=== PATIENT | female | born 1950 | race American Indian/Alaskan Native ===

== ENCOUNTER 2019-12-28 09:23 | Outpatient (CLI) | payer MEDICARE, SELFPAY ==
--- NOTE | ~2019-12-28 | XR_ITS ---
XR hip LT min 3V w AP pelvis DATE: 12/28/2019 10:54 INDICATION: Left hip pain TECHNIQUE: AP pelvis. AP, lateral, crosstable lateral views of left hip COMPARISON: 11/08/2017 bilateral hip FINDINGS: No pelvic fracture or bone destruction. The pubic symphysis and sacral iliac joints are int act. Hip joint spaces are symmetric and relatively well preserved. No fracture or dislocation, avascu lar necrosis or bone destruction of the left hip. IMPRESSION: No significant abnormality of the pelvis or left hip Reviewed, dictated and finalized at location A.
--- NOTE | ~2019-12-28 | MM_ITS ---
EXAMINATION: MM screening chelo BI w alanis HISTORY: Screening TECHNIQUE: Craniocaudal and mediolateral oblique 3-D tomosynthesis images were obtained and synthetic 2-D images were generated. CAD analysis was submitted and interpreted. COMPARISON: No prior mammogram is available for comparison at this institution. BREAST PARENCHYMAL COMPOSITION: There are scattered areas of fibroglandular density. FINDINGS: There is no evidence of suspicious mass, calcification, or architectural distortion to sugg est malignancy in either breast. There has been no suspicious interval change. IMPRESSION: 1. No mammographic evidence of malignancy. 2. Recommend routine screening mammography in one year. BI-RADS Category 1: Negative Reviewed, dictated and finalized at location A.
[2019-12-28 11:01] LABS: Alanine Aminotransferase 29 U/L (4-35); Albumin Level 3.9 g/dL (3.5-5.1); Alkaline Phosphatase 73 U/L (38-126); Anion Gap 7 mmol/L (8-16); Aspartate Amino Transferase 25 U/L (14-36); Bilirubin,Total 0.4 mg/dL (0.2-1.3); Blood Urea Nitrogen 17 mg/dL (7-17); Calcium 9.4 mg/dL (8.4-10.2); Carbon Dioxide 30 mmol/L (22-30); Chloride 101 mmol/L (98-107); Cholesterol 196 mg/dL (0-200); Estimated Glomerular Filt Rate > 60; Glucose 188 mg/dL (65-105); HDL Direct 42 mg/dL; Potassium 4.1 mmol/L (3.4-5.0); Sodium 138 mmol/L (137-145); Triglycerides 363 mg/dL (<150)
[2019-12-28 11:11] LABS: LDL Cholesterol Direct 81 mg/dL
[2019-12-28 11:22] LABS: Hemoglobin A1C 8.3 % (<5.7)
== END 2019-12-28 09:24 | disposition home or self-care (01) ==
PROVIDERS: PCP Emergency Medicine; Visit Provider Emergency Medicine
DX: Z12.31 Encounter for screening mammogram for malignant neoplasm of breast (principal); M25.552 Pain in left hip; E78.5 Hyperlipidemia, unspecified; E11.9 Type 2 diabetes mellitus without complications
CPT/HCPCS: 36415; 73502; 77063; 77067; 80053; 80061; 83036

== ENCOUNTER 2020-02-18 13:02 | Outpatient (NON) | payer MEDICARE, SELFPAY ==
[2020-02-20 13:30] LABS: SARS-CoV-2 RNA PCR Negative
== END 2020-02-18 13:03 ==
PROVIDERS: PCP Emergency Medicine; Visit Provider Emergency Medicine
DX: R68.89 Other general symptoms and signs (principal); Z20.828 Contact with and (suspected) exposure to other viral communicable diseases
CPT/HCPCS: 87635; C9803; U0003

== ENCOUNTER 2020-02-20 20:42 | Emergency (ER) | payer MEDICARE, SELFPAY ==
[2020-02-20] VITALS (28 sets, daily range): BP systolic 131–169; BP diastolic 53–90; PULSE 94–101; RESP 15–28; TEMP 37.1; O2SAT 90–95
--- NOTE | ~2020-02-20 | CT_ITS ---
EXAMINATION: CT lumbar spine w con DATE: 02/20/2020 23:40 INDICATION: Bilateral lower extremity numbness TECHNIQUE: Computed tomography (CT) of the lumbar spine was performed with 100 mL Omnipaque-350 intra venous contrast. Automated exposure control and iterative reconstruction technique were employed. The dose-length product was 1228.37 mGy-cm. COMPARISON: Lumbar spine MR dated 11/29/17 FINDINGS: Mild lumbar levocurvature. Sagittal alignment is normal. Vertebral body heights are normal. Mild loss of disc height at L3-L4. Cholecystectomy clips at the gallbladder fossa. There is calcified atherosc lerosis of the aorta and many of the other arteries. 40% stenosis at the proximal superior mesenteric artery. Moderate sigmoid diverticulosis without adjacent inflammatory change to suggest diverticulit is. The following disc levels are specifically discussed: T11-T12: Disc is mildly bulging. There is moderate bilateral facet joint osteoarthritis. There is no neural foraminal stenosis. There is minimal central canal stenosis. T12-L1: Disc is mildly bulging. There is mild bilateral facet joint osteoarthritis. There is no neura l foraminal stenosis. There is no central canal stenosis. L1-L2: The disc does not extend beyond the endplate margin. There is minimal bilateral facet joint os teoarthritis. There is no neural foraminal stenosis. There is no central canal stenosis. L2-L3: The disc does not extend beyond the endplate margin. There is mild right and minimal left face t joint osteoarthritis. There is no neural foraminal stenosis. There is no central canal stenosis. L3-L4: Disc is mildly bulging. There is mild bilateral facet joint osteoarthritis. There is mild left neural foraminal stenosis. There is minimal central canal stenosis. L4-L5: The disc does not extend beyond the endplate margin. There is hypertrophy of the ligamentum fl avum. There is moderate right and severe left facet joint osteoarthritis. There is some vacuum phenom tiki within a 6 x 4 x 7 mm synovial cyst extending medially from the left facet joint which narrows th e left lateral recess. There is mild right and mild to moderate left neural foraminal stenosis. There is mild central canal stenosis. L5-S1: Disc is mildly bulging. There is moderate left and severe right facet joint osteoarthritis. Th ere is mild left neural foraminal stenosis. There is no central canal stenosis. IMPRESSION: 1. Minimal interval progression of mild to moderate lumbar spondylosis most notable for a synovial cy st arising from the left L4-L5 facet joint which narrows the left lateral recess along the course of the traversing left L5 nerve root. Correlate clinically for muscle weakness of great toe extension an d sensory change of the medial foot and great toe. Reviewed, dictated and finalized at location A. INE STEWARDESS IMPRESSION: 1. Minimal interval progression of mild to moderate lumbar spondylosis most not able for a synovial cyst arising from the left L4-L5 facet joint which narrows the left lateral recess along the course of the traversing left L5 nerve root. Correlate clinically for muscle weakness of great toe extension and sensory nicole nge of the medial foot and great toe.
--- NOTE | ~2020-02-20 | XR_ITS ---
EXAMINATION: XR chest 1V portable EXAM DATE: 02/21/2020 01:00 INDICATION: Chest pain. TECHNIQUE: Portable AP frontal chest x-ray was obtained. Comparison is made to prior examination from 03/11/2017. FINDINGS: Interval development of approximately 3 x 4 cm right perihilar indeterminate opacity and le ft basilar linear atelectasis. There is no pneumothorax suspected. There are no pleural effusions. Ca rdiomediastinal silhouette is normal. There are no osseous abnormalities identified. IMPRESSION: Right perihilar mass or pneumonia. Followup chest x-ray in 3-4 weeks, and to resolution, should be obtained if patient has pneumonia clinically. If the patient does not have pneumonia clini lorna, then a chest CT should be considered for better characterization of possible chronic process. I discussed this case with Dr. Juárez at 02/21/2020 07:57 JEWEL CORNER BRUSHING MACHINE OPERATOR. Reviewed, dictated and finalized at location A. L CORNER BRUSHING MACHINE OPERATOR IMPRESSION: Right perihilar mass or pneumonia. Followup chest x-ray in 3-4 wee ks, and to resolution, should be obtained if patient has pneumonia clinically. If the patient does not have pneumonia clinically, then a chest CT should be co nsidered for better characterization of possible chronic process. I discussed this case with Dr. Juárez at 02/21/2020 07:57 JEWEL CORNER BRUSHING MACHINE OPERATOR.
--- NOTE | ~2020-02-20 | CT_ITS ---
EXAMINATION: CT brain wo con DATE: 02/20/2020 23:37 INDICATION: Bilateral lower extremity numbness TECHNIQUE: Computed tomography (CT) of the head was performed without intravenous contrast. Sagittal and coronal reconstructions were performed. The mA was adjusted according to patient size. Iterative reconstruction technique was employed. The dose-length product was 605.33 mGy-cm. COMPARISON: head CT dated 04/09/2018 FINDINGS: No acute intracranial hemorrhage, acute infarction or abnormal extra axial fluid collection. There is mild scattered white matter hypoattenuation consistent with chronic small vessel ischemic disease. V entricles are normal and symmetric. No mass/mass effect. Changes of bilateral intraocular lens replac ement. The orbits and mastoid air cells are normal. Mild mucosal thickening in the posterior left eth moid sinus. Intracranial calcified cerebral atherosclerosis is noted. IMPRESSION: 1. No acute intracranial process. 2. Mild scattered white matter hypoattenuation consistent with chronic small vessel ischemic disease. Reviewed, dictated and finalized at location A. TION DEVELOPER IMPRESSION: 1. No acute intracranial process. 2. Mild scattered white matter hypoattenuation consistent with chronic small ve ssel ischemic disease.
--- NOTE | 2020-02-20 21:40 | ED.NEUROSD ---
HPI - Neuro Symptoms/Deficit General Chief Complaint: Back Pain/Injury Stated Complaint: back pain Time Seen by Provider: 02/20/20 21:05 Source: patient Mode of arrival: ambulatory Limitations: no limitations History of Present Illness HPI Narrative: Patient 69-year-old female complaining of bilateral lower extremity weakness, I cannot use them , started today. Patient states she had does have a history of low back pain but currently not having any after taking her pain pill prior to arrival. Patient denies any abdominal pain, fever, urinary or bowel incontinence, or urinary symptoms. Related Data Home Medications Medication Instructions Recorded Confirmed blood sugar diagnostic #10 each 03/20/19 ibuprofen 200 mg tablet 200 mg PO Q6H PRN 03/20/19 Allergies Allergy/AdvReac Type Severity Reaction Status Date / Time codeine Allergy Unknown Rash Verified 02/20/20 20:54 morphine Allergy Unknown Rash Verified 02/20/20 20:54 No Known Allergies Allergy Unverified 10/30/17 10:38 Review of Systems Review of Systems: All systems reviewed & are unremarkable except as noted in HPI and below Constitutional: Constitutional: Denies body ache(s), Denies chills, Denies excessive sweating, Denies fatigue, Denies fever(s), Denies headache(s), Denies lethargy, Denies malaise, Denies weakness and Denies weight loss Eyes: Eyes: Denies blurry vision, Denies change in vision and Denies loss of vision ENT: Denies dizziness, Denies ear discharge, Denies headache(s), Denies lip swelling, Denies epistaxis, Denies nasal congestion, Denies neck pain, Denies throat swelling and Denies tongue swelling Cardiovascular: Cardiovascular: Denies chest pain, Denies chest pain at rest, Denies chest pain with activity, Denies diaphoresis, Denies rapid heart rate, Denies edema, Denies irregular heart rhythm, Denies lightheadedness, Denies palpitations, Denies dyspnea and Denies dyspnea on exertion Respiratory: Respiratory: Denies chest congestion, Denies cough, Denies hemoptysis, Denies dyspnea and Denies dyspnea on exertion Gastrointestinal: Gastrointestinal: Denies abdominal pain, Denies melena, Denies hematochezia, Denies diarrhea, Denies nausea, Denies vomiting and Denies hematemesis Musculoskeletal: Musculoskeletal: Denies abnormal gait, Denies deformity, Denies joint swelling, Denies limited range of motion, Denies neck pain and Denies numbness Neurologic: Denies Abnormal speech present, Denies confusion, Denies dizziness, Denies headache(s), Denies focal weakness, Denies loss of vision, Denies Other visual disturbances and Denies Sensory deficit (Neuro) Psychiatric: Psychiatric: Denies confusion, Denies depression, Denies auditory hallucinations, Denies homicidal ideation and Denies suicidal ideation Endocrine: Endocrine: Denies cold intolerance, Denies excessive sweating, Denies fatigue, Denies heat intolerance and Denies palpitations Hematologic/Lymphatic: Hematologic/Lymphatic: Denies easy bleeding and Denies easy bruising Allergic/Immunologic: Allergic/Immunologic: Denies lip swelling, Denies throat swelling and Denies tongue swelling PMFSH Past Medical History Medical History (Updated 02/21/20 @ 00:22 by Gian Erazo MD) COPD (chronic obstructive pulmonary disease) Diabetes mellitus Other screening mammogram Family History Family History Father Family history of Alzheimer's disease Malignant neoplasm of prostate, Onset Age: 74 Patient's father is Mother Family history of malignant neoplasm of cervix Family history of malignant neoplasm of ovary Sibling Family history of malignant neoplasm of ovary Social History Social History Smoking status: Current every day smoker Second hand tobacco smoke exposure: Yes Smoking end date: 03/21/11 Alcohol intake: never Gender identity (if verbalized by the patient):
[2020-02-20 22:21] LABS: Basophils Absolute Auto 0.1 K/mm3 (0.0-0.1); Basophils Percent Auto 0.3 % (0.2-1.2); Hematocrit 44.2 % (37.0-47.0); Hemoglobin 14.7 g/dL (12.0-15.0); Immature Granulocyte Absolute 0.14 K/mm3 (0.00-0.031); Immature Granulocyte Percent A 0.6 % (0-0.5); Lymphocytes Percent Auto 9.4 % (18.3-44.2); Mean Corpuscular HGB Conc 33.3 g/dl (32-36); Mean Corpuscular Hemoglobin 30.5 pg (26-34); Mean Corpuscular Volume 91.7 fl (80-100); Mean Platelet Volume 11.4 fl (7.4-10.4); Monocytes Absolute Auto 1.7 K/mm3 (0.1-0.6); Neutrophils Absolute Auto 20.3 K/mm3 (1.3-6.7); Neutrophils Percent Auto 82.7 % (45.5-73.1); Platelet Count Result 233 k/mm3 (150-375); Red Blood Count 4.82 M/mm3 (4.2-5.4); Red Cell Distribution Width 13.9 % (11.5-14.5); White Blood Count 24.5 K/mm3 (4.5-10.0)
[2020-02-20 22:36] LABS: Alanine Aminotransferase 33 U/L (4-35); Albumin Level 4.1 g/dL (3.5-5.1); Alkaline Phosphatase 97 U/L (38-126); Anion Gap 9 mmol/L (8-16); Aspartate Amino Transferase 26 U/L (14-36); Bilirubin,Total 0.8 mg/dL (0.2-1.3); Blood Urea Nitrogen 15 mg/dL (7-17); CRP 8.2 mg/dL (<1.0); Calcium 9.6 mg/dL (8.4-10.2); Carbon Dioxide 28 mmol/L (22-30); Chloride 97 mmol/L (98-107); Estimated CRCL calculation 67 ml/min; Estimated Glomerular Filt Rate > 60; Glucose 325 mg/dL (65-105); Sodium 134 mmol/L (137-145)
[2020-02-20 22:59] LABS: Erythrocyte Sedimentation Rate 22 mm/hr (0-20)
[2020-02-21] VITALS (20 sets, daily range): BP systolic 151–171; BP diastolic 58–81; PULSE 97–107; RESP 20–32; O2SAT 90–94
[2020-02-21 00:56] LABS: Add Urine Microscopic? YES; Appearance Urine Clear (Clear); Bilirubin Urine Negative (Negative); Blood Urine Negative (Negative); Color Urine Yellow (Yellow); Glucose Urine UA 3+ mg/dL (Negative); Ketones Urine Trace mg/dL (Negative); Leukocyte Esterase Ur Negative LEU/UL (Negative); Mucus Urine Rare /lpf; Nitrate Urine Negative (Negative); Protein Urine 3+ mg/dL (Negative); Specific Grav Ur 1.032 (1.001-1.035); Squamous Epithelial Cell Urine Rare /hpf (Few); Urobilinogen Urine Negative mg/dL (<2.0); WBC Urine 0-3 /hpf
[2020-02-21] MEDS: LACTATED RINGERS 1,000 ML 999 ML IV CONT (01:05)
== END 2020-02-21 03:21 | disposition short-term general hospital (02) ==
PROVIDERS: Emergency Provider Emergency Medicine; PCP Emergency Medicine
DX: R53.1 Weakness (principal); F17.210 Nicotine dependence, cigarettes, uncomplicated; J44.9 Chronic obstructive pulmonary disease, unspecified; E11.9 Type 2 diabetes mellitus without complications; R91.8 Other nonspecific abnormal finding of lung field
CPT/HCPCS: 36415; 70450; 71045; 72132; 80053; 81001; 85025; 85652; 86140; 96361; 96374; 99285; J2543; J7120; Q9967

== ENCOUNTER 2020-07-14 12:08 | Outpatient (CLI) | payer MEDICARE, SELFPAY ==
--- NOTE | ~2020-07-14 | XR_ITS ---
XR hip LT 2V w AP pelvis 07/14/2020 12:36 Indication: Low back pain and left hip pain Procedure: AP pelvis and 2 views left hip Comparison: 12/28/2019 Findings: Pelvic rings are intact. Sacral foramen are symmetric. No fracture or traumatic malalignmen t. Sacral foramen are symmetric. No significant soft tissue abnormality. No foreign bodies. There is lower lumbar spondylosis. Impression: 1: No acute fracture. Reviewed, dictated and finalized at location B. Impression: 1: No acute fracture.
--- NOTE | ~2020-07-14 | XR_ITS ---
EXAMINATION: XR lumbar spine 2-3V DATE: 07/14/2020 12:36 INDICATION: Low back pain TECHNIQUE: Anteroposterior and lateral views of the lumbar spine, and cone-down lateral view of the l umbosacral junction were obtained. COMPARISON: Lumbar spine CT dated 02/20/2020 FINDINGS: Mild lumbar levorotocurvature. Sagittal alignment is normal. Vertebral body heights are normal. Mild right-sided disc height loss at L3-L4 and L4-L5. Moderate to severe lower lumbar facet osteoarthritis . Mild bilateral sacroiliac osteoarthritis. Cholecystectomy clips in right upper quadrant. Atheroscle rotic aorta and common iliac arteries. IMPRESSION: 1. Mild lumbar levorotocurvature with mild lower lumbar spondylosis. Reviewed, dictated and finalized at location A.
== END 2020-07-14 12:09 | disposition home or self-care (01) ==
LOC: ANHIMG 12:15
PROVIDERS: PCP Emergency Medicine; Visit Provider Emergency Medicine
DX: M47.896 Other spondylosis, lumbar region (principal)
CPT/HCPCS: 72100; 73502

== ENCOUNTER 2020-07-22 13:35 | Outpatient (CLI) | payer MEDICARE, SELFPAY ==
--- NOTE | ~2020-07-22 | CT_ITS ---
EXAMINATION:CT diagnostic chest wo con DATE: 07/22/2020 13:57 INDICATION: Solitary pulmonary nodule. TECHNIQUE: Computed tomography (CT) of the chest was performed without intravenous contrast. Automate d exposure control and iterative reconstruction technique were employed. The dose-length product (DLP ) was 182.09 mGy-cm. COMPARISON: Chest CT 03/11/2017, chest single view 02/21/2020 FINDINGS: There is mild atelectasis bilaterally. Calcified pulmonary nodules and calcified hilar and mediastinal lymph nodes are consistent with old granulomatous disease. Again seen is mucous plugging in anteromedial basal segment left lower lobe. No pleural effusion. The heart size is normal. There a re coronary artery calcifications. No pericardial effusion. There is diffuse hepatic steatosis. There is mild thoracic spondylosis. IMPRESSION: 1. No evidence of malignancy. Reviewed, dictated and finalized at location A.
== END 2020-07-22 13:36 | disposition home or self-care (01) ==
PROVIDERS: PCP Emergency Medicine; Visit Provider Emergency Medicine
DX: R91.1 Solitary pulmonary nodule (principal)
CPT/HCPCS: 71250

== ENCOUNTER 2021-07-27 12:18 | Emergency (ER) | payer MEDICARE, SELFPAY ==
--- NOTE | ~2021-07-27 | XR_ITS ---
XR foot LT min 3V DATE: 07/27/2021 14:39 INDICATION: Great toe infection, blackening of the skin TECHNIQUE: 4 views COMPARISON: None FINDINGS: There is prominent forefoot soft tissue swelling. Plantar calcaneal and minimal posterior calcaneal enthesopathy. No fracture or dislocation, periosteal reaction or bone destruction is detected. No erosive change. IMPRESSION: Prominent forefoot soft tissue swelling Calcaneal enthesopathy Reviewed, dictated and finalized at location B.
--- NOTE | ~2021-07-27 | XR_ITS ---
EXAMINATION: XR chest 2V DATE: 07/27/2021 13:18 INDICATION: Weakness TECHNIQUE: AP and lateral views of the chest are obtained. COMPARISON: 02/21/2020 FINDINGS: There are minimal airspace opacities of the lung bases. Small pleural effusions are present . There is no pneumothorax. The cardiomediastinal silhouette is normal. There is moderate thoracic sp ondylosis. IMPRESSION: 1. Small pleural effusions. 2. Minimal bibasilar airspace opacities, likely atelectasis. Reviewed, dictated and finalized at location A.
[2021-07-27 12:49] VITALS: BP 164/98; PULSE 102; RESP 18; TEMP 36.7; O2SAT 97
--- NOTE | 2021-07-27 12:52 | ECG_ITS ---
Measurements Intervals [place] Rate: 102 P: 73 MA: 142 QRS: -30 QRSD: 90 T: 60 QT: 356 QTc: 466 Interpretive Statements SINUS TACHYCARDIA INCOMPLETE RIGHT BUNDLE BRANCH BLOCK POOR R WAVE PROGRESSION, ANTERIOR LEADS CONSIDER INFERIOR INFARCT, AGE INDETERMINATE BASELINE ARTIFACT- I, AVR, AVL, AVF, V2 ABNORMAL ECG Electronically Signed On 07-27-2021 13:27:52 CDT by Artur Devries D.O.
[2021-07-27 13:17] LABS: Basophils Absolute Auto 0.1 K/mm3 (0.0-0.1); Basophils Percent Auto 0.7 % (0.2-1.2); Eosinophils Absolute Auto 0.2 K/mm3 (0-0.3); Eosinophils Percent Auto 1.8 % (0-4.4); Hematocrit 41.6 % (37.0-47.0); Hemoglobin 13.8 g/dL (12.0-15.0); Immature Granulocyte Absolute 0.05 K/mm3 (0.00-0.031); Immature Granulocyte Percent A 0.5 % (0-0.5); Lymphocytes Absolute Auto 2.06 K/mm3 (0.9-3.2); Lymphocytes Percent Auto 20.5 % (18.3-44.2); Mean Corpuscular HGB Conc 33.2 g/dl (32-36); Mean Corpuscular Hemoglobin 30.5 pg (26-34); Mean Platelet Volume 10.9 fl (7.4-10.4); Monocytes Absolute Auto 0.5 K/mm3 (0.1-0.6); Monocytes Percent Auto 5.1 % (2.6-8.5); Neutrophils Absolute Auto 7.2 K/mm3 (1.3-6.7); Neutrophils Percent Auto 71.4 % (45.5-73.1); Platelet Count Result 284 k/mm3 (150-375); Red Blood Count 4.52 M/mm3 (4.2-5.4); Red Cell Distribution Width 14.7 % (11.5-14.5); White Blood Count 10.1 K/mm3 (4.5-10.0)
[2021-07-27 13:26] LABS: Alanine Aminotransferase 18 U/L (6-35); Albumin Level 3.4 g/dL (3.5-5.1); Alkaline Phosphatase 88 U/L (38-126); Anion Gap 5 mmol/L (8-16); Aspartate Amino Transferase 20 U/L (14-36); Bilirubin,Total 0.2 mg/dL (0.2-1.3); Blood Urea Nitrogen 10 mg/dL (7-17); Calcium 8.9 mg/dL (8.4-10.2); Carbon Dioxide 29 mmol/L (22-30); Chloride 99 mmol/L (98-107); Estimated CRCL calculation 78 ml/min; Estimated Glomerular Filt Rate > 60; Glucose 229 mg/dL (65-110); Potassium 3.5 mmol/L (3.4-5.0); Sodium 133 mmol/L (137-145)
[2021-07-27 13:34] LABS: NT Pro B Type Natriuretic Pept 220 pg/mL (5-100)
--- NOTE | 2021-07-27 15:15 | ED.GENADULT ---
HPI - General Adult General Chief complaint: Extremity Injury, Lower Stated complaint: swelling BLE/weakness Time Seen by Provider: 07/27/21 13:57 History of Present Illness HPI narrative: Patient has had infections in her toes for the last month, she saw her official court interpreter about a month ago, he gave her some medications and antibiotics and ointments that cleared up the infection, right now her left great toe was only 1 that still is painful for her, but overall she states that everything has been looking much better. Denies any systemic symptoms.. Also endorses some bilateral lower extremity edema. Related Data Allergies Allergy/AdvReac Type Severity Reaction Status Date / Time No Known Allergies Allergy Unverified 07/27/21 14:03 Review of Systems Review of Systems: All systems reviewed & are unremarkable except as noted in HPI and below PMFSH Past Medical History Medical History COPD (chronic obstructive pulmonary disease) Diabetes mellitus Other screening mammogram Family History Family History Father Family history of Alzheimer's disease Malignant neoplasm of prostate, Onset Age: 76 Patient's father is Mother Family history of malignant neoplasm of cervix Family history of malignant neoplasm of ovary Sibling Family history of malignant neoplasm of ovary Social History Social History Smoking status: Current every day smoker Second hand tobacco smoke exposure: Yes Smoking end date: 03/21/11 Alcohol intake: never Gender identity (if verbalized by the patient): Female Sexual Orientation (if Verbalized by the Patient): Straight or Heterosexual Exam Const: General: no acute distress Orientation/consciousness: patient oriented x3 HENMT: Head: normal to inspection Eyes: Conjunctivae: conjunctivae normal Neck: Neck: normal visual inspection Chest: Chest palpation & inspection: normal inspection of the chest Resp: Effort & Inspection: normal respiratory effort Cardio: Rate: regular rate Rhythm: regular rhythm GI: Inspection: non-distended Skin: Other: Dark skin to distal left great toe, sensation intact, slightly tender to palpation Neuro: General: moves all extremities Extrem: Other: described above Psych: Mental Status: mental status grossly normal Course Course Emergency Course: 70-year-old female presents with pain to her left great toe, she has had infections in her toes for the last month that has improved with treatment, vital signs stable, exam shows patient back and skin distal left great toe, otherwise neurovascularly intact, per patient it is looking much better than it used to, and she has no systemic symptoms. I will obtain labs and x-ray here, there is no finding of crepitus, exquisite tenderness to suggest surgical emergency, she has good sensation, and overall states that the appearance has been improved. X-ray does not show osteomyelitis. We will obtain blood cultures to follow and start her on antibiotics here and have her follow-up with her official court interpreter as she would like to go home at this time, she is counseled to return if she has any systemic symptoms or if the infections are spreading, stable for discharge home. Vital Signs Vital signs: Vital Signs Temperature 98.0 F 07/27/21 12:49 Pulse Rate 102 H 07/27/21 12:49 Respiratory Rate 18 07/27/21 12:49 Blood Pressure 164/98 H 07/27/21 12:49 Pulse Oximetry 97 07/27/21 12:49 Temperature 98.0 F 07/27/21 12:49 Pulse Rate 102 H 07/27/21 12:49 Respiratory Rate 18 07/27/21 12:49 Blood Pressure 164/98 H 07/27/21 12:49 Pulse Oximetry 97 07/27/21 12:49 Medical Decision Making Differential Diagnosis Differential Diagnosis: Osteomyelitis, necrotizing fasciitis, ischemic foot Vital Signs Vital Signs: Vital Signs Temperature 98.0 F
[2021-07-27] MEDS: FUROSEMIDE INJ 40 MG/4 ML VIAL IV PUSH (15:27)
[2021-07-27] MEDS: cefTRIAXone 2 GM in SODIUM CHLORIDE 0.9% IV 100 ML 200 ML IVPB (16:42)
[2021-07-27 16:43] VITALS: BP 161/71; PULSE 88; RESP 18; O2SAT 100
--- NOTE | 2021-08-13 11:01 | PC.NURSE ---
LATE ENTRY This note is being entered to document information to the patient's record. The following information was omitted on [07/27/21], by [Anahi Warren RN]. Stop time for Ceftriaxone was 1710pm
--- NOTE | 2021-08-13 12:17 | PC.NURSE ---
LATE ENTRY This note is being entered to document information to the patient's record. The following information was omitted on [07/27/2021], by [Anahi Warren RN]. Ceftriaxone stop time is 1710
== END 2021-07-27 17:14 | disposition home or self-care (01) ==
PROVIDERS: Emergency Medicine; Emergency Provider Emergency Medicine; PCP Emergency Medicine
DX: L03.032 Cellulitis of left toe (principal); J44.9 Chronic obstructive pulmonary disease, unspecified; E11.9 Type 2 diabetes mellitus without complications; Z87.891 Personal history of nicotine dependence; Z79.84 Long term (current) use of oral hypoglycemic drugs
CPT/HCPCS: 36415; 71046; 73630; 80053; 83880; 85025; 87040; 87077; 87186; 93005; 96365; 96375; 99284; J0696; J1940

== ENCOUNTER 2022-01-05 15:18 | Inpatient (IN) | payer MEDICARE, SELFPAY ==
[2022-01-05] VITALS (20 sets, daily range): BP systolic 117–200; BP diastolic 61–100; PULSE 95–160; RESP 16–29; TEMP 36.1–36.7; O2SAT 85–99; BMI 23.9
--- NOTE | ~2022-01-05 | CT_ITS ---
EXAMINATION: CT brain wo con INDICATION: Altered mental status COMPARISON: 02/20/2020 TECHNIQUE: Standard unenhanced head CT. The dose-length product (DLP) was 605.33 mGy-cm. The mA was a djusted according to patient size. Iterative reconstruction technique was employed. FINDINGS: There is no acute intraparenchymal hemorrhage. No evidence of mass lesion. No evidence of a cute infarction. There is mild periventricular and subcortical hypodensity probably related to small vessel ischemic disease. There is mild prominence of the sulci and ventricles related to cerebral atr ophy. Intracranial calcified cerebral atherosclerosis is noted. There are no extra-axial collections. There is no mass effect or midline shift. Changes in the globes are likely from ocular lens surgery. There is moderate mucosal thickening of the paranasal sinuses. Fluid levels are noted in the right m axillary and sphenoid sinuses. IMPRESSION: 1. No acute intracranial abnormality. 2. Age related findings. 2. Sinus disease. Reviewed, dictated and finalized at location A.
--- NOTE | ~2022-01-05 | US_ITS ---
EXAMINATION: US art doppler w press LE BI DATE: 01/07/2022 12:53 INDICATION: Peripheral vascular disease. Claudication. TECHNIQUE: Segmental pressures and plethysmographic and Doppler waveforms of the brachial and lower e xtremity arteries were obtained. COMPARISON: None. FINDINGS: Right and left brachial artery pressures of 171 mm Hg and 178 mm Hg, respectively, are concordant (no rmal difference <= 30 mmHg). The right high-thigh pressure index is 1.02 (normal > 1.2). The right ankle-brachial index (COLBY) is 0 .95 (normal >= 0.9-1.0). The right great toe-brachial index (TBI) is 0.46 (normal >= 0.65). Arterial Doppler waveforms are biphasic from common femoral artery to the ankle. The left thigh and lower leg pressures could not be measured due to inability to cuff occlude the art eries. The left COLBY could not be measured. The left TBI was not measured. Arterial Doppler waveforms are biphasic from common femoral artery to the ankle. IMPRESSION: 1. Mildly decreased right COLBY and decreased right TBI, consistent with right-sided arterial occlusive disease. 2. Nondiagnostic left COLBY. Reviewed, dictated and finalized at location A. IMPRESSION: 1. Mildly decreased right COLBY and decreased right TBI, consistent with right-si ded arterial occlusive disease. 2. Nondiagnostic left COLBY.
--- NOTE | ~2022-01-05 | XR_ITS ---
EXAMINATION: XR foot LT 2V DATE: 01/06/2022 05:11 INDICATION: Diabetic foot ulcer TECHNIQUE: Dorsoplantar and lateral views of the left foot were obtained. COMPARISON: None. FINDINGS: Deep ulceration at the distal aspect of the great toe which appears to expose the surface of the tuft of the first distal phalanx. There is osteolysis with cortical erosion and irregular bone margin to the medial side of the tuft of the first distal phalanx consistent with osteomyelitis. Bone alignment is normal. Diffuse osteopenia. No fracture. Mild polyarticular osteoarthritis at multiple joints thr oughout the left foot and ankle. Small Achilles and plantar calcaneal spurs. Soft tissue swelling ove r the dorsum of the forefoot. IMPRESSION: 1. Osteomyelitis at the tuft of the left first distal phalanx. Reviewed, dictated and finalized at location A.
--- NOTE | ~2022-01-05 | XR_ITS ---
EXAMINATION: XR chest 1V portable Exam Date/Time: 01/05/2022 16:25 CDT HISTORY: AMS, FOUND COVERED IN URINE/FECES HX COPD,DIABETIC Comparison: 07/27/2021. RESULT: Lines, tubes, and devices: None. Lungs and pleura: Leftward rotation. Senescent change. Apparent increased left angle blunting likely due to rotation. Cardiomediastinal silhouette: Stable. Other: No acute osseous or upper abdominal finding. IMPRESSION: No acute cardiopulmonary process. Reviewed, dictated and finalized at location K.
--- NOTE | 2022-01-05 16:00 | PC.NURSE ---
pt had pulse ox in her mouth. when pt questioned what she was doing pt stated she was drinking her water. pt remains confused to time and place.
--- NOTE | 2022-01-05 16:15 | PC.NURSE ---
pts daughter at bedside. daughter states she was aware in may that pt was unable to care for herself. states lives with her who is unable to lift her. states pt in noncompliant with meds and refuses to let family help. states pt has spent much of her time on the couch in the living room. per ems couch is saturated in urine. daughter states pt normally is able to change her own depends. pt did not present in any today. daughter does state she had a fight with pt and spouse yesterday regarding need for nh or rehab placement.
--- NOTE | 2022-01-05 16:23 | ECG_ITS ---
Measurements Intervals [place] Rate: 123 P: 75 HI: 160 QRS: 15 QRSD: 84 T: 66 QT: 396 QTc: 568 Interpretive Statements SINUS TACHYCARDIA WITH FREQUENT SUPRAVENTRICULAR PREMATURE COMPLEXES LOW QRS VOLTAGE IN EXTREMITY LEADS [QRS DEFLECTION < 0.5 mV IN LIMB LEADS] NONSPECIFIC ST & T-WAVE ABNORMALITY ABNORMAL ECG COMPARED TO ECG 07/27/2021 13:00:56 T-WAVE ABNORMALITY NOW PRESENT Electronically Signed On 01-06-2022 10:17:38 CDT by Marcos Gonzalez M.D.
--- NOTE | 2022-01-05 16:24 | ED.AMS ---
HPI - Altered Mental Status General Chief Complaint: Altered Mental Status Stated Complaint: not feeling good Time Seen by Provider: 01/05/22 16:03 History of Present Illness HPI narrative: This is a 71-year-old female with past medical history of COPD, diabetes, hypertension, brought in by EMS for altered mental status and inability to care for self. Per the patient's daughter, in the room, she states patient appears more confused than her usual. She states yesterday her mother sounded like her usual self. She is known to have poor living conditions, essentially not leaving the couch. EMS reports patient was found in poor condition, covered in feces and urine. Related Data Home Medications Medication Instructions Recorded Confirmed albuterol sulfate 90 mcg/actuation 2 puff inhalation Q4H PRN 01/05/22 01/05/22 aerosol inhaler Shortness Of Breath diclofenac sodium 50 mg 50 mg PO BID 01/05/22 01/05/22 tablet,delayed release lisinopril 10 mg tablet 10 mg PO DAILY 01/05/22 01/05/22 metformin 1,000 mg tablet 1,000 mg PO BID 01/05/22 01/05/22 simvastatin 10 mg tablet 10 mg PO DAILY 01/05/22 01/05/22 Allergies Allergy/AdvReac Type Severity Reaction Status Date / Time No Known Allergies Allergy Verified 01/05/22 19:30 Review of Systems Review of Systems: Review of systems limited due to patient's altered mental status CONSTITUTIONAL: Chills, Denies fever, or sweats. CARDIOVASCULAR: Denies chest pain, palpitations, or edema. GENITOURINARY: Increased urinary frequency denies dysuria or hematuria. SKIN: Lesions on the buttock and back consistent with pressure ulcers, rash or itching. MUSCULOSKELETAL: Denies back pain, joint pain, or myalgia. NEUROLOGIC: Headache denies numbness, dizziness, or weakness. [facility] Past Medical History Medical History (Updated 01/05/22 @ 22:50 by Rip Manzo MD) CHF (congestive heart failure) COPD mixed type Cortical age-related cataract of both eyes Diabetes mellitus Essential hypertension Mixed hyperlipidemia Other screening mammogram Right-sided Cool's palsy Spinal stenosis of lumbosacral region Tobacco abuse Vitamin D deficiency Surgical History Surgical History (Updated 01/05/22 @ 22:48 by Christine Jin DO) History of appendectomy History of Hx of cholecystectomy Family History Family History (Updated 01/05/22 @ 19:44 by Jesica Alvares RN) Father Malignant neoplasm of prostate, Onset Age: 76 Patient's father is Family history of Alzheimer's disease Mother Family history of malignant neoplasm of ovary Family history of malignant neoplasm of cervix Sibling Family history of malignant neoplasm of ovary Other Unknown family medical history Social History Social History Smoking packs per day: 2 Smoking cigarettes per day: 40.0 Years smoked: 50 Smoking pack-years: 100.00 Smoking status: Current every day smoker Tobacco type: cigarettes Second hand tobacco smoke exposure: Yes Smoking end date: 03/21/11 Alcohol intake: never Substance use: never Substance use type: does not use Gender identity (if verbalized by the patient): Female Sexual Orientation (if Verbalized by the Patient): Straight or Heterosexual Spiritual care concerns: No Agree to blood products: Yes Exam Narrative: GENERAL: Well-developed, well-nourished, slow to respond HEAD: Normocephalic, atraumatic. EYES: PERRLA and EOMI. ENT: Nares clear, no rhinorrhea or epistaxis. Mucous membranes dry. Oropharynx without tonsillar hypertrophy exudate or other lesions. NECK: Supple. No adenopathy or masses. No carotid bruits or JVD CHEST: Clear to auscultation. No respiratory distress. No wheezes rales or rhonchi HEART: Tachycardic with regular rhythm. No murmur heard. Normal peripheral pulses. ABDOMEN: Soft, nontender, nondistended, normal active bowel sounds. EXTREMITIES: No
[2022-01-05] MEDS: SODIUM CHLORIDE 0.9% IV 1,000 ML 999 ML IV CONT ×3 (16:39→20:47)
[2022-01-05 16:41] LABS: Basophils Absolute Auto 0.1 K/mm3 (0.0-0.1); Basophils Percent Auto 0.4 % (0.2-1.2); Eosinophils Absolute Auto 0.1 K/mm3 (0-0.3); Eosinophils Percent Auto 0.3 % (0-4.4); Hematocrit 42.8 % (37.0-47.0); Hemoglobin 14.1 g/dL (12.0-15.0); Immature Granulocyte Percent A 0.6 % (0-0.5); Lymphocytes Absolute Auto 0.91 K/mm3 (0.9-3.2); Lymphocytes Percent Auto 5.6 % (18.3-44.2); Mean Corpuscular HGB Conc 32.9 g/dl (32-36); Mean Corpuscular Hemoglobin 30.5 pg (26-34); Mean Corpuscular Volume 92.4 fl (80-100); Mean Platelet Volume 11.8 fl (7.4-10.4); Monocytes Absolute Auto 0.5 K/mm3 (0.1-0.6); Monocytes Percent Auto 3.3 % (2.6-8.5); Neutrophils Absolute Auto 14.5 K/mm3 (1.3-6.7); Neutrophils Percent Auto 89.8 % (45.5-73.1); Platelet Count Result 280 k/mm3 (150-375); Red Blood Count 4.63 M/mm3 (4.2-5.4); Red Cell Distribution Width 13.7 % (11.5-14.5); White Blood Count 16.1 K/mm3 (4.5-10.0)
[2022-01-05 16:46] LABS: Add Urine Microscopic? YES; Appearance Urine Clear (Clear); Bacteria Urine Trace /hpf; Bilirubin Urine Negative (Negative); Blood Urine 1+ (Negative); Color Urine Straw (Yellow); Glucose Urine UA 3+ mg/dL (Negative); Ketones Urine Negative (Negative); Leukocyte Esterase Ur Negative LEU/UL (Negative); Mucus Urine Rare /lpf; Nitrate Urine Negative (Negative); Protein Urine 2+ mg/dL (Negative); Specific Grav Ur 1.008 (1.001-1.035); Urobilinogen Urine Negative mg/dL (<2.0); WBC Urine 0-3 /hpf
[2022-01-05 16:48] LABS: Lactic Acid Reflex 3.3 mmol/L (0.7-2.0)
[2022-01-05 17:01] LABS: Alanine Aminotransferase 20 U/L (6-35); Albumin Level 4.2 g/dL (3.5-5.1); Alkaline Phosphatase 127 U/L (38-126); Anion Gap 14 mmol/L (8-16); Aspartate Amino Transferase 29 U/L (14-36); Bilirubin,Total 0.7 mg/dL (0.2-1.3); Blood Urea Nitrogen 13 mg/dL (7-17); Calcium 10.7 mg/dL (8.4-10.2); Carbon Dioxide 28 mmol/L (22-30); Chloride 96 mmol/L (98-107); Estimated CRCL calculation 72 ml/min; Estimated Glomerular Filt Rate > 60; Glucose 342 mg/dL (65-110); Potassium 4.4 mmol/L (3.4-5.0); Sodium 138 mmol/L (137-145)
[2022-01-05 17:05] LABS: Troponin I < 0.012 ng/mL (0.000-0.034)
[2022-01-05] MEDS: ALBUTEROL SULFATE NEB 2.5 MG/3 ML INH 5 MG INHALATION (17:11)
[2022-01-05 17:55] LABS: Influenza A QL RT-PCR Negative (Negative); Influenza B QL RT-PCR Negative (Negative); SARS-CoV-2 RNA PCR Negative
[2022-01-05] MEDS: cefTRIAXone 2 GM in SODIUM CHLORIDE 0.9% IV 100 ML 200 ML IVPB (18:01)
--- NOTE | 2022-01-05 19:01 | ADMGEN ---
This patient, Majo Abbott, was admitted to Medical Room 245-. Patient/family oriented to hospital policies and general routines including ID bracelet, bed and alarms, visiting hours, pain management, procedures, bathroom and other care routines, personal items, smoking policy, room service/diet, and visiting hours. Information on how to activate the Rapid Response Team has been discussed. Patient/Family are encouraged to report perceived risks to care and to ask questions if they do not understand what they are told or what they should do.
[2022-01-05 19:35] LABS: Reflex Lactic Acid Yes or No Add Lactic
--- NOTE | 2022-01-05 19:40 | PC.NURSE ---
Dr Jin notified of pt on tele heart rate 140'2s- 150's, looks like afib.
[2022-01-05 19:50] LABS: Creatine Kinase 43 U/L (30-135)
--- NOTE | 2022-01-05 20:00 | ECG_ITS ---
Measurements Intervals [place] Rate: 148 P: VA: 0 QRS: 5 QRSD: 85 T: 0 QT: 215 QTc: 338 Interpretive Statements ATRIAL FIBRILLATION WITH RAPID VENTRICULAR RESPONSE LOW QRS VOLTAGE IN EXTREMITY LEADS [QRS DEFLECTION < 0.5 mV IN LIMB LEADS] MARKED ST DEPRESSION, CONSIDER SUBENDOCARDIAL INJURY [0.2+ mV ST DEPRESSION] ABNORMAL ECG COMPARED TO ECG 01/05/2022 18:05:51 ATRIAL FIBRILLATION NOW PRESENT Electronically Signed On 01-06-2022 10:19:31 CDT by Marcos Gonzalez M.D.
--- NOTE | 2022-01-05 20:01 | PM.IMHP ---
H&P: HPI History of Present Illness Date/Time: 01/05/22 20:01 Chief Complaint: Altered mental status, covered in urine Narrative: 71-year-old female with a past medical history of coronary artery disease, paroxysmal atrial fibrillation, type 2 diabetes mellitus, and hyperlipidemia who presented to the ER via EMS due to complaints of sore throat and neck pain. When patient arrived to the ER she was covered in urine and feces at had saturated through her clothes. The patient was oriented only to person. Patient evidently has been immobile at home and mostly sits on the couch but will transfer to a bedside commode. However today she has been too weak to transfer to the bedside commode. Has been immobile like this for at least a year. She complains of throat pain whenever her neck is palpated. She reports pain with swallowing. However he also grab some back of her neck and states that her neck hurts. She also grab the back of her neck and states that her neck hurts. She is confused and only oriented to person and place at the time my evaluation. She denies any chest pain or palpitations. she has been incontinent of urine and stool. She denies any abdominal pain. She has a wound to her left great toe. Her states that she went to a vacuum cleaner mechanic who told them that they needed to see another specialist or the patient would end of losing her toe. They never followed up with that specialist that I suspect was a vascular surgeon. On exam the patient has absent pedal and posterior tibial pulses on that foot but she denies any foot pain. She has not been having any nausea or vomiting. He denies any headache. She is noted to have an intermittent cough. She has coarse breath sounds on the right. Her COVID and influenza swabs were negative. The daughter thinks the patient may have a history of CHF. At the time of my evaluation the patient was in AFib RVR with rate as high as 160 on the monitor. EKG also demonstrated marked ST depression. Initial EKG in the ER was sinus tachycardia. She has dried flaking skin to bilateral lower extremities. Family states that this is unchanged from baseline. The patient's daughter reports that patient's buttocks are macerated. Review of Systems Review of Systems: Unattainable due to the patient's mental status. [facility] Past Medical History Medical History (Updated 01/05/22 @ 23:15 by Christine Jin DO) CHF (congestive heart failure) COPD mixed type Cortical age-related cataract of both eyes Diabetes mellitus Essential hypertension Mixed hyperlipidemia Other screening mammogram Peripheral artery disease Right-sided Cool's palsy Spinal stenosis of lumbosacral region Tobacco abuse Vitamin D deficiency Surgical History Surgical History (Updated 01/05/22 @ 22:48 by Christine Jin DO) History of appendectomy History of Hx of cholecystectomy Family History Family History Father Malignant neoplasm of prostate, Onset Age: 76 Patient's father is Family history of Alzheimer's disease Mother Family history of malignant neoplasm of ovary Family history of malignant neoplasm of cervix Sibling Family history of malignant neoplasm of ovary Other Unknown family medical history Social History Social History (Updated 01/05/22 @ 22:50 by Christine Jin DO) Social History: She lives at home with her . She sleeps on the couch. She uses a bedside commode. She has smoked up to 2 pack per day since she was a teenager. She denies any history of heavy alcohol use. She denies illicit substance use. Code status: Full code Surrogate decision maker: Primary care physician: Dr. aJmes Medina Smoking packs per day: 2 Smoking cigarettes per day: 40.0 Years smoked: 50 Smoking pack-years: 100.00 Smoking status: Current every day smoker Tobacco type: cigarettes Second hand tobacco
[2022-01-05 20:27] LABS: Troponin I < 0.012 ng/mL (0.000-0.034)
[2022-01-05 20:40] LABS: Lactic Acid 2.1 mmol/L (0.7-2.0)
[2022-01-05 20:45] LABS: Alveolar/Arterial O2 Gradient 603.2 mmHg; Base Excess ABG 1.6 mEq/l (+/-2.0); Carboxyhemoglobin 0.4 % THb (0-2.0); Device NON-REBREATHER MASK; Fractional Inspired Oxygen 100 %; HCO3 ABG 25.3 mEq/l (22.0-26.0); Methemoglobin ABG 0.2 %THb (0-1.5); Modified Allen's Test Unable to perform; Oxygen Content ABG 16.4 %vol (16.0-22.0); Oxygen Saturation ABG 95.5 % (95.0-100.0); Oxyhemoglobin 93.6 % THb (90.0-100.0); PCO2 ABG 36.7 mmHg (35.0-45.0); PO2 ABG 73.1 mmHg (80.0-100.0); PO2 FiO2 Ratio Arterial Blood 0.73 %; Reduced Hemoglobin 5.8 %THb (0-5.0); Site Drawn RIGHT RADIAL; Total Hemoglobin 12.4 g/dL (12.0-18.0); pH ABG 7.456 (7.350-7.450)
[2022-01-05] MEDS: METOPROLOL TARTRATE INJ 5 MG/5 ML VIAL IV PUSH (20:49)
[2022-01-05 21:14] LABS: Ammonia < 9 umol/L (9-30)
[2022-01-05 21:18] LABS: CRP 5.9 mg/dL (<1.0)
--- NOTE | 2022-01-05 21:25 | PC.NURSE ---
This patient, Majo Abbott, was transferred to ICU on 01/05/22 at 2125. Personal belongings sent with patient. Report given to Sesar WILD. Appropriate documentation sent with patient.
[2022-01-05 21:27] LABS: Erythrocyte Sedimentation Rate 48 mm/hr (0-20); Troponin I 0.032 ng/mL (0.000-0.034)
[2022-01-05 21:50] LABS: Monoscreen Negative (Negative); Negative Monotest Control Negative (Negative); Positive Monotest Control Positive (Positive)
[2022-01-05] MEDS: SODIUM CHLORIDE 0.9% IV 1,000 ML 100 ML IV CONT (23:27)
[2022-01-05] MEDS: ENOXAPARIN 80 MG/0.8 ML SYRINGE 70 MG SUB-Q (23:27)
[2022-01-05 23:37] LABS: Glucose Point of Care 326 mg/dl (65-105)
[2022-01-06] VITALS (20 sets, daily range): BP systolic 111–153; BP diastolic 54–97; PULSE 83–101; RESP 15–23; TEMP 36.4–37.7; O2SAT 88–100; BMI 23.9
--- NOTE | 2022-01-06 | ECHO_ITS ---
Patient Info Name: Majo Abbott Age: 71 years : 1950 Gender: Female Ht: 68 in Wt: 152 lbs BSA: 1.82 m2 HR: 95 bpm BP: 146 / 60 mmHg Heart Rhythm: Sinus Rhythm Technical Quality: Fair Exam Date: 01/06/2022 1:34 PM Exam Location: [facility] Pulmonary Patient Status: Inpatient Admit Date: 01/06/2022 Staff Ordering Physician: Christine Jin DO Ware Carrier: Yoselin Reyes RDCS Attending Provider: Ju Alvarez DO Referring Physician: Annabel LEÓN; Exam Type: CA echo dop color flow w con Study Info Indications - afib, rvr, chf Complete two-dimensional, color flow and Doppler transthoracic echocardiogram is performed with contrast to opacify the left ventricle and to improve the deliniation of the left ventricle endocardial borders. Contrast/Agitated Saline Contrast/Ag. Saline: Definity Amount: 3.00 ml Administered By: Yoselin Reyes RDCS Existing IV Access: Yes IV Access Condition: patent with no signs of infiltration Summary 1. Left ventricular chamber dimension is normal. 2. Definity contrast administered improved wall motion interpretation. 3. Left ventricular systolic function is hyperdynamic, estimated at >70%. 4. The left ventricular diastolic function is grade I diastolic dysfunction. 5. E/e' 18 is elevated. 6. Left atrial chamber dimension is mildly enlarged. 7. There is moderate aortic valve sclerosis. 8. There is mild to moderate aortic valve stenosis with a peak velocity of 254.93 cm/s, mean gradient of 15 mmHg, and aortic valve area of 1.34 cm2. 9. Mild calcification of chordae tendinae attached to anterior mitral valve leaflet. 10. No pulmonary hypertension, estimated pulmonary arterial systolic pressure is 28 mmHg. 11. Dilated inferior vena cava with >50% collapse upon inspiration consistent with elevated right atrial pressure, 10 mmHg. Left Ventricle E/e' 18 is elevated. Definity contrast administered improved wall motion interpretation. Left ventricular chamber dimension is normal. Left ventricular systolic function is hyperdynamic, estimated at >70%. The left ventricular diastolic function is grade I diastolic dysfunction. Right Ventricle Right ventricular systolic function is normal and with normal TAPSE 2.4 cm. Right ventricular chamber dimension is normal. Left Atria Left atrial chamber dimension is mildly enlarged. Right Atria Right atrial chamber dimension is normal. Aortic Valve The aortic valve is probable trileaflet. There is moderate aortic valve sclerosis. There is mild to moderate aortic valve stenosis with a peak velocity of 254.93 cm/s, mean gradient of 15 mmHg, and aortic valve area of 1.34 cm2. There is no aortic valve regurgitation. Pulmonic Valve There is no pulmonic regurgitation. Mitral Valve Mild calcification of chordae tendinae attached to anterior mitral valve leaflet. There is no mitral valve stenosis. There is no mitral valve regurgitation. Tricuspid Valve There is no tricuspid valve regurgitation. No pulmonary hypertension, estimated pulmonary arterial systolic pressure is 28 mmHg. Pericardium/Pleural There is no pericardial effusion. Inferior Vena Cava Dilated inferior vena cava with >50% collapse upon inspiration consistent with elevated right atrial pressure, 10 mmHg. Aorta The aortic root size at the sinus of Valsalva is normal. Left Ventricular Outflow Tract
[2022-01-06] MEDS: INSULIN ASPART (*BKC) 100 UNITS/ML 6 UNITS SUB-Q (00:03)
[2022-01-06] MEDS: INSULIN GLARGINE (*BKC) 100 UNITS/ML 10 UNITS SUB-Q ×2 (00:03→21:22)
[2022-01-06] MEDS: FLUCONAZOLE 100 MG/NACL 50 ML 100 MG/50 ML BTL 50 MG IVPB ×2 (00:47→21:05)
[2022-01-06] MEDS: IPRATROPIUM BR 0.02% INH SOLN 0.5 MG/2.5 ML VIAL INHALATION ×4 (02:17→20:42)
[2022-01-06 04:44] LABS: Hematocrit 36.5 % (37.0-47.0); Mean Corpuscular HGB Conc 32.9 g/dl (32-36); Mean Corpuscular Hemoglobin 30.5 pg (26-34); Mean Corpuscular Volume 92.6 fl (80-100); Platelet Count Result 249 k/mm3 (150-375); Red Blood Count 3.94 M/mm3 (4.2-5.4); Red Cell Distribution Width 13.6 % (11.5-14.5); White Blood Count 27.1 K/mm3 (4.5-10.0)
[2022-01-06 04:56] LABS: Alanine Aminotransferase 19 U/L (6-35); Albumin Level 3.4 g/dL (3.5-5.1); Alkaline Phosphatase 106 U/L (38-126); Anion Gap 10 mmol/L (8-16); Aspartate Amino Transferase 24 U/L (14-36); Bilirubin,Total 0.5 mg/dL (0.2-1.3); Blood Urea Nitrogen 10 mg/dL (7-17); Calcium 9.3 mg/dL (8.4-10.2); Carbon Dioxide 30 mmol/L (22-30); Chloride 101 mmol/L (98-107); Estimated CRCL calculation 62 ml/min; Estimated Glomerular Filt Rate > 60; Glucose 209 mg/dL (65-110); Magnesium 1.2 mg/dL (1.6-2.3); Potassium 3.2 mmol/L (3.4-5.0); Sodium 141 mmol/L (137-145)
[2022-01-06 05:16] LABS: Band Neutrophils Percent 9 % (0-6); Lymphocytes Absolute Manual 3.79 K/mm3 (1.1-4.5); Monocytes Absolute Manual 1.35 K/mm3 (0.1-0.90); Monocytes Percent Manual 5 % (3-9); Neutrophils Absolute Manual 21.95 K/mm3 (1.7-7.2); Neutrophils Percent Manual 72 % (46-73); Total Cells Counted 100
[2022-01-06 05:17] LABS: Platelet Estimate Adequate (Adequate); Schistocytes None Seen (NORMAL)
[2022-01-06 05:25] LABS: Hemoglobin A1C 9.7 % (<5.7)
[2022-01-06] MEDS: POTASSIUM CHLORIDE 20 MEQ TABLET 40 MEQ PO (06:22)
[2022-01-06] MEDS: MAGNESIUM SULF 4 GM/WATER100ML 4 GM/100 ML BAG IVPB (06:23)
[2022-01-06 07:46] LABS: Glucose Point of Care 229 mg/dl (65-105)
[2022-01-06] MEDS: INSULIN ASPART (*BKC) 100 UNITS/ML SUB-Q (09:09)
[2022-01-06] MEDS: ENOXAPARIN 80 MG/0.8 ML SYRINGE 70 MG SUB-Q ×2 (09:09→21:05)
[2022-01-06] MEDS: lisinopriL 10 MG TABLET PO (09:10)
[2022-01-06] MEDS: SIMVASTATIN 10 MG TABLET PO (09:10)
--- NOTE | 2022-01-06 11:05 | PCSTNOTE ---
Please refer to the Bedside Swallow Evaluation in the EMR. Please note, silent aspiration cannot be ruled out at bedside. Recommend Modified Barium Swallow study.
--- NOTE | 2022-01-06 11:22 | PC.NURSE ---
This patient, Majo Abbott, was transferred to [ 205-2] on 01/06/22 at 1118. Personal belongings sent with patient. Report given to [ TORRI Portillo @ ]. Appropriate documentation sent with patient.
[2022-01-06 12:06] LABS: Glucose Point of Care 138 mg/dl (65-105)
[2022-01-06] MEDS: POTASSIUM CHLORIDE INJ 40 MEQ in SODIUM CHLORIDE 0.9% IV 500 ML 130 MEQ IVPB (12:21)
--- NOTE | 2022-01-06 13:28 | PM.IMPN ---
Progress Note: A&P Assessment and Plan (1) Sepsis: Qualifiers: Sepsis type: sepsis due to unspecified organism Sepsis acute organ dysfunction status: with acute organ dysfunction Severe sepsis acute organ dysfunction type: encephalopathy Code(s): A41.9 - Sepsis, unspecified organism Status: Acute Assessment and Plan: present on admission. Improved (2) Paroxysmal atrial fibrillation with RVR: Code(s): I48.0 - Paroxysmal atrial fibrillation Status: Acute Assessment and Plan: Heart rate improved significantly with adequate fluid resuscitation and 1 dose of IV Lopressor. Will place patient on low therapeutic Lovenox. Will consider addition of p.o. metoprolol depending on course of patient's blood pressures and response to treatment for sepsis. Echocardiogram ordered to further evaluate cardiac structure and function. (3) Acute metabolic encephalopathy: Code(s): G93.41 - Metabolic encephalopathy Status: Acute Assessment and Plan: Due to underlying condition. Treat sepsis, AFib and respiratory failure. (4) Ischemia of left lower extremity: Code(s): I99.8 - Other disorder of circulatory system Status: Acute Assessment and Plan: Dry gangrene of the left toe. Cultures pending. continue IV antibiotics ortho consult (5) COPD exacerbation: Code(s): J44.1 - Chronic obstructive pulmonary disease with (acute) exacerbation Status: Acute Assessment and Plan: Patient has active wheezing on exam. Will place patient on scheduled nebulizers. The patient would benefit from long-acting beta agonist and inhaled corticosteroid on discharge. (6) Uncontrolled hypertension: Code(s): I10 - Essential (primary) hypertension Status: Acute Assessment and Plan: monitor (7) Acute respiratory failure with hypoxia: Code(s): J96.01 - Acute respiratory failure with hypoxia Status: Acute Assessment and Plan: Will place patient on scheduled nebulizers. The patient did require rapidly increasing oxygen requirements and was placed on Airvo but was able to be weaned down to 2 L nasal cannula. The patient is in the ICU as an IMU overflow. (8) Diabetes mellitus with hyperglycemia, without long-term current use of insulin: Code(s): E11.65 - Type 2 diabetes mellitus with hyperglycemia Status: Acute Assessment and Plan: Patient will be started on high-dose sliding scale insulin and Lantus. Accu-Cheks a.c. HS. Consistent carbohydrate diet. (9) Sore throat: Code(s): J02.9 - Acute pharyngitis, unspecified Status: Acute Assessment and Plan: patient is currently on antibiotics (10) Peripheral artery disease: Code(s): I73.9 - Peripheral vascular disease, unspecified Status: Acute Plan 2 hours spent critical care activities Due to a high probability of clinically significant, life threatening deterioration, the patient required my highest level of preparedness to intervene emergently and I personally spent this critical care time directly and personally managing the patient. This critical care time included obtaining a history; examining the patient; pulse oximetry; ordering and review of studies; arranging urgent treatment with development of a management plan; evaluation of patient's response to treatment; frequent reassessment; and discussions with other providers. It was exclusive of separately billable procedures and treating other patients and teaching time. Please see Assessment and Plan section and the rest of the note for further information on patient assessment and treatment. Subjective Date/time seen: 01/06/22 13:28 patient denies any pain Exam Narrative: Weight 71.4 kg BMI 23.9 Const: Other: Disheveled, poor hygiene, appears older than stated age HENMT: Other: Head is normocephalic atraumatic, air is 30 increas
[2022-01-06] MEDS: PERFLUTREN LIPID MICROSPHERES 1.5 ML VIAL DILUTED TO 10 ML TOTAL VOLUME IV PUSH (13:55)
--- NOTE | 2022-01-06 15:51 | IVDEFINITY ---
Prior to administration of IV Definity the patient was educated on the risks and benefits of the imaging enhancing agent including potential adverse side effects. The patient verbalized understanding. Allergies were verified. No exclusion criteria were identified and at least one of the following inclusion criteria were met: 1) physician request, 2) patient technically difficult to image (per the [place] [employer] guidelines of two or more segments not discernable within the apical view), or 3) questionable left ventricular function. ?
--- NOTE | 2022-01-06 16:02 | PCPTNOTE ---
Per RN, pt needs Surgery consult and a weight bearing status prior to initiation of therapy. Will Follow.
[2022-01-06 16:53] LABS: Glucose Point of Care 160 mg/dl (65-105)
[2022-01-06] MEDS: SODIUM CHLORIDE 0.9% IV 1,000 ML 100 ML IV CONT (18:06)
[2022-01-06 20:19] LABS: Glucose Point of Care 164 mg/dl (65-105)
[2022-01-06] MEDS: LORazepam INJ (*CRX) 2 MG/ML VIAL 1 MG IM (22:40)
--- NOTE | 2022-01-06 22:56 | PC.NURSE ---
PATIENT IS EXTREMELY CONFUSED AT THIS TIME. UNCOOPERATIVE. SHE HAS PULLED OUT 2 IV'S IN LESS THAN 2 HOURS. PATIENT RIPPED OF ARMBAND AND TELE SEVERAL TIMES. WHEN ASKING THE PATIENT ANY QUESTION. THE PATIENT TELLS ME TO MIND MY OWN BUSINESS, AND THAT I DON'T NEED TO KNOW ANYTHING ABOUT HER. PATIENT KEEPS TRYING TO GET OUT OF BED. TELLS US TO LEAVE HER ALONE AND NOT TO TOUCH HER. DR REYES AND CHARGE NURSE TOAN IS AWARE OF PATIENT CURRENT NEURO STATUS. WILL CONTINUE TO MONITOR.
[2022-01-07] VITALS (23 sets, daily range): BP systolic 156–187; BP diastolic 74–85; PULSE 71–106; RESP 16–24; TEMP 35.9–37.3; O2SAT 90–97
[2022-01-07] MEDS: IPRATROPIUM BR 0.02% INH SOLN 0.5 MG/2.5 ML VIAL INHALATION ×3 (02:30→15:10)
--- NOTE | 2022-01-07 02:43 | PC.NURSE ---
UNABLE TO GET IV IN PATIENT. PATIENT PULLED OUT 2 IV'S. REDD BRADY NP AND DR AMY BUENROSTRO.
[2022-01-07 05:13] LABS: Basophils Percent Auto 0.3 % (0.2-1.2); Eosinophils Percent Auto 0.2 % (0-4.4); Hematocrit 34.1 % (37.0-47.0); Hemoglobin 11.1 g/dL (12.0-15.0); Immature Granulocyte Absolute 0.08 K/mm3 (0.00-0.031); Immature Granulocyte Percent A 0.6 % (0-0.5); Lymphocytes Absolute Auto 1.98 K/mm3 (0.9-3.2); Mean Corpuscular HGB Conc 32.6 g/dl (32-36); Mean Corpuscular Hemoglobin 30.2 pg (26-34); Mean Corpuscular Volume 92.9 fl (80-100); Monocytes Absolute Auto 0.8 K/mm3 (0.1-0.6); Monocytes Percent Auto 6.4 % (2.6-8.5); Neutrophils Absolute Auto 9.5 K/mm3 (1.3-6.7); Neutrophils Percent Auto 76.5 % (45.5-73.1); Platelet Count Result 229 k/mm3 (150-375); Red Blood Count 3.67 M/mm3 (4.2-5.4); Red Cell Distribution Width 13.7 % (11.5-14.5); White Blood Count 12.4 K/mm3 (4.5-10.0)
[2022-01-07 05:29] LABS: Alanine Aminotransferase 19 U/L (6-35); Albumin Level 2.9 g/dL (3.5-5.1); Alkaline Phosphatase 101 U/L (38-126); Anion Gap 4 mmol/L (8-16); Aspartate Amino Transferase 29 U/L (14-36); Bilirubin,Total 0.3 mg/dL (0.2-1.3); Blood Urea Nitrogen 8 mg/dL (7-17); Calcium 8.9 mg/dL (8.4-10.2); Carbon Dioxide 28 mmol/L (22-30); Chloride 106 mmol/L (98-107); Estimated CRCL calculation 62 ml/min; Estimated Glomerular Filt Rate > 60; Glucose 101 mg/dL (65-110); Potassium 2.7 mmol/L (3.4-5.0); Sodium 138 mmol/L (137-145)
[2022-01-07 07:35] LABS: Glucose Point of Care 118 mg/dl (65-105)
--- NOTE | 2022-01-07 08:58 | PC.NURSE ---
This patient, Majo Abbott, was transferred to [facility] on 01/07/22 at 0857. Personal belongings sent with patient. Report given to Adelina WILD. Appropriate documentation sent with patient.
[2022-01-07] MEDS: POTASSIUM CHLORIDE 20 MEQ PACKET (FOR LIQUID) 40 MEQ PO (09:22)
[2022-01-07] MEDS: ENOXAPARIN 80 MG/0.8 ML SYRINGE 70 MG SUB-Q ×2 (09:22→20:16)
[2022-01-07] MEDS: lisinopriL 10 MG TABLET PO (09:23)
[2022-01-07] MEDS: SIMVASTATIN 10 MG TABLET PO (09:23)
[2022-01-07] MEDS: POTASSIUM CHLORIDE INJ 40 MEQ in SODIUM CHLORIDE 0.9% IV 500 ML 130 MEQ IVPB (09:33)
--- NOTE | 2022-01-07 09:38 | PC.NURSE ---
This patient, Majo Abbott, was received from [IMU ] on 01/07/22 at 0938. Patient oriented to unit policies and routines. Patient in bed resting with no complaints. Patient alert to self only, telemetry box on patient.
[2022-01-07] MEDS: hydrALAZINE HCL 20 MG/ML VIAL 10 MG IV PUSH (10:35)
--- NOTE | 2022-01-07 10:45 | PCOTNOTE ---
RN reported still awaiting surgery consult and will be going for more tests today. Hold until testing and consult completed.
--- NOTE | 2022-01-07 11:23 | PM.IMPN ---
Progress Note: A&P Assessment and Plan (1) Sepsis: Qualifiers: Sepsis type: sepsis due to unspecified organism Sepsis acute organ dysfunction status: with acute organ dysfunction Severe sepsis acute organ dysfunction type: encephalopathy Code(s): A41.9 - Sepsis, unspecified organism Status: Acute Assessment and Plan: present on admission. Improved (2) Paroxysmal atrial fibrillation with RVR: Code(s): I48.0 - Paroxysmal atrial fibrillation Status: Acute Assessment and Plan: p.o. metoprolol therapeutic Lovenox (3) Acute metabolic encephalopathy: Code(s): G93.41 - Metabolic encephalopathy Status: Acute Assessment and Plan: Due to underlying condition. improved (4) Ischemia of left lower extremity: Code(s): I99.8 - Other disorder of circulatory system Status: Acute Assessment and Plan: Dry gangrene of the left toe. Cultures pending. continue IV antibiotics surgery has seen the patient and has ordered arterial Dopplers and wound care. Await further plan (5) COPD exacerbation: Code(s): J44.1 - Chronic obstructive pulmonary disease with (acute) exacerbation Status: Acute Assessment and Plan: appears to be at baseline. (6) Uncontrolled hypertension: Code(s): I10 - Essential (primary) hypertension Status: Acute Assessment and Plan: monitor (7) Acute respiratory failure with hypoxia: Code(s): J96.01 - Acute respiratory failure with hypoxia Status: Acute Assessment and Plan: Will place patient on scheduled nebulizers. This is likely chronic. Oxygen as needed (8) Diabetes mellitus with hyperglycemia, without long-term current use of insulin: Code(s): E11.65 - Type 2 diabetes mellitus with hyperglycemia Status: Acute Assessment and Plan: Patient will be started on high-dose sliding scale insulin and Lantus. Accu-Cheks a.c. HS. Consistent carbohydrate diet. (9) Sore throat: Code(s): J02.9 - Acute pharyngitis, unspecified Status: Acute Assessment and Plan: no complaints today. (10) Peripheral artery disease: Code(s): I73.9 - Peripheral vascular disease, unspecified Status: Acute Assessment and Plan: Dopplers ordered Subjective Date/time seen: 01/07/22 11:23 No new complaints Exam Narrative: Weight 71.4 kg BMI 23.9 Const: Other: Disheveled, poor hygiene, appears older than stated age HENMT: Other: Head is normocephalic atraumatic, air is 30 increasing and adhered to the head, nasal cannula in place, mucous membranes are dry, white patches the posterior the throat Eyes: Other: No conjunctival pallor, no scleral icterus Neck: Other: Tender palpation, bilateral anterior cervical lymphadenopathy Resp: Other: Rhonchi in the right lung greater than left, end-expiratory wheezing noted, tachypnea Cardio: Other: Irregularly irregular, tachycardic, 2+ bilateral radial pulses, unable to palpate pedal pulses, unable to Doppler left pedal pulse, week left posterior tibial pulses with Doppler, Doppler right posterior tibial pulse week but stronger than the opposite side GI: Other: Distended, soft, nontender, positive bowel sounds : Other: Incontinent of urine and stool, macerated buttocks Skin: Other: Macerated rash to buttocks, dried flaking skin circumferential bilateral lower extremities, red discoloration of his toes with absent cap refill on the left foot, large ulcer to the base of the left great toe Neuro: Other: Alert oriented to person and the fact that she is in the hospital, she cannot name the hospital, responses are slowed, she thinks that the month is November and when I ask her what the current month and year is she repetitively gives me her date, she does follow simple commands Extrem: Other: 2+ pitting edema right lower extremity 1+ pit
[2022-01-07 11:40] LABS: Glucose Point of Care 132 mg/dl (65-105)
[2022-01-07 16:36] LABS: Glucose Point of Care 131 mg/dl (65-105)
[2022-01-07 18:36] LABS: Potassium 3.6 mmol/L (3.4-5.0)
[2022-01-07] MEDS: SODIUM CHLORIDE 0.9% IV 1,000 ML 100 ML IV CONT (20:15)
[2022-01-07] MEDS: METOPROLOL TARTRATE 12.5 MG TABLET PO (20:17)
[2022-01-07] MEDS: INSULIN GLARGINE (*BKC) 100 UNITS/ML 10 UNITS SUB-Q (20:18)
[2022-01-07 21:07] LABS: Glucose Point of Care 192 mg/dl (65-105)
[2022-01-08] VITALS (15 sets, daily range): BP systolic 132–169; BP diastolic 60–85; PULSE 8–110; RESP 18–20; TEMP 36.3–37.7; O2SAT 91–99
[2022-01-08] MEDS: IPRATROPIUM BR 0.02% INH SOLN 0.5 MG/2.5 ML VIAL INHALATION ×3 (02:55→22:09)
[2022-01-08] MEDS: SODIUM CHLORIDE 0.9% IV 1,000 ML 100 ML IV CONT (06:21)
[2022-01-08 06:34] LABS: Anion Gap 8 mmol/L (8-16); Blood Urea Nitrogen 6 mg/dL (7-17); Calcium 8.2 mg/dL (8.4-10.2); Carbon Dioxide 22 mmol/L (22-30); Chloride 105 mmol/L (98-107); Estimated CRCL calculation 84 ml/min; Estimated Glomerular Filt Rate > 60; Glucose 149 mg/dL (65-110); Sodium 135 mmol/L (137-145)
[2022-01-08] MEDS: SIMVASTATIN 10 MG TABLET PO (08:24)
[2022-01-08] MEDS: FLUCONAZOLE 100 MG TABLET PO (08:24)
[2022-01-08] MEDS: METOPROLOL TARTRATE 12.5 MG TABLET PO ×2 (08:24→22:47)
[2022-01-08] MEDS: lisinopriL 10 MG TABLET PO (08:24)
[2022-01-08] MEDS: ENOXAPARIN 80 MG/0.8 ML SYRINGE 70 MG SUB-Q ×2 (08:24→22:51)
[2022-01-08] MEDS: POTASSIUM CHLORIDE 20 MEQ PACKET (FOR LIQUID) 40 MEQ PO ×2 (08:34→10:01)
[2022-01-08 08:37] LABS: Glucose Point of Care 141 mg/dl (65-105)
--- NOTE | 2022-01-08 10:00 | PCPTNOTE ---
Checked with nursing for weightbearing status. Nursing reports she will contact physical therapy when they have a weightbearing status on the patient.
--- NOTE | 2022-01-08 10:52 | PCOTNOTE ---
Awaiting weight bearing status for pt. to be able to participate in evaluation.
[2022-01-08 11:45] LABS: Vancomycin Trough 6.2 ug/mL (10.0-20.0)
[2022-01-08 12:05] LABS: Glucose Point of Care 268 mg/dl (65-105)
--- NOTE | 2022-01-08 12:13 | PM.IMPN ---
Progress Note: A&P Assessment and Plan (1) Sepsis: Qualifiers: Sepsis type: sepsis due to unspecified organism Sepsis acute organ dysfunction status: with acute organ dysfunction Severe sepsis acute organ dysfunction type: encephalopathy Code(s): A41.9 - Sepsis, unspecified organism Status: Acute Assessment and Plan: present on admission. Improved (2) Paroxysmal atrial fibrillation with RVR: Code(s): I48.0 - Paroxysmal atrial fibrillation Status: Acute Assessment and Plan: p.o. metoprolol therapeutic Lovenox (3) Acute metabolic encephalopathy: Code(s): G93.41 - Metabolic encephalopathy Status: Acute Assessment and Plan: Due to underlying condition. improved (4) Ischemia of left lower extremity: Code(s): I99.8 - Other disorder of circulatory system Status: Acute Assessment and Plan: Dry gangrene of the left toe. Cultures pending. continue IV antibiotics Await further plan surgery. Vascular studies noted (5) COPD exacerbation: Code(s): J44.1 - Chronic obstructive pulmonary disease with (acute) exacerbation Status: Acute Assessment and Plan: appears to be at baseline. (6) Uncontrolled hypertension: Code(s): I10 - Essential (primary) hypertension Status: Acute Assessment and Plan: monitor (7) Acute respiratory failure with hypoxia: Code(s): J96.01 - Acute respiratory failure with hypoxia Status: Acute Assessment and Plan: Will place patient on scheduled nebulizers. This is likely chronic. Oxygen as needed (8) Diabetes mellitus with hyperglycemia, without long-term current use of insulin: Code(s): E11.65 - Type 2 diabetes mellitus with hyperglycemia Status: Acute Assessment and Plan: Patient will be started on high-dose sliding scale insulin and Lantus. Accu-Cheks a.c. HS. Consistent carbohydrate diet. (9) Sore throat: Code(s): J02.9 - Acute pharyngitis, unspecified Status: Acute Assessment and Plan: no complaints today. (10) Peripheral artery disease: Code(s): I73.9 - Peripheral vascular disease, unspecified Status: Acute Assessment and Plan: Dopplers ordered Subjective Date/time seen: 01/08/22 12:13 no new complaints Exam Narrative: Weight 71.4 kg BMI 23.9 Const: Other: Disheveled, poor hygiene, appears older than stated age HENMT: Other: Head is normocephalic atraumatic, air is 30 increasing and adhered to the head, nasal cannula in place, mucous membranes are dry, white patches the posterior the throat Eyes: Other: No conjunctival pallor, no scleral icterus Neck: Other: Tender palpation, bilateral anterior cervical lymphadenopathy Resp: Other: Rhonchi in the right lung greater than left, end-expiratory wheezing noted, tachypnea Cardio: Other: Irregularly irregular, tachycardic, 2+ bilateral radial pulses, unable to palpate pedal pulses, unable to Doppler left pedal pulse, week left posterior tibial pulses with Doppler, Doppler right posterior tibial pulse week but stronger than the opposite side GI: Other: Distended, soft, nontender, positive bowel sounds : Other: Incontinent of urine and stool, macerated buttocks Skin: Other: Macerated rash to buttocks, dried flaking skin circumferential bilateral lower extremities, red discoloration of his toes with absent cap refill on the left foot, large ulcer to the base of the left great toe Neuro: Other: Alert oriented to person and the fact that she is in the hospital, she cannot name the hospital, responses are slowed, she thinks that the month is November and when I ask her what the current month and year is she repetitively gives me her date, she does follow simple commands Extrem: Other: 2+ pitting edema right lower extremity 1+ pitting edema left lower extremity, chronic skin c
[2022-01-08] MEDS: INSULIN ASPART (*BKC) 100 UNITS/ML SUB-Q (12:35)
--- NOTE | 2022-01-08 15:26 | PM.CNGS ---
Assessment and Plan Assessment and plan (1) Diabetes mellitus with diabetic peripheral angiopathy without gangrene, without long-term current use of insulin: Code(s): E11.51 - Type 2 diabetes mellitus with diabetic peripheral angiopathy without gangrene Status: Acute Assessment and Plan: Clearly has peripheral vascular disease in both lower extremities, left is worse than right. Do not feel any amputation below the knee would be likely to heal. Recommend outpatient follow-up with vascular surgeon for evaluation and possible treatment. This does not have to be done with a transfer or on an inpatient basis. (2) Cellulitis of left leg: Code(s): L03.116 - Cellulitis of left lower limb Status: Acute Assessment and Plan: Hard to say if this is from diabetic foot infection associated with her toe or from 1 of her other open wounds. Clearly responding to antibiotics as patient is improving. Recommend local wound care as noted by the wound nurses. Continue Triple antifungal cream to buttocks maceration. Avoid very poor living condition that patient was found in prior to admission. Agree with halfway facility after discharge. (3) Osteomyelitis of great toe of left foot: Code(s): M86.9 - Osteomyelitis, unspecified Status: Acute Assessment and Plan: Seen on x-ray but toe is not tender, dry eschar or scab over the distal phalanx. Family reports this great toe eschar on the left has been present and in this condition for quite some time. Do not feel this is acute osteomyelitis for this reason but more of a chronic condition. It does not need prolonged IV antibiotics. Once the cellulitis has resolved with reasonable treatment, no further antibiotic should be needed. Amputation which is commonly done in the case of a diabetic with osteomyelitis, would not be indicated in this situation. Suspect if patient had amputation of the affected bone, wound would not heal and further amputation would be required. Since it is not symptomatic, patient has responded to antibiotics for cellulitis, would not recommend treatment or transfer at this time. Would recommend vascular surgical consultation which could be done as an outpatient. It is possible her leg may be preserved should amputation be required in the future. (4) Acute metabolic encephalopathy: Code(s): G93.41 - Metabolic encephalopathy Status: Acute Assessment and Plan: improved but agree patient will be best going to halfway facility post discharge. History of Present Illness Consult details Consult date: 10/19/22 (Patient is seen in the evening 01/06/2022. Dictation is 01/08/2022.) Reason for consult: other ( Left foot ulcer, Osteo) Requesting physician: James Kaba MD Narrative: patient is a 71-year-old woman who was admitted after coming to the emergency room on 01/05/2022, the day before my evaluation. She had been brought to the hospital by EMS due to altered mental status and inability to care for herself. She was found by EMS to be covered with feces and urine which had saturated through her clothes. She was noted in the emergency room to have a lactate of 3[place]3 [place] [address]. She had some hypoxia with sats of 94% on FiO2 of 50%. Her blood sugar was uncontrolled as well with glucose of 342 and later hemoglobin A1c of 9.7. She carries a chronic diagnosis of coronary disease paroxysmal atrial fib, COPD, 2 pack-a-day smoker for 50 years, diabetes, hypertension and spinal stenosis. Reviewing the ER report as well as the history and physical and with talking to the patient her daughter and her , she came in mostly complaining of a sore throat and a sore neck. She was also 2 week did transfer. She has had prolonged problems with lymphedema of both lower extremities. She saw Dr. Flynn for this in his office in October. Last June she was in the emergency room at [facility] regarding lymphed
[2022-01-08] MEDS: SILVERGEL (ELTA) 45 ML 1 APPLIC TOPICAL (16:19)
[2022-01-08 16:52] LABS: Glucose Point of Care 132 mg/dl (65-105)
[2022-01-08 22:46] LABS: Glucose Point of Care 204 mg/dl (65-105)
[2022-01-08] MEDS: INSULIN GLARGINE (*BKC) 100 UNITS/ML 10 UNITS SUB-Q (22:53)
--- NOTE | 2022-01-08 23:28 | PC.NURSE ---
Patient IV infiltrated; multiple attempts made to initiate access unsuccessful. Patient refusing to allow staff to continue efforts to initiate access. Patient also insists to have her cruz catheter removed; both discussed with Meron Heller. Patient is A&O x3 and uses a commode at home. Per katiana Chance to remove catheter. With patient refusing to allow further attempts of IV initiation, non-administer antibiotics r/t no IV access/patient refused .
[2022-01-09] VITALS (17 sets, daily range): BP systolic 160–181; BP diastolic 70–90; PULSE 70–142; RESP 16–20; TEMP 36.1–37.2; O2SAT 93–98
[2022-01-09 08:16] LABS: Glucose Point of Care 165 mg/dl (65-105)
[2022-01-09] MEDS: IPRATROPIUM BR 0.02% INH SOLN 0.5 MG/2.5 ML VIAL INHALATION ×3 (08:33→21:32)
[2022-01-09] MEDS: FLUCONAZOLE 100 MG TABLET PO (09:58)
[2022-01-09] MEDS: ENOXAPARIN 80 MG/0.8 ML SYRINGE 70 MG SUB-Q ×2 (09:58→22:08)
[2022-01-09] MEDS: SIMVASTATIN 10 MG TABLET PO (09:58)
[2022-01-09] MEDS: lisinopriL 10 MG TABLET PO (09:58)
[2022-01-09] MEDS: SILVERGEL (ELTA) 45 ML 1 APPLIC TOPICAL (09:59)
--- NOTE | 2022-01-09 10:29 | PM.DS ---
DS: Admitting Diagnosis Discharge Date January 09, 2022 Admitting Diagnosis left great toe dry gangrene DS: Discharge Diagnosis Discharge Diagnosis (1) Sepsis: Qualifiers: Sepsis type: sepsis due to unspecified organism Sepsis acute organ dysfunction status: with acute organ dysfunction Severe sepsis acute organ dysfunction type: encephalopathy Code(s): A41.9 - Sepsis, unspecified organism Status: Acute (2) Paroxysmal atrial fibrillation with RVR: Code(s): I48.0 - Paroxysmal atrial fibrillation Status: Acute (3) Acute metabolic encephalopathy: Code(s): G93.41 - Metabolic encephalopathy Status: Acute (4) Ischemia of left lower extremity: Code(s): I99.8 - Other disorder of circulatory system Status: Acute (5) COPD exacerbation: Code(s): J44.1 - Chronic obstructive pulmonary disease with (acute) exacerbation Status: Acute (6) Uncontrolled hypertension: Code(s): I10 - Essential (primary) hypertension Status: Acute (7) Acute respiratory failure with hypoxia: Code(s): J96.01 - Acute respiratory failure with hypoxia Status: Acute (8) Diabetes mellitus with hyperglycemia, without long-term current use of insulin: Code(s): E11.65 - Type 2 diabetes mellitus with hyperglycemia Status: Acute (9) Sore throat: Code(s): J02.9 - Acute pharyngitis, unspecified Status: Acute (10) Peripheral artery disease: Code(s): I73.9 - Peripheral vascular disease, unspecified Status: Acute DS: Summary Hospital Course Hospital Course: patient 71-year-old female came in with left lower extremity ulcer and was found have dry gangrene. Surgery was consulted vascular studies were ordered and reviewed. Patient does have significant vascular disease. Patient be discharged on antibiotics and needs to follow up with vascular surgeon. This is not a Emergent per the surgery service here. names and numbers of vascular surgeons were given to the patient and she wants to schedule her phone appointment. Patient refused placement in skilled facility. She fully understands risks of going without any sort of help. Patient does have a history of medical noncompliance Time Spent with Patient Time attestation: Total time spent providing and/or coordinating discharge services: Exam Narrative: General: alert and oriented Psych: appropriate mood nad affect Eyes: PERRLA Neck: Trachea midline, no new lesions Skin: no changes Lungs: CTA Cardiac: Normal S1,S2, no MGR ABD: soft, nd, nt, nbs Ext: ally dry gangrene noted of left great toe Vasc: decreased pulses bilate DS: Data Data Completed and Pending Labs on day of discharge: Labs from last 24 hours 01/09/22 01/08/22 01/08/22 08:13 22:43 16:34 POC Capillary Glucose 165 H 204 H 132 H Vancomycin Trough 01/08/22 01/08/22 11:42 10:48 POC Capillary Glucose 268 H Vancomycin Trough 6.2 L Preliminary micro results at discharge 01/06/22 04:38 Blood Culture - Preliminary Blood 01/06/22 04:38 Blood Culture - Preliminary Blood Discharge Plan Discharge Attending physician on discharge: James Kaba Discharging Clinician: James Kaba Patient Disposition: Home, Self-Care Activity: no preference Diet: as tolerated Stand Alone Forms: General Discharge Information Follow-up/Referrals: James Medina MD [Primary Care Provider] - Discharge Medications: New amoxicillin-pot clavulanate 875-125 mg tablet 1 tablet PO Q12H Qty: 14 0RF Continued lisinopril 10 mg tablet 10 mg PO DAILY simvastatin 10 mg tablet 10 mg PO DAILY metformin 1,000 mg tablet 1,000 mg PO BID diclofenac sodium 50 mg tablet,delayed release (DR/EC) 50 mg PO BID albuterol sulfate 90 mcg/actuation HFA aerosol inhaler 2 puff inhalation Q4H PRN (Reason: Shortness Of Breath) Rx Instruc
--- NOTE | 2022-01-09 10:56 | ECG_ITS ---
Measurements Intervals [place] Rate: 108 P: 70 CO: 146 QRS: 10 QRSD: 98 T: 57 QT: 387 QTc: 519 Interpretive Statements SINUS TACHYCARDIA WITH FREQUENT SUPRAVENTRICULAR PREMATURE COMPLEXES LOW QRS VOLTAGE IN EXTREMITY LEADS [QRS DEFLECTION < 0.5 mV IN LIMB LEADS] SLIGHT LATERAL ST DEPRESSION, CONSIDER ISCHEMIA COMPARED TO ECG 01/05/2022 20:11:07 ATRIAL FIBRILLATION HAS RESOLVED AND THE MARKED ST DEPRESSION HAS IMPROVED. Electronically Signed On 01-09-2022 18:49:13 CDT by Veronica Jon M.D.
[2022-01-09] MEDS: METOPROLOL TARTRATE 12.5 MG TABLET PO ×2 (10:57→22:09)
--- NOTE | 2022-01-09 10:59 | PM.IMPN ---
Progress Note: A&P Assessment and Plan (1) Sepsis: Qualifiers: Sepsis type: sepsis due to unspecified organism Sepsis acute organ dysfunction status: with acute organ dysfunction Severe sepsis acute organ dysfunction type: encephalopathy Code(s): A41.9 - Sepsis, unspecified organism Status: Acute Assessment and Plan: continue IV antibiotics while in the hospital. Sepsis resolved this was present on admission. (2) Paroxysmal atrial fibrillation with RVR: Code(s): I48.0 - Paroxysmal atrial fibrillation Status: Acute Assessment and Plan: Will check an EKG as patient does have elevated heart rate today. This is not new. (3) Acute metabolic encephalopathy: Code(s): G93.41 - Metabolic encephalopathy Status: Acute Assessment and Plan: Resolved (4) Ischemia of left lower extremity: Code(s): I99.8 - Other disorder of circulatory system Status: Acute Assessment and Plan: chronic will need to see vascular surgery upon discharge (5) COPD exacerbation: Code(s): J44.1 - Chronic obstructive pulmonary disease with (acute) exacerbation Status: Acute Assessment and Plan: chronic, no exacerbation (6) Uncontrolled hypertension: Code(s): I10 - Essential (primary) hypertension Status: Acute Assessment and Plan: monitor (7) Acute respiratory failure with hypoxia: Code(s): J96.01 - Acute respiratory failure with hypoxia Status: Acute Assessment and Plan: no issues today with respiratory status (8) Diabetes mellitus with hyperglycemia, without long-term current use of insulin: Code(s): E11.65 - Type 2 diabetes mellitus with hyperglycemia Status: Acute (9) Peripheral artery disease: Code(s): I73.9 - Peripheral vascular disease, unspecified Status: Acute Assessment and Plan: chronic, will need to follow up with vascular surgery Subjective Date/time seen: 01/09/22 10:59 Patient denies complaints Exam Narrative: General: alert and oriented Psych: appropriate mood nad affect Eyes: PERRLA Neck: Trachea midline, no new lesions Skin: no changes Lungs: CTA Cardiac: Normal S1,S2, no MGR ABD: soft, nd, nt, nbs Ext: ally dry gangrene noted of left great toe Vasc: decreased pulses bilate Objective Data Vital Signs Vital Signs: Vital Signs - 24 hr 01/08/22 12:00 01/08/22 12:50 01/08/22 16:00 Temperature 99.8 F H 98.0 F Pulse Rate 88 85 Respiratory Rate 18 18 Blood Pressure 147/76 H 132/85 Pulse Oximetry 92 97 Oxygen Delivery Nasal Cannula Oxygen Flow Rate 2 Fraction of Inspired Oxygen 01/08/22 12:00 01/08/22 16:00 01/08/22 20:00 Temperature 98.7 F Pulse Rate 90 90 65 Respiratory Rate 18 Blood Pressure 140/60 Pulse Oximetry 94 Oxygen Delivery Oxygen Flow Rate Fraction of Inspired Oxygen 01/08/22 22:12 01/08/22 22:13 01/08/22 22:47 Temperature Pulse Rate 84 110 H Respiratory Rate 18 Blood Pressure Pulse Oximetry 95 Oxygen Delivery Room Air Oxygen Flow Rate Fraction of Inspired Oxygen 01/08/22 20:00 01/08/22 20:00 01/09/22 00:00 Temperature 99 F Pulse Rate 89 110 H 93 Respiratory Rate 18 18 Blood Pressure 161/77 H Pulse Oximetry 95 94 Oxygen Delivery Room Air Oxygen Flow Rate Fraction of Inspired Oxygen 50 01/09/22 00:00 01/09/22 05:15 01/09/22 04:00 Temperature Pulse Rate 88 70 82 Respiratory Rate 16 Blood Pressure Pulse Oximetry Oxygen Delivery Oxygen Flow Rate Fraction of Inspired Oxygen 01/09/22 06:52 01/09/22 08:33 01/09/22 10:57 Temperature 97 F L Pulse Rate 86 74 100 Respiratory Rate 20 16 Blood Pressure 181/90 H Pulse Oximetry 94 Oxygen Delivery Oxygen Flow Rate Fraction of Inspired Oxygen Intake/Output Intake/Output: Intake & Output 01/06/22 01/07/22 01/08/22 01/09/22 2
[2022-01-09 11:50] LABS: Potassium 3.4 mmol/L (3.4-5.0)
[2022-01-09 12:23] LABS: Glucose Point of Care 222 mg/dl (65-105)
[2022-01-09] MEDS: INSULIN ASPART (*BKC) 100 UNITS/ML SUB-Q (12:26)
[2022-01-09 12:54] LABS: Hematocrit 34.9 % (37.0-47.0); Hemoglobin 11.4 g/dL (12.0-15.0); Mean Corpuscular HGB Conc 32.7 g/dl (32-36); Mean Corpuscular Hemoglobin 29.4 pg (26-34); Mean Corpuscular Volume 89.9 fl (80-100); Mean Platelet Volume 11.3 fl (7.4-10.4); Platelet Count Result 260 k/mm3 (150-375); Red Blood Count 3.88 M/mm3 (4.2-5.4); Red Cell Distribution Width 13.6 % (11.5-14.5); White Blood Count 7.3 K/mm3 (4.5-10.0)
[2022-01-09] MEDS: POTASSIUM CHLORIDE 20 MEQ PACKET (FOR LIQUID) 40 MEQ PO (14:24)
[2022-01-09] MEDS: AMOXICILLIN/CLAVULANATE K 875-125 MG TAB 1 TABLET PO ×2 (16:01→22:07)
[2022-01-09 17:03] LABS: Glucose Point of Care 179 mg/dl (65-105)
[2022-01-09] MEDS: INSULIN GLARGINE (*BKC) 100 UNITS/ML 10 UNITS SUB-Q (22:11)
[2022-01-09 23:10] LABS: Glucose Point of Care 228 mg/dl (65-105)
[2022-01-10] VITALS (11 sets, daily range): BP systolic 156–162; BP diastolic 72–74; PULSE 82–100; RESP 16–18; TEMP 36.6; O2SAT 92–99
[2022-01-10] MEDS: IPRATROPIUM BR 0.02% INH SOLN 0.5 MG/2.5 ML VIAL INHALATION ×3 (02:26→12:40)
[2022-01-10 07:54] LABS: Glucose Point of Care 193 mg/dl (65-105)
[2022-01-10] MEDS: ENOXAPARIN 80 MG/0.8 ML SYRINGE 70 MG SUB-Q (09:03)
[2022-01-10] MEDS: SIMVASTATIN 10 MG TABLET PO (09:04)
[2022-01-10] MEDS: METOPROLOL TARTRATE 12.5 MG TABLET PO (09:04)
[2022-01-10] MEDS: FLUCONAZOLE 100 MG TABLET PO (09:04)
[2022-01-10] MEDS: lisinopriL 10 MG TABLET PO (09:04)
[2022-01-10] MEDS: AMOXICILLIN/CLAVULANATE K 875-125 MG TAB 1 TABLET PO (09:04)
[2022-01-10] MEDS: SILVERGEL (ELTA) 45 ML 1 APPLIC TOPICAL (09:05)
[2022-01-10 09:46] LABS: Anion Gap 12 mmol/L (8-16); Blood Urea Nitrogen 7 mg/dL (7-17); Calcium 8.5 mg/dL (8.4-10.2); Carbon Dioxide 26 mmol/L (22-30); Chloride 101 mmol/L (98-107); Estimated CRCL calculation 72 ml/min; Estimated Glomerular Filt Rate > 60; Glucose 347 mg/dL (65-110); Potassium 3.3 mmol/L (3.4-5.0); Sodium 139 mmol/L (137-145)
[2022-01-10 11:10] LABS: Glucose Point of Care 292 mg/dl (65-105)
--- NOTE | 2022-01-10 11:24 | PM.IMPN ---
Progress Note: A&P Assessment and Plan (1) Sepsis: Qualifiers: Sepsis type: sepsis due to unspecified organism Sepsis acute organ dysfunction status: with acute organ dysfunction Severe sepsis acute organ dysfunction type: encephalopathy Code(s): A41.9 - Sepsis, unspecified organism Status: Acute Assessment and Plan: transition to oral antibiotics Sepsis resolved this was present on admission. (2) Paroxysmal atrial fibrillation with RVR: Code(s): I48.0 - Paroxysmal atrial fibrillation Status: Acute Assessment and Plan: Will check an EKG as patient does have elevated heart rate today. This is not new. (3) Acute metabolic encephalopathy: Code(s): G93.41 - Metabolic encephalopathy Status: Acute Assessment and Plan: Resolved (4) Ischemia of left lower extremity: Code(s): I99.8 - Other disorder of circulatory system Status: Acute Assessment and Plan: chronic will need to see vascular surgery upon discharge (5) COPD exacerbation: Code(s): J44.1 - Chronic obstructive pulmonary disease with (acute) exacerbation Status: Acute Assessment and Plan: chronic, no exacerbation (6) Uncontrolled hypertension: Code(s): I10 - Essential (primary) hypertension Status: Acute Assessment and Plan: monitor (7) Acute respiratory failure with hypoxia: Code(s): J96.01 - Acute respiratory failure with hypoxia Status: Acute Assessment and Plan: no issues today with respiratory status (8) Diabetes mellitus with hyperglycemia, without long-term current use of insulin: Code(s): E11.65 - Type 2 diabetes mellitus with hyperglycemia Status: Acute (9) Peripheral artery disease: Code(s): I73.9 - Peripheral vascular disease, unspecified Status: Acute Assessment and Plan: chronic, will need to follow up with vascular surgery Plan now agreeable to be placed in skilled facility. Awaiting placement Subjective Date/time seen: 01/10/22 11:24 No new complaints Exam Narrative: General: alert and oriented Psych: appropriate mood nad affect Eyes: PERRLA Neck: Trachea midline, no new lesions Skin: no changes Lungs: CTA Cardiac: Normal S1,S2, no MGR ABD: soft, nd, nt, nbs Ext: ally dry gangrene noted of left great toe Vasc: decreased pulses bilate Objective Data Vital Signs Vital Signs: Vital Signs - 24 hr 01/09/22 14:20 01/09/22 14:34 01/09/22 12:00 Temperature Pulse Rate 88 76 101 H Respiratory Rate 16 16 Blood Pressure Pulse Oximetry Oxygen Delivery Oxygen Flow Rate Fraction of Inspired Oxygen 01/09/22 16:00 01/09/22 21:32 01/09/22 21:32 Temperature Pulse Rate 88 98 98 Respiratory Rate 16 16 Blood Pressure Pulse Oximetry 98 Oxygen Delivery Nasal Cannula Oxygen Flow Rate 2 Fraction of Inspired Oxygen 01/09/22 22:09 01/09/22 22:00 01/09/22 20:00 Temperature 97.5 F L Pulse Rate 97 94 Respiratory Rate 18 Blood Pressure 160/70 H Pulse Oximetry 96 93 Oxygen Delivery Nasal Cannula Oxygen Flow Rate 2 Fraction of Inspired Oxygen 50 01/10/22 02:26 01/10/22 00:00 01/10/22 04:00 Temperature Pulse Rate 96 91 93 Respiratory Rate 18 Blood Pressure Pulse Oximetry Oxygen Delivery Oxygen Flow Rate Fraction of Inspired Oxygen 01/10/22 06:00 01/10/22 07:27 01/10/22 07:28 Temperature 97.9 F Pulse Rate 87 88 88 Respiratory Rate 18 16 16 Blood Pressure 162/72 H Pulse Oximetry 99 92 Oxygen Delivery Room Air Oxygen Flow Rate Fraction of Inspired Oxygen 01/10/22 09:04 01/10/22 09:05 Temperature Pulse Rate 99 Respiratory Rate Blood Pressure Pulse Oximetry Oxygen Delivery Room Air Oxygen Flow Rate Fraction of Inspired Oxygen Intake/Output Intake/Output: Intake & Output 01/07/22 01/08/22 01/09/22 01/10/22 23:
[2022-01-10] MEDS: INSULIN ASPART (*BKC) 100 UNITS/ML SUB-Q ×2 (11:44→16:42)
--- NOTE | 2022-01-10 12:46 | PM.DS ---
DS: Admitting Diagnosis Discharge Date 01/10/22 Admitting Diagnosis dry gangrene left toe DS: Discharge Diagnosis Discharge Diagnosis (1) Sepsis: Qualifiers: Sepsis type: sepsis due to unspecified organism Sepsis acute organ dysfunction status: with acute organ dysfunction Severe sepsis acute organ dysfunction type: encephalopathy Code(s): A41.9 - Sepsis, unspecified organism Status: Acute Assessment and Plan: transition to oral antibiotics Sepsis resolved this was present on admission. (2) Paroxysmal atrial fibrillation with RVR: Code(s): I48.0 - Paroxysmal atrial fibrillation Status: Acute Assessment and Plan: Will check an EKG as patient does have elevated heart rate today. This is not new. (3) Acute metabolic encephalopathy: Code(s): G93.41 - Metabolic encephalopathy Status: Acute Assessment and Plan: Resolved (4) Ischemia of left lower extremity: Code(s): I99.8 - Other disorder of circulatory system Status: Acute Assessment and Plan: chronic will need to see vascular surgery upon discharge (5) COPD exacerbation: Code(s): J44.1 - Chronic obstructive pulmonary disease with (acute) exacerbation Status: Acute Assessment and Plan: chronic, no exacerbation (6) Uncontrolled hypertension: Code(s): I10 - Essential (primary) hypertension Status: Acute Assessment and Plan: monitor (7) Acute respiratory failure with hypoxia: Code(s): J96.01 - Acute respiratory failure with hypoxia Status: Acute Assessment and Plan: no issues today with respiratory status (8) Diabetes mellitus with hyperglycemia, without long-term current use of insulin: Code(s): E11.65 - Type 2 diabetes mellitus with hyperglycemia Status: Acute (9) Peripheral artery disease: Code(s): I73.9 - Peripheral vascular disease, unspecified Status: Acute Assessment and Plan: chronic, will need to follow up with vascular surgery Plan now agreeable to be placed in skilled facility. Awaiting placement DS: Summary Hospital Course Hospital Course: patient 71-year-old female came in with left lower extremity ulcer and was found have dry gangrene.? Surgery was consulted vascular studies were ordered and reviewed.? Patient does have significant vascular disease.? Patient be discharged on antibiotics and needs to follow up with vascular surgeon.? This is not a ? Emergent per the surgery service here. names and numbers of vascular surgeons were given to the patient and she wants to schedule her? phone appointment.? Patient refused placement in skilled facility.? She fully understands risks of going without any sort of help.? Patient does have a history of medical noncompliance Time Spent with Patient Time attestation: Total time spent providing and/or coordinating discharge services: Exam Narrative: General: alert and oriented Psych: appropriate mood nad affect Eyes: PERRLA Neck: Trachea midline, no new lesions Skin: no changes Lungs: CTA Cardiac: Normal S1,S2, no MGR ABD: soft, nd, nt, nbs Ext: ally dry gangrene noted of left great toe Vasc: decreased pulses bilate DS: Data Data Completed and Pending Labs on day of discharge: Labs from last 24 hours 01/10/22 01/10/22 01/10/22 12:30 11:07 09:27 WBC RBC Hgb Hct MCV MCH MCHC RDW Plt Count MPV Sodium 139 Potassium 3.3 L Chloride 101 Carbon Dioxide 26 Anion Gap 12 BUN 7 Creatinine 0.60 L Estim Creat Clear Calc 72 Estimated GFR > 60 Glucose 347 H POC Capillary Glucose 292 H Calcium 8.5 SARS-CoV-2 IgG/IgM Ag?Rapid Pending 01/10/22 01/09/22 01/09/22 07:47 22:05 16:53 WBC RBC Hgb Hct MCV MCH MCHC RDW Plt Count MPV Sodium Potassium Chloride Carbon Dioxide Anion Gap
[2022-01-10 12:53] LABS: EDCOVIDSCREEN Negative (Negative)
[2022-01-10 16:29] LABS: Glucose Point of Care 256 mg/dl (65-105)
== END 2022-01-10 17:40 | DRG 871 ==
LOC: ANHED 16:43 → ANH2MED 17:54 → ANHICU 21:36 → ANHIMU 01-06 11:19 → ANH3MEDSUR 01-09 10:29 → ANHIMU 01-12 13:39
PROVIDERS: Emergency Medicine; Internal Medicine; Admitting Provider Student in an Organized Health Care Education/Training Program; Emergency Provider Preventive Medicine Aerospace Medicine; PCP Emergency Medicine; Visit Provider Chiropractor
DX: A41.9 Sepsis, unspecified organism (principal); G93.41 Metabolic encephalopathy; J96.01 Acute respiratory failure with hypoxia; L03.116 Cellulitis of left lower limb; E87.20 Acidosis, unspecified; J44.1 Chronic obstructive pulmonary disease with (acute) exacerbation; M86.672 Other chronic osteomyelitis, left ankle and foot; E11.52 Type 2 diabetes mellitus with diabetic peripheral angiopathy with gangrene; I70.262 Atherosclerosis of native arteries of extremities with gangrene, left leg; L97.528 Non-pressure chronic ulcer of other part of left foot with other specified severity; E11.621 Type 2 diabetes mellitus with foot ulcer; E11.65 Type 2 diabetes mellitus with hyperglycemia; E11.628 Type 2 diabetes mellitus with other skin complications; E11.69 Type 2 diabetes mellitus with other specified complication; R65.20 Severe sepsis without septic shock; I11.0 Hypertensive heart disease with heart failure; I50.9 Heart failure, unspecified; I48.0 Paroxysmal atrial fibrillation; E55.9 Vitamin D deficiency, unspecified; L98.8 Other specified disorders of the skin and subcutaneous tissue; I70.292 Other atherosclerosis of native arteries of extremities, left leg; I25.10 Atherosclerotic heart disease of native coronary artery without angina pectoris; J02.9 Acute pharyngitis, unspecified; Z20.822 Contact with and (suspected) exposure to COVID-19; E78.2 Mixed hyperlipidemia; F17.210 Nicotine dependence, cigarettes, uncomplicated; M48.07 Spinal stenosis, lumbosacral region; Z79.84 Long term (current) use of oral hypoglycemic drugs; Z91.199 Patient's noncompliance with other medical treatment and regimen due to unspecified reason
CPT/HCPCS: 36415; 36600; 70450; 71045; 73620; 80048; 80053; 80202; 81001; 82140; 82375; 82550; 82805; 82948; 83036; 83050; 83605; 83735; 84132; 84443; 84484; 85025; 85027; 85652; 86140; 86308; 87040; 87081; 87086; 87426; 87502; 87880; 92610; 93005; 93923; 94640; 96361; 96365; 96367; 96372; 96375; 97110; 97161; 97166; 97530; 99285; A9270; C8929; C9803; G0378; J0360; J0456; J0696; J1450; J1650; J1815; J2060; J2543; J3370; J3475; J3480; J7030; J7040; Q9957; U0003; U0005

== ENCOUNTER 2022-01-25 06:21 | Emergency (ER) | payer MEDICARE, SELFPAY ==
--- NOTE | ~2022-01-25 | CT_ITS ---
EXAMINATION: CT cervical spine wo con DATE: 01/25/2022 07:52 INDICATION: Fall with head injury TECHNIQUE: Computed tomography (CT) of the cervical spine was performed without intravenous contrast. Automated exposure control and iterative reconstruction technique were employed. The dose-length pro duct was 301.31 mGy-cm. COMPARISON: Cervical spine radiographs dated 06/02/2014 FINDINGS: Alignment is normal. Vertebral body heights are normal. No fracture. Mild osteoarthritis at the atlan toaxial articulation. Mild disc height loss at C6-C7 with moderate right-sided and mild left-sided un covertebral osteoarthritis. Mild uncovertebral osteoarthritis at a few additional levels in the cervi rosaura spine. There is also mild to moderate multilevel bilateral cervical facet osteoarthritis. No sign ificant central canal or neural foraminal stenosis. Atherosclerotic calcific lesions at the bilateral carotid bulbs. Cervical soft tissues are unremarkable. Visualized apices of lungs are clear. IMPRESSION: 1. Mild cervical spondylosis. No acute osseous abnormality. Reviewed, dictated and finalized at location A. [employer]
--- NOTE | ~2022-01-25 | CT_ITS ---
EXAMINATION: CT lumbar spine wo con DATE: 01/25/2022 07:52 INDICATION: Midline lumbar tenderness post fall TECHNIQUE: Computed tomography (CT) of the lumbar spine was performed without intravenous contrast. A utomated exposure control and iterative reconstruction technique were employed. The dose-length produ ct was 780.93 mGy-cm. COMPARISON: 02/20/2020 FINDINGS: Alignment is normal. Acute appearing L1 compression fracture with approximate 20% left-side d vertebral body height loss and linear fracture line underlying the superior endplate. Remaining chantel tebral body heights are normal. No other fractures identified. Moderate disc height loss at T11-T12 a nd mild disc height loss at T12-L1. Cholecystectomy clips the gallbladder fossa. There is calcified a therosclerosis of the aorta and many of the other arteries including arteries at the bilateral renal nestor. Paravertebral soft tissues are otherwise unremarkable. The following disc levels are specifical ly discussed: T11-T12: Disc does not extend beyond the endplate margin. There is mild bilateral facet joint osteoar thritis. There is no neural foraminal stenosis. There is no central canal stenosis. T12-L1: The disc does not extend beyond the endplate margin. There is mild bilateral facet joint oste oarthritis. There is no neural foraminal stenosis. There is no central canal stenosis. L1-L2: The disc does not extend beyond the endplate margin. There is mild bilateral facet joint osteo arthritis. There is no neural foraminal stenosis. There is no central canal stenosis. L2-L3: Disc is mildly bulging. There is mild bilateral facet joint osteoarthritis. There is mild left neural foraminal stenosis. There is no central canal stenosis. L3-L4: Disc is mildly bulging. There is mild right and moderate left facet joint osteoarthritis. Ther e is mild left neural foraminal stenosis. There is mild central canal stenosis. L4-L5: Disc is bulging. There is severe bilateral facet joint osteoarthritis with small amount of vac uum phenomena within a likely synovial cyst extending into the left neural foramen. There is mild rig ht and moderate left neural foraminal stenosis. There is mild central canal stenosis. L5-S1: Disc is mildly bulging. There is moderate left severe right facet joint osteoarthritis. There is mild left neural foraminal stenosis. There is no central canal stenosis. IMPRESSION: 1. Acute mild L1 compression fracture with 20% left-sided vertebral body height loss. 2. Mild lumbar spondylosis. Reviewed, dictated and finalized at location A. 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
--- NOTE | ~2022-01-25 | XR_ITS ---
EXAMINATION: XR hip RT 2V w AP pelvis DATE: 01/25/2022 08:01 INDICATION: Right hip pain. Fall. TECHNIQUE: An anteroposterior view of the pelvis and 2 views right hip were obtained. COMPARISON: Pelvis and left hip radiograph 07/14/20 FINDINGS: There is lumbar levocurvature and mild spondylosis. No fracture. There is mild osteoarthrit is of the hips. IMPRESSION: 1. Mild osteoarthritis of the hips. Reviewed, dictated and finalized at location A. DATA SOFTWARE ENGINEER
--- NOTE | ~2022-01-25 | CT_ITS ---
EXAMINATION: CT brain wo con DATE: 01/25/2022 07:52 INDICATION: Fall with head injury TECHNIQUE: Computed tomography (CT) of the head was performed without intravenous contrast. Sagittal and coronal reconstructions were performed. The mA was adjusted according to patient size. Iterative reconstruction technique was employed. The dose-length product was 605.33 mGy-cm. COMPARISON: head CT dated 01/05/2022 FINDINGS: No fracture. No acute intracranial hemorrhage, acute infarction or abnormal extra axial fluid collect ion. There is mild scattered white matter hypoattenuation consistent with chronic small vessel ischem ic disease. Symmetric prominence of the sulci consistent with mild age-appropriate diffuse cerebral v olume loss. Ventricles are normal and symmetric. No mass/mass effect. Changes of bilateral intraocula r lens replacement. The orbits, paranasal sinuses and mastoid air cells are normal. Intracranial calc ified cerebral atherosclerosis is noted. IMPRESSION: 1. No fracture or acute intracranial process. 2. Age-related changes including mild diffuse volume loss and mild scattered white matter hypoattenua tion consistent with chronic small vessel ischemic disease. Reviewed, dictated and finalized at location A. HOLOGIST SOCIAL IMPRESSION: 1. No fracture or acute intracranial process. 2. Age-related changes including mild diffuse volume loss and mild scattered wh ite matter hypoattenuation consistent with chronic small vessel ischemic diseas e.
--- NOTE | ~2022-01-25 | XR_ITS ---
EXAMINATION: XR chest 1V DATE: 01/25/2022 08:02 INDICATION: Fall. TECHNIQUE: A single frontal view of the chest was obtained. COMPARISON: Chest single view 01/05/2022, chest CT 07/22/20 FINDINGS: There is mild atelectasis at left lung base. Calcified pulmonary nodules and calcified nestor r and mediastinal lymph nodes are consistent with old granulomatous disease. No pleural effusion or p neumothorax. The heart size is normal. There is a prominent left paracardial fat pad. IMPRESSION: 1. Mild atelectasis at left lung base. Reviewed, dictated and finalized at location A. CRIPTIONIST
[2022-01-25 06:27] VITALS: BP 182/96; PULSE 94; RESP 14; TEMP 36.7; O2SAT 95
[2022-01-25 06:29] VITALS: PULSE 94; RESP 18
[2022-01-25 06:30] VITALS: PULSE 94; RESP 19
--- NOTE | 2022-01-25 06:33 | PC.NURSE ---
Reports was getting up to go to bathroom when fell. Right hip hurts but pt able to lift hips off of bed. Also c/o pain to back side of head. Denies LOC. Contusion noted but no laceration noted to site
[2022-01-25 06:45] VITALS: PULSE 94; RESP 25; O2SAT 94
--- NOTE | 2022-01-25 07:14 | ED.FALL ---
HPI - Fall General Chief Complaint: Fall Stated Complaint: fall Time Seen by Provider: 01/25/22 07:01 Source: RN notes reviewed History of Present Illness HPI Narrative: Patient presents to the emergency department from [facility] via EMS for a fall. Patient currently resides in a fci states she had been going down to breakfast in her wheelchair when she fell out of her wheelchair states that she landed on the right side and has pain in her right hip and lower back states she did strike her head but did not have any loss of consciousness she states that she does not normally walk. she denies any chest pain shortness of breath or abdominal pain she denies any numbness or tingling of the extremities Related Data Home Medications Medication Instructions Recorded Confirmed albuterol sulfate 90 mcg/actuation 2 puff inhalation Q4H PRN 01/05/22 01/05/22 aerosol inhaler Shortness Of Breath simvastatin 10 mg tablet 10 mg PO DAILY 01/05/22 01/05/22 Allergies Allergy/AdvReac Type Severity Reaction Status Date / Time No Known Allergies Allergy Verified 01/25/22 06:25 Review of Systems Review of Systems: Gen.: Denies fevers or chills ENT: Denies congestion Respiratory: Denies shortness of breath or cough CV: Denies chest pain or palpitations GI: Denies abdominal pain nausea, emesis or diarrhea Musculoskeletal: See HPI Neuro: Denies numbness, tingling, weakness or focal weakness Skin: Denies rash Except as documented, all other systems reviewed and negative PMFSH Past Medical History Medical History CHF (congestive heart failure) COPD mixed type Cortical age-related cataract of both eyes Diabetes mellitus Essential hypertension Mixed hyperlipidemia Other screening mammogram Peripheral artery disease Right-sided Cool's palsy Spinal stenosis of lumbosacral region Tobacco abuse Vitamin D deficiency Surgical History Surgical History History of appendectomy History of Hx of cholecystectomy Family History Family History Father Malignant neoplasm of prostate, Onset Age: 76 Patient's father is Family history of Alzheimer's disease Mother Family history of malignant neoplasm of ovary Family history of malignant neoplasm of cervix Sibling Family history of malignant neoplasm of ovary Other Unknown family medical history Social History Social History Social History: She lives at home with her . She sleeps on the couch. She uses a bedside commode. She has smoked up to 2 pack per day since she was a teenager. She denies any history of heavy alcohol use. She denies illicit substance use. Code status: Full code Surrogate decision maker: Primary care physician: Dr. James Medina Smoking packs per day: 2 Smoking cigarettes per day: 40.0 Years smoked: 50 Smoking pack-years: 100.00 Smoking status: Current every day smoker Tobacco type: cigarettes Second hand tobacco smoke exposure: Yes Smoking end date: 03/21/11 Alcohol intake: never Substance use: never Substance use type: does not use Gender identity (if verbalized by the patient): Female Sexual Orientation (if Verbalized by the Patient): Straight or Heterosexual Spiritual care concerns: No Agree to blood products: Yes Exam Narrative: APPEARANCE: Well appearing, no apparent distress, well-nourished. HEENT: normocephalic atraumtaic. No facial tenderness EYES: PERRL NECK: Supple. No midline tenderness to palpation. Tenderness to palpation bilateral paravertebral muscles C5-7 RESPIRATORY: No respiratory distress. Clear to auscultation bilaterally CARDIOVASCULAR: Regular rate and rhythm without murmurs rubs or gallops. ABDOMINAL: Soft, nontender, nondistended, no r
[2022-01-25 07:26] VITALS: BP 158/94; PULSE 79; RESP 20; O2SAT 99
--- NOTE | 2022-01-25 09:11 | PC.NURSE ---
BLS return to [facility] not available 0[facility] ETA [phone] Trip #[id number]
[2022-01-25 09:16] VITALS: BP 144/86; PULSE 88; RESP 15; O2SAT 99
--- NOTE | 2022-01-25 10:04 | PC.NURSE ---
Updated ETA for [facility] 10:45
== END 2022-01-25 10:46 ==
PROVIDERS: Emergency Provider Emergency Medicine; PCP Emergency Medicine
DX: S32.010A Wedge compression fracture of first lumbar vertebra, initial encounter for closed fracture (principal); S00.93XA Contusion of unspecified part of head, initial encounter; I50.9 Heart failure, unspecified; I11.0 Hypertensive heart disease with heart failure; J44.9 Chronic obstructive pulmonary disease, unspecified; E78.2 Mixed hyperlipidemia; E11.51 Type 2 diabetes mellitus with diabetic peripheral angiopathy without gangrene; I73.9 Peripheral vascular disease, unspecified; E11.36 Type 2 diabetes mellitus with diabetic cataract; H26.9 Unspecified cataract; E55.9 Vitamin D deficiency, unspecified; Z87.891 Personal history of nicotine dependence; Z79.84 Long term (current) use of oral hypoglycemic drugs; M47.812 Spondylosis without myelopathy or radiculopathy, cervical region; M47.816 Spondylosis without myelopathy or radiculopathy, lumbar region; M16.0 Bilateral primary osteoarthritis of hip; V00.811A Fall from moving wheelchair (powered), initial encounter
CPT/HCPCS: 70450; 71045; 72125; 72131; 73502; 99284

== ENCOUNTER 2022-02-12 18:36 | Inpatient (IN) | payer MEDICARE, SELFPAY ==
[2022-02-12] VITALS (15 sets, daily range): BP systolic 127–170; BP diastolic 62–79; PULSE 75–83; RESP 13–23; TEMP 37.3; O2SAT 89–99
--- NOTE | ~2022-02-12 | US_ITS ---
EXAMINATION: US pelvic complete DATE: 02/17/2022 14:56 INDICATION: Enlarged uterus. TECHNIQUE: Multiple transabdominal sonographic images of the pelvis were obtained. COMPARISON: CT abdomen and pelvis 02/12/2022 FINDINGS: The uterus measures 12.8 x 7.0 x 11.2 cm. There is no free fluid in the pelvis. The endometrium is no rmal in thickness. The intrauterine cavity is markedly distended to 10.0 x 6.5 x 10.0 cm and contains fluid with low level echoes. The ovaries are not visualized. IMPRESSION: 1. Hematometra, likely secondary to cervical stenosis, which may be seen with senile atrophy or neopl asm or radiation (if the patient has such a history). Reviewed, dictated and finalized at location A. 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 Hematometra, likely secondary to cervical stenosis, which may be seen with s enile atrophy or neoplasm or radiation (if the patient has such a history).
--- NOTE | ~2022-02-12 | CT_ITS ---
EXAMINATION: CT abdomen pelvis w con DATE: 02/12/2022 23:27 INDICATION: Abdominal pain, diarrhea for 2 days TECHNIQUE: Computed tomography (CT) of the abdomen and pelvis was performed with 100 CC Omnipaque 350 intravenous contrast. Automated exposure control and iterative reconstruction technique were employe d. Exam dose: 422.45 mGy-cm total exam DLP. COMPARISON: None. FINDINGS: There is discoid atelectasis and/or scarring base of the left lower lobe. Minimal atelectas is at the base of the lingula. Cardiomegaly. No pericardial or pleural effusion. Status post cholecystectomy. No bile duct or pancreatic duct dilatation. No hepatic, pancreatic, splenic space-occupying mass lesion. The adrenal glands are unremarkable. Approximately 2 mm nonobstructing right renal calculus. No ureteral calculus or hydroureteronephrosis of either kidney. Prominent abdominal aortic and bilateral iliac arterial calcification in addition to prominent calcif ication of the celiac, particularly the superior mesenteric arteries in addition to renal artery calc ifications. Prominent calcification of inferior mesenteric artery. No abdominal aortic aneurysm. No intraperitoneal or retroperitoneal or pelvic mass lesion or adenopathy or ascites is noted. The ur inary bladder is unremarkable. There is severe fluid distention of the endometrial canal with thinning of the surrounding uterine my ometrium. Gynecologic consult is recommended. No adnexal mass lesions are noted. Diverticulosis of the left colon; no CT evidence of diverticulitis. No bowel obstruction, bowel wall thickening, pneumatosis or intraperitoneal free air. Prominent burst fracture deformity of L1. Osteopenia. IMPRESSION: Severe fluid distention of the endometrial cavity which measures up to 6.5 cm AP dimensi on; gynecologic consult is recommended Diverticulosis of the colon; no CT evidence of diverticulitis Status post cholecystectomy Prominent burst fracture of L1 Reviewed, dictated and finalized at Location A. Reviewed, dictated and finalized at location A. D ANIMAL VETERINARIAN IMPRESSION: Severe fluid distention of the endometrial cavity which measures u p to 6.5 cm AP dimension; gynecologic consult is recommended Diverticulosis of the colon; no CT evidence of diverticulitis Status post cholecystectomy Prominent burst fracture of L1
--- NOTE | 2022-02-12 18:58 | ED.GENADULT ---
HPI - General Adult General Chief complaint: Weakness Stated complaint: diarrhea/weakness Time Seen by Provider: 02/12/22 18:44 History of Present Illness HPI narrative: Patient is a 71-year-old female with a history of diabetes, paroxysmal A. fib, CAD, hyperlipidemia presenting with diarrhea and weakness. Patient states that for the last 2 days she has had constant diarrhea. She has been unable to make it to the commode so she has been laying in her feces for about 2 days. States that she feels very generally weak. She denies any abdominal pain. No melena or hematochezia. She denies fevers, chest pain, shortness of breath, nausea or vomiting, dysuria. Complains of chronic toe pain. Related Data Home Medications Medication Instructions Recorded Confirmed albuterol sulfate 90 mcg/actuation 2 puff inhalation Q4H PRN 01/05/22 02/13/22 aerosol inhaler Shortness Of Breath simvastatin 10 mg tablet 10 mg PO DAILY 01/05/22 02/13/22 acetaminophen 500 mg capsule 1,000 mg PO TID PRN pain 02/13/22 02/13/22 diclofenac sodium 50 mg 50 mg PO BID 02/13/22 02/13/22 tablet,delayed release lisinopril 10 mg tablet 10 mg PO DAILY 02/13/22 02/13/22 metformin 1,000 mg tablet 1,000 mg PO BID 02/13/22 02/13/22 Allergies Allergy/AdvReac Type Severity Reaction Status Date / Time No Known Allergies Allergy Verified 01/25/22 06:25 Review of Systems Review of Systems: All systems reviewed & are unremarkable except as noted in HPI and below PMFSH Past Medical History Medical History CHF (congestive heart failure) COPD mixed type Cortical age-related cataract of both eyes Diabetes mellitus Essential hypertension Mixed hyperlipidemia Other screening mammogram Peripheral artery disease Right-sided Cool's palsy Spinal stenosis of lumbosacral region Tobacco abuse Vitamin D deficiency Surgical History Surgical History History of appendectomy History of Hx of cholecystectomy Family History Family History Father Malignant neoplasm of prostate, Onset Age: 76 Patient's father is Family history of Alzheimer's disease Mother Family history of malignant neoplasm of ovary Family history of malignant neoplasm of cervix Sibling Family history of malignant neoplasm of ovary Social History Social History Social History: She lives at home with her . She sleeps on the couch. She uses a bedside commode. She has smoked up to 2 pack per day since she was a teenager. She denies any history of heavy alcohol use. She denies illicit substance use. Code status: Full code Surrogate decision maker: Primary care physician: Dr. James Medina Smoking packs per day: 2 Smoking cigarettes per day: 40.0 Years smoked: 50 Smoking pack-years: 100.00 Smoking status: Current every day smoker Tobacco type: cigarettes Second hand tobacco smoke exposure: No Smoking end date: 03/21/11 Alcohol intake: never Substance use: never Substance use type: does not use Lack of Transportation: No Lack of Food: Never True Current Housing: I Have Housing Concerned About Future Housing: No Difficulty Paying Gas/Electric Bills: No Difficulty Paying for Meds: No Currently Unemployed: No Education: High School Diploma/GED Difficulty w/ Childcare or Family Care: No Gender identity (if verbalized by the patient): Female Sexual Orientation (if Verbalized by the Patient): Straight or Heterosexual Spiritual care concerns: No Agree to blood products: Yes Exam Narrative: GENERAL: Elderly female laying in bed in no acute distress, fecal matter on her face and hands and feet HEAD: Normocephalic, atraumatic. EYES: PERRLA and EOMI. ENT: Nares clear, no rhinorrhea or
--- NOTE | 2022-02-12 19:20 | PC.NURSE ---
Assumed care of pt from TORRI Arroyo. Pt on stretcher covered in feces. Pt A&Ox4 at this time
--- NOTE | 2022-02-12 19:43 | PC.NURSE ---
straight cath- 150, clear, yellow/hardeep
[2022-02-12 19:52] LABS: Basophils Percent Auto 0.4 % (0.2-1.2); Eosinophils Percent Auto 0.3 % (0-4.4); Hematocrit 40.1 % (37.0-47.0); Hemoglobin 12.7 g/dL (12.0-15.0); Immature Granulocyte Absolute 0.03 K/mm3 (0.00-0.031); Immature Granulocyte Percent A 0.4 % (0-0.5); Lymphocytes Absolute Auto 2.07 K/mm3 (0.9-3.2); Lymphocytes Percent Auto 26.2 % (18.3-44.2); Mean Corpuscular HGB Conc 31.7 g/dl (32-36); Mean Corpuscular Hemoglobin 29.8 pg (26-34); Mean Corpuscular Volume 94.1 fl (80-100); Mean Platelet Volume 11.1 fl (7.4-10.4); Monocytes Absolute Auto 0.7 K/mm3 (0.1-0.6); Monocytes Percent Auto 8.4 % (2.6-8.5); Neutrophils Absolute Auto 5.1 K/mm3 (1.3-6.7); Neutrophils Percent Auto 64.3 % (45.5-73.1); Platelet Count Result 221 k/mm3 (150-375); Red Blood Count 4.26 M/mm3 (4.2-5.4); Red Cell Distribution Width 14.9 % (11.5-14.5); White Blood Count 7.9 K/mm3 (4.5-10.0)
[2022-02-12 19:53] LABS: Appearance Urine Clear (Clear); Bilirubin Urine Negative (Negative); Blood Urine Trace-lysed (Negative); Color Urine Yellow (Yellow); Glucose Urine UA Trace mg/dL (Negative); Ketones Urine Negative (Negative); Leukocyte Esterase Ur Trace LEU/UL (Negative); Nitrate Urine Negative (Negative); Protein Urine 3+ mg/dL (Negative); Specific Grav Ur 1.025 (1.001-1.035); Urobilinogen Urine 0.2 mg/dL (<2.0)
[2022-02-12 19:54] LABS: Bacteria Urine Trace /hpf; RBC Urine 0-2 /hpf (0-2); Squamous Epithelial Cell Urine Rare /hpf (Few)
[2022-02-12] MEDS: SODIUM CHLORIDE 0.9% IV 1,000 ML 999 ML IV CONT (19:54)
[2022-02-12 19:55] LABS: Add Urine Microscopic? YES
[2022-02-12 21:49] LABS: Alanine Aminotransferase 21 U/L (6-35); Albumin Level 3.2 g/dL (3.5-5.1); Alkaline Phosphatase 135 U/L (38-126); Anion Gap 8 mmol/L (8-16); Aspartate Amino Transferase 27 U/L (14-36); Bilirubin,Total 0.3 mg/dL (0.2-1.3); Blood Urea Nitrogen 22 mg/dL (7-17); Calcium 8.4 mg/dL (8.4-10.2); Carbon Dioxide 30 mmol/L (22-30); Chloride 103 mmol/L (98-107); Creatine Kinase 49 U/L (30-135); Estimated CRCL calculation 55 ml/min; Estimated Glomerular Filt Rate > 60; Glucose 191 mg/dL (65-110); Potassium 3.4 mmol/L (3.4-5.0); Sodium 141 mmol/L (137-145)
--- NOTE | 2022-02-12 23:14 | PC.NURSE ---
Assumed care of pt at this time. Pt alert and supine on stretcher, taken to CT.
[2022-02-12] MEDS: IPRATROPIUM BR 0.02% INH SOLN 0.5 MG/2.5 ML VIAL INHALATION (23:46)
[2022-02-12] MEDS: ALBUTEROL SULFATE NEB 2.5 MG/3 ML INH 10 MG INHALATION (23:46)
--- NOTE | 2022-02-12 23:53 | PCRCNOTE ---
Pt Sp02 92% on room air, RR-14. Breath sound diminished bilaterally. No SOB or increased WOB present. RT started Cont. nub TX, per MD orders.
[2022-02-13] VITALS (10 sets, daily range): BP systolic 146–172; BP diastolic 57–91; PULSE 78–87; RESP 16–22; TEMP 35.9–36.6; O2SAT 90–98
[2022-02-13 00:20] LABS: Influenza A QL RT-PCR Negative (Negative); Influenza B QL RT-PCR Negative (Negative); RSV RNA, RT-PCR Negative (Negative); SARS-CoV-2 RNA PCR Positive
--- NOTE | 2022-02-13 01:09 | PC.NURSE ---
Pt unable to be transported to floor due to continuous breathing treatment. Once discontinued, pt can be transported to room 341, per Camryn adjunct business instructor
--- NOTE | 2022-02-13 02:35 | ADMGEN ---
This patient, Majo Abbott, was admitted to Medical Room 341-01. Patient/family oriented to hospital policies and general routines including ID bracelet, bed and alarms, visiting hours, pain management, procedures, bathroom and other care routines, personal items, smoking policy, room service/diet, and visiting hours. Information on how to activate the Rapid Response Team has been discussed. Patient/Family are encouraged to report perceived risks to care and to ask questions if they do not understand what they are told or what they should do.
[2022-02-13] MEDS: metroNIDAZOLE 500 MG/ISO 100ML 500 MG/100 ML BAG 100 MG IVPB ×3 (05:43→20:10)
--- NOTE | 2022-02-13 08:07 | PM.IMHP ---
H&P: HPI History of Present Illness Date/Time: 02/13/22 08:07 Chief Complaint: diarrhea and weakness Narrative: 71-year-old female with past medical history significant for dementia,diabetes, paroxysmal atrial fibrillation, coronary disease, hyperlipidemia is presenting with diarrhea and weakness. patient states she has had significant diarrhea over the last few days and difficulty cleaning herself up. She is getting progressively more weak. No chest pain or shortness of breath. No nausea, vomiting or diarrhea. No fevers or chills. No sick contacts or recent travel. She was found to be positive for COVID and C diff. Review of Systems Review of Systems: 12 point review of systems was assessed and was negative except as noted in the HPI [facility] Past Medical History Medical History CHF (congestive heart failure) COPD mixed type Cortical age-related cataract of both eyes Diabetes mellitus Essential hypertension Mixed hyperlipidemia Other screening mammogram Peripheral artery disease Right-sided Cool's palsy Spinal stenosis of lumbosacral region Tobacco abuse Vitamin D deficiency Surgical History Surgical History History of appendectomy History of Hx of cholecystectomy Family History Family History Father Malignant neoplasm of prostate, Onset Age: 76 Patient's father is Family history of Alzheimer's disease Mother Family history of malignant neoplasm of ovary Family history of malignant neoplasm of cervix Sibling Family history of malignant neoplasm of ovary Social History Social History Social History: She lives at home with her . She sleeps on the couch. She uses a bedside commode. She has smoked up to 2 pack per day since she was a teenager. She denies any history of heavy alcohol use. She denies illicit substance use. Code status: Full code Surrogate decision maker: Primary care physician: Dr. James Medina Smoking packs per day: 2 Smoking cigarettes per day: 40.0 Years smoked: 50 Smoking pack-years: 100.00 Smoking status: Current every day smoker Tobacco type: cigarettes Second hand tobacco smoke exposure: No Smoking end date: 01/01/12 Alcohol intake: never Substance use: never Substance use type: does not use Lack of Transportation: No Lack of Food: Never True Current Housing: I Have Housing Concerned About Future Housing: No Difficulty Paying Gas/Electric Bills: No Difficulty Paying for Meds: No Currently Unemployed: No Education: High School Diploma/GED Difficulty w/ Childcare or Family Care: No Gender identity (if verbalized by the patient): Female Sexual Orientation (if Verbalized by the Patient): Straight or Heterosexual Spiritual care concerns: No Agree to blood products: Yes Meds Home Medications and Allergies Home Medications Medication Instructions Recorded Confirmed Type blood glucose control, low (True #1 ea 08/29/20 02/13/22 Rx Metrix Level 1 solution) blood sugar diagnostic (True #200 ea 08/29/20 02/13/22 Rx Metrix Glucose Test Strip) blood-glucose meter (True Metrix #1 ea 08/29/20 02/13/22 Rx Glucose Meter) lancets 33 gauge (TRUEplus Lancets) #200 ea 08/29/20 02/13/22 Rx potassium chloride 20 mEq 20 meq PO DAILY #14 tabs 12/21/21 02/13/22 Rx tablet,extended release albuterol sulfate 90 mcg/actuation 2 puff inhalation Q4H PRN 01/05/22 02/13/22 History aerosol inhaler Shortness Of Breath simvastatin 10 mg tablet 10 mg PO DAILY 01/05/22 02/13/22 History acetaminophen 500 mg capsule 1,000 mg PO TID PRN pain 02/13/22 02/13/22 History diclofenac sodium 50 mg 50 mg PO BID 02/13/22 02/13/22 History tablet,delayed release lisinopril 10 mg tablet
[2022-02-13 08:58] LABS: Glucose Point of Care 182 mg/dl (65-105)
[2022-02-13] MEDS: metFORMIN HCL 500 MG TABLET 1000 MG PO ×2 (09:13→16:37)
[2022-02-13] MEDS: DICLOFENAC SOD 25 MG TABLET.EC 50 MG PO ×2 (09:13→16:38)
[2022-02-13] MEDS: SIMVASTATIN 10 MG TABLET PO (09:14)
[2022-02-13] MEDS: POTASSIUM CHLORIDE 20 MEQ TABLET.ER PO (09:14)
[2022-02-13] MEDS: lisinopriL 10 MG TABLET PO (09:14)
[2022-02-13 12:44] LABS: Glucose Point of Care 232 mg/dl (65-105)
[2022-02-13 12:53] LABS: Toxigenic C. Diff POSITIVE (NEGATIVE)
[2022-02-13] MEDS: INSULIN ASPART (*BKC) 100 UNITS/ML SUB-Q (13:24)
--- NOTE | 2022-02-13 14:45 | PCOTNOTE ---
Attempted occupational therapy evaluation. Patient refuses to work with therapy as she reports too weak . Patient was educated on the importance of participating with therapy to build up her strength in order to get closer to going home. Educated on the importance of therapy for general health such as heart, lungs, and digestive. Patient verbalizes understanding and continues to refuse to participate. RN notified. Following.
[2022-02-13 17:25] LABS: Glucose Point of Care 132 mg/dl (65-105)
[2022-02-13] MEDS: FIDAXOMICIN 200 MG TABLET PO (17:32)
[2022-02-13 20:29] LABS: Glucose Point of Care 197 mg/dl (65-105)
[2022-02-14 06:00] VITALS: BP 143/71; PULSE 80; RESP 20; TEMP 36.4; O2SAT 94
[2022-02-14] MEDS: metroNIDAZOLE 500 MG/ISO 100ML 500 MG/100 ML BAG 100 MG IVPB ×3 (06:27→21:34)
[2022-02-14 06:30] LABS: Basophils Percent Auto 0.4 % (0.2-1.2); Eosinophils Absolute Auto 0.1 K/mm3 (0-0.3); Eosinophils Percent Auto 1.7 % (0-4.4); Hematocrit 33.8 % (37.0-47.0); Hemoglobin 11.1 g/dL (12.0-15.0); Immature Granulocyte Absolute 0.02 K/mm3 (0.00-0.031); Immature Granulocyte Percent A 0.4 % (0-0.5); Lymphocytes Absolute Auto 1.68 K/mm3 (0.9-3.2); Lymphocytes Percent Auto 30.9 % (18.3-44.2); Mean Corpuscular HGB Conc 32.8 g/dl (32-36); Mean Corpuscular Hemoglobin 29.2 pg (26-34); Mean Corpuscular Volume 88.9 fl (80-100); Mean Platelet Volume 10.8 fl (7.4-10.4); Monocytes Absolute Auto 0.4 K/mm3 (0.1-0.6); Monocytes Percent Auto 7.7 % (2.6-8.5); Neutrophils Absolute Auto 3.2 K/mm3 (1.3-6.7); Neutrophils Percent Auto 58.9 % (45.5-73.1); Platelet Count Result 183 k/mm3 (150-375); Red Cell Distribution Width 14.4 % (11.5-14.5); White Blood Count 5.4 K/mm3 (4.5-10.0)
[2022-02-14 06:57] LABS: Alanine Aminotransferase 17 U/L (6-35); Albumin Level 2.7 g/dL (3.5-5.1); Alkaline Phosphatase 105 U/L (38-126); Anion Gap 6 mmol/L (8-16); Aspartate Amino Transferase 28 U/L (14-36); Bilirubin,Total 0.3 mg/dL (0.2-1.3); Blood Urea Nitrogen 8 mg/dL (7-17); Calcium 7.3 mg/dL (8.4-10.2); Carbon Dioxide 28 mmol/L (22-30); Chloride 103 mmol/L (98-107); Estimated CRCL calculation 75 ml/min; Estimated Glomerular Filt Rate > 60; Glucose 149 mg/dL (65-110); Potassium 2.5 mmol/L (3.4-5.0); Sodium 137 mmol/L (137-145)
[2022-02-14 08:56] LABS: Glucose Point of Care 188 mg/dl (65-105)
[2022-02-14] MEDS: POTASSIUM CHLORIDE INJ 40 MEQ in SODIUM CHLORIDE 0.9% IV 500 ML 130 MEQ IVPB (08:58)
[2022-02-14] MEDS: POTASSIUM CHLORIDE 20 MEQ PACKET (FOR LIQUID) 40 MEQ PO (08:58)
[2022-02-14] MEDS: POTASSIUM CHLORIDE 20 MEQ TABLET.ER PO (09:09)
[2022-02-14] MEDS: metFORMIN HCL 500 MG TABLET 1000 MG PO ×2 (09:09→17:44)
[2022-02-14 09:10] VITALS: O2SAT 94
[2022-02-14] MEDS: SIMVASTATIN 10 MG TABLET PO (09:10)
[2022-02-14] MEDS: FIDAXOMICIN 200 MG TABLET PO ×2 (09:10→20:32)
[2022-02-14] MEDS: DICLOFENAC SOD 25 MG TABLET.EC 50 MG PO ×2 (09:10→17:45)
[2022-02-14] MEDS: lisinopriL 10 MG TABLET PO (09:10)
--- NOTE | 2022-02-14 09:30 | P.PNIM_ITS ---
Progress Note: A&P Assessment and Plan (1) COVID: Code(s): U07.1 - COVID-19 Status: Acute Assessment and Plan: * essentially asymptomatic * could be contributing to GI symptoms * Remains on RA * No noted cough * Continue to trend respiratory status (2) C. difficile diarrhea: Code(s): A04.72 - Enterocolitis due to Clostridium difficile, not specified as recurrent Status: Acute Assessment and Plan: * fidaxomicin started * DC'd Flagyl * WBC count stable at 5.4 * Continue to trend * Diarrhea slowing down * Good appetite (3) Dementia: Code(s): F03.90 - Unspecified dementia, unspecified severity, without behavioral disturbance, psychotic disturbance, mood disturbance, and anxiety Status: Acute Assessment and Plan: * Not officially diagnosed, but appears to be at baseline mentation with significant features of dementia, * Neurology consult pending (4) Fracture of L1 vertebra: Code(s): S32.019A - Unspecified fracture of first lumbar vertebra, initial encounter for closed fracture Status: Acute Assessment and Plan: * asymptomatic, gait is stable * PT/OT (5) Diabetes mellitus: Qualifiers: Diabetes mellitus complication status: without complication Diabetes mellitus penitentiary insulin use: without exterminator termite use Diabetes mellitus type: type 2 Qualified Code(s): E11.9 - Type 2 diabetes mellitus without complications Code(s): E11.9 - Type 2 diabetes mellitus without complications Status: Acute Assessment and Plan: * Current glucose is 149 * Accu cheks achs * Diabetic diet * Trend glucose * ISS * Adjust therapy as indicated * Hypoglycemia protocol (6) Hypokalemia: Code(s): E87.6 - Hypokalemia Status: Acute Assessment and Plan: * K was 2.5 today * Replace with oral and IV * Trend K level * Replace as indicated * Recheck 1 hour post transfusion * Check a mag level (7) COPD (chronic obstructive pulmonary disease): Qualifiers: COPD type: emphysema Emphysema type: panlobular Qualified Code(s): J4 3.1 - Panlobular emphysema Code(s): J44.9 - Chronic obstructive pulmonary disease, unspecified Status: Acute Assessment and Plan: * Add PRN nebs * Room air * Not in acute exacerbation Plan DVT prophylaxis with SCDs GI prophylaxis not indicated Code status full code Time Spent With Patient Time: Placed IV Time with patient: Greater than 35 minutes Subjective Date/time seen: 02/14/22 09:30 Interval history: Patient is a 71-year-old female with a past medical history of dementia, diabetes, AFib, CAD, hyperlipidemia who presented with diarrhea and weakness. Today patient stated that she still very weak however she denies any chest pain, shortness a breath, nausea, vomiting, constipation, sweats, fevers, chills. She did state that she was having some severe weakness still. Was able to get her to the commode, gait was stable very slow to move. White count today is 5.4. Still having diarrhea. Potassium was 2.5 has been replaced. Review of Systems Review of Systems: All systems reviewed & are unremarkable except as noted in HPI and below Exam
--- NOTE | 2022-02-14 09:30 | PM.IMPN ---
Progress Note: A&P Assessment and Plan (1) COVID: Code(s): U07.1 - COVID-19 Status: Acute Assessment and Plan: essentially asymptomatic could be contributing to GI symptoms Remains on RA No noted cough Continue to trend respiratory status (2) C. difficile diarrhea: Code(s): A04.72 - Enterocolitis due to Clostridium difficile, not specified as recurrent Status: Acute Assessment and Plan: fidaxomicin started DC'd Flagyl WBC count stable at 5.4 Continue to trend Diarrhea slowing down Good appetite (3) Dementia: Code(s): F03.90 - Unspecified dementia, unspecified severity, without behavioral disturbance, psychotic disturbance, mood disturbance, and anxiety Status: Acute Assessment and Plan: Not officially diagnosed, but appears to be at baseline mentation with significant features of dementia, Neurology consult pending (4) Fracture of L1 vertebra: Code(s): S32.019A - Unspecified fracture of first lumbar vertebra, initial encounter for closed fracture Status: Acute Assessment and Plan: asymptomatic, gait is stable PT/OT (5) Diabetes mellitus: Qualifiers: Diabetes mellitus complication status: without complication Diabetes mellitus correction insulin use: without correction use Diabetes mellitus type: type 2 Qualified Code(s): E11.9 - Type 2 diabetes mellitus without complications Code(s): E11.9 - Type 2 diabetes mellitus without complications Status: Acute Assessment and Plan: Current glucose is 149 Accu cheks achs Diabetic diet Trend glucose ISS Adjust therapy as indicated Hypoglycemia protocol (6) Hypokalemia: Code(s): E87.6 - Hypokalemia Status: Acute Assessment and Plan: K was 2.5 today Replace with oral and IV Trend K level Replace as indicated Recheck 1 hour post transfusion Check a mag level (7) COPD (chronic obstructive pulmonary disease): Qualifiers: COPD type: emphysema Emphysema type: panlobular Qualified Code(s): J43.1 - Panlobular emphysema Code(s): J44.9 - Chronic obstructive pulmonary disease, unspecified Status: Acute Assessment and Plan: Add PRN nebs Room air Not in acute exacerbation Plan DVT prophylaxis with SCDs GI prophylaxis not indicated Code status full code Time Spent With Patient Time: Placed IV Time with patient: Greater than 35 minutes Subjective Date/time seen: 02/14/22 09:30 Interval history: Patient is a 71-year-old female with a past medical history of dementia, diabetes, AFib, CAD, hyperlipidemia who presented with diarrhea and weakness. Today patient stated that she still very weak however she denies any chest pain, shortness a breath, nausea, vomiting, constipation, sweats, fevers, chills. She did state that she was having some severe weakness still. Was able to get her to the commode, gait was stable very slow to move. White count today is 5.4. Still having diarrhea. Potassium was 2.5 has been replaced. Review of Systems Review of Systems: All systems reviewed & are unremarkable except as noted in HPI and below Exam Narrative: General: No acute distress, alert and oriented x 4, NARD, well nourished HEENT: Atraumatic, normocephalic, mucous membranes moist CV: Regular rate and rhythm, S1, S2 Lungs: Clear to auscultation bilaterally, no rales or crackles noted, no wheezes, good oxygen exchange Abdomen: Soft, nontender, nondistended Extremities: Normal to inspection, no noted edema Neuro: Cranial nerves II-XII intact, gait stable and steady Skin: No rashes noted, no lesions or wounds seen Psych: Euthymic, normal affect Objective Data Vital Signs Vital Signs: Vital Signs - 24 hr 02/13/22 16:00 02/13/22 17:11 02/13/22 20:11 Temperature 96.7 F L 97.
--- NOTE | 2022-02-14 09:59 | WPDNEURCNPN ---
Assessment and Plan Assessment and plan (1) Dementia: Code(s): F03.90 - Unspecified dementia, unspecified severity, without behavioral disturbance, psychotic disturbance, mood disturbance, and anxiety Status: Acute (2) C. difficile colitis: Code(s): A04.72 - Enterocolitis due to Clostridium difficile, not specified as recurrent Status: Acute (3) COVID: Code(s): U07.1 - COVID-19 Status: Acute Plan Ms. Abbott is a 71 year old female currently admitted after presenting with generalized weakness and diarrhea, found to be COVID and C. diff positive. Concerns for dementia at baseline vs acute change in mental status. Patient was AOx3 on my exam this morning. - Recommend MRI brain and routine EEG to assess background - Check TSH, B12, Folate levels Consult date: 02/14/22 Time Seen: 09:59 Reason for consult: AMS vs dementia HPI: Majo Abbott is a 71 year old female with a history of diabetes, atrial fibrillation, CAD, HTN, HLD, and chronic smoking presenting with diarrhea and generalized weakness. Patient is mostly immobile at baseline and spends most of her time on the couch, and able to transfer herself to bedside commode, however, recently she hasn't been able to do so due to diarrhea. She presented to the [facility] for the symptoms and was noted to be covered in feces. She was positive for COVID and C diff. There are concerning regarding her mental status -- she was alert and oriented to location and self on admission, but it is thought that this may be chronic. Patient was admitted about a month ago for sepsis secondary to wound infection, and it was documented that she was AOx2 during that admission as well. She had a CT head done earlier this month that showed mild diffuse volume loss and small vessel disease. There are no concerns for memory impairment documented in PCPs note from October 2021. There is a documented family history of dementia. This morning patient denies any memory concerns. She reports some concerns regarding her memory in the past, but is no longer having trouble remember things. She lives with her and son. Review of Systems Constitutional: Constitutional: Reports weakness Eyes: Eyes: Reports no additional eye complaints ENT: Reports system reviewed and no additional complaints, except as documented Cardiovascular: Cardiovascular: Reports no additional cardiovascular complaints Respiratory: Respiratory: Reports no additional respiratory complaints Gastrointestinal: Gastrointestinal: Reports diarrhea Genitourinary: Genitourinary: Reports no additional female genitourinary complaints Neurologic: Reports as per [facility] Past Medical History Medical History CHF (congestive heart failure) COPD mixed type Cortical age-related cataract of both eyes Diabetes mellitus Essential hypertension Mixed hyperlipidemia Other screening mammogram Peripheral artery disease Right-sided Cool's palsy Spinal stenosis of lumbosacral region Tobacco abuse Vitamin D deficiency Surgical History Surgical History History of appendectomy History of Hx of cholecystectomy Family History Family History Father Malignant neoplasm of prostate, Onset Age: 76 Patient's father is Family history of Alzheimer's disease Mother Family history of malignant neoplasm of ovary Family history of malignant neoplasm of cervix Sibling Family history of malignant neoplasm of ovary Social History Social History Social History: She lives at home with her . She sleeps on the couch. She uses a bedside commode. She has smoked up to 2 pack per day since she was a teenager. She denies any history of heavy alcohol use. She denies illicit substance us
[2022-02-14 10:10] LABS: Magnesium 1.2 mg/dL (1.6-2.3)
[2022-02-14 12:48] LABS: Glucose Point of Care 169 mg/dl (65-105)
[2022-02-14 16:47] VITALS: BP 160/70; PULSE 85; RESP 16; TEMP 36.6; O2SAT 95
[2022-02-14 17:17] LABS: Glucose Point of Care 168 mg/dl (65-105)
[2022-02-14 18:38] LABS: Potassium 3.7 mmol/L (3.4-5.0)
[2022-02-14 19:28] VITALS: BP 155/78; PULSE 89; RESP 18; TEMP 36.4; O2SAT 92
[2022-02-14 20:00] VITALS: PULSE 89; RESP 18; O2SAT 92
[2022-02-14 21:02] LABS: Glucose Point of Care 191 mg/dl (65-105)
[2022-02-15 04:20] VITALS: BP 165/87; PULSE 80; RESP 18; TEMP 36.6; O2SAT 91
[2022-02-15] MEDS: metroNIDAZOLE 500 MG/ISO 100ML 500 MG/100 ML BAG 100 MG IVPB ×3 (05:34→20:52)
[2022-02-15 06:16] LABS: Basophils Percent Auto 0.5 % (0.2-1.2); Eosinophils Absolute Auto 0.1 K/mm3 (0-0.3); Hematocrit 36.2 % (37.0-47.0); Hemoglobin 11.6 g/dL (12.0-15.0); Immature Granulocyte Absolute 0.05 K/mm3 (0.00-0.031); Immature Granulocyte Percent A 0.8 % (0-0.5); Lymphocytes Absolute Auto 1.99 K/mm3 (0.9-3.2); Lymphocytes Percent Auto 32.8 % (18.3-44.2); Mean Corpuscular Hemoglobin 29.7 pg (26-34); Mean Corpuscular Volume 92.8 fl (80-100); Mean Platelet Volume 11.3 fl (7.4-10.4); Monocytes Absolute Auto 0.5 K/mm3 (0.1-0.6); Monocytes Percent Auto 8.1 % (2.6-8.5); Neutrophils Absolute Auto 3.4 K/mm3 (1.3-6.7); Neutrophils Percent Auto 55.8 % (45.5-73.1); Platelet Count Result 205 k/mm3 (150-375); Red Cell Distribution Width 14.5 % (11.5-14.5); White Blood Count 6.1 K/mm3 (4.5-10.0)
[2022-02-15 06:34] LABS: Alanine Aminotransferase 18 U/L (6-35); Albumin Level 2.8 g/dL (3.5-5.1); Alkaline Phosphatase 121 U/L (38-126); Anion Gap 7 mmol/L (8-16); Aspartate Amino Transferase 28 U/L (14-36); Bilirubin,Total 0.3 mg/dL (0.2-1.3); Blood Urea Nitrogen 5 mg/dL (7-17); Calcium 7.5 mg/dL (8.4-10.2); Carbon Dioxide 25 mmol/L (22-30); Chloride 105 mmol/L (98-107); Estimated CRCL calculation 64 ml/min; Estimated Glomerular Filt Rate > 60; Glucose 149 mg/dL (65-110); Potassium 2.9 mmol/L (3.4-5.0); Sodium 137 mmol/L (137-145)
[2022-02-15 06:43] LABS: Magnesium 1.2 mg/dL (1.6-2.3)
[2022-02-15 08:00] VITALS: PULSE 93; RESP 16; O2SAT 92
[2022-02-15 08:29] LABS: Glucose Point of Care 161 mg/dl (65-105)
[2022-02-15] MEDS: MAGNESIUM SULF 2 GM/WATER 50ML 2 GM/50 ML BAG IVPB (10:22)
[2022-02-15] MEDS: DICLOFENAC SOD 25 MG TABLET.EC 50 MG PO ×2 (10:23→18:44)
[2022-02-15] MEDS: SIMVASTATIN 10 MG TABLET PO (10:24)
[2022-02-15] MEDS: FIDAXOMICIN 200 MG TABLET PO ×2 (10:24→20:15)
[2022-02-15] MEDS: POTASSIUM CHLORIDE 20 MEQ TABLET.ER PO (10:24)
[2022-02-15] MEDS: metFORMIN HCL 500 MG TABLET 1000 MG PO ×2 (10:24→18:44)
[2022-02-15] MEDS: POTASSIUM CHLORIDE 20 MEQ TABLET 40 MEQ PO (10:25)
[2022-02-15] MEDS: lisinopriL 10 MG TABLET PO (10:25)
[2022-02-15] MEDS: POTASSIUM CHLORIDE INJ 40 MEQ in SODIUM CHLORIDE 0.9% IV 500 ML 130 MEQ IVPB (11:46)
[2022-02-15 13:02] VITALS: BP 152/74; PULSE 93; RESP 16; TEMP 36.3; O2SAT 92
[2022-02-15 13:07] LABS: Glucose Point of Care 156 mg/dl (65-105)
--- NOTE | 2022-02-15 17:15 | P.PNIM_ITS ---
Progress Note: A&P Assessment and Plan (1) COVID: Code(s): U07.1 - COVID-19 Status: Acute Assessment and Plan: * essentially asymptomatic * could be contributing to GI symptoms * Remains on RA * No noted cough * Continue to trend respiratory status 02/15/2022 interval history: patient with a COVID is not requiring any oxygen and does not have any respiratory symptom, patient with C diff being treated with Dificid 200 mg p.o. q.12 and Flagyl 500 mg IV q.8, patient states her frequency of stool is improving and and bending to have a formed stool will continue to monitor and further recommendation to follow (2) C. difficile diarrhea: Code(s): A04.72 - Enterocolitis due to Clostridium difficile, not specified as recurrent Status: Acute Assessment and Plan: * fidaxomicin started * DC'd Flagyl * WBC count stable at 5.4 * Continue to trend * Diarrhea slowing down * Good appetite (3) Dementia: Code(s): F03.90 - Unspecified dementia, unspecified severity, without behavioral disturbance, psychotic disturbance, mood disturbance, and anxiety Status: Acute Assessment and Plan: * Not officially diagnosed, but appears to be at baseline mentation with significant features of dementia, * Neurology consult pending (4) Fracture of L1 vertebra: Code(s): S32.019A - Unspecified fracture of first lumbar vertebra, initial encounter for closed fracture Status: Acute Assessment and Plan: * asymptomatic, gait is stable * PT/OT (5) Diabetes mellitus: Qualifiers: Diabetes mellitus type: type 2 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 insulin use: without equipment operator intermodal yard use Diabetes mellitus complication status: without complication Qualified Code(s): E11.9 - Type 2 diabetes mellitus without complications Code(s): E11.9 - Type 2 diabetes mellitus without complications Status: Acute Assessment and Plan: * Current glucose is 149 * Accu cheks achs * Diabetic diet * Trend glucose * ISS * Adjust therapy as indicated * Hypoglycemia protocol (6) Hypokalemia: Code(s): E87.6 - Hypokalemia Status: Acute Assessment and Plan: * K was 2.5 today * Replace with oral and IV * Trend K level * Replace as indicated * Recheck 1 hour post transfusion * Check a mag level (7) COPD (chronic obstructive pulmonary disease): Qualifiers: COPD type: emphysema Emphysema type: panlobular Qualified Code(s): J43.1 - Panlobular emphysema Code(s): J44.9 - Chronic obstructive pulmonary disease, unspecified Status: Acute Assessment and Plan: * Add PRN nebs * Room air * Not in acute exacerbation Plan DVT prophylaxis with SCDs GI prophylaxis not indicated Code status full code Subjective Date/time seen: 02/15/22 17:15 Interval history: Patient is a 71-year-old female with a past medical history of dementia, diabetes, AFib, CAD, hyperlipidemia who presented with diarrhea and weakness. Today patient stated that she still very weak however she denies any chest pain, shortness a breath, nausea, vomiting, constipation, sweats, fevers, chills. She did state that she was having some severe weakness still. Was able to get her to the commode, gait was stable very slow to move. Wh
--- NOTE | 2022-02-15 17:15 | PM.IMPN ---
Progress Note: A&P Assessment and Plan (1) COVID: Code(s): U07.1 - COVID-19 Status: Acute Assessment and Plan: essentially asymptomatic could be contributing to GI symptoms Remains on RA No noted cough Continue to trend respiratory status 02/15/2022 interval history: patient with a COVID is not requiring any oxygen and does not have any respiratory symptom, patient with C diff being treated with Dificid 200 mg p.o. q.12 and Flagyl 500 mg IV q.8, patient states her frequency of stool is improving and and bending to have a formed stool will continue to monitor and further recommendation to follow (2) C. difficile diarrhea: Code(s): A04.72 - Enterocolitis due to Clostridium difficile, not specified as recurrent Status: Acute Assessment and Plan: fidaxomicin started DC'd Flagyl WBC count stable at 5.4 Continue to trend Diarrhea slowing down Good appetite (3) Dementia: Code(s): F03.90 - Unspecified dementia, unspecified severity, without behavioral disturbance, psychotic disturbance, mood disturbance, and anxiety Status: Acute Assessment and Plan: Not officially diagnosed, but appears to be at baseline mentation with significant features of dementia, Neurology consult pending (4) Fracture of L1 vertebra: Code(s): S32.019A - Unspecified fracture of first lumbar vertebra, initial encounter for closed fracture Status: Acute Assessment and Plan: asymptomatic, gait is stable PT/OT (5) Diabetes mellitus: Qualifiers: Diabetes mellitus type: type 2 Diabetes mellitus penitentiary insulin use: without intermediate project manager use Diabetes mellitus complication status: without complication Qualified Code(s): E11.9 - Type 2 diabetes mellitus without complications Code(s): E11.9 - Type 2 diabetes mellitus without complications Status: Acute Assessment and Plan: Current glucose is 149 Accu cheks achs Diabetic diet Trend glucose ISS Adjust therapy as indicated Hypoglycemia protocol (6) Hypokalemia: Code(s): E87.6 - Hypokalemia Status: Acute Assessment and Plan: K was 2.5 today Replace with oral and IV Trend K level Replace as indicated Recheck 1 hour post transfusion Check a mag level (7) COPD (chronic obstructive pulmonary disease): Qualifiers: COPD type: emphysema Emphysema type: panlobular Qualified Code(s): J43.1 - Panlobular emphysema Code(s): J44.9 - Chronic obstructive pulmonary disease, unspecified Status: Acute Assessment and Plan: Add PRN nebs Room air Not in acute exacerbation Plan DVT prophylaxis with SCDs GI prophylaxis not indicated Code status full code Subjective Date/time seen: 02/15/22 17:15 Interval history: Patient is a 71-year-old female with a past medical history of dementia, diabetes, AFib, CAD, hyperlipidemia who presented with diarrhea and weakness. Today patient stated that she still very weak however she denies any chest pain, shortness a breath, nausea, vomiting, constipation, sweats, fevers, chills. She did state that she was having some severe weakness still. Was able to get her to the commode, gait was stable very slow to move. White count today is 5.4. Still having diarrhea. Potassium was 2.5 has been replaced. 02/15/2022 interval history: patient with a COVID is not requiring any oxygen and does not have any respiratory symptom, patient with C diff being treated with Dificid 200 mg p.o. q.12 and Flagyl 500 mg IV q.8, patient states her frequency of stool is improving and and bending to have a formed stool will continue to monitor and further recommendation to follow Review of Systems Review of Systems: All systems reviewed & are unremarkable except as noted in HPI and below Objective Data Vital Signs Trina
[2022-02-15 17:51] LABS: Glucose Point of Care 134 mg/dl (65-105)
[2022-02-15 20:00] VITALS: PULSE 93; RESP 16; O2SAT 92
[2022-02-15 21:07] LABS: Glucose Point of Care 150 mg/dl (65-105)
[2022-02-15 22:00] VITALS: BP 160/90; PULSE 84; RESP 18; TEMP 37; O2SAT 93
[2022-02-16] MEDS: metroNIDAZOLE 500 MG/ISO 100ML 500 MG/100 ML BAG 100 MG IVPB (05:41)
[2022-02-16 06:00] VITALS: BP 160/86; PULSE 80; RESP 16; TEMP 37; O2SAT 93
[2022-02-16 06:55] LABS: Basophils Percent Auto 0.4 % (0.2-1.2); Eosinophils Absolute Auto 0.1 K/mm3 (0-0.3); Eosinophils Percent Auto 1.7 % (0-4.4); Hematocrit 40.1 % (37.0-47.0); Hemoglobin 12.9 g/dL (12.0-15.0); Immature Granulocyte Absolute 0.05 K/mm3 (0.00-0.031); Immature Granulocyte Percent A 0.9 % (0-0.5); Lymphocytes Absolute Auto 1.81 K/mm3 (0.9-3.2); Lymphocytes Percent Auto 33.8 % (18.3-44.2); Mean Corpuscular HGB Conc 32.2 g/dl (32-36); Mean Corpuscular Hemoglobin 29.6 pg (26-34); Mean Platelet Volume 11.2 fl (7.4-10.4); Monocytes Absolute Auto 0.4 K/mm3 (0.1-0.6); Monocytes Percent Auto 7.3 % (2.6-8.5); Neutrophils Percent Auto 55.9 % (45.5-73.1); Platelet Count Result 205 k/mm3 (150-375); Red Blood Count 4.36 M/mm3 (4.2-5.4); Red Cell Distribution Width 14.3 % (11.5-14.5); White Blood Count 5.4 K/mm3 (4.5-10.0)
[2022-02-16 07:13] LABS: Alanine Aminotransferase 16 U/L (6-35); Albumin Level 2.8 g/dL (3.5-5.1); Alkaline Phosphatase 116 U/L (38-126); Anion Gap 6 mmol/L (8-16); Aspartate Amino Transferase 29 U/L (14-36); Bilirubin,Total 0.2 mg/dL (0.2-1.3); Blood Urea Nitrogen 4 mg/dL (7-17); Calcium 7.7 mg/dL (8.4-10.2); Carbon Dioxide 26 mmol/L (22-30); Chloride 105 mmol/L (98-107); Estimated CRCL calculation 75 ml/min; Estimated Glomerular Filt Rate > 60; Glucose 139 mg/dL (65-110); Magnesium 1.6 mg/dL (1.6-2.3); Potassium 3.5 mmol/L (3.4-5.0); Sodium 137 mmol/L (137-145)
[2022-02-16 08:28] LABS: Glucose Point of Care 144 mg/dl (65-105)
[2022-02-16] MEDS: POTASSIUM CHLORIDE 20 MEQ TABLET 40 MEQ PO (09:25)
[2022-02-16] MEDS: MAGNESIUM OXIDE 400 MG TABLET PO (09:27)
[2022-02-16] MEDS: FIDAXOMICIN 200 MG TABLET PO ×2 (09:27→20:40)
[2022-02-16] MEDS: DICLOFENAC SOD 25 MG TABLET.EC 50 MG PO ×2 (09:27→17:38)
[2022-02-16] MEDS: lisinopriL 10 MG TABLET PO (09:27)
[2022-02-16] MEDS: POTASSIUM CHLORIDE 20 MEQ TABLET.ER PO (09:28)
[2022-02-16] MEDS: SIMVASTATIN 10 MG TABLET PO (09:28)
[2022-02-16] MEDS: metFORMIN HCL 500 MG TABLET 1000 MG PO ×2 (09:28→17:38)
[2022-02-16 12:35] LABS: Glucose Point of Care 159 mg/dl (65-105)
[2022-02-16 14:00] VITALS: BP 151/81; PULSE 93; RESP 20; TEMP 36.4; O2SAT 96
--- NOTE | 2022-02-16 17:15 | P.PNIM_ITS ---
Progress Note: A&P Assessment and Plan (1) COVID: Code(s): U07.1 - COVID-19 Status: Acute Assessment and Plan: * essentially asymptomatic * could be contributing to GI symptoms * Remains on RA * No noted cough * Continue to trend respiratory status 02/16/2022 interval history: patient with a COVID is not requiring any oxygen and does not have any respiratory symptom, patient with C diff being treated with Dificid 200 mg p.o. q.12 and Flagyl 500 mg IV q.8, patient states her frequency of stool is improving and and in stool beginning to have a formed, discussed with ID pharmacist recommended to DC ceftriaxone and Flagyl will continue Dificid until 02/22, patient seen by rn acute care and once clinically stable patient to be transferred to SNF, will continue to monitor and further recommendation to follow (2) C. difficile diarrhea: Code(s): A04.72 - Enterocolitis due to Clostridium difficile, not specified as recurrent Status: Acute Assessment and Plan: * fidaxomicin started * DC'd Flagyl * WBC count stable at 5.4 * Continue to trend * Diarrhea slowing down * Good appetite (3) Dementia: Code(s): F03.90 - Unspecified dementia, unspecified severity, without behavioral disturbance, psychotic disturbance, mood disturbance, and anxiety Status: Acute Assessment and Plan: * Not officially diagnosed, but appears to be at baseline mentation with significant features of dementia, * Neurology consult pending (4) Fracture of L1 vertebra: Code(s): S32.019A - Unspecified fracture of first lumbar vertebra, initial encounter for closed fracture Status: Acute Assessment and Plan: * asymptomatic, gait is stable * PT/OT (5) Diabetes mellitus: Qualifiers: Diabetes mellitus type: type 2 Diabetes mellitus snf insulin use: without ampoule inspector use Diabetes mellitus complication status: without complication Qualified Code(s): E11.9 - Type 2 diabetes mellitus without complications Code(s): E11.9 - Type 2 diabetes mellitus without complications Status: Acute Assessment and Plan: * Current glucose is 149 * Accu cheks achs * Diabetic diet * Trend glucose * ISS * Adjust therapy as indicated * Hypoglycemia protocol (6) Hypokalemia: Code(s): E87.6 - Hypokalemia Status: Acute Assessment and Plan: * K was 2.5 today * Replace with oral and IV * Trend K level * Replace as indicated * Recheck 1 hour post transfusion * Check a mag level (7) COPD (chronic obstructive pulmonary disease): Qualifiers: COPD type: emphysema Emphysema type: panlobular Qualified Code(s): J43.1 - Panlobular emphysema Code(s): J44.9 - Chronic obstructive pulmonary disease, unspecified Status: Acute Assessment and Plan: * Add PRN nebs * Room air * Not in acute exacerbation Plan DVT prophylaxis with SCDs GI prophylaxis not indicated Code status full code Subjective Date/time seen: 02/16/22 17:15 Interval history: Patient is a 71-year-old female with a past medical history of dementia, diabetes, AFib, CAD, hyperlipidemia who presented with diarrhea and weakness. Today patient stated that she still very weak however she denies any chest pain, shortness
--- NOTE | 2022-02-16 17:15 | PM.IMPN ---
Progress Note: A&P Assessment and Plan (1) COVID: Code(s): U07.1 - COVID-19 Status: Acute Assessment and Plan: essentially asymptomatic could be contributing to GI symptoms Remains on RA No noted cough Continue to trend respiratory status 02/16/2022 interval history: patient with a COVID is not requiring any oxygen and does not have any respiratory symptom, patient with C diff being treated with Dificid 200 mg p.o. q.12 and Flagyl 500 mg IV q.8, patient states her frequency of stool is improving and and in stool beginning to have a formed, discussed with ID pharmacist recommended to DC ceftriaxone and Flagyl will continue Dificid until 02/22, patient seen by healthcare liaison and once clinically stable patient to be transferred to SNF, will continue to monitor and further recommendation to follow (2) C. difficile diarrhea: Code(s): A04.72 - Enterocolitis due to Clostridium difficile, not specified as recurrent Status: Acute Assessment and Plan: fidaxomicin started DC'd Flagyl WBC count stable at 5.4 Continue to trend Diarrhea slowing down Good appetite (3) Dementia: Code(s): F03.90 - Unspecified dementia, unspecified severity, without behavioral disturbance, psychotic disturbance, mood disturbance, and anxiety Status: Acute Assessment and Plan: Not officially diagnosed, but appears to be at baseline mentation with significant features of dementia, Neurology consult pending (4) Fracture of L1 vertebra: Code(s): S32.019A - Unspecified fracture of first lumbar vertebra, initial encounter for closed fracture Status: Acute Assessment and Plan: asymptomatic, gait is stable PT/OT (5) Diabetes mellitus: Qualifiers: Diabetes mellitus type: type 2 Diabetes mellitus manager long term care insulin use: without manager long term care use Diabetes mellitus complication status: without complication Qualified Code(s): E11.9 - Type 2 diabetes mellitus without complications Code(s): E11.9 - Type 2 diabetes mellitus without complications Status: Acute Assessment and Plan: Current glucose is 149 Accu cheks achs Diabetic diet Trend glucose ISS Adjust therapy as indicated Hypoglycemia protocol (6) Hypokalemia: Code(s): E87.6 - Hypokalemia Status: Acute Assessment and Plan: K was 2.5 today Replace with oral and IV Trend K level Replace as indicated Recheck 1 hour post transfusion Check a mag level (7) COPD (chronic obstructive pulmonary disease): Qualifiers: COPD type: emphysema Emphysema type: panlobular Qualified Code(s): J43.1 - Panlobular emphysema Code(s): J44.9 - Chronic obstructive pulmonary disease, unspecified Status: Acute Assessment and Plan: Add PRN nebs Room air Not in acute exacerbation Plan DVT prophylaxis with SCDs GI prophylaxis not indicated Code status full code Subjective Date/time seen: 02/16/22 17:15 Interval history: Patient is a 71-year-old female with a past medical history of dementia, diabetes, AFib, CAD, hyperlipidemia who presented with diarrhea and weakness. Today patient stated that she still very weak however she denies any chest pain, shortness a breath, nausea, vomiting, constipation, sweats, fevers, chills. She did state that she was having some severe weakness still. Was able to get her to the commode, gait was stable very slow to move. White count today is 5.4. Still having diarrhea. Potassium was 2.5 has been replaced. 02/16/2022 interval history: patient with a COVID is not requiring any oxygen and does not have any respiratory symptom, patient with C diff being treated with Dificid 200 mg p.o. q.12 and Flagyl 500 mg IV q.8, patient states her frequency of stool is improving and and in stool beginning to have a formed, d
[2022-02-16 17:45] LABS: Glucose Point of Care 136 mg/dl (65-105)
[2022-02-16 20:31] LABS: Glucose Point of Care 175 mg/dl (65-105)
[2022-02-16 21:43] VITALS: BP 184/84; PULSE 86; RESP 18; TEMP 36.7; O2SAT 94
[2022-02-17 06:00] VITALS: BP 165/78; PULSE 90; RESP 18; TEMP 36.7; O2SAT 96
[2022-02-17 06:11] LABS: Basophils Percent Auto 0.3 % (0.2-1.2); Eosinophils Absolute Auto 0.1 K/mm3 (0-0.3); Eosinophils Percent Auto 1.9 % (0-4.4); Hematocrit 39.5 % (37.0-47.0); Hemoglobin 12.5 g/dL (12.0-15.0); Immature Granulocyte Absolute 0.09 K/mm3 (0.00-0.031); Immature Granulocyte Percent A 1.4 % (0-0.5); Lymphocytes Absolute Auto 1.79 K/mm3 (0.9-3.2); Lymphocytes Percent Auto 28.2 % (18.3-44.2); Mean Corpuscular HGB Conc 31.6 g/dl (32-36); Mean Corpuscular Hemoglobin 29.3 pg (26-34); Mean Corpuscular Volume 92.5 fl (80-100); Mean Platelet Volume 11.3 fl (7.4-10.4); Monocytes Absolute Auto 0.4 K/mm3 (0.1-0.6); Monocytes Percent Auto 6.9 % (2.6-8.5); Neutrophils Absolute Auto 3.9 K/mm3 (1.3-6.7); Neutrophils Percent Auto 61.3 % (45.5-73.1); Platelet Count Result 220 k/mm3 (150-375); Red Blood Count 4.27 M/mm3 (4.2-5.4); Red Cell Distribution Width 14.4 % (11.5-14.5); White Blood Count 6.3 K/mm3 (4.5-10.0)
[2022-02-17 06:18] LABS: Alanine Aminotransferase 18 U/L (6-35); Alkaline Phosphatase 137 U/L (38-126); Anion Gap 6 mmol/L (8-16); Aspartate Amino Transferase 31 U/L (14-36); Bilirubin,Total 0.3 mg/dL (0.2-1.3); Blood Urea Nitrogen 5 mg/dL (7-17); Calcium 7.9 mg/dL (8.4-10.2); Carbon Dioxide 26 mmol/L (22-30); Chloride 105 mmol/L (98-107); Estimated CRCL calculation 75 ml/min; Estimated Glomerular Filt Rate > 60; Glucose 164 mg/dL (65-110); Magnesium 1.5 mg/dL (1.6-2.3); Potassium 3.9 mmol/L (3.4-5.0); Sodium 137 mmol/L (137-145)
[2022-02-17] MEDS: DICLOFENAC SOD 25 MG TABLET.EC 50 MG PO ×2 (09:19→17:50)
[2022-02-17 09:20] LABS: Glucose Point of Care 156 mg/dl (65-105)
[2022-02-17] MEDS: metFORMIN HCL 500 MG TABLET 1000 MG PO ×2 (09:20→17:50)
[2022-02-17] MEDS: SIMVASTATIN 10 MG TABLET PO (09:20)
[2022-02-17] MEDS: POTASSIUM CHLORIDE 20 MEQ TABLET.ER PO (09:20)
[2022-02-17] MEDS: lisinopriL 10 MG TABLET PO (09:20)
[2022-02-17] MEDS: FIDAXOMICIN 200 MG TABLET PO ×2 (09:20→21:07)
[2022-02-17] MEDS: MAGNESIUM OXIDE 400 MG TABLET PO (09:21)
--- NOTE | 2022-02-17 12:33 | P.PNIM_ITS ---
Progress Note: A&P Assessment and Plan (1) COVID: Code(s): U07.1 - COVID-19 Status: Acute Assessment and Plan: * essentially asymptomatic * could be contributing to GI symptoms * Remains on RA * No noted cough * Continue to trend respiratory status (2) C. difficile diarrhea: Code(s): A04.72 - Enterocolitis due to Clostridium difficile, not specified as recurrent Status: Acute Assessment and Plan: * fidaxomicin started goes until 02/22/2022 * Improving stool * DC'd Flagyl * (3) Dementia: Code(s): F03.90 - Unspecified dementia, unspecified severity, without behavioral disturbance, psychotic disturbance, mood disturbance, and anxiety Status: Acute Assessment and Plan: * Not officially diagnosed, but appears to be at baseline mentation with significant features of dementia, * Neurology consult reviewed * MRI and EEG recommended TSH B12 folic acid (4) Fracture of L1 vertebra: Code(s): S32.019A - Unspecified fracture of first lumbar vertebra, initial encounter for closed fracture Status: Acute Assessment and Plan: * asymptomatic, gait is stable * PT/OT Lumbar CT 01/25/2022 with acute mild L1 compression fracture with 20% left-sided vertebral body height loss. (5) Diabetes mellitus: Qualifiers: Diabetes mellitus type: type 2 Diabetes mellitus group home insulin use: without group home use Diabetes mellitus complication status: without complication Qualified Code(s): E11.9 - Type 2 diabetes mellitus without complications Code(s): E11.9 - Type 2 diabetes mellitus without complications Status: Acute Assessment and Plan: * Current glucose is 149 * Accu cheks achs * Diabetic diet * Trend glucose * ISS * Adjust therapy as indicated * Hypoglycemia protocol (6) Hypokalemia: Code(s): E87.6 - Hypokalemia Status: Acute Assessment and Plan: * On admission replace and monitor (7) COPD (chronic obstructive pulmonary disease): Qualifiers: COPD type: emphysema Emphysema type: panlobular Qualified Code(s): J43.1 - Panlobular emphysema Code(s): J44.9 - Chronic obstructive pulmonary disease, unspecified Status: Acute Assessment and Plan: * Add PRN nebs * Room air * Not in acute exacerbation Plan severely distended endometrial cavity measuring up to 6.5 cm will get pelvic ultrasound DVT prophylaxis with SCDs GI prophylaxis not indicated Code status full code Subjective Date/time seen: 02/17/22 12:33 Interval history: Patient is a 71-year-old female with a past medical history of dementia, diabetes, AFib, CAD, hyperlipidemia who presented with diarrhea and weakness. Today patient stated that she still very weak however she denies any chest pain, shortness a breath, nausea, vomiting, constipation, sweats, fevers, chills. She did state that she was having some severe weakness still. Was able to get her to the commode, gait was stable very slow to move. White count today is 5.4. Still having diarrhea. Potassium was 2.5 has been replaced. 02/16/2022 interval history: patient with a COVID is not requiring any oxygen and does not have any respiratory symptom, patient with C diff being treated with Dificid 200 mg p.o. q.12 and Flagyl 500 mg IV q.8, patient states her
--- NOTE | 2022-02-17 12:33 | PM.IMPN ---
Progress Note: A&P Assessment and Plan (1) COVID: Code(s): U07.1 - COVID-19 Status: Acute Assessment and Plan: essentially asymptomatic could be contributing to GI symptoms Remains on RA No noted cough Continue to trend respiratory status (2) C. difficile diarrhea: Code(s): A04.72 - Enterocolitis due to Clostridium difficile, not specified as recurrent Status: Acute Assessment and Plan: fidaxomicin started goes until 02/22/2022 Improving stool DC'd Flagyl (3) Dementia: Code(s): F03.90 - Unspecified dementia, unspecified severity, without behavioral disturbance, psychotic disturbance, mood disturbance, and anxiety Status: Acute Assessment and Plan: Not officially diagnosed, but appears to be at baseline mentation with significant features of dementia, Neurology consult reviewed MRI and EEG recommended TSH B12 folic acid (4) Fracture of L1 vertebra: Code(s): S32.019A - Unspecified fracture of first lumbar vertebra, initial encounter for closed fracture Status: Acute Assessment and Plan: asymptomatic, gait is stable PT/OT Lumbar CT 01/25/2022 with acute mild L1 compression fracture with 20% left-sided vertebral body height loss. (5) Diabetes mellitus: Qualifiers: Diabetes mellitus type: type 2 Diabetes mellitus fci insulin use: without remote computer terminal operator use Diabetes mellitus complication status: without complication Qualified Code(s): E11.9 - Type 2 diabetes mellitus without complications Code(s): E11.9 - Type 2 diabetes mellitus without complications Status: Acute Assessment and Plan: Current glucose is 149 Accu cheks achs Diabetic diet Trend glucose ISS Adjust therapy as indicated Hypoglycemia protocol (6) Hypokalemia: Code(s): E87.6 - Hypokalemia Status: Acute Assessment and Plan: On admission replace and monitor (7) COPD (chronic obstructive pulmonary disease): Qualifiers: COPD type: emphysema Emphysema type: panlobular Qualified Code(s): J43.1 - Panlobular emphysema Code(s): J44.9 - Chronic obstructive pulmonary disease, unspecified Status: Acute Assessment and Plan: Add PRN nebs Room air Not in acute exacerbation Plan severely distended endometrial cavity measuring up to 6.5 cm will get pelvic ultrasound DVT prophylaxis with SCDs GI prophylaxis not indicated Code status full code Subjective Date/time seen: 11/30/22 12:33 Interval history: Patient is a 71-year-old female with a past medical history of dementia, diabetes, AFib, CAD, hyperlipidemia who presented with diarrhea and weakness. Today patient stated that she still very weak however she denies any chest pain, shortness a breath, nausea, vomiting, constipation, sweats, fevers, chills. She did state that she was having some severe weakness still. Was able to get her to the commode, gait was stable very slow to move. White count today is 5.4. Still having diarrhea. Potassium was 2.5 has been replaced. 02/16/2022 interval history: patient with a COVID is not requiring any oxygen and does not have any respiratory symptom, patient with C diff being treated with Dificid 200 mg p.o. q.12 and Flagyl 500 mg IV q.8, patient states her frequency of stool is improving and and in stool beginning to have a formed, discussed with ID pharmacist recommended to DC ceftriaxone and Flagyl will continue Dificid until 02/22, patient seen by care management coordinator and once clinically stable patient to be transferred to SNF, will continue to monitor and further recommendation to follow 02/17/2022: feels well wants to go home. diarrhea has improved. Denies any abdominal pain nausea vomiting. No vaginal bleeding. Review of Systems Review of Systems: All systems reviewed & are unremarkable except as n
[2022-02-17 12:42] LABS: Glucose Point of Care 138 mg/dl (65-105)
[2022-02-17 14:15] VITALS: BP 132/69; PULSE 95; RESP 16; TEMP 36.1; O2SAT 92
[2022-02-17 17:51] LABS: Glucose Point of Care 158 mg/dl (65-105)
[2022-02-17 20:33] LABS: Glucose Point of Care 150 mg/dl (65-105)
[2022-02-17 22:00] VITALS: BP 158/76; PULSE 93; RESP 18; TEMP 37; O2SAT 98
[2022-02-18 06:00] VITALS: BP 174/69; PULSE 83; RESP 16; TEMP 37; O2SAT 97
[2022-02-18 06:00] LABS: Alanine Aminotransferase 19 U/L (6-35); Albumin Level 2.9 g/dL (3.5-5.1); Alkaline Phosphatase 137 U/L (38-126); Anion Gap 4 mmol/L (8-16); Aspartate Amino Transferase 43 U/L (14-36); Bilirubin,Total 0.3 mg/dL (0.2-1.3); Blood Urea Nitrogen 7 mg/dL (7-17); Calcium 7.9 mg/dL (8.4-10.2); Carbon Dioxide 26 mmol/L (22-30); Chloride 106 mmol/L (98-107); Estimated CRCL calculation 64 ml/min; Estimated Glomerular Filt Rate > 60; Glucose 141 mg/dL (65-110); Magnesium 1.7 mg/dL (1.6-2.3); Sodium 136 mmol/L (137-145)
[2022-02-18 06:04] LABS: Basophils Percent Auto 0.6 % (0.2-1.2); Eosinophils Absolute Auto 0.2 K/mm3 (0-0.3); Eosinophils Percent Auto 3.2 % (0-4.4); Hematocrit 39.6 % (37.0-47.0); Hemoglobin 12.6 g/dL (12.0-15.0); Immature Granulocyte Absolute 0.09 K/mm3 (0.00-0.031); Immature Granulocyte Percent A 1.4 % (0-0.5); Lymphocytes Absolute Auto 2.25 K/mm3 (0.9-3.2); Lymphocytes Percent Auto 36.2 % (18.3-44.2); Mean Corpuscular HGB Conc 31.8 g/dl (32-36); Mean Corpuscular Hemoglobin 28.6 pg (26-34); Mean Corpuscular Volume 89.8 fl (80-100); Mean Platelet Volume 11.2 fl (7.4-10.4); Monocytes Absolute Auto 0.5 K/mm3 (0.1-0.6); Monocytes Percent Auto 7.6 % (2.6-8.5); Neutrophils Absolute Auto 3.2 K/mm3 (1.3-6.7); Platelet Count Result 233 k/mm3 (150-375); Red Blood Count 4.41 M/mm3 (4.2-5.4); Red Cell Distribution Width 14.4 % (11.5-14.5); White Blood Count 6.2 K/mm3 (4.5-10.0)
[2022-02-18] MEDS: metFORMIN HCL 500 MG TABLET 1000 MG PO (08:51)
[2022-02-18] MEDS: FIDAXOMICIN 200 MG TABLET PO (08:51)
[2022-02-18] MEDS: lisinopriL 10 MG TABLET PO (08:51)
[2022-02-18] MEDS: MAGNESIUM OXIDE 400 MG TABLET PO (08:52)
[2022-02-18] MEDS: DICLOFENAC SOD 25 MG TABLET.EC 50 MG PO (08:52)
[2022-02-18] MEDS: POTASSIUM CHLORIDE 20 MEQ TABLET.ER PO (08:52)
[2022-02-18] MEDS: SIMVASTATIN 10 MG TABLET PO (08:52)
[2022-02-18 09:03] LABS: Glucose Point of Care 172 mg/dl (65-105)
[2022-02-18 12:48] LABS: Glucose Point of Care 129 mg/dl (65-105)
[2022-02-18 13:57] VITALS: BP 121/60; PULSE 100; RESP 16; TEMP 36.1; O2SAT 94
--- NOTE | 2022-02-18 14:35 | PM.DS ---
DS: Admitting Diagnosis Discharge Date 02/18/2022 Admitting Diagnosis weakness, diarrhea DS: Discharge Diagnosis Discharge Diagnosis (1) C. difficile colitis: Code(s): A04.72 - Enterocolitis due to Clostridium difficile, not specified as recurrent Status: Acute (2) COVID: Code(s): U07.1 - COVID-19 Status: Acute DS: Summary Hospital Course Hospital Course: 71-year-old female with past medical history significant for dementia,diabetes, paroxysmal atrial fibrillation, coronary disease, hyperlipidemia is presenting with diarrhea and weakness. patient states she has had significant diarrhea over the last few days and difficulty cleaning herself up.? No chest pain or shortness of breath.? No nausea, vomiting.? No fevers or chills.? No sick contacts or recent travel. She was found to be positive for COVID and C diff. patient has remained asymptomatic from COVID standpoint. On room air. Was not started on remdesivir and dexamethasone. For her C diff colitis patient was started on Flagyl which has been changed to fidaxomicin. there is some concern for dementia so Neurology was consulted. CT head was negative. PT OT were consulted. They recommended rehab and patient is being discharged to alf facility in stable condition Time Spent with Patient Time attestation: Total time spent providing and/or coordinating discharge services: Exam Narrative: General: No acute distress, alert and oriented x 4, NARD, well nourished HEENT: Atraumatic, normocephalic, mucous membranes moist CV: Regular rate and rhythm, S1, S2 Lungs: Clear to auscultation bilaterally, no rales or crackles noted, no wheezes, good oxygen exchange Abdomen: Soft, nontender, nondistended Extremities: Normal to inspection, no noted edema Neuro: Cranial nerves II-XII intact, gait stable and steady Skin: No rashes noted, no lesions or wounds seen Psych: Euthymic, normal affect DS: Data Data Completed and Pending Labs on day of discharge: Labs from last 24 hours 02/18/22 02/18/22 02/18/22 12:42 08:45 05:23 WBC RBC Hgb Hct MCV MCH MCHC RDW Plt Count MPV Immature Gran % (Auto) Neut % (Auto) Lymph % (Auto) [place] % (Auto) Eos % (Auto) Baso % (Auto) Lymph # (Auto) [place] # (Auto) Eos # (Auto) Baso # (Auto) Abs Immat Gran (auto) Absolute Neuts (auto) Absolute Nucleated RBC Nucleated RBC % Sodium 136 L Potassium 4.0 Chloride 106 Carbon Dioxide 26 Anion Gap 4 L BUN 7 Creatinine 0.60 L Estim Creat Clear Calc 64 Estimated GFR > 60 Glucose 141 H POC Capillary Glucose 129 H 172 H Calcium 7.9 L Magnesium 1.7 Total Bilirubin 0.3 AST 43 H ALT 19 Alkaline Phosphatase 137 H Total Protein 6.0 L Albumin 2.9 L 02/18/22 02/17/22 02/17/22 05:23 20:02 17:46 WBC 6.2 RBC 4.41 Hgb 12.6 Hct 39.6 MCV 89.8 MCH 28.6 MCHC 31.8 L RDW 14.4 Plt Count 233 MPV 11.2 H Immature Gran % (Auto) 1.4 H Neut % (Auto) 51.0 Lymph % (Auto) 36.2 [place] % (Auto) 7.6 Eos % (Auto) 3.2 Baso % (Auto) 0.6 Lymph # (Auto) 2.25 [place] # (Auto) 0.5 Eos # (Auto) 0.2 Baso # (Auto) 0.0 Abs Immat Gran (auto) 0.09 H Absolute Neuts (auto) 3.2 Absolute Nucleated RBC 0.0 Nucleated RBC % 0.0 Sodium Potassium Chloride Carbon Dioxide Anion Gap BUN Creatinine Estim Creat Clear Calc Estimated GFR Glucose POC Capillary Glucose 150 H 158 H Calcium Magnesium Total Bilirubin AST ALT Alkaline Phosphatase Total Protein Albumin Discharge Plan Discharge Consulting providers: Yelena Garcia Discharging Clinician: Haroldo Goodwin Anticipated Discharge Date/Time: 02/18/22 11:54 Patient Disposition: SNF Activity: may shower Diet: heart healthy Patient Instructions: Antib
== END 2022-02-18 15:00 | DRG 371 ==
LOC: ANHED 18:52 → ANH3MED 02-13 00:38
PROVIDERS: Internal Medicine; Nurse Practitioner; Student in an Organized Health Care Education/Training Program; Admitting Provider Internal Medicine; Emergency Provider Emergency Medicine; PCP Emergency Medicine; Visit Provider Hospitalist
DX: A04.72 Enterocolitis due to Clostridium difficile, not specified as recurrent (principal); U07.1 COVID-19; S32.019A Unspecified fracture of first lumbar vertebra, initial encounter for closed fracture; X58.XXXA Exposure to other specified factors, initial encounter; R09.02 Hypoxemia; I48.0 Paroxysmal atrial fibrillation; I25.10 Atherosclerotic heart disease of native coronary artery without angina pectoris; I11.0 Hypertensive heart disease with heart failure; I50.9 Heart failure, unspecified; J44.9 Chronic obstructive pulmonary disease, unspecified; F03.90 Unspecified dementia, unspecified severity, without behavioral disturbance, psychotic disturbance, mood disturbance, and anxiety; E11.9 Type 2 diabetes mellitus without complications; I73.9 Peripheral vascular disease, unspecified; E78.2 Mixed hyperlipidemia; M48.07 Spinal stenosis, lumbosacral region; E55.9 Vitamin D deficiency, unspecified; F17.210 Nicotine dependence, cigarettes, uncomplicated; E87.6 Hypokalemia; Z90.49 Acquired absence of other specified parts of digestive tract
CPT/HCPCS: 36415; 51701; 74177; 76856; 80053; 81001; 82550; 82948; 83735; 84132; 85025; 87086; 87088; 87493; 87637; 94640; 96361; 96365; 96366; 96367; 96375; 97161; 97165; 97530; 97535; 99285; A9270; G0378; J0696; J1815; J3475; J3480; J7030; J7040; Q9967

== ENCOUNTER 2022-07-20 14:29 | Inpatient (IN) | payer MEDICARE, SELFPAY ==
--- NOTE | ~2022-07-20 | XR_ITS ---
EXAMINATION: XR chest 2V Exam Date/Time: 07/20/2022 16:25 CDT HISTORY: cough, WEAKNESS, SOB Comparison: 01/25/2022. RESULT: Lines, tubes, and devices: None. Lungs and pleura: Diffuse reticulonodular opacities. Mild bilateral costophrenic angle blunting. Cardiomediastinal silhouette: Stable. Other: No acute osseous or upper abdominal finding. IMPRESSION: Pulmonary opacities may represent bronchiolitis, as can be seen with atypical infection, asthma, aspi ration, and small airways disease. Trace bilateral pleural effusions versus chronic pleural parenchym al scarring. Reviewed, dictated and finalized at location K. IMPRESSION: Pulmonary opacities may represent bronchiolitis, as can be seen with atypical i nfection, asthma, aspiration, and small airways disease. Trace bilateral pleura l effusions versus chronic pleural parenchymal scarring.
--- NOTE | ~2022-07-20 | US_ITS ---
EXAMINATION: US venous doppler [facility] DATE: 07/20/2022 21:28 INDICATION: DVT . TECHNIQUE: Grayscale images without and with compression and Doppler images of the bilateral lower ex tremity veins were obtained. COMPARISON: None FINDINGS: The right common femoral vein, profunda (deep) femoral vein, femoral vein, popliteal vein, peroneal v ein, posterior tibial veins, gastrocnemius vein, and greater saphenous vein are patent. The left common femoral vein, profunda (deep) femoral vein, femoral vein, popliteal vein, peroneal v ein, posterior tibial veins, gastrocnemius vein, and greater saphenous vein are patent. IMPRESSION: 1. Patent bilateral lower extremity veins. No evidence of deep venous thrombosis. Reviewed, dictated and finalized at location K. IMPRESSION: 1. Patent bilateral lower extremity veins. No evidence of deep venous thrombos is.
--- NOTE | ~2022-07-20 | MR_ITS ---
EXAMINATION: MR lumbar spine wo/w con DATE: 07/21/2022 12:27 INDICATION: Pathologic fracture TECHNIQUE: Magnetic resonance imaging (MRI) of the lumbar spine was performed. Study was terminated a t patient request after obtaining the computer network engineer localizer images and initial noncontrast sagittal T2-weig hted FSE sequence. The remaining sequences including postcontrast imaging were not unable to be obtai scar and patient did not receive the planned intravenous contrast. COMPARISON: None FINDINGS: 5 degree lumbar levocurvature with associated mild rotational component. L1 burst fracture with 50% a nterior to central vertebral body height loss. Aside from a couple resulting oriented low signal inte nsity fracture lines which correspond to the sclerosis on the prior CT the marrow signal appears othe rwise homogeneous on the T2-weighted sequence as well as the computer network engineer localizer images with no evident p athologic marrow replacing process to suggest pathologic fracture. There is 2 mm retropulsion along t he posterior wall of the vertebral body. Mild disc height loss at T11-T12 and mild disc desiccation a nd minimal disc height loss at L3-L4. There is subtle ballooning of the T12-L1 disc space resulting f rom the depression of the superior endplate of L1. Disc bulge T12-L1 results in mild central canal st enosis and contributing to mild to moderate neural foraminal stenosis on the left and mild stenosis o n the right at this level. Minimal disc bulge at L1-L2, small left foraminal zone disc protrusions at L3-L4 and L4-L5 and small left subarticular zone disc protrusion at L5-S1 none of which result in ad ditional central canal stenosis. There is severe facet osteoarthritis bilaterally at L4-L5 and on the right at L5-S1. Moderate facet osteoarthritis on the left at L5-S1 and bilaterally at L3-L4. Mild fa cet osteoarthritis and more cephalad lumbar spine. Mild neural foraminal stenosis bilaterally at L3-L 4 and L4-L5. IMPRESSION: 1. Incomplete study with only localizer images on the initial sagittal T2-weighted sequence obtained before study terminated by the patient. 2. L1 burst fracture with linear low signal intensity fracture lines corresponding to the sclerosis o n the prior CT with no other marrow signal abnormalities to suggest underlying malignancy/metastatic disease. 3. Mild lumbar levorotoscoliosis with mild spondylosis. Reviewed, dictated and finalized at location B. IMPRESSION: 1. Incomplete study with only localizer images on the initial sagittal T2-weigh priscilla sequence obtained before study terminated by the patient. 2. L1 burst fracture with linear low signal intensity fracture lines correspond ing to the sclerosis on the prior CT with no other marrow signal abnormalities to suggest underlying malignancy/metastatic disease. 3. Mild lumbar levorotoscoliosis with mild spondylosis.
--- NOTE | ~2022-07-20 | CT_ITS ---
EXAMINATION: CT lumbar spine wo con DATE: 07/20/2022 20:00 INDICATION: bilateral lower extremity weakness . TECHNIQUE: Computed tomography (CT) of the lumbar spine was performed without intravenous contrast. A utomated exposure control and iterative reconstruction technique were employed. The dose-length produ ct was 1212.16 mGy-cm. COMPARISON: 01/25/2022. FINDINGS: Cholecystomy clips. Atherosclerotic vascular calcifications. Left adrenal adenoma. Nonobstr ucting bilateral renal calcifications. Diverticulosis. Degenerative changes in the bilateral SI joint s. Lumbar scoliosis. 5 nonrib-bearing lumbar-type vertebral bodies. Pedicles intact. Normal vertebral body alignment. Focal kyphosis at T12-L1. Moderate height loss and superior endplate deformity at L1 , with involvement of the posterior cortex and 3 mm posterior retropulsion. Multilevel mild degenerat lavelle disc disease. Multilevel severe lower lumbar facet arthropathy. No severe central canal stenosis or neural foraminal narrowing IMPRESSION: Incomplete L1 burst fracture with moderate height loss, 3 mm retropulsion, and vertebral body scleros is that may indicate this represents a pathologic fracture. Correlate with history of primary maligna ncy. Reviewed, dictated and finalized at location K. IMPRESSION: Incomplete L1 burst fracture with moderate height loss, 3 mm retropulsion, and vertebral body sclerosis that may indicate this represents a pathologic fractur e. Correlate with history of primary malignancy.
--- NOTE | ~2022-07-20 | CT_ITS ---
EXAMINATION: CT brain wo con DATE: 07/20/2022 20:13 INDICATION: Generalized weakness . TECHNIQUE: Computed tomography (CT) of the head was performed without intravenous contrast. The mA wa s adjusted according to patient size. Iterative reconstruction technique was employed. The dose-lengt h product was 605.33 mGy-cm. COMPARISON: 01/25/2022. FINDINGS: No acute intracranial hemorrhage or extra-axial fluid collection. No hydrocephalus, mass, or herniation. No acute ischemic infarct. Unremarkable dural venous sinus attenuation. No acute osseous abnormality. Small right mastoid effusion, the remaining aerated spaces are clear. Moderate atrophy and chronic white matter change. Atherosclerotic intracranial calcification. Bilater al lens replacements. Bilateral basal ganglia calcification. IMPRESSION: No acute intracranial process. Reviewed, dictated and finalized at location K.
[2022-07-20 14:42] VITALS: BP 108/66; PULSE 97; RESP 18; TEMP 36.5; O2SAT 100
[2022-07-20 15:30] VITALS: BP 154/69; PULSE 83; RESP 18; O2SAT 98
--- NOTE | 2022-07-20 15:32 | ED.GENADULT ---
HPI - General Adult General Chief complaint: Extremity Problem,Nontraumatic Stated complaint: bilateral leg edema Time Seen by Provider: 07/20/22 15:27 History of Present Illness HPI narrative: Patient is a 71-year-old female with a history of diabetes presenting with generalized weakness. Patient states that for the last several days she has been too weak to stand up. States that she lives with her and he helps her take care of herself. States that he has been helping her from the bed to the couch for the last several days but she has not been able to ambulate on her own. States that her legs have also been swelling. She denies headaches, focal numbness or weakness, chest pain, shortness of breath, cough, abdominal pain, nausea or vomiting, dysuria. States that she has had several days of diarrhea. Related Data Home Medications Medication Instructions Recorded Confirmed acetaminophen 500 mg tablet 500 mg PO Q6H 07/20/22 07/20/22 albuterol sulfate 90 mcg/actuation 90 mcg inhalation Q4-6H PRN 07/20/22 07/20/22 aerosol inhaler Breathing issues diclofenac sodium 25 mg 50 mg PO BID 07/20/22 07/20/22 tablet,delayed release lisinopril 10 mg tablet 10 mg PO DAILY 07/20/22 07/20/22 metformin 1,000 mg tablet 1,000 mg PO BID 07/20/22 07/20/22 simvastatin 10 mg tablet 10 mg PO DAILY 07/20/22 07/20/22 Allergies Allergy/AdvReac Type Severity Reaction Status Date / Time No Known Allergies Allergy Verified 07/20/22 21:58 Review of Systems Review of Systems: All systems reviewed & are unremarkable except as noted in HPI and below [facility] Family History Family History (Updated 07/20/22 @ 22:46 by Ousmane Rivas RN) Mother Cancer Son Cancer Grandparent Myocardial infarction Diabetes mellitus Grandparent No problems noted. Social History Social History Smoking packs per day: 1 Smoking cigarettes per day: 20.0 Smoking status: Current every day smoker Tobacco type: cigarettes Alcohol intake: never Substance use: never Lack of Transportation: No Lack of Food: Never True Current Housing: I Have Housing Concerned About Future Housing: No Difficulty Paying Gas/Electric Bills: YES Difficulty Paying for Meds: YES Currently Unemployed: No Education: Associate Degree Difficulty w/ Childcare or Family Care: No Spiritual care concerns: No Exam Narrative: GENERAL: Elderly female laying in bed in no acute distress, nontoxic, pleasant and cooperative HEAD: Normocephalic, atraumatic. EYES: PERRLA and EOMI. ENT: Nares clear, no rhinorrhea or epistaxis. Mucous membranes dry NECK: Supple. CHEST: Clear to auscultation. No respiratory distress. HEART: Regular rate and rhythm. No murmur heard. Normal peripheral pulses. ABDOMEN: Soft, nontender, nondistended : Mild skin breakdown on bilateral buttocks, no ulcers EXTREMITIES: + Bilateral lower extremity edema to mid calves; flaky erythematous overlying skin; there appears to be a pressure ulcer on the left big toe SKIN: Warm, dry, skin changes as above NEURO: No focal deficits. Alert and oriented x3. 4/5 strength bilateral lower extremities, 5 out of 5 strength in upper extremities PSYCH: Normal mood and affect. Course Vital Signs Vital signs: Vital Signs Temperature 97.7 F 07/20/22 14:42 Pulse Rate 97 07/20/22 14:42 Respiratory Rate 18 07/20/22 14:42 Blood Pressure 108/66 07/20/22 14:42 Pulse Oximetry 100 07/20/22 14:42 Oxygen Delivery Room Air 07/20/22 14:42 Temperature 97.6 F 07/21/22 14:00 Pulse Rate 106 H 07/21/22 14:00 Respiratory Rate 14 07/21/22 14:00 Blood Pressure 130/68 07/21/22 14:00 Pulse Oximetry 93 07/21/22 14:00 Oxygen Delivery Room Air 07/21/22 08:00 Medical Decision Making [facility] Narrative Medical decision making narrative: Patient is a 71-year-old female presenting with generalized weakness
--- NOTE | 2022-07-20 15:54 | ECG_ITS ---
Measurements Intervals [place] Rate: 91 P: 67 DE: 149 QRS: -12 QRSD: 86 T: 32 QT: 381 QTc: 470 Interpretive Statements SINUS RHYTHM POSSIBLE LEFT ATRIAL ENLARGEMENT INCOMPLETE RIGHT BUNDLE BRANCH BLOCK BORDERLINE R WAVE PROGRESSION, ANTERIOR LEADS MINIMAL Q WAVES- INFERIOR LEADS BORDERLINE T WAVE ABNORMALITY- ANTERIOR LEADS BASELINE ARTIFACT- I, III, AVL, V2, V5 BORDERLINE ECG NO PREVIOUS ECG AVAILABLE FOR COMPARISON Electronically Signed On 07-20-2022 21:24:36 CDT by Artur Devries D.O.
[2022-07-20 16:15] LABS: Basophils Absolute Auto 0.1 K/mm3 (0.0-0.1); Basophils Percent Auto 0.6 % (0.2-1.2); Eosinophils Absolute Auto 0.3 K/mm3 (0-0.3); Eosinophils Percent Auto 2.8 % (0-4.4); Hematocrit 42.8 % (37.0-47.0); Hemoglobin 13.6 g/dL (12.0-15.0); Immature Granulocyte Absolute 0.06 K/mm3 (0.00-0.031); Immature Granulocyte Percent A 0.5 % (0-0.5); Lymphocytes Absolute Auto 3.14 K/mm3 (0.9-3.2); Lymphocytes Percent Auto 28.4 % (18.3-44.2); Mean Corpuscular HGB Conc 31.8 g/dl (32-36); Mean Corpuscular Hemoglobin 29.1 pg (26-34); Mean Corpuscular Volume 91.6 fl (80-100); Mean Platelet Volume 11.1 fl (7.4-10.4); Monocytes Absolute Auto 0.6 K/mm3 (0.1-0.6); Monocytes Percent Auto 5.3 % (2.6-8.5); Neutrophils Absolute Auto 6.9 K/mm3 (1.3-6.7); Neutrophils Percent Auto 62.4 % (45.5-73.1); Platelet Count Result 263 k/mm3 (150-375); Red Blood Count 4.67 M/mm3 (4.2-5.4); Red Cell Distribution Width 14.9 % (11.5-14.5); White Blood Count 11.1 K/mm3 (4.5-10.0)
[2022-07-20] MEDS: SODIUM CHLORIDE 0.9% IV 1,000 ML 999 ML IV CONT (16:22)
[2022-07-20 16:28] LABS: Alanine Aminotransferase 19 U/L (6-35); Albumin Level 3.6 g/dL (3.5-5.1); Alkaline Phosphatase 81 U/L (38-126); Anion Gap 4 mmol/L (8-16); Aspartate Amino Transferase 27 U/L (14-36); Bilirubin,Total 0.5 mg/dL (0.2-1.3); Blood Urea Nitrogen 17 mg/dL (7-17); Calcium 9.2 mg/dL (8.4-10.2); Carbon Dioxide 36 mmol/L (22-30); Chloride 99 mmol/L (98-107); Estimated Glomerular Filt Rate > 60; Glucose 203 mg/dL (65-110); Magnesium 1.6 mg/dL (1.6-2.3); Potassium 3.4 mmol/L (3.4-5.0); Sodium 139 mmol/L (137-145)
[2022-07-20 16:30] VITALS: BP 167/81; PULSE 82; RESP 18; O2SAT 96
[2022-07-20 16:36] LABS: NT Pro B Type Natriuretic Pept 595 pg/mL (19.9-100); Troponin I < 0.012 ng/mL (0.000-0.034)
[2022-07-20 16:55] LABS: INR 0.9; Prothrombin Time 12.8 Seconds (11.1-14.7)
[2022-07-20 16:56] LABS: Partial Thromboplastin Time 29.6 SECONDS (22.3-36.8)
[2022-07-20 17:10] LABS: Appearance Urine Turbid (Clear); Bacteria Urine 4+ /hpf; Bilirubin Urine Negative (Negative); Blood Urine 2+ (Negative); Color Urine Yellow (Yellow); Glucose Urine UA Negative (Negative); Ketones Urine Trace mg/dL (Negative); Leukocyte Esterase Ur 3+ LEU/UL (Negative); Need Manual Microscopic Reviewed; Nitrate Urine Negative (Negative); Non Pathogenic Casts >20; Protein Urine 4+ mg/dL (Negative); Specific Grav Ur 1.021 (1.001-1.035); Squamous Epithelial Cell Urine None seen /hpf (Few); Urobilinogen Urine 0.2 mg/dL (<2.0); WBC Urine >100 /hpf; pH Urine 6.5 (5.0-9.0)
[2022-07-20 17:12] LABS: Add Urine Microscopic? YES
[2022-07-20 17:30] VITALS: BP 149/72; PULSE 88; RESP 18; O2SAT 96
[2022-07-20 18:13] VITALS: BP 157/64; PULSE 85; RESP 18; TEMP 36.4; O2SAT 96
--- NOTE | 2022-07-20 18:16 | PC.NURSE ---
voiced concerns regarding safety of pt at home. Reports they have 7 steps to walk up and reports pt sitting on cot in own feces and urine. ERP notified
--- NOTE | 2022-07-20 19:58 | PM.IMHP ---
H&P: HPI History of Present Illness Date/Time: 07/20/22 19:58 Chief Complaint: 71 years old female with past medical history of morbid obesity hypertension diabetes hyperlipidemia presented to the hospital with generalized weakness patient start having generalized weakness 6 days ago worsening gradually specially lower extremities denies back pain urine or stool incontinence the patient was helping the patient with daily living activities patient has urine and stool incontinence due to in ability to walk and go in time to the bathroom patient denies loss of control over urine or stool patient also complained of lower extremity edema associated with redness also has dysuria at the ER UA was abnormal BNP was elevated patient has significant lower extremity edema noted to the hospital for further evaluation and treatment Review of Systems Review of Systems: Twelve system review was done negative except above Meds Home Medications and Allergies Allergies Allergy/AdvReac Type Severity Reaction Status Date / Time No Known Allergies Allergy Verified 07/20/22 16:02 Vital Signs Vital Signs - 24 hr 07/20/22 14:42 07/20/22 15:30 07/20/22 16:30 Temperature 97.7 F Pulse Rate 97 83 82 Respiratory Rate 18 18 18 Blood Pressure 108/66 154/69 H 167/81 H Pulse Oximetry 100 98 96 Oxygen Delivery Room Air 07/20/22 17:30 07/20/22 18:13 Temperature 97.6 F Pulse Rate 88 85 Respiratory Rate 18 18 Blood Pressure 149/72 H 157/64 H Pulse Oximetry 96 96 Oxygen Delivery Exam Narrative: GENERAL: Looks it HEAD: Normocephalic, atraumatic. NECK: Supple. No adenopathy, no masses. RESPIRATORY: Airway patent, respirations nonlabored. Clear to auscultation bilaterally, no rales, rhonchi, wheezing. CARDIOVASCULAR: Regular rate and rhythm without murmurs, rubs, or gallops. Peripheral pulses 2+ and equal bilaterally. ABDOMINAL: Soft, nontender, nondistended, no hepatosplenomegaly. Normoactive BS. MUSCULOSKELETAL: Bilateral lower extremity edema chest wall tenderness palpation. SKIN: Bilateral lower extremity rash. NEURO: A&O X3. Speech clear. Cranial nerves II-XII grossly intact. Unable to assess gait. No ataxic movements. PSYCHIATRIC: Appropriate mood and affect. Normal interaction. H&P: Results Labs Labs: Short CBC 07/20/22 Range/Units 16:06 WBC 11.1 H (4.5-10.0) K/mm3 Hgb 13.6 (12.0-15.0) g/dL Hct 42.8 (37.0-47.0) % Plt Count 263 (150-375) k/mm3 BMP 07/20/22 16:06 Sodium 139 Potassium 3.4 Chloride 99 Carbon Dioxide 36 H BUN 17 Creatinine 0.80 Glucose 203 H Calcium 9.2 Cardiac Enzymes 07/20/22 Range/Units 16:06 Troponin I < 0.012 (0.000-0.034) ng/mL Liver Function 07/20/22 Range/Units 16:06 Total Bilirubin 0.5 (0.2-1.3) mg/dL AST 27 (14-36) U/L ALT 19 (6-35) U/L Alkaline Phosphatase 81 (38-126) U/L Albumin 3.6 (3.5-5.1) g/dL Urine 07/20/22 Range/Units 16:06 Urine Color Yellow (Yellow) Urine Appearance Turbid H (Clear) Urine pH 6.5 (5.0-9.0) Ur Specific [place] 1.021 (1.001-1.035) Urine Protein 4+ H (Negative) mg/dL Urine Glucose (UA) Negative (Negative) mg/dL Assessment and Plan Assessment and plan (1) CHF exacerbation: Code(s): I50.9 - Heart failure, unspecified Status: Acute Assessment and Plan: Echo Serial troponin Reviewed chest x-ray Bilateral opacity item think patient has pneumonia most likely patient has pulmonary edema Continue IV diuresis Viral PCR pending Follow-up blood culture (2) Bilateral lower extremity edema: Code(s): R60.0 - Localized edema Status: Acute Assessment and Plan: Most likely related to CHF exacerbation continue IV diuresis Doppler of lower extremity to rule out DVT (3) Cellulitis of both lower extremities: Code(s): L03.115 - Cellulitis of right lower limb; L03.116 - Cellulitis of left lower limb
--- NOTE | 2022-07-20 21:05 | PC.NURSE ---
Patient arrived on 3 Med-Surg at 21:00
[2022-07-20 21:15] LABS: Lactic Acid Reflex 1.6 mmol/L (0.7-2.0)
[2022-07-20 21:17] LABS: CRP 0.8 mg/dL (<1.0)
[2022-07-20 21:28] LABS: Troponin I < 0.012 ng/mL (0.000-0.034)
[2022-07-20] MEDS: HEPARIN SODIUM 5,000 UNITS/ML VIAL 5000 UNITS SUB-Q (21:41)
[2022-07-20 22:00] VITALS: BP 172/90; PULSE 78; RESP 16; TEMP 36.4; O2SAT 93
[2022-07-20 22:21] LABS: Folic Acid 5.7 ng/mL (2.76->20)
[2022-07-20] MEDS: hydrALAZINE HCL 20 MG/ML VIAL 10 MG IV PUSH (22:22)
[2022-07-20 22:35] VITALS: BMI 27.2
[2022-07-20] MEDS: DEXAMETHASONE SOD PHOS INJ 4 MG/ML VIAL IV PUSH (23:03)
[2022-07-21] VITALS (13 sets, daily range): BP systolic 130–220; BP diastolic 68–90; PULSE 78–106; RESP 14–16; TEMP 35.7–36.7; O2SAT 92–94
[2022-07-21 00:25] LABS: Troponin I < 0.012 ng/mL (0.000-0.034)
[2022-07-21] MEDS: amLODIPine BESYLATE 5 MG TABLET PO (01:09)
--- NOTE | 2022-07-21 01:30 | PC.NURSE ---
At 01:00 the patient's bp was rechecked after given previous hydralazine. When taken with a manual and verified with a second R.N., Rip Truong, blood pressure was 220/90. Called the night hospitalist Dr. Cline and gave a one dose of amlodipine 5 mg, then was given further orders to recheck blood pressure in 1 hour.
[2022-07-21] MEDS: hydrALAZINE HCL 20 MG/ML VIAL 10 MG IV PUSH (02:11)
--- NOTE | 2022-07-21 03:02 | PC.NURSE ---
At approximately 02:00 rechecked patient's blood pressure and manually received a measurement of 200/90. Dr. Cline, gave new orders to give hydralazine 10 and to bladder scan patient and recheck in 1 hour.
--- NOTE | 2022-07-21 03:05 | PC.NURSE ---
At 02:[address] Cline and reported a bladder scan of 313 ml and he then ordered a cruz catheter placed. However patient refuses cruz cather at this time which Dr. Cline was made aware.
--- NOTE | 2022-07-21 03:07 | PC.NURSE ---
At 03:00 patient's blood pressure was rechecked and with a manual received a blood pressure score of 184/80. Called, Dr. Cline to report and his instructions were at this time to wait and recheck patient's blood pressure in 1 hour.
[2022-07-21] MEDS: lisinopriL 10 MG TABLET PO ×2 (04:21→09:34)
[2022-07-21] MEDS: hydrALAZINE HCL 20 MG/ML VIAL IV PUSH (04:21)
--- NOTE | 2022-07-21 04:28 | PC.NURSE ---
At 04:[address] Cline regarding manual blood pressure of 192/88. So the hospitalist ordered hydralazine 20 mg and the hospitalist put in orders himself of the morning dose of [address] Cline then requested to check blood pressure again in 2 hours.
[2022-07-21] MEDS: DEXAMETHASONE SOD PHOS INJ 4 MG/ML VIAL IV PUSH ×4 (05:05→23:52)
[2022-07-21] MEDS: HEPARIN SODIUM 5,000 UNITS/ML VIAL 5000 UNITS SUB-Q ×3 (05:05→21:05)
[2022-07-21 06:23] LABS: Basophils Absolute Auto 0.1 K/mm3 (0.0-0.1); Basophils Percent Auto 0.7 % (0.2-1.2); Eosinophils Percent Auto 0.1 % (0-4.4); Hematocrit 39.3 % (37.0-47.0); Hemoglobin 12.7 g/dL (12.0-15.0); Immature Granulocyte Absolute 0.08 K/mm3 (0.00-0.031); Lymphocytes Absolute Auto 0.99 K/mm3 (0.9-3.2); Lymphocytes Percent Auto 11.9 % (18.3-44.2); Mean Corpuscular HGB Conc 32.3 g/dl (32-36); Mean Corpuscular Hemoglobin 29.5 pg (26-34); Mean Corpuscular Volume 91.2 fl (80-100); Mean Platelet Volume 10.9 fl (7.4-10.4); Monocytes Absolute Auto 0.2 K/mm3 (0.1-0.6); Monocytes Percent Auto 1.8 % (2.6-8.5); Neutrophils Absolute Auto 7.1 K/mm3 (1.3-6.7); Neutrophils Percent Auto 84.5 % (45.5-73.1); Platelet Count Result 246 k/mm3 (150-375); Red Blood Count 4.31 M/mm3 (4.2-5.4); Red Cell Distribution Width 14.9 % (11.5-14.5); White Blood Count 8.3 K/mm3 (4.5-10.0)
[2022-07-21] MEDS: hydrALAZINE HCL 50 MG TABLET PO (06:27)
[2022-07-21 06:29] LABS: Alanine Aminotransferase 15 U/L (6-35); Albumin Level 3.2 g/dL (3.5-5.1); Alkaline Phosphatase 75 U/L (38-126); Anion Gap 4 mmol/L (8-16); Aspartate Amino Transferase 22 U/L (14-36); Bilirubin,Total 0.4 mg/dL (0.2-1.3); Blood Urea Nitrogen 12 mg/dL (7-17); Calcium 8.9 mg/dL (8.4-10.2); Carbon Dioxide 30 mmol/L (22-30); Chloride 104 mmol/L (98-107); Estimated CRCL calculation 72 ml/min; Estimated Glomerular Filt Rate > 60; Glucose 291 mg/dL (65-110); Potassium 3.2 mmol/L (3.4-5.0); Sodium 138 mmol/L (137-145)
--- NOTE | 2022-07-21 06:39 | PC.NURSE ---
At 06:00 took manual blood pressure on patient and received a manual blood pressure of 182/80. Dr. Cline then ordered a one time dose of 50 mg hydralazine P.O. once and recheck blood pressure in an hour (07:28). Hospitalist also made aware that if this medication does not work, high probability patient would need to be put on a Cardizem drip. Charge nurse made aware and will continue to monitor.
--- NOTE | 2022-07-21 08:00 | ECHO_ITS ---
Patient Info Name: Majo Abbott Age: 71 years : 1950 Gender: Female Ht: 65 in Wt: 165 lbs BSA: 1.87 m2 HR: 97 bpm BP: 182 / 80 mmHg Technical Quality: Fair Exam Date: 07/21/2022 10:18 AM Exam Location: [facility] Exam Room: 323 Patient Status: Inpatient Admit Date: 07/20/2022 Staff Ordering Physician: Smita Werner M.A., MD Drapery Inspector: Frida Peguero RDCS Attending Provider: Smita Werner M.A., MD Referring Physician: Taiwo FITZGERALD; Exam Type: CA echo doppler color flow Study Info Indications - syncope Complete two-dimensional, color flow and Doppler transthoracic echocardiogram is performed. Summary 1. Complete two-dimensional, color flow and Doppler transthoracic echocardiogram is performed. 2. Left ventricular chamber dimension is normal. 3. Left ventricular systolic function is normal, estimated at 65-70%. 4. There is mild concentric increased left ventricular wall thickness. 5. The left ventricular diastolic function is grade I diastolic dysfunction. 6. E/e' 14 is mildly elevated. 7. Left atrial chamber dimension is mildly enlarged. 8. There is severe aortic valve sclerosis. 9. There is mild aortic valve stenosis with a peak velocity of 284 cm/s, mean gradient of 20 mmHg, and aortic valve area of 1.9 cm2. 10. There is trivial pericardial effusion. Left Ventricle E/e' 14 is mildly elevated. Left ventricular chamber dimension is normal. Left ventricular systolic function is normal, estimated at 65-70%. There is mild concentric increased left ventricular wall thickness. The left ventricular diastolic function is grade I diastolic dysfunction. Right Ventricle Right ventricular chamber dimension is normal. Right ventricular systolic function is normal. Left Atria Left atrial chamber dimension is mildly enlarged. Right Atria Right atrial chamber dimension is normal. Aortic Valve The aortic valve is trileaflet. There is severe aortic valve sclerosis. There is mild aortic valve stenosis with a peak velocity of 284 cm/s, mean gradient of 20 mmHg, and aortic valve area of 1.9 cm2. There is no aortic valve regurgitation. Pulmonic Valve There is no pulmonic regurgitation. Mitral Valve There is no mitral valve stenosis. There is no mitral valve regurgitation. Tricuspid Valve There is no tricuspid valve regurgitation. Pericardium/Pleural There is trivial pericardial effusion. Inferior Vena Cava Normal inferior vena cava with >50% collapse upon inspiration consistent with normal right atrial pressure, 5 mmHg. Aorta The aortic root size at the sinus of Valsalva is normal. Left Ventricular Outflow Tract Name Value Normal LVOT 2D LVOT Diameter 2.0 cm LVOT Doppler LVOT Peak Gradient 8 mmHg LVOT Mean Gradient 5 mmHg LVOT VTI 27 cm LVOT VTI/AV VTI Ratio 0.6 LVOT Stroke Volume 89 ml LVOT CO 21.9 l/min LVOT CI 11.7 l/min/m2 Pulmonic Valve Name
--- NOTE | 2022-07-21 08:30 | PC.NURSE ---
called hospitalist MAT Velasquez and verified OK to admin sliding scale for a glucose of 294 with a NPO diet.
[2022-07-21] MEDS: SIMVASTATIN 10 MG TABLET PO (09:34)
[2022-07-21] MEDS: FUROSEMIDE INJ 40 MG/4 ML VIAL IV PUSH ×2 (09:34→17:13)
[2022-07-21] MEDS: INSULIN ASPART (*BKC) 100 UNITS/ML SUB-Q ×3 (09:34→18:45)
--- NOTE | 2022-07-21 10:43 | PCPTNOTE ---
Spoke with hospitalist in person - OK to remove bedrest orders. Will make RN aware.
--- NOTE | 2022-07-21 12:20 | PC.NURSE ---
Pt agreed to MRI while RN went through screening form, signature received from pt with no questions or concerns. Pt to MRI and refused to continue the procedure.
--- NOTE | 2022-07-21 14:31 | PM.IMPN ---
Progress Note: A&P Assessment and Plan (1) CHF exacerbation: Code(s): I50.9 - Heart failure, unspecified Status: Acute Assessment and Plan: Patient presenting with bilateral lower extremity edema. X-ray with pulmonary opacities and trace bilateral pleural effusions present. Echo pending Serial troponin elevated but flat with the peak at 0.1 IV diuresis Viral PCR pending BNP at 595 which is normal for her age. Patient unable to care of herself at home and will need placement. (2) Bilateral lower extremity edema: Code(s): R60.0 - Localized edema Status: Acute Assessment and Plan: Most likely related to CHF exacerbation continue IV diuresis Bilateral lower extremity ultrasound negative for DVT (3) Cellulitis of both lower extremities: Code(s): L03.115 - Cellulitis of right lower limb; L03.116 - Cellulitis of left lower limb Status: Acute Assessment and Plan: patient with bilateral erythema on the lower extremities. When asking the patient she said this is chronic. Patient does have a wound over her left big toe Consult Wound Care. Patient on ceftriaxone for cellulitis (4) UTI (urinary tract infection): Code(s): N39.0 - Urinary tract infection, site not specified Status: Acute Assessment and Plan: IV antibiotic follow blood culture If no improvement consider CT scan of the abdomen (5) Burst fracture of lumbar vertebra: Code(s): S32.001A - Stable burst fracture of unspecified lumbar vertebra, initial encounter for closed fracture Status: Acute Assessment and Plan: lumbar spine CT completed due to patient's bilateral lower extremity weakness. CT revealing incomplete L1 burst fracture with moderate height loss, 3 mm retropulsion, and vertebral body sclerosis and may indicate pathological fracture. Neurosurgery consulted and appreciate recommendations. Lumbar spine MRI revealed L1 burst fracture with linear low signal intensity fracture lines corresponding to the sclerosis on the prior CT with no other marrow signal abnormalities to suggest underlying malignancy /metastatic disease. MRI unable to be fully completed due to lack of patient cooperation. Patient started on dexamethasone. (6) Bilateral leg weakness: Code(s): R29.898 - Other symptoms and signs involving the musculoskeletal system Status: Acute Assessment and Plan: CT head with no acute intracranial process. (7) Diabetes mellitus: Code(s): E11.9 - Type 2 diabetes mellitus without complications Status: Acute Assessment and Plan: Insulin sliding scale (8) Hypertension: Code(s): I10 - Essential (primary) hypertension Status: Acute Assessment and Plan: Patient on Coreg and lisinopril at home pending home medication reconciliation (9) Morbid obesity: Code(s): E66.01 - Morbid (severe) obesity due to excess calories Status: Acute Assessment and Plan: Diet and exercise follow-up with PCP Subjective Date/time seen: 07/21/22 14:31 Interval history: Patient resting comfortably in bed. Patient states that she has chronic lower extremity edema and erythema. Head there was a ulcer on her left great toe. Patient says she is unsure how that got there. Her feet are very unclean and she states that her feet wounds come and go and she does not follow with a customer success specialist. she denies chest pain, shortness a breath, nausea, vomiting, body aches and chills. Patient's echocardiogram is pending and wound care consulted for great toe ulcer. Patient's told nursing staff that she has not been completely honest about her condition and that she will need placement. Later in the day patient was found smoking a cigarette in her room and this has happened a couple times and nursing staff is unsure as to how patient is getting cigarettes. Review of Systems R
--- NOTE | 2022-07-21 14:32 | PC.NURSE ---
POC capillary glucose's not transferring to patient's chart when docked.
--- NOTE | 2022-07-21 14:42 | PC.NURSE ---
Pt was smoking a cigarette in room. Students and instructor entered the room and took the gymnastics instructor away, gave it to RN. Patient was also caught smoking last night and had cigarettes taken from her by nightshift RN. When asked where she got new cigarettes from ,pt stated her brought them. Patient belongings including several packs of cigarettes, medications, gymnastics instructor, inhaler, and scissors are locked up in safe in med room. Pt educated on smoking in the building.
[2022-07-21 15:20] LABS: Glucose Point of Care 333 mg/dl (65-105)
[2022-07-21] MEDS: SILVERGEL (ELTA) 45 ML 1 APPLIC TOPICAL (15:28)
--- NOTE | 2022-07-21 15:29 | PC.NURSE ---
Pt with new onset confusion as of 1400. Pt began saying things out of her normal and the confusion has progressively gotten worse. Called [facility], no new orders received
--- NOTE | 2022-07-21 16:47 | PCPTNOTE ---
Will see pt for PT evaluation after neurosurgery consult. Will follow
[2022-07-21] MEDS: cefTRIAXone 2 GM/NS 100 ML 2 GM/100 ML BAG IVPB (17:13)
--- NOTE | 2022-07-21 18:00 | PC.NURSE ---
Pt has started hearing toilets leeping and seeing lights flicker. Pt states she has been here for a month. Pt denies taking any additional medications/substances while her was here.
[2022-07-21 18:01] LABS: Glucose Point of Care 314 mg/dl (65-105)
[2022-07-21 21:15] LABS: Glucose Point of Care 370 mg/dl (65-105)
[2022-07-21] MEDS: INSULIN ASPART (*BKC) 100 UNITS/ML 6 UNITS SUB-Q (21:49)
[2022-07-22] VITALS (9 sets, daily range): BP systolic 102–178; BP diastolic 55–80; PULSE 74–93; RESP 16–18; TEMP 35.8–37.1; O2SAT 87–98
[2022-07-22] MEDS: DEXAMETHASONE SOD PHOS INJ 4 MG/ML VIAL IV PUSH (05:48)
[2022-07-22] MEDS: HEPARIN SODIUM 5,000 UNITS/ML VIAL 5000 UNITS SUB-Q (05:48)
[2022-07-22 07:16] LABS: Basophils Percent Auto 0.2 % (0.2-1.2); Hematocrit 35.5 % (37.0-47.0); Hemoglobin 11.3 g/dL (12.0-15.0); Lymphocytes Absolute Auto 1.69 K/mm3 (0.9-3.2); Lymphocytes Percent Auto 17.2 % (18.3-44.2); Mean Corpuscular HGB Conc 31.8 g/dl (32-36); Mean Corpuscular Hemoglobin 28.5 pg (26-34); Mean Corpuscular Volume 89.6 fl (80-100); Mean Platelet Volume 11.7 fl (7.4-10.4); Monocytes Absolute Auto 0.4 K/mm3 (0.1-0.6); Monocytes Percent Auto 3.8 % (2.6-8.5); Neutrophils Absolute Auto 7.7 K/mm3 (1.3-6.7); Neutrophils Percent Auto 77.8 % (45.5-73.1); Platelet Count Result 267 k/mm3 (150-375); Red Blood Count 3.96 M/mm3 (4.2-5.4); Red Cell Distribution Width 14.8 % (11.5-14.5); White Blood Count 9.8 K/mm3 (4.5-10.0)
[2022-07-22 07:33] LABS: Alanine Aminotransferase 16 U/L (6-35); Albumin Level 2.9 g/dL (3.5-5.1); Alkaline Phosphatase 61 U/L (38-126); Anion Gap 2 mmol/L (8-16); Aspartate Amino Transferase 19 U/L (14-36); Bilirubin,Total 0.4 mg/dL (0.2-1.3); Blood Urea Nitrogen 17 mg/dL (7-17); Calcium 8.5 mg/dL (8.4-10.2); Carbon Dioxide 33 mmol/L (22-30); Chloride 99 mmol/L (98-107); Estimated CRCL calculation 62 ml/min; Estimated Glomerular Filt Rate > 60; Glucose 342 mg/dL (65-110); Potassium 2.9 mmol/L (3.4-5.0); Sodium 134 mmol/L (137-145)
--- NOTE | 2022-07-22 07:49 | PCOTNOTE ---
Will see pt for OT evaluation after neurosurgery consult. Will follow
[2022-07-22 07:52] LABS: Glucose Point of Care 352 mg/dl (65-105)
[2022-07-22] MEDS: SIMVASTATIN 10 MG TABLET PO (08:09)
[2022-07-22] MEDS: FUROSEMIDE INJ 40 MG/4 ML VIAL IV PUSH (08:09)
[2022-07-22] MEDS: lisinopriL 10 MG TABLET PO (08:09)
[2022-07-22] MEDS: INSULIN ASPART (*BKC) 100 UNITS/ML SUB-Q ×2 (08:09→17:11)
[2022-07-22] MEDS: SILVERGEL (ELTA) 45 ML 1 APPLIC TOPICAL (08:09)
[2022-07-22] MEDS: hydrALAZINE HCL 20 MG/ML VIAL 10 MG IV PUSH (09:39)
--- NOTE | 2022-07-22 09:49 | PCPTNOTE ---
Will see pt for PT evaluation after neurosurgery consult. Will follow
--- NOTE | 2022-07-22 11:30 | WPDNEUROSGCN ---
Assessment and Plan Assessment and plan (1) Compression fracture: Status: Acute Plan Majo is a 71-year-old female with increased inability to ambulate and complaints of lower extremity weakness. If this is neurologic, is not related to the lumbar spine. The rest of the spine could be imaged although overt signs of myelopathy are lacking. She is not complaining of pain in the lumbar spine and therefore bracing is not likely going to be useful. Review of Systems Review of Systems: Patient denies shortness of breath, cough, fever, chills, nausea, vomiting, weight loss, weight gain, chest pain, dysuria. She has lower extremity weakness and pain as above. Review systems is otherwise negative on 12 systems except as noted elsewhere. [facility] Family History Family History Mother Cancer Son Cancer Grandparent Myocardial infarction Diabetes mellitus Grandparent No problems noted. Social History Social History Smoking packs per day: 1 Smoking cigarettes per day: 20.0 Smoking status: Current every day smoker Tobacco type: cigarettes Alcohol intake: never Substance use: never Lack of Transportation: No Lack of Food: Never True Current Housing: I Have Housing Concerned About Future Housing: No Difficulty Paying Gas/Electric Bills: YES Difficulty Paying for Meds: YES Currently Unemployed: No Education: Associate Degree Difficulty w/ Childcare or Family Care: No Spiritual care concerns: No Meds Home Medications and Allergies Home Medications Medication Instructions Recorded Confirmed Type acetaminophen 500 mg tablet 500 mg PO Q6H 07/20/22 07/20/22 History albuterol sulfate 90 mcg/actuation 90 mcg inhalation Q4-6H PRN 07/20/22 07/20/22 History aerosol inhaler Breathing issues diclofenac sodium 25 mg 50 mg PO BID 07/20/22 07/20/22 History tablet,delayed release lisinopril 10 mg tablet 10 mg PO DAILY 07/20/22 07/20/22 History metformin 1,000 mg tablet 1,000 mg PO BID 07/20/22 07/20/22 History simvastatin 10 mg tablet 10 mg PO DAILY 07/20/22 07/20/22 History Allergies Allergy/AdvReac Type Severity Reaction Status Date / Time No Known Allergies Allergy Verified 07/20/22 21:58 Vital Signs Vital Signs - 24 hr 07/21/22 14:00 07/21/22 21:42 07/21/22 20:00 Temperature 97.6 F 96.3 F L Pulse Rate 106 H 95 Respiratory Rate 14 16 Blood Pressure 130/68 143/85 H Pulse Oximetry 93 92 Oxygen Delivery Room Air Oxygen Flow Rate 07/21/22 20:00 07/22/22 00:00 07/22/22 04:00 Temperature Pulse Rate 96 83 74 Respiratory Rate Blood Pressure Pulse Oximetry Oxygen Delivery Oxygen Flow Rate 07/22/22 05:34 07/22/22 07:52 07/22/22 08:00 Temperature 96.4 F L 97.6 F Pulse Rate 80 77 Respiratory Rate 16 16 Blood Pressure 178/80 H 172/71 H Pulse Oximetry 87 L 91 91 Oxygen Delivery Room Air Oxygen Flow Rate 07/22/22 08:30 07/22/22 09:34 Temperature Pulse Rate 86 Respiratory Rate Blood Pressure 168/77 H Pulse Oximetry 94 98 Oxygen Delivery Nasal Cannula Oxygen Flow Rate 2 Exam Narrative: The patient is a normally developed, normal appearing female supine on the hospital bed in no acute distress. She is awake, alert, oriented, with good fund of knowledge, recall events and fluent speech. She is however a somewhat difficult historian. Her face is symmetrical, tongue is midline, pupils are equal reactive light and her extraocular movements are intact without diplopia or nystagmus. She has no upper extremity drift, dysmetria or dyspraxia. Her breathing is nonlabored. She has a regular rate and rhythm. Strength is 5/5 in all muscle groups of the bilateral upper extremities. Strength is diffusely decreased in the lower extremitie, being 4+ out of 5 throughout.. She was antigravity a
[2022-07-22 11:33] LABS: Glucose Point of Care 442 mg/dl (65-105)
--- NOTE | 2022-07-22 12:04 | PCOTNOTE ---
Attempted OT evaluation, patient declined at this time due to lunch just coming into room, will follow.
--- NOTE | 2022-07-22 12:21 | P.PNIM_ITS ---
Progress Note: A&P Assessment and Plan (1) CHF exacerbation: Code(s): I50.9 - Heart failure, unspecified Status: Acute Assessment and Plan: Patient presenting with bilateral lower extremity edema. X-ray with pulmonary opacities and trace bilateral pleural effusions present. * Echo EF of 6 65-70% grade 1 diastolic dysfunction severe aortic valve sclerosis * Serial troponin elevated but flat with the peak at 0.1 * IV diuresis converted to p.o. at this time * Viral PCR pending * BNP at 595 which is normal for her age. * Patient unable to care of herself at home and will need placement. * Patient has acute on chronic diastolic heart failure and exacerbation * Seems to be resolving (2) Cellulitis of both lower extremities: Code(s): L03.115 - Cellulitis of right lower limb; L03.116 - Cellulitis of left lower limb Status: Acute Assessment and Plan: patient with bilateral erythema on the lower extremities. When asking the patient she said this is chronic. * Patient does have a wound over her left big toe * Consult Wound Care. * Patient on ceftriaxone for cellulitis, switched to vancomycin (3) UTI (urinary tract infection): Code(s): N39.0 - Urinary tract infection, site not specified Status: Acute Assessment and Plan: * Urine culture grew Enterococcus * Change ceftriaxone to vancomycin * Trend urine output * Patient does allude to frequency * Adjust antibiotics to the sensitivities (4) Burst fracture of lumbar vertebra: Code(s): S32.001A - Stable burst fracture of unspecified lumbar vertebra, initial encounter for closed fracture Status: Acute Assessment and Plan: lumbar spine CT completed due to patient's bilateral lower extremity weakness. CT revealing incomplete L1 burst fracture with moderate height loss, 3 mm retropulsion, and vertebral body sclerosis and may indicate pathological fracture. * Neurosurgery consulted and appreciate recommendations. * Lumbar spine MRI revealed L1 burst fracture with linear low signal intensity fracture lines corresponding to the sclerosis on the prior CT with no other marrow signal abnormalities to suggest underlying malignancy /metastatic disease. * MRI unable to be fully completed due to lack of patient cooperation. * Patient started on dexamethasone. * Neurosurgery stated that it does not appear to have any malignancy and the burst fracture is chronic * No further recommendations at this time (5) Bilateral leg weakness: Code(s): R29.898 - Other symptoms and signs involving the musculoskeletal system Status: Acute Assessment and Plan: * CT head with no acute intracranial process. * Most likely related to the burst fracture and UTI * Continue with PT and OT (6) Diabetes mellitus: Code(s): E11.9 - Type 2 diabetes mellitus without complications Status: Acute Assessment and Plan: * Insulin sliding scale * Current glucose 342 * Continue trend * Most likely elevated due to steroids which have been discontinued * Adjust therapy as indicated (7) Hypertension: Code(s): I10 - Essential (primary) hypertension Status: Acute Assessment and Plan: Patient on Coreg and lisinopril at home pending home medication reconciliation (8) Morbid obesity: Code(s): E66.01 - Morbid (severe) obesity due to excess calories Status: Acute A
--- NOTE | 2022-07-22 12:21 | PM.IMPN ---
Progress Note: A&P Assessment and Plan (1) CHF exacerbation: Code(s): I50.9 - Heart failure, unspecified Status: Acute Assessment and Plan: Patient presenting with bilateral lower extremity edema. X-ray with pulmonary opacities and trace bilateral pleural effusions present. Echo EF of 6 65-70% grade 1 diastolic dysfunction severe aortic valve sclerosis Serial troponin elevated but flat with the peak at 0.1 IV diuresis converted to p.o. at this time Viral PCR pending BNP at 595 which is normal for her age. Patient unable to care of herself at home and will need placement. Patient has acute on chronic diastolic heart failure and exacerbation Seems to be resolving (2) Cellulitis of both lower extremities: Code(s): L03.115 - Cellulitis of right lower limb; L03.116 - Cellulitis of left lower limb Status: Acute Assessment and Plan: patient with bilateral erythema on the lower extremities. When asking the patient she said this is chronic. Patient does have a wound over her left big toe Consult Wound Care. Patient on ceftriaxone for cellulitis, switched to vancomycin (3) UTI (urinary tract infection): Code(s): N39.0 - Urinary tract infection, site not specified Status: Acute Assessment and Plan: Urine culture grew Enterococcus Change ceftriaxone to vancomycin Trend urine output Patient does allude to frequency Adjust antibiotics to the sensitivities (4) Burst fracture of lumbar vertebra: Code(s): S32.001A - Stable burst fracture of unspecified lumbar vertebra, initial encounter for closed fracture Status: Acute Assessment and Plan: lumbar spine CT completed due to patient's bilateral lower extremity weakness. CT revealing incomplete L1 burst fracture with moderate height loss, 3 mm retropulsion, and vertebral body sclerosis and may indicate pathological fracture. Neurosurgery consulted and appreciate recommendations. Lumbar spine MRI revealed L1 burst fracture with linear low signal intensity fracture lines corresponding to the sclerosis on the prior CT with no other marrow signal abnormalities to suggest underlying malignancy /metastatic disease. MRI unable to be fully completed due to lack of patient cooperation. Patient started on dexamethasone. Neurosurgery stated that it does not appear to have any malignancy and the burst fracture is chronic No further recommendations at this time (5) Bilateral leg weakness: Code(s): R29.898 - Other symptoms and signs involving the musculoskeletal system Status: Acute Assessment and Plan: CT head with no acute intracranial process. Most likely related to the burst fracture and UTI Continue with PT and OT (6) Diabetes mellitus: Code(s): E11.9 - Type 2 diabetes mellitus without complications Status: Acute Assessment and Plan: Insulin sliding scale Current glucose 342 Continue trend Most likely elevated due to steroids which have been discontinued Adjust therapy as indicated (7) Hypertension: Code(s): I10 - Essential (primary) hypertension Status: Acute Assessment and Plan: Patient on Coreg and lisinopril at home pending home medication reconciliation (8) Morbid obesity: Code(s): E66.01 - Morbid (severe) obesity due to excess calories Status: Acute Assessment and Plan: Diet and exercise follow-up with PCP (9) Metabolic encephalopathy: Code(s): G93.41 - Metabolic encephalopathy Status: Acute Assessment and Plan: Patient is alert oriented times 1-2 Could be more confused due to the UTI however it was stated that the patient has been confused for quite a while Head CT does not show any abnormalities I would say this is most likely acute on chronic metabolic encephalopathy Patient probably has underlying dementia Will consider s
[2022-07-22] MEDS: POTASSIUM CHLORIDE 20 MEQ TABLET 80 MEQ PO (12:34)
[2022-07-22] MEDS: INSULIN ASPART (*BKC) 100 UNITS/ML 10 UNITS SUB-Q (12:34)
[2022-07-22 17:09] LABS: Glucose Point of Care 338 mg/dl (65-105)
[2022-07-22] MEDS: FUROSEMIDE 40 MG TABLET PO (17:11)
[2022-07-22 19:52] LABS: Glucose Point of Care 364 mg/dl (65-105)
[2022-07-23 00:26] LABS: Glucose Point of Care 258 mg/dl (65-105)
[2022-07-23 06:00] VITALS: BP 155/67; PULSE 76; RESP 18; TEMP 36.1; O2SAT 76
[2022-07-23 06:01] VITALS: O2SAT 96
[2022-07-23 06:20] LABS: Basophils Absolute Auto 0.1 K/mm3 (0.0-0.1); Basophils Percent Auto 0.6 % (0.2-1.2); Eosinophils Absolute Auto 0.1 K/mm3 (0-0.3); Eosinophils Percent Auto 0.8 % (0-4.4); Hematocrit 37.5 % (37.0-47.0); Hemoglobin 11.9 g/dL (12.0-15.0); Immature Granulocyte Absolute 0.06 K/mm3 (0.00-0.031); Immature Granulocyte Percent A 0.7 % (0-0.5); Lymphocytes Absolute Auto 3.37 K/mm3 (0.9-3.2); Lymphocytes Percent Auto 38.4 % (18.3-44.2); Mean Corpuscular HGB Conc 31.7 g/dl (32-36); Mean Corpuscular Hemoglobin 28.9 pg (26-34); Mean Platelet Volume 11.1 fl (7.4-10.4); Monocytes Absolute Auto 0.7 K/mm3 (0.1-0.6); Monocytes Percent Auto 8.3 % (2.6-8.5); Neutrophils Absolute Auto 4.5 K/mm3 (1.3-6.7); Neutrophils Percent Auto 51.2 % (45.5-73.1); Platelet Count Result 230 k/mm3 (150-375); Red Blood Count 4.12 M/mm3 (4.2-5.4); Red Cell Distribution Width 14.9 % (11.5-14.5); White Blood Count 8.8 K/mm3 (4.5-10.0)
[2022-07-23 06:34] LABS: Alanine Aminotransferase 19 U/L (6-35); Albumin Level 2.9 g/dL (3.5-5.1); Alkaline Phosphatase 57 U/L (38-126); Anion Gap 4 mmol/L (8-16); Aspartate Amino Transferase 27 U/L (14-36); Bilirubin,Total 0.4 mg/dL (0.2-1.3); Blood Urea Nitrogen 17 mg/dL (7-17); Carbon Dioxide 32 mmol/L (22-30); Chloride 100 mmol/L (98-107); Estimated CRCL calculation 62 ml/min; Estimated Glomerular Filt Rate > 60; Glucose 215 mg/dL (65-110); Magnesium 1.5 mg/dL (1.6-2.3); Potassium 2.9 mmol/L (3.4-5.0); Sodium 136 mmol/L (137-145)
--- NOTE | 2022-07-23 06:56 | PC.NURSE ---
On tonight's shift patient refuses insulin, nurse practitioner, Meron Heller, made aware will continue to monitor.
[2022-07-23 07:47] LABS: Glucose Point of Care 323 mg/dl (65-105)
[2022-07-23] MEDS: SIMVASTATIN 10 MG TABLET PO (07:52)
[2022-07-23] MEDS: FUROSEMIDE 40 MG TABLET PO (07:52)
[2022-07-23] MEDS: lisinopriL 10 MG TABLET PO (07:52)
[2022-07-23] MEDS: INSULIN ASPART (*BKC) 100 UNITS/ML SUB-Q ×2 (07:53→12:33)
[2022-07-23] MEDS: SILVERGEL (ELTA) 45 ML 1 APPLIC TOPICAL (07:53)
--- NOTE | 2022-07-23 08:54 | P.PNIM_ITS ---
Progress Note: A&P Assessment and Plan (1) CHF exacerbation: Code(s): I50.9 - Heart failure, unspecified Status: Acute Assessment and Plan: Patient presenting with bilateral lower extremity edema. X-ray with pulmonary opacities and trace bilateral pleural effusions present. * Echo EF of 6 65-70% grade 1 diastolic dysfunction severe aortic valve sclerosis * Serial troponin elevated but flat with the peak at 0.1 * IV diuresis converted to p.o. at this time * Viral PCR pending * BNP at 595 which is normal for her age. * Patient unable to care of herself at home and will need placement. * Patient has acute on chronic diastolic heart failure and exacerbation * Seems to be resolving (2) Cellulitis of both lower extremities: Code(s): L03.115 - Cellulitis of right lower limb; L03.116 - Cellulitis of left lower limb Status: Acute Assessment and Plan: patient with bilateral erythema on the lower extremities. When asking the patient she said this is chronic. * Patient does have a wound over her left big toe * Consult Wound Care. * Patient on ceftriaxone for cellulitis, switched to vancomycin (3) UTI (urinary tract infection): Qualifiers: Urinary tract infection type: acute cystitis Hematuria presence: without hematuria Qualified Code(s): N30.00 - Acute cystitis without hematuria Code(s): N39.0 - Urinary tract infection, site not specified Status: Acute Assessment and Plan: * Urine culture grew Enterococcus * Change vancomycin to augmentin * Trend urine output * Patient does allude to frequency * Adjust antibiotics to the sensitivities (4) Burst fracture of lumbar vertebra: Code(s): S32.001A - Stable burst fracture of unspecified lumbar vertebra, initial encounter for closed fracture Status: Acute Assessment and Plan: lumbar spine CT completed due to patient's bilateral lower extremity weakness. CT revealing incomplete L1 burst fracture with moderate height loss, 3 mm retropulsion, and vertebral body sclerosis and may indicate pathological fracture. * Neurosurgery consulted and appreciate recommendations. * Lumbar spine MRI revealed L1 burst fracture with linear low signal intensity fracture lines corresponding to the sclerosis on the prior CT with no other marrow signal abnormalities to suggest underlying malignancy /metastatic disease. * MRI unable to be fully completed due to lack of patient cooperation. * Patient started on dexamethasone. * Neurosurgery stated that it does not appear to have any malignancy and the burst fracture is chronic * No further recommendations at this time (5) Bilateral leg weakness: Code(s): R29.898 - Other symptoms and signs involving the musculoskeletal system Status: Acute Assessment and Plan: * CT head with no acute intracranial process. * Most likely related to the burst fracture and UTI * Continue with PT and OT (6) Diabetes mellitus: Code(s): E11.9 - Type 2 diabetes mellitus without complications Status: Acute Assessment and Plan: * Insulin sliding scale * Current glucose 245 * Continue trend * Most likely elevated due to steroids which have been discontinued * Adjust therapy as indicated (7) Hypertension: Code(s): I10 - Essential (primary) hypertension Status: Acute Assessment and Plan: * Current BP is 155/67 * Coreg and
--- NOTE | 2022-07-23 08:54 | PM.IMPN ---
Progress Note: A&P Assessment and Plan (1) CHF exacerbation: Code(s): I50.9 - Heart failure, unspecified Status: Acute Assessment and Plan: Patient presenting with bilateral lower extremity edema. X-ray with pulmonary opacities and trace bilateral pleural effusions present. Echo EF of 6 65-70% grade 1 diastolic dysfunction severe aortic valve sclerosis Serial troponin elevated but flat with the peak at 0.1 IV diuresis converted to p.o. at this time Viral PCR pending BNP at 595 which is normal for her age. Patient unable to care of herself at home and will need placement. Patient has acute on chronic diastolic heart failure and exacerbation Seems to be resolving (2) Cellulitis of both lower extremities: Code(s): L03.115 - Cellulitis of right lower limb; L03.116 - Cellulitis of left lower limb Status: Acute Assessment and Plan: patient with bilateral erythema on the lower extremities. When asking the patient she said this is chronic. Patient does have a wound over her left big toe Consult Wound Care. Patient on ceftriaxone for cellulitis, switched to vancomycin (3) UTI (urinary tract infection): Qualifiers: Urinary tract infection type: acute cystitis Hematuria presence: without hematuria Qualified Code(s): N30.00 - Acute cystitis without hematuria Code(s): N39.0 - Urinary tract infection, site not specified Status: Acute Assessment and Plan: Urine culture grew Enterococcus Change vancomycin to augmentin Trend urine output Patient does allude to frequency Adjust antibiotics to the sensitivities (4) Burst fracture of lumbar vertebra: Code(s): S32.001A - Stable burst fracture of unspecified lumbar vertebra, initial encounter for closed fracture Status: Acute Assessment and Plan: lumbar spine CT completed due to patient's bilateral lower extremity weakness. CT revealing incomplete L1 burst fracture with moderate height loss, 3 mm retropulsion, and vertebral body sclerosis and may indicate pathological fracture. Neurosurgery consulted and appreciate recommendations. Lumbar spine MRI revealed L1 burst fracture with linear low signal intensity fracture lines corresponding to the sclerosis on the prior CT with no other marrow signal abnormalities to suggest underlying malignancy /metastatic disease. MRI unable to be fully completed due to lack of patient cooperation. Patient started on dexamethasone. Neurosurgery stated that it does not appear to have any malignancy and the burst fracture is chronic No further recommendations at this time (5) Bilateral leg weakness: Code(s): R29.898 - Other symptoms and signs involving the musculoskeletal system Status: Acute Assessment and Plan: CT head with no acute intracranial process. Most likely related to the burst fracture and UTI Continue with PT and OT (6) Diabetes mellitus: Code(s): E11.9 - Type 2 diabetes mellitus without complications Status: Acute Assessment and Plan: Insulin sliding scale Current glucose 245 Continue trend Most likely elevated due to steroids which have been discontinued Adjust therapy as indicated (7) Hypertension: Code(s): I10 - Essential (primary) hypertension Status: Acute Assessment and Plan: Current BP is 155/67 Coreg and lisinopril at home pending home medication reconciliation Continue to trend BP adjust therapy as indicated (8) Morbid obesity: Code(s): E66.01 - Morbid (severe) obesity due to excess calories Status: Acute Assessment and Plan: Diet and exercise follow-up with PCP (9) Metabolic encephalopathy: Code(s): G93.41 - Metabolic encephalopathy Status: Acute Assessment and Plan: Patient is alert oriented times 1-2 Could be more confused due to the UT
[2022-07-23] MEDS: POTASSIUM CHLORIDE 20 MEQ TABLET 80 MEQ PO (10:16)
[2022-07-23] MEDS: AMOXICILLIN/CLAVULANATE K 875-125 MG TAB 1 TABLET PO (10:16)
[2022-07-23] MEDS: MAGNESIUM SULF 4 GM/WATER100ML 4 GM/100 ML BAG IVPB (10:16)
[2022-07-23 11:33] LABS: Glucose Point of Care 402 mg/dl (65-105)
[2022-07-23] MEDS: INSULIN ASPART (*BKC) 100 UNITS/ML 10 UNITS SUB-Q (12:33)
--- NOTE | 2022-07-23 13:30 | P.DS_ITS ---
DS: Admitting Diagnosis Discharge Date 07/23/22 1330 Admitting Diagnosis acute UTI, CHF exacerbation, cellulitis of bilateral lower extremity DS: Discharge Diagnosis Discharge Diagnosis (1) CHF exacerbation: Qualifiers: Heart failure type: diastolic Qualified Code(s): I50.33 - Acute on chronic diastolic (congestive) heart failure Code(s): I50.9 - Heart failure, unspecified Status: Acute Assessment and Plan: Patient presenting with bilateral lower extremity edema. X-ray with pulmonary opacities and trace bilateral pleural effusions present. * Echo EF of 6 65-70% grade 1 diastolic dysfunction severe aortic valve sclerosis * Serial troponin elevated but flat with the peak at 0.1 * IV diuresis converted to p.o. at this time * Viral PCR pending * BNP at 595 which is normal for her age. * Patient unable to care of herself at home and will need placement. * Patient has acute on chronic diastolic heart failure and exacerbation * Seems to be resolving (2) Cellulitis of both lower extremities: Code(s): L03.115 - Cellulitis of right lower limb; L03.116 - Cellulitis of left lower limb Status: Acute Assessment and Plan: patient with bilateral erythema on the lower extremities. When asking the patient she said this is chronic. * Patient does have a wound over her left big toe * Consult Wound Care. * Patient on ceftriaxone for cellulitis, switched to vancomycin (3) UTI (urinary tract infection): Qualifiers: Hematuria presence: without hematuria Urinary tract infection type: acute cystitis Qualified Code(s): N30.00 - Acute cystitis without hematuria Code(s): N39.0 - Urinary tract infection, site not specified Status: Acute Assessment and Plan: * Urine culture grew Enterococcus * Change vancomycin to augmentin * Trend urine output * Patient does allude to frequency * Adjust antibiotics to the sensitivities (4) Burst fracture of lumbar vertebra: Qualifiers: Encounter type: initial encounter Fracture type: closed Qualified Code(s): S32.001A - Stable burst fracture of unspecified lumbar vertebra, initial encounter for closed fracture Code(s): S32.001A - Stable burst fracture of unspecified lumbar vertebra, initial en counter for closed fracture Status: Acute Assessment and Plan: lumbar spine CT completed due to patient's bilateral lower extremity weakness. CT revealing incomplete L1 burst fracture with moderate height loss, 3 mm retropulsion, and vertebral body sclerosis and may indicate pathological fracture. * Neurosurgery consulted and appreciate recommendations. * Lumbar spine MRI revealed L1 burst fracture with linear low signal intensity fracture lines corresponding to the sclerosis on the prior CT with no other marrow signal abnormalities to suggest underlying malignancy /metastatic disease. * MRI unable to be fully completed due to lack of patient cooperation. * Patient started on dexamethasone. * Neurosurgery stated that it does not appear to have any malignancy and the burst fracture is chronic * No further recommendations at this time (5) Bilateral leg weakness: Code(s): R29.898 - Other symptoms and signs involving the musculoskeletal system Status: Acute Assessment and Plan: * CT head with no acute intracranial process. * Most likely related to the burst fracture and UTI * Continue with PT and OT (6) Diabetes mellitus: Q
--- NOTE | 2022-07-23 13:30 | PM.DS ---
DS: Admitting Diagnosis Discharge Date 07/23/22 1330 Admitting Diagnosis acute UTI, CHF exacerbation, cellulitis of bilateral lower extremity DS: Discharge Diagnosis Discharge Diagnosis (1) CHF exacerbation: Qualifiers: Heart failure type: diastolic Qualified Code(s): I50.33 - Acute on chronic diastolic (congestive) heart failure Code(s): I50.9 - Heart failure, unspecified Status: Acute Assessment and Plan: Patient presenting with bilateral lower extremity edema. X-ray with pulmonary opacities and trace bilateral pleural effusions present. Echo EF of 6 65-70% grade 1 diastolic dysfunction severe aortic valve sclerosis Serial troponin elevated but flat with the peak at 0.1 IV diuresis converted to p.o. at this time Viral PCR pending BNP at 595 which is normal for her age. Patient unable to care of herself at home and will need placement. Patient has acute on chronic diastolic heart failure and exacerbation Seems to be resolving (2) Cellulitis of both lower extremities: Code(s): L03.115 - Cellulitis of right lower limb; L03.116 - Cellulitis of left lower limb Status: Acute Assessment and Plan: patient with bilateral erythema on the lower extremities. When asking the patient she said this is chronic. Patient does have a wound over her left big toe Consult Wound Care. Patient on ceftriaxone for cellulitis, switched to vancomycin (3) UTI (urinary tract infection): Qualifiers: Hematuria presence: without hematuria Urinary tract infection type: acute cystitis Qualified Code(s): N30.00 - Acute cystitis without hematuria Code(s): N39.0 - Urinary tract infection, site not specified Status: Acute Assessment and Plan: Urine culture grew Enterococcus Change vancomycin to augmentin Trend urine output Patient does allude to frequency Adjust antibiotics to the sensitivities (4) Burst fracture of lumbar vertebra: Qualifiers: Encounter type: initial encounter Fracture type: closed Qualified Code(s): S32.001A - Stable burst fracture of unspecified lumbar vertebra, initial encounter for closed fracture Code(s): S32.001A - Stable burst fracture of unspecified lumbar vertebra, initial encounter for closed fracture Status: Acute Assessment and Plan: lumbar spine CT completed due to patient's bilateral lower extremity weakness. CT revealing incomplete L1 burst fracture with moderate height loss, 3 mm retropulsion, and vertebral body sclerosis and may indicate pathological fracture. Neurosurgery consulted and appreciate recommendations. Lumbar spine MRI revealed L1 burst fracture with linear low signal intensity fracture lines corresponding to the sclerosis on the prior CT with no other marrow signal abnormalities to suggest underlying malignancy /metastatic disease. MRI unable to be fully completed due to lack of patient cooperation. Patient started on dexamethasone. Neurosurgery stated that it does not appear to have any malignancy and the burst fracture is chronic No further recommendations at this time (5) Bilateral leg weakness: Code(s): R29.898 - Other symptoms and signs involving the musculoskeletal system Status: Acute Assessment and Plan: CT head with no acute intracranial process. Most likely related to the burst fracture and UTI Continue with PT and OT (6) Diabetes mellitus: Qualifiers: Diabetes mellitus complication detail: with other skin ulcer Diabetes mellitus complication status: with skin complications Diabetes mellitus chcf insulin use: without intermodal customer service use Diabetes mellitus type: type 2 Qualified Code(s): E11.622 - Type 2 diabetes mellitus with other skin ulcer Code(s): E11.9 - Type 2 diabetes mellitus without complications Status: Acute Assessment and Plan: Insulin sliding scale Cu
--- NOTE | 2022-07-23 13:39 | PCPTNOTE ---
Addendum entered by Tao Correia, LACE INSPECTOR 07/23/22 13:52: Patient sitting up on edge of bed when I entered room and bed safety alarm going off. Alarm was reset but due to patient scooting along edge of bed rearranging bedding and personal belongings alarm continued to go off and reset again. Patient removed alarm pad and refused to have alarm pad replaced. Safety concerns were discussed with patient and patient's spouse and both verbalize understaning but patient continued to refuse alarm. HAND OUTSIDE CUTTER notified of patient's refusal of alarm. Original Note: Patient refused treatment this session stating I am going to be discharged today. I am going home. I will be fine at home because I have all that I need. Encouraged patient to participate since discharge orders were not in the EMR at this time. Patient continued to refuse. Patient's present.
[2022-07-23 14:00] VITALS: BP 112/61; PULSE 84; RESP 16; TEMP 36.2; O2SAT 99
[2022-07-23 14:52] LABS: EDCOVIDSCREEN Negative (Negative)
== END 2022-07-23 15:30 | DRG 291 ==
LOC: ANHED 19:30 → ANH3MEDSUR 19:56
PROVIDERS: Admitting Provider Internal Medicine; Emergency Provider Emergency Medicine; PCP Emergency Medicine; Visit Provider Nurse Practitioner
DX: I11.0 Hypertensive heart disease with heart failure (principal); G93.41 Metabolic encephalopathy; I50.33 Acute on chronic diastolic (congestive) heart failure; L03.115 Cellulitis of right lower limb; N39.0 Urinary tract infection, site not specified; L03.116 Cellulitis of left lower limb; L97.529 Non-pressure chronic ulcer of other part of left foot with unspecified severity; E11.621 Type 2 diabetes mellitus with foot ulcer; E78.5 Hyperlipidemia, unspecified; M48.56XD Collapsed vertebra, not elsewhere classified, lumbar region, subsequent encounter for fracture with routine healing; B95.2 Enterococcus as the cause of diseases classified elsewhere; F17.210 Nicotine dependence, cigarettes, uncomplicated
CPT/HCPCS: 36415; 70450; 71046; 72131; 72158; 80053; 81001; 82607; 82746; 82948; 83605; 83735; 83880; 84443; 84484; 85025; 85610; 85730; 86140; 87040; 87070; 87077; 87086; 87088; 87186; 87254; 87426; 93005; 93306; 93970; 96361; 96365; 96372; 96375; 96376; 97161; 97165; 97530; 97535; 99285; A9270; C9803; G0378; J0360; J0696; J1100; J1644; J1815; J1940; J3370; J3475; J7030

== ENCOUNTER 2022-10-31 03:06 | Emergency (ER) | payer MEDICARE, SELFPAY ==
[2022-10-31] VITALS (15 sets, daily range): BP systolic 160–165; BP diastolic 73–101; PULSE 70–84; RESP 16–25; TEMP 36.6; O2SAT 94–98
--- NOTE | ~2022-10-31 | XR_ITS ---
EXAMINATION: XR chest 1V portable INDICATION: Left-sided chest pain TECHNIQUE: Portable AP chest at 0341 hours COMPARISON: 07/20/2022 FINDINGS: The lungs are free of acute opacities. No pleural effusion or pneumothorax. The cardiomedia stinal silhouette is normal. IMPRESSION: 1. No acute cardiopulmonary abnormality. Reviewed, dictated and finalized at location A.
--- NOTE | 2022-10-31 03:09 | ECG_ITS ---
Measurements Intervals [place] Rate: 82 P: 60 [place]: 128 QRS: -6 QRSD: 94 T: 62 QT: 399 QTc: 469 Interpretive Statements SINUS RHYTHM INCOMPLETE RIGHT BUNDLE BRANCH BLOCK [90+ ms QRS DURATION, TERMINAL R IN V1/V2, 40+ ms S IN I/aVL/V4/V5/V6] ABNORMAL ECG COMPARED TO ECG 01/09/2022 11:07:07 SINUS RHYTHM NOW PRESENT INCOMPLETE RIGHT BUNDLE-BRANCH BLOCK NOW PRESENT Electronically Signed On 10-31-2022 10:05:58 CDT by Marcos Gonzalez M.D.
[2022-10-31 03:29] LABS: Basophils Absolute Auto 0.1 K/mm3 (0.0-0.1); Basophils Percent Auto 1.1 % (0.2-1.2); Eosinophils Absolute Auto 0.5 K/mm3 (0-0.3); Eosinophils Percent Auto 7.2 % (0-4.4); Hemoglobin 13.5 g/dL (12.0-15.0); Immature Granulocyte Absolute 0.02 K/mm3 (0.00-0.031); Immature Granulocyte Percent A 0.3 % (0-0.5); Lymphocytes Absolute Auto 2.59 K/mm3 (0.9-3.2); Lymphocytes Percent Auto 35.4 % (18.3-44.2); Mean Corpuscular HGB Conc 32.1 g/dl (32-36); Mean Corpuscular Hemoglobin 29.5 pg (26-34); Mean Corpuscular Volume 91.7 fl (80-100); Mean Platelet Volume 11.5 fl (7.4-10.4); Monocytes Absolute Auto 0.5 K/mm3 (0.1-0.6); Monocytes Percent Auto 6.1 % (2.6-8.5); Neutrophils Absolute Auto 3.7 K/mm3 (1.3-6.7); Neutrophils Percent Auto 49.9 % (45.5-73.1); Platelet Count Result 222 k/mm3 (150-375); Red Blood Count 4.58 M/mm3 (4.2-5.4); Red Cell Distribution Width 13.7 % (11.5-14.5); White Blood Count 7.3 K/mm3 (4.5-10.0)
[2022-10-31 03:41] LABS: Prothrombin Time 13.3 Seconds (11.1-14.7)
[2022-10-31 03:42] LABS: Partial Thromboplastin Time 30.3 SECONDS (22.3-36.8)
[2022-10-31 03:44] LABS: Alanine Aminotransferase 20 U/L (6-35); Albumin Level 3.7 g/dL (3.5-5.1); Alkaline Phosphatase 80 U/L (38-126); Anion Gap 6 mmol/L (8-16); Aspartate Amino Transferase 32 U/L (14-36); Bilirubin,Total 0.4 mg/dL (0.2-1.3); Blood Urea Nitrogen 12 mg/dL (7-17); Calcium 8.9 mg/dL (8.4-10.2); Carbon Dioxide 32 mmol/L (22-30); Chloride 97 mmol/L (98-107); Estimated CRCL calculation 52 ml/min; Estimated Glomerular Filt Rate > 60; Glucose 173 mg/dL (65-110); Lipase 201 U/L (23-300); Potassium 3.7 mmol/L (3.4-5.0); Sodium 135 mmol/L (137-145)
[2022-10-31 04:09] LABS: Troponin I < 0.012 ng/mL (0.000-0.034)
--- NOTE | 2022-10-31 05:05 | ED.GENADULT ---
HPI - General Adult General Chief complaint: Chest Pain Stated complaint: chest pain History of Present Illness HPI narrative: This is a 71-year-old female presenting ED with a chief complaint of chest pain. Patient says that after dinner while she was watching TV she started have a sharp pain in the center of her chest. He is nonradiating, 4/10 in intensity and resolved after 2 minutes without intervention. She has never had pain like this before there are no exacerbating or alleviating factors. Was not associated with vomiting diaphoresis exertion radiation to the arms or neck. Patient says it was associated with anxiety which is why she called EMS so quickly. Patient denies fevers chills shortness of breath abdominal pain. Related Data Home Medications Medication Instructions Recorded Confirmed acetaminophen 500 mg capsule 1,000 mg PO TID PRN pain 02/13/22 02/13/22 acetaminophen 500 mg tablet 500 mg PO Q6H 07/20/22 07/20/22 albuterol sulfate 90 mcg/actuation 90 mcg inhalation Q4-6H PRN 07/20/22 07/20/22 aerosol inhaler Breathing issues diclofenac sodium 25 mg 50 mg PO BID 07/20/22 07/20/22 tablet,delayed release lisinopril 10 mg tablet 10 mg PO DAILY 07/20/22 07/20/22 metformin 1,000 mg tablet 1,000 mg PO BID 07/20/22 07/20/22 simvastatin 10 mg tablet 10 mg PO DAILY 07/20/22 07/20/22 Allergies Allergy/AdvReac Type Severity Reaction Status Date / Time No Known Allergies Allergy Verified 08/02/22 06:48 [facility] Past Medical History Medical History CHF (congestive heart failure) COPD mixed type Cortical age-related cataract of both eyes Diabetes mellitus Essential hypertension Mixed hyperlipidemia Other screening mammogram Peripheral artery disease Right-sided Cool's palsy Spinal stenosis of lumbosacral region Tobacco abuse Vitamin D deficiency Surgical History Surgical History History of appendectomy History of Hx of cholecystectomy Family History Family History Father Malignant neoplasm of prostate, Onset Age: 76 Patient's father is Family history of Alzheimer's disease Mother Family history of malignant neoplasm of ovary Family history of malignant neoplasm of cervix Sibling Family history of malignant neoplasm of ovary Mother Cancer Son Cancer Grandparent Myocardial infarction Diabetes mellitus Grandparent No problems noted. Social History Social History Social History: She lives at home with her . She sleeps on the couch. She uses a bedside commode. She has smoked up to 2 pack per day since she was a teenager. She denies any history of heavy alcohol use. She denies illicit substance use. Code status: Full code Surrogate decision maker: Primary care physician: Dr. James Medina Smoking packs per day: 1 Smoking cigarettes per day: 20.0 Years smoked: 50 Smoking pack-years: 50.00 Smoking status: Current every day smoker Tobacco type: cigarettes Second hand tobacco smoke exposure: No Smoking end date: 03/21/11 Alcohol intake: never Substance use: never Substance use type: does not use Lack of Transportation: No Lack of Food: Never True Current Housing: I Have Housing Concerned About Future Housing: No Difficulty Paying Gas/Electric Bills: YES Difficulty Paying for Meds: YES Currently Unemployed: No Education: Associate Degree Difficulty w/ Childcare or Family Care: No Living arrangements: with family Gender identity (if verbalized by the patient): Female Sexual Orientation (if Verbalized by the Patient): Straight or Heterosexual Spiritual care concerns: No Agree to blood products: Yes Exam Narrative: APPEARANCE: No apparent distress. Head: atraumatic.
== END 2022-10-31 06:41 | disposition left against medical advice (07) ==
PROVIDERS: Emergency Provider Emergency Medicine; PCP Emergency Medicine
DX: R07.89 Other chest pain (principal); I50.9 Heart failure, unspecified; J44.9 Chronic obstructive pulmonary disease, unspecified; I11.0 Hypertensive heart disease with heart failure; E78.2 Mixed hyperlipidemia; E11.51 Type 2 diabetes mellitus with diabetic peripheral angiopathy without gangrene; I73.9 Peripheral vascular disease, unspecified; E55.9 Vitamin D deficiency, unspecified; Z90.49 Acquired absence of other specified parts of digestive tract; Z79.84 Long term (current) use of oral hypoglycemic drugs; I45.10 Unspecified right bundle-branch block
CPT/HCPCS: 36415; 71045; 80053; 83690; 84484; 85025; 85610; 85730; 93005; 99284

== ENCOUNTER 2022-11-26 10:30 | Observation (INO) | payer MEDICARE, SELFPAY ==
--- NOTE | ~2022-11-26 | XR_ITS ---
Clinical Indication: Weakness AP and lateral views of the chest: Comparison: 10/31/2022 Findings: The lungs are clear, without evidence of focal consolidation or pleural effusion. Cardiome diastinal silhouette is within normal limits. L1 compression fracture noted. Impression: Clear lungs. L1 compression fracture. Reviewed, dictated and finalized at location . Impression: Clear lungs. L1 compression fracture.
--- NOTE | ~2022-11-26 | CT_ITS ---
EXAMINATION: CT lumbar spine wo con DATE: 11/26/2022 12:07 INDICATION: Leg weakness. L1 fracture. TECHNIQUE: Computed tomography (CT) of the lumbar spine was performed without intravenous contrast. A utomated exposure control and iterative reconstruction technique were employed. The dose-length produ ct was 319.65 mGy-cm. COMPARISON: Lumbar spine CT 07/20/2022 FINDINGS: There is 15 degrees levoscoliosis of lumbar spine. There is a burst fracture of L1 with 2/5 loss of height and retropulsion of bone 3 mm into central spinal canal. There is sclerosis of the ve rtebral body with visible fracture lines, consistent with healing. There is mildly decreased disc hei ght at T11-T12 and T12-L1. The following disc levels are specifically discussed: T12-L1: The disc does not extend beyond the endplate margin. There is moderate bilateral facet joint osteoarthritis. There is no neural foraminal stenosis. There is mild central canal stenosis. L1-L2: The disc does not extend beyond the endplate margin. There is mild bilateral facet joint osteo arthritis. There is no neural foraminal stenosis. There is no central canal stenosis. L2-L3: There is a left foraminal protrusion. There is moderate bilateral facet joint osteoarthritis. There is mild left neural foraminal stenosis. There is no central canal stenosis. L3-L4: The disc is bulging. There is severe bilateral facet joint osteoarthritis. There is mild bilat eral neural foraminal stenosis. There is no central canal stenosis. L4-L5: The disc is bulging. There is severe bilateral facet joint osteoarthritis. There is mild bilat eral neural foraminal stenosis. There is mild central canal stenosis. L5-S1: The disc is bulging. There is severe bilateral facet joint osteoarthritis. There is mild left neural foraminal stenosis. There is mild central canal stenosis. IMPRESSION: 1. Healing L1 burst fracture, stable from 07/20/2022. 2. Mild lumbar spondylosis. 3. Lumbar levoscoliosis. Reviewed, dictated and finalized at location A.
--- NOTE | ~2022-11-26 | CT_ITS ---
EXAMINATION: CT brain wo con INDICATION: Lower limb weakness COMPARISON: 07/20/2022 TECHNIQUE: Standard unenhanced head CT. The dose-length product (DLP) was 605.33 mGy-cm. The mA was a djusted according to patient size. Iterative reconstruction technique was employed. FINDINGS: No acute intraparenchymal hemorrhage. No evidence of mass lesion. No evidence of acute infa rction. There is a small infarct in the anteromedial aspect of the left frontal lobe, new since the c omparison examination. There is mild periventricular and subcortical hypodensity probably related to small vessel ischemic disease. There is mild prominence of the sulci and ventricles related to cerebr al atrophy. Intracranial calcified cerebral atherosclerosis is noted. No extra-axial collections. No mass effect or midline shift. Changes in the globes are likely from ocular lens surgery. The visualiz ed sinuses and mastoid air cells are well aerated. IMPRESSION: 1. No acute intracranial abnormality. 2. Interval small infarct in the anteromedial left frontal lobe. 3. Age related findings. Reviewed, dictated and finalized at location B.
--- NOTE | ~2022-11-26 | MR_ITS ---
EXAMINATION: MR brain/brain stem wo/w con DATE: 11/27/2022 12:00 INDICATION: weakness, brain infarct TECHNIQUE: Magnetic resonance imaging (MRI) of the brain and brainstem was performed without intraven ous contrast. Sequences included sagittal and axial T1-weighted SE, axial diffusion-weighted FS EPI A SSET, axial T2*-weighted GRE, axial T2-weighted FLAIR Propeller, and axial T2-weighted Propeller. Pos tcontrast axial and coronal T1-weighted SE was obtained. Apparent diffusion coefficient (ADC) maps we re created. COMPARISON: CT brain 11/26/2022. FINDINGS: No abnormal restricted diffusion to suggest acute ischemic infarct. Focal encephalomalacia in the lef t posterior frontal lobe. No MRI evidence of hemorrhage or extra-axial collection. No suspicious foci of susceptibility to suggest prior intraparenchymal hemorrhage. Moderate patchy white matter hyperin tensity, likely representing moderate small vessel ischemic disease. 9 mm area of T2 shine through in the right posterior frontal periventricular white matter/centrum semiovale, possibly representing rowland bacute/chronic focal infarct, with a very subtle linear area of diffusion restriction along its poste rior border likely indicating subtle progression. Mild generalized parenchymal volume loss. No abnorm al enhancement. The basilar cisterns are patent. Flow voids are preserved. Ethmoid mucosal thickening , the paranasal sinuses are otherwise within normal limits. Bilateral lens replacements. IMPRESSION: Very mild acute progression of a small focus of infarct in the right posterior frontal/periventricula r white matter. Reviewed, dictated and finalized at location K. IMPRESSION: Very mild acute progression of a small focus of infarct in the right posterior frontal/periventricular white matter.
--- NOTE | ~2022-11-26 | CT_ITS ---
EXAMINATION: CTA brain carotid DATE: 11/29/2022 13:00 INDICATION: Acute stroke. TECHNIQUE: Computed tomographic angiography (CTA) of the head was performed without and with 100 mL O mnipaque-350 intravenous contrast. CTA of the neck was performed with intravenous contrast. Automated exposure control and iterative reconstruction technique were employed. The dose-length product was 1 515.98 mGy-cm. Maximum intensity projection and volume rendered 3D-reconstructions were created by mónica levi technologist on a separate workstation. COMPARISON: Head CT 11/26/2022 FINDINGS: HEAD CTA: There is an old infarct in left frontal lobe. There are scattered areas of low attenuation in the cerebral white matter. There is no intracranial hemorrhage, acute infarction, or abnormal intr acranial mass lesion. The ventricles are normal in size. There is mild mucosal thickening in the para nasal sinuses. The mastoid air cells are normal. There are likely changes of ocular lens replacement surgeries. The vertebral arteries are codominant. There is no significant stenosis of basilar artery or the posterior cerebral arteries. The posterior communicating arteries are normal. There is moderat e stenosis of intracranial right internal carotid artery. There is mild stenosis of intracranial left internal carotid artery. Right A1 anterior cerebral artery segment is absent, a normal variant. Ther e is no significant stenosis of the middle cerebral arteries. Anterior communicating artery is normal . There is no aneurysm. NECK CTA: There are no pathologically enlarged lymph nodes. The vertebral arteries. There is no signi ficant stenosis of the vertebral arteries. There is plaque in the proximal internal carotid arteries. There is 15% stenosis of the proximal right internal carotid artery relative to normal distal artery lumen diameter (NASCET criteria). There is 0% stenosis of the proximal left internal carotid artery relative to normal distal artery lumen diameter. There is severe cervical spondylosis. IMPRESSION: 1. 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 2. Moderate nonspecific cerebral white matter disease, which likely represents chronic small vessel i schemic disease. 3. Moderate stenosis of intracranial right internal carotid artery. 4. 15% stenosis of the proximal right internal carotid artery relative to normal distal artery lumen diameter (NASCET criteria). 5. 0% stenosis of the proximal left internal carotid artery relative to normal distal artery lumen di ameter. Reviewed, dictated and finalized at location A. IMPRESSION: 1. 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 2. Moderate nonspecific cerebral white matter disease, which likely represents chronic small vessel ischemic disease. 3. Moderate stenosis of intracranial right internal carotid artery. 4. 15% stenosis of the proximal right internal carotid artery relative to raúl l distal artery lumen diameter (NASCET criteria). 5. 0% stenosis of the proximal left internal carotid artery relative to normal distal artery lumen diameter.
[2022-11-26 10:30] VITALS: BP 161/93; PULSE 93; RESP 23; TEMP 36.7; O2SAT 94
--- NOTE | 2022-11-26 10:33 | ECG_ITS ---
Measurements Intervals [place] Rate: 93 P: 64 [place]: 140 QRS: -32 QRSD: 89 T: 40 QT: 377 QTc: 470 Interpretive Statements SINUS RHYTHM LEFT AXIS DEVIATION BORDERLINE R WAVE PROGRESSION, ANTERIOR LEADS CONSIDER INFERIOR INFARCT, AGE INDETERMINATE ABNORMAL ECG COMPARED TO ECG 10/31/2022 03:11:48 LEFT-AXIS DEVIATION NOW PRESENT Electronically Signed On 11-26-2022 10:41:08 CDT by Artur Devries D.O.
[2022-11-26 10:46] LABS: Basophils Absolute Auto 0.1 K/mm3 (0.0-0.1); Eosinophils Absolute Auto 0.5 K/mm3 (0-0.3); Eosinophils Percent Auto 6.1 % (0-4.4); Hematocrit 41.1 % (37.0-47.0); Hemoglobin 13.5 g/dL (12.0-15.0); Immature Granulocyte Absolute 0.02 K/mm3 (0.00-0.031); Immature Granulocyte Percent A 0.2 % (0-0.5); Lymphocytes Absolute Auto 2.37 K/mm3 (0.9-3.2); Lymphocytes Percent Auto 28.6 % (18.3-44.2); Mean Corpuscular HGB Conc 32.8 g/dl (32-36); Mean Corpuscular Hemoglobin 30.2 pg (26-34); Mean Corpuscular Volume 91.9 fl (80-100); Mean Platelet Volume 11.9 fl (7.4-10.4); Monocytes Absolute Auto 0.7 K/mm3 (0.1-0.6); Neutrophils Absolute Auto 4.7 K/mm3 (1.3-6.7); Neutrophils Percent Auto 56.1 % (45.5-73.1); Platelet Count Result 243 k/mm3 (150-375); Red Blood Count 4.47 M/mm3 (4.2-5.4); Red Cell Distribution Width 13.8 % (11.5-14.5); White Blood Count 8.3 K/mm3 (4.5-10.0)
[2022-11-26 10:56] LABS: Alanine Aminotransferase 22 U/L (6-35); Albumin Level 3.5 g/dL (3.5-5.1); Alkaline Phosphatase 107 U/L (38-126); Anion Gap 1 mmol/L (8-16); Aspartate Amino Transferase 29 U/L (14-36); Bilirubin,Total 0.4 mg/dL (0.2-1.3); Blood Urea Nitrogen 14 mg/dL (7-17); Calcium 9.2 mg/dL (8.4-10.2); Carbon Dioxide 33 mmol/L (22-30); Chloride 103 mmol/L (98-107); Estimated Glomerular Filt Rate > 60; Glucose 250 mg/dL (65-110); Potassium 3.6 mmol/L (3.4-5.0); Sodium 137 mmol/L (137-145)
[2022-11-26 11:41] LABS: Troponin I < 0.012 ng/mL (0.000-0.034)
--- NOTE | 2022-11-26 11:59 | PC.NURSE ---
pt daughter called and stated that her mother needs placement as she is having frequent falls at home and is unable to take care of hersel. States father/ is unable to assist at home due to his age and health. Daughter [phone]
--- NOTE | 2022-11-26 12:04 | ED.WEAKNESS ---
HPI - Weakness General Chief complaint: Weakness Stated complaint: weakness, cp, falls Time Seen by Provider: 11/26/22 10:56 Source: patient, EMS and RN notes reviewed Mode of arrival: EMS Limitations: other (poor historian) History of Present Illness HPI Narrative: This is a 71 year old female who presents from home via EMS for evaluation of leg weakness. Patient reports history of frequent falls. She tells me she did not fell today but then tells me she feel this morning. She states she get up out of bed this morning and she felt like she had no strength in her legs. She feels like he feet are sleep. She reports she was unable to walk. She states she did not hit her head today but she has hit her head on one of her falls. She reports chronic urinary incontinence. She also reports she has been hospitalized in the past for leg weakness. On review of records, she has lumbar compression fracture and was evaluated by neurosurgery. She denies nausea, vomiting fever or chills. She reports chest pain but is unable to describe. She reports nodules to her chest from multiple falls. She denies back pain Related Data Home Medications Medication Instructions Recorded Confirmed acetaminophen 500 mg capsule 1,000 mg PO TID PRN pain 02/13/22 11/27/22 albuterol sulfate 90 mcg/actuation 2 puff inhalation Q4-6H PRN 07/20/22 11/27/22 aerosol inhaler Breathing issues diclofenac sodium 25 mg 25 mg PO Q12H 07/20/22 11/27/22 tablet,delayed release metformin 1,000 mg tablet 1,000 mg PO BID 07/20/22 11/27/22 simvastatin 10 mg tablet 10 mg PO DAILY 07/20/22 11/27/22 Lactobacillus acidophilus 10 mg PO DAILY 11/27/22 11/27/22 apixaban 5 mg tablet (Eliquis) 5 mg PO BID 11/27/22 11/27/22 aspirin 81 mg tablet,delayed 81 mg PO DAILY 11/27/22 11/27/22 release cholecalciferol (vitamin D3) 25 25 mcg PO DAILY 11/27/22 11/27/22 mcg (1,000 unit) tablet lisinopril 10 mg tablet 10 mg PO DAILY 11/27/22 11/27/22 multivitamin with minerals (Daily 1 tablet PO DAILY 09/09/23 09/09/23 Multivitamin-Minerals tablet) Allergies Allergy/AdvReac Type Severity Reaction Status Date / Time No Known Allergies Allergy Verified 08/02/22 06:48 Review of Systems Constitutional: Constitutional: Reports weakness Cardiovascular: Cardiovascular: Reports chest pain, Denies syncope, Denies rapid heart rate, Denies irregular heart rhythm, Denies leg edema and Denies dyspnea Respiratory: Respiratory: Denies chest congestion, Denies hemoptysis, Denies excessive phlegm production and Denies dyspnea Gastrointestinal: Gastrointestinal: Denies abdominal pain, Denies hematochezia, Denies diarrhea and Denies vomiting Genitourinary: Genitourinary: Denies hematuria and Denies dysuria Musculoskeletal: Musculoskeletal: Denies joint swelling, Denies loss of height and Denies muscle weakness Neurologic: Denies syncope, Denies focal weakness, Reports numbness and Reports weakness PMFSH Past Medical History Medical History CHF (congestive heart failure) COPD mixed type Cortical age-related cataract of both eyes Diabetes mellitus Essential hypertension Mixed hyperlipidemia Other screening mammogram Peripheral artery disease Right-sided Cool's palsy Spinal stenosis of lumbosacral region Tobacco abuse Vitamin D deficiency Surgical History Surgical History History of appendectomy History of Hx of cholecystectomy Family History Family History Father Malignant neoplasm of prostate, Onset Age: 76 Patient's father is Family history of Alzheimer's disease Mother Family history of malignant neoplasm of ovary Family history of malignant neoplasm of cervix Sibling Family history of malignant neoplasm of ovary Mother Cancer Son Cancer Grandparent Myocardial infarction Diabetes mellitus Gr
[2022-11-26 12:06] LABS: Appearance Urine Clear (Clear); Bacteria Urine None Seen /hpf; Bilirubin Urine Negative (Negative); Blood Urine Trace (Negative); Color Urine Yellow (Yellow); Glucose Urine UA 1+ mg/dL (Negative); Ketones Urine Negative (Negative); Leukocyte Esterase Ur Negative LEU/UL (Negative); Nitrate Urine Negative (Negative); Protein Urine 3+ mg/dL (Negative); RBC Urine 0-2 /hpf (0-2); Specific Grav Ur 1.011 (1.001-1.035); Squamous Epithelial Cell Urine Occasional /hpf (Few); Urobilinogen Urine 0.2 mg/dL (<2.0); WBC Urine 0-5 /hpf; pH Urine 6.5 (5.0-9.0)
[2022-11-26 12:23] LABS: Add Urine Microscopic? YES
[2022-11-26 12:34] LABS: SARS-CoV-2 RNA PCR Negative (Negative)
--- NOTE | 2022-11-26 13:46 | PC.NURSE ---
Contacted family. Aware of pt being admission to hospital.
[2022-11-26 13:54] LABS: Glucose Point of Care 198 mg/dl (65-105)
--- NOTE | 2022-11-26 15:38 | PM.IMHP ---
H&P: HPI History of Present Illness Date/Time: 11/26/22 13:40 Chief Complaint: weakness and falls Narrative: This is a 71-year-old female patient who is admitted to the hospital due to report of bilateral leg weakness and numbness with frequent falls. Patient is a very poor historian and does not lend any further information upon questioning. Majority of HPI and ROS are from prior records. Findings in the emergency department include elevated glucose with a known history of diabetes, L1 burst fracture which is old and interval finding of area of stroke in the anterior medial left frontal lobe. it is uncertain when patient was last known normal. No family present patient cannot recall why she is even in hospital at this time. Review of Systems Review of Systems: ROS unobtainable: Yes unobtainable due to mental status PMFSH Past Medical History Medical History CHF (congestive heart failure) COPD mixed type Cortical age-related cataract of both eyes Diabetes mellitus Essential hypertension Mixed hyperlipidemia Other screening mammogram Peripheral artery disease Right-sided Cool's palsy Spinal stenosis of lumbosacral region Tobacco abuse Vitamin D deficiency Surgical History Surgical History History of appendectomy History of Hx of cholecystectomy Family History Family History Father Malignant neoplasm of prostate, Onset Age: 76 Patient's father is Family history of Alzheimer's disease Mother Family history of malignant neoplasm of ovary Family history of malignant neoplasm of cervix Sibling Family history of malignant neoplasm of ovary Mother Cancer Son Cancer Grandparent Myocardial infarction Diabetes mellitus Grandparent No problems noted. Social History Social History Social History: She lives at home with her . She sleeps on the couch. She uses a bedside commode. She has smoked up to 2 pack per day since she was a teenager. She denies any history of heavy alcohol use. She denies illicit substance use. Code status: Full code Surrogate decision maker: Primary care physician: Dr. James Medina Smoking packs per day: 1 Smoking cigarettes per day: 20.0 Years smoked: 50 Smoking pack-years: 50.00 Smoking status: Never smoker Tobacco type: cigarettes Second hand tobacco smoke exposure: No Smoking end date: 03/21/11 Alcohol intake: never Substance use: never Substance use type: does not use Lack of Transportation: No Lack of Food: Never True Current Housing: I Have Housing Concerned About Future Housing: No Difficulty Paying Gas/Electric Bills: No Difficulty Paying for Meds: No Currently Unemployed: No Education: Don't Know Difficulty w/ Childcare or Family Care: No Living arrangements: with family Gender identity (if verbalized by the patient): Female Sexual Orientation (if Verbalized by the Patient): Straight or Heterosexual Spiritual care concerns: No Agree to blood products: Yes Meds Home Medications and Allergies Home Medications Medication Instructions Recorded Confirmed Type blood glucose control, low (True #1 ea 08/29/20 02/13/22 Rx Metrix Level 1 solution) blood sugar diagnostic (True #200 08/29/20 02/13/22 Rx Metrix Glucose Test Strip) blood-glucose meter (True Metrix #1 ea 08/29/20 02/13/22 Rx Glucose Meter) lancets 33 gauge (TRUEplus Lancets) #200 ea 08/29/20 02/13/22 Rx acetaminophen 500 mg capsule 1,000 mg PO TID PRN pain 02/13/22 02/13/22 History fidaxomicin 200 mg tablet (Dificid) 200 mg PO Q12HR #10 tabs 02/18/22 Rx simvastatin 10 mg tablet See Rx Instructions .Route 04/22/22 Rx .COMPLEX #90 tabs lisinopril 10 mg table
[2022-11-26 16:07] LABS: Glucose Point of Care 171 mg/dl (65-105)
[2022-11-26 17:06] VITALS: BMI 24.2
--- NOTE | 2022-11-26 17:18 | ADMGEN ---
This patient, Majo Abbott, was admitted to 3 Med Surg Room 304-01. Patient/family oriented to hospital policies and general routines including ID bracelet, bed and alarms, visiting hours, pain management, procedures, bathroom and other care routines, personal items, smoking policy, room service/diet, and visiting hours. Information on how to activate the Rapid Response Team has been discussed. Patient/Family are encouraged to report perceived risks to care and to ask questions if they do not understand what they are told or what they should do.
[2022-11-26 18:35] LABS: Ammonia < 9 umol/L (9-30)
[2022-11-26 18:39] VITALS: BMI 24.2
[2022-11-26 18:40] LABS: Hemoglobin A1C 7.9 % (<5.7)
[2022-11-26 20:00] VITALS: PULSE 80
[2022-11-26 20:15] VITALS: BP 186/88; PULSE 71; RESP 16; TEMP 36.1; O2SAT 91
[2022-11-26 20:53] LABS: Glucose Point of Care 276 mg/dl (65-105)
[2022-11-26] MEDS: INSULIN ASPART (*BKC) 100 UNITS/ML SUB-Q (21:59)
[2022-11-27] VITALS (9 sets, daily range): BP systolic 142–172; BP diastolic 73–97; PULSE 68–78; RESP 16–20; TEMP 36.4–37.1; O2SAT 95–97
--- NOTE | 2022-11-27 00:23 | PC.NURSE ---
Family is bringing in home medications this morning so the home medication list can be started.
[2022-11-27 06:23] LABS: Basophils Absolute Auto 0.1 K/mm3 (0.0-0.1); Basophils Percent Auto 0.7 % (0.2-1.2); Eosinophils Absolute Auto 0.4 K/mm3 (0-0.3); Eosinophils Percent Auto 4.7 % (0-4.4); Hematocrit 39.4 % (37.0-47.0); Hemoglobin 12.7 g/dL (12.0-15.0); Immature Granulocyte Absolute 0.03 K/mm3 (0.00-0.031); Immature Granulocyte Percent A 0.4 % (0-0.5); Lymphocytes Absolute Auto 2.25 K/mm3 (0.9-3.2); Lymphocytes Percent Auto 30.3 % (18.3-44.2); Mean Corpuscular HGB Conc 32.2 g/dl (32-36); Mean Corpuscular Volume 92.9 fl (80-100); Monocytes Absolute Auto 0.5 K/mm3 (0.1-0.6); Monocytes Percent Auto 6.5 % (2.6-8.5); Neutrophils Absolute Auto 4.3 K/mm3 (1.3-6.7); Neutrophils Percent Auto 57.4 % (45.5-73.1); Platelet Count Result 217 k/mm3 (150-375); Red Blood Count 4.24 M/mm3 (4.2-5.4); Red Cell Distribution Width 13.8 % (11.5-14.5); White Blood Count 7.4 K/mm3 (4.5-10.0)
[2022-11-27 06:50] LABS: Alanine Aminotransferase 18 U/L (6-35); Albumin Level 2.9 g/dL (3.5-5.1); Alkaline Phosphatase 97 U/L (38-126); Anion Gap 2 mmol/L (8-16); Aspartate Amino Transferase 27 U/L (14-36); Bilirubin,Total 0.4 mg/dL (0.2-1.3); Blood Urea Nitrogen 14 mg/dL (7-17); Calcium 8.8 mg/dL (8.4-10.2); Carbon Dioxide 32 mmol/L (22-30); Chloride 106 mmol/L (98-107); Estimated CRCL calculation 49 ml/min; Estimated Glomerular Filt Rate > 60; Glucose 179 mg/dL (65-110); Potassium 3.2 mmol/L (3.4-5.0); Sodium 140 mmol/L (137-145)
[2022-11-27 07:37] LABS: Glucose Point of Care 185 mg/dl (65-105)
--- NOTE | 2022-11-27 12:22 | PM.IMPN ---
Progress Note: A&P Assessment and Plan (1) Bilateral leg weakness: Code(s): R29.898 - Other symptoms and signs involving the musculoskeletal system Status: Acute Assessment and Plan: Patient reports bilateral leg weakness and numbness causing frequent falls. Workup identified chronic L1 burst fracture and interval finding small stroke anterior medial left frontal lobe. Patient is a poor historian and does not participate in full neurologic assessment. Nursing staff states family is requesting fci placement. PT/OT ordered Neurology consult ordered and pending (2) Burst fracture of lumbar vertebra: Qualifiers: Encounter type: initial encounter Fracture type: closed Qualified Code(s): S32.001A - Stable burst fracture of unspecified lumbar vertebra, initial encounter for closed fracture Code(s): S32.001A - Stable burst fracture of unspecified lumbar vertebra, initial encounter for closed fracture Status: Acute Assessment and Plan: Chronic finding previously evaluated by neuro surgery July of 2022. Unchanged on imaging. Only mild back pain elicited. TLSO brace ordered. (3) Dementia: Code(s): F03.90 - Unspecified dementia, unspecified severity, without behavioral disturbance, psychotic disturbance, mood disturbance, and anxiety Status: Acute (4) Diabetes mellitus: Qualifiers: Diabetes mellitus complication status: without complication Diabetes mellitus exterminator helper termite insulin use: without exterminator helper termite use Diabetes mellitus type: type 2 Qualified Code(s): E11.9 - Type 2 diabetes mellitus without complications Code(s): E11.9 - Type 2 diabetes mellitus without complications Status: Acute Assessment and Plan: ACHS fingerstick glucose with insulin correction. A1c 7.9 (5) Physical debility: Code(s): R53.81 - Other malaise Status: Acute Assessment and Plan: patient will need PT OT possible fci placement (6) CVA (cerebral vascular accident): Code(s): I63.9 - Cerebral infarction, unspecified Status: Acute Assessment and Plan: Incidental finding on CT scan of the brain undetermined timing of development of stroke. MRI is ordered. Consider Neurology consult based on MRI findings. Plan diet: Carb consistent diabetic VT prophylaxis: SCDs code status: Full code Subjective Date/time seen: 11/27/22 12:22 Interval history: 71-year-old female patient who is admitted to the hospital due to report of bilateral leg weakness and numbness with frequent falls. No overnight events noted. No chest pain or shortness of breath. No nausea, vomiting or diarrhea. No fevers or chills. Review of Systems Review of Systems: 12 point review of systems was assessed and was negative except as noted in the HPI Exam Narrative: General: No acute distress, alert and oriented per baseline HEENT: Atraumatic, normocephalic, mucous membranes moist CV: Regular rate and rhythm, S1, S2 Lungs: Clear to auscultation bilaterally, no rales or crackles noted, no wheezes, good air entry Abdomen: Soft, nontender, nondistended Extremities: Normal to inspection Skin: No rashes noted, no lesions or wounds seen Psych: Euthymic, normal affect Objective Data Vital Signs Vital Signs: Vital Signs - 24 hr 11/26/22 20:15 11/26/22 20:00 11/27/22 05:19 Temperature 97 F L 97.9 F Pulse Rate 71 80 74 Respiratory Rate 16 16 Blood Pressure 186/88 H 172/97 H Pulse Oximetry 91 97 Oxygen Delivery 11/27/22 00:00 11/27/22 04:00 11/27/22 08:00 Temperature Pulse Rate 72 76 73 Respiratory Rate Blood Pressure Pulse Oximetry Oxygen Delivery 11/27/22 08:00 Temperature Pulse Rate Respiratory Rate Blood Pressure Pulse Oximetry Oxygen Delivery Room Air Intake/Output Intake/Output: Intake & Output 11/24/22 11/25/22 11/26/22 11/27/22 23:59 23:59 23:59 23:
[2022-11-27 12:24] LABS: Glucose Point of Care 215 mg/dl (65-105)
[2022-11-27] MEDS: INSULIN ASPART (*BKC) 100 UNITS/ML SUB-Q ×2 (12:32→21:54)
--- NOTE | 2022-11-27 12:54 | WPDNEURCNPN ---
Consult date: 11/27/22 HPI: Majo Abbott is a 71 year old female admitted to the hospital through the emergency room for the chief complaint of chest pain which happened after dinner while she was watching TV described as chest sharp pain and lasting for about 2 minutes without associated generalized symptomatology. Patient has been taking lisinopril 10 mg daily metformin 1000 mg twice a day and simvastatin 10 mg daily , patient does have ongoing history of congestive heart failure, diabetes mellitus, hypertension, hyperlipidemia, peripheral vascular disease, spinal stenosis, and history of right-sided Cool's palsy. He is currently everyday smoker with history of 50 years smoked but no alcohol intake. Initial lab in the emergency room were normal. initial CT scan documented interval small infarct in the anteromedial left frontal lobe. subsequently in the hospital she complained of bilateral lower extremity weakness and numbness resulting the frequent fall and has been documented to have the L1 burst fracture on the CT scan PMF Past Medical History Medical History CHF (congestive heart failure) COPD mixed type Cortical age-related cataract of both eyes Diabetes mellitus Essential hypertension Mixed hyperlipidemia Other screening mammogram Peripheral artery disease Right-sided Cool's palsy Spinal stenosis of lumbosacral region Tobacco abuse Vitamin D deficiency Surgical History Surgical History History of appendectomy History of Hx of cholecystectomy Family History Family History Father Malignant neoplasm of prostate, Onset Age: 76 Patient's father is Family history of Alzheimer's disease Mother Family history of malignant neoplasm of ovary Family history of malignant neoplasm of cervix Sibling Family history of malignant neoplasm of ovary Mother Cancer Son Cancer Grandparent Myocardial infarction Diabetes mellitus Grandparent No problems noted. Social History Social History Social History: She lives at home with her . She sleeps on the couch. She uses a bedside commode. She has smoked up to 2 pack per day since she was a teenager. She denies any history of heavy alcohol use. She denies illicit substance use. Code status: Full code Surrogate decision maker: Primary care physician: Dr. James Medina Smoking packs per day: 1 Smoking cigarettes per day: 20.0 Years smoked: 50 Smoking pack-years: 50.00 Smoking status: Never smoker Tobacco type: cigarettes Second hand tobacco smoke exposure: No Smoking end date: 03/21/11 Alcohol intake: never Substance use: never Substance use type: does not use Lack of Transportation: No Lack of Food: Never True Current Housing: I Have Housing Concerned About Future Housing: No Difficulty Paying Gas/Electric Bills: No Difficulty Paying for Meds: No Currently Unemployed: No Education: Don't Know Difficulty w/ Childcare or Family Care: No Living arrangements: with family Gender identity (if verbalized by the patient): Female Sexual Orientation (if Verbalized by the Patient): Straight or Heterosexual Spiritual care concerns: No Agree to blood products: Yes Meds Home Medications and Allergies Home Medications Medication Instructions Recorded Confirmed Type blood glucose control, low (True #1 ea 08/29/20 11/27/22 Rx Metrix Level 1 solution) blood sugar diagnostic (True #200 ea 08/29/20 11/27/22 Rx Metrix Glucose Test Strip) blood-glucose meter (True Metrix #1 08/29/20 11/27/22 Rx Glucose Meter) lancets 33 gauge (TRUEplus Lancets) #200 ea 08/29/20 11/27/22 Rx acetaminophen 500 mg capsule 1,000 mg PO TID PRN pain 02/13/22
--- NOTE | 2022-11-27 13:29 | WPDNEURCNPN ---
Assessment and Plan Assessment and plan (1) CVA (cerebral vascular accident): Code(s): I63.9 - Cerebral infarction, unspecified Status: Acute (2) Bilateral leg weakness: Code(s): R29.898 - Other symptoms and signs involving the musculoskeletal system Status: Acute Plan 1. abnormal CT scan with interval small infarct in the anteromedial left frontal lobe aspect. Brain MRI pending. 2 L1 burst fracture stable compared to the study done on July 20, 2022 with mild lumbar spondylosis and lumbar levoscoliosis 3 diabetic neuropathy.3 Diabetic neuropathy continue the treatment as such she is taking apixaban 10 mg daily along with simvastatin 10 mg daily once the MRI of the brain is obtained further adjustment will be made in the cholesterol-lowering medication definitely stroke is confirmed Consult date: 11/27/22 HPI: Majo Abbott is a 71 year old female admitted to the hospital through the emergency room for the chief complaints of chest pain which happened after dinner while she was watching TV described as chest sharp pain and lasting for about 2 minutes without associated generalized symptomatology. Patient has been taking lisinopril 10 mg daily, metformin 1000 mg twice a day, simvastatin 10 mg daily. Patient does have ongoing history of congestive heart failure, diabetes mellitus, hypertension, hyperlipidemia, peripheral vascular disease, spinal stenosis, and history of right-sided Cool's palsy. She is currently everyday smoker and has history of 50 years of smoking but no alcohol intake. Her initial lab in the emergency room was normal including CT scan of the head which did document small infarct in the anteromedial left frontal lobe. She complained of bilateral lower extremity weakness and numbness resulting in the frequent fall and has been documented to have L1 burst fracture on the CT scan but she is also known diabetic. Gave history of or 1 level house she does have few steps in the house but she walks with a walker. She carries the full code status, his smoking pack years is 50 no alcohol intake [facility] Past Medical History Medical History CHF (congestive heart failure) COPD mixed type Cortical age-related cataract of both eyes Diabetes mellitus Essential hypertension Mixed hyperlipidemia Other screening mammogram Peripheral artery disease Right-sided Cool's palsy Spinal stenosis of lumbosacral region Tobacco abuse Vitamin D deficiency Surgical History Surgical History History of appendectomy History of Hx of cholecystectomy Family History Family History Father Malignant neoplasm of prostate, Onset Age: 76 Patient's father is Family history of Alzheimer's disease Mother Family history of malignant neoplasm of ovary Family history of malignant neoplasm of cervix Sibling Family history of malignant neoplasm of ovary Mother Cancer Son Cancer Grandparent Myocardial infarction Diabetes mellitus Grandparent No problems noted. Social History Social History Social History: She lives at home with her . She sleeps on the couch. She uses a bedside commode. She has smoked up to 2 pack per day since she was a teenager. She denies any history of heavy alcohol use. She denies illicit substance use. Code status: Full code Surrogate decision maker: Primary care physician: Dr. James Medina Smoking packs per day: 1 Smoking cigarettes per day: 20.0 Years smoked: 50 Smoking pack-years: 50.00 Smoking status: Never smoker Tobacco type: cigarettes Second hand tobacco smoke exposure: No Smoking end date: 03/21/11 Alcohol intake: never Substance use: never Substance use type: does not use Lack of Transportation: No Lack of Erika
[2022-11-27] MEDS: POTASSIUM CHLORIDE 20 MEQ ER TABLET 40 MEQ PO (16:20)
[2022-11-27 16:41] LABS: Glucose Point of Care 149 mg/dl (65-105)
[2022-11-27] MEDS: FIDAXOMICIN 200 MG TABLET PO (21:50)
[2022-11-27] MEDS: DICLOFENAC SOD 25 MG TABLET.EC PO (21:53)
[2022-11-27 22:24] LABS: Glucose Point of Care 343 mg/dl (65-105)
[2022-11-28] VITALS (7 sets, daily range): BP systolic 128–183; BP diastolic 58–82; PULSE 65–84; RESP 16–20; TEMP 35.9–36.5; O2SAT 97–100
[2022-11-28 06:08] LABS: Basophils Absolute Auto 0.1 K/mm3 (0.0-0.1); Eosinophils Absolute Auto 0.6 K/mm3 (0-0.3); Eosinophils Percent Auto 8.9 % (0-4.4); Hematocrit 39.3 % (37.0-47.0); Hemoglobin 12.8 g/dL (12.0-15.0); Immature Granulocyte Absolute 0.03 K/mm3 (0.00-0.031); Immature Granulocyte Percent A 0.4 % (0-0.5); Lymphocytes Absolute Auto 2.41 K/mm3 (0.9-3.2); Lymphocytes Percent Auto 33.4 % (18.3-44.2); Mean Corpuscular HGB Conc 32.6 g/dl (32-36); Mean Corpuscular Hemoglobin 29.8 pg (26-34); Mean Corpuscular Volume 91.6 fl (80-100); Monocytes Absolute Auto 0.5 K/mm3 (0.1-0.6); Monocytes Percent Auto 7.5 % (2.6-8.5); Neutrophils Absolute Auto 3.5 K/mm3 (1.3-6.7); Neutrophils Percent Auto 48.8 % (45.5-73.1); Platelet Count Result 226 k/mm3 (150-375); Red Blood Count 4.29 M/mm3 (4.2-5.4); Red Cell Distribution Width 13.4 % (11.5-14.5); White Blood Count 7.2 K/mm3 (4.5-10.0)
[2022-11-28 06:18] LABS: Alanine Aminotransferase 23 U/L (6-35); Albumin Level 3.3 g/dL (3.5-5.1); Alkaline Phosphatase 115 U/L (38-126); Anion Gap 2 mmol/L (8-16); Aspartate Amino Transferase 36 U/L (14-36); Bilirubin,Total 0.5 mg/dL (0.2-1.3); Blood Urea Nitrogen 15 mg/dL (7-17); Calcium 9.1 mg/dL (8.4-10.2); Carbon Dioxide 31 mmol/L (22-30); Chloride 103 mmol/L (98-107); Estimated CRCL calculation 55 ml/min; Estimated Glomerular Filt Rate > 60; Glucose 195 mg/dL (65-110); Potassium 4.1 mmol/L (3.4-5.0); Sodium 136 mmol/L (137-145)
[2022-11-28 08:16] LABS: Glucose Point of Care 197 mg/dl (65-105)
[2022-11-28] MEDS: FUROSEMIDE 40 MG TABLET PO (08:46)
[2022-11-28] MEDS: DICLOFENAC SOD 25 MG TABLET.EC PO ×2 (08:46→20:57)
[2022-11-28] MEDS: SIMVASTATIN 10 MG TABLET PO (08:46)
[2022-11-28] MEDS: FIDAXOMICIN 200 MG TABLET PO ×2 (08:46→20:57)
[2022-11-28] MEDS: lisinopriL 10 MG TABLET PO (08:46)
--- NOTE | 2022-11-28 09:19 | PM.IMPN ---
Progress Note: A&P Assessment and Plan (1) Bilateral leg weakness: Code(s): R29.898 - Other symptoms and signs involving the musculoskeletal system Status: Acute Assessment and Plan: Patient reports bilateral leg weakness and numbness causing frequent falls. Workup identified chronic L1 burst fracture and interval finding small stroke anterior medial left frontal lobe. Patient is a poor historian and does not participate in full neurologic assessment. Nursing staff states family is requesting fci placement. PT/OT ordered Neurology consult appreciated (2) Burst fracture of lumbar vertebra: Qualifiers: Encounter type: initial encounter Fracture type: closed Qualified Code(s): S32.001A - Stable burst fracture of unspecified lumbar vertebra, initial encounter for closed fracture Code(s): S32.001A - Stable burst fracture of unspecified lumbar vertebra, initial encounter for closed fracture Status: Acute Assessment and Plan: Chronic finding previously evaluated by neuro surgery July of 2022. Unchanged on imaging. Only mild back pain elicited. TLSO brace ordered. (3) Dementia: Code(s): F03.90 - Unspecified dementia, unspecified severity, without behavioral disturbance, psychotic disturbance, mood disturbance, and anxiety Status: Acute (4) Diabetes mellitus: Qualifiers: Diabetes mellitus complication status: without complication Diabetes mellitus supervisor intermediates insulin use: without supervisor intermediates use Diabetes mellitus type: type 2 Qualified Code(s): E11.9 - Type 2 diabetes mellitus without complications Code(s): E11.9 - Type 2 diabetes mellitus without complications Status: Acute Assessment and Plan: ACHS fingerstick glucose with insulin correction. A1c 7.9 Blood glucose reviewed 11/28 (5) Physical debility: Code(s): R53.81 - Other malaise Status: Acute Assessment and Plan: Patient will need PT/OT, possible fci placement (6) CVA (cerebral vascular accident): Code(s): I63.9 - Cerebral infarction, unspecified Status: Acute Assessment and Plan: Incidental finding on CT scan of the brain undetermined timing of development of stroke. MRI confirmed acute infarct, awaiting Neurology recommendations Plan Diet: Carb consistent diabetic DVT prophylaxis: SCDs Code status: Full code Subjective Date/time seen: 11/28/22 09:19 Interval history: 71-year-old female patient who is admitted to the hospital due to report of bilateral leg weakness and numbness with frequent falls. No overnight events noted. No chest pain or shortness of breath. No nausea, vomiting or diarrhea. No fevers or chills. Review of Systems Review of Systems: 12 point review of systems was assessed and was negative except as noted in the HPI Exam Narrative: General: No acute distress, alert and oriented per baseline HEENT: Atraumatic, normocephalic, mucous membranes moist CV: Regular rate and rhythm, S1, S2 Lungs: Clear to auscultation bilaterally, no rales or crackles noted, no wheezes, good air entry Abdomen: Soft, nontender, nondistended Extremities: Normal to inspection Skin: No rashes noted, no lesions or wounds seen Psych: Euthymic, normal affect Objective Data Vital Signs Vital Signs: Vital Signs - 24 hr 11/27/22 14:00 11/27/22 16:00 11/27/22 22:00 Temperature 98.8 F 97.6 F Pulse Rate 78 78 77 Respiratory Rate 20 20 Blood Pressure 154/78 H 142/73 H Pulse Oximetry 95 95 Oxygen Delivery 11/27/22 22:57 11/27/22 21:00 11/28/22 00:00 Temperature Pulse Rate 68 73 Respiratory Rate Blood Pressure Pulse Oximetry 95 Oxygen Delivery Room Air 11/28/22 04:00 11/28/22 06:00 Temperature 96.7 F L Pulse Rate 65 72 Respiratory Rate 20 Blood Pressure 183/74 H Pulse Oximetry 98 Oxygen Delivery Intake/Output Intake/Output:
[2022-11-28 12:06] LABS: Glucose Point of Care 311 mg/dl (65-105)
[2022-11-28] MEDS: INSULIN ASPART (*BKC) 100 UNITS/ML SUB-Q (12:15)
--- NOTE | 2022-11-28 15:07 | PCPTNOTE ---
Attempted to see pt for evaluation however has not yet received TLSO brace. Per orders pt has to wear TLSO at all times . Will return for evaluation after pt receives brace.
--- NOTE | 2022-11-28 15:08 | PCOTNOTE ---
Attempted OT evaluation; pt has order to wear TLSO brace at all time; she does not have her brace as of this time. Will check back again as able.
[2022-11-28 16:53] LABS: Glucose Point of Care 188 mg/dl (65-105)
[2022-11-28 20:57] LABS: Glucose Point of Care 205 mg/dl (65-105)
[2022-11-29] VITALS (10 sets, daily range): BP systolic 138–158; BP diastolic 53–72; PULSE 62–94; RESP 16; TEMP 35.9–36.2; O2SAT 64–93
--- NOTE | 2022-11-29 | ECHO_ITS ---
Patient Info Name: Majo Abbott Age: 71 years : 1950 Gender: Female Ht: 65 in Wt: 145 lbs BSA: 1.75 m2 HR: 92 bpm BP: 158 / 72 mmHg Heart Rhythm: Sinus Rhythm Technical Quality: Fair Exam Date: 11/29/2022 1:44 PM Exam Location: [facility] Pulmonary Patient Status: Inpatient Admit Date: 11/26/2022 Staff Ordering Physician: Yelena Garcia MD Consignee: Yoselin Reyes RDCS Attending Provider: George Burgos MD Exam Type: CA echo doppler w bubble study Study Info Indications - acute stroke Complete two-dimensional, color flow and Doppler transthoracic echocardiogram is performed with agitated saline. Contrast/Agitated Saline Contrast/Ag. Saline: Agitated Saline Amount: 20.00 ml Administered By: Yoselin Reyes RDCS Existing IV Access: Yes IV Access Condition: patent with no signs of infiltration Summary 1. Left ventricular chamber dimension is normal. 2. Left ventricular systolic function is hyperdynamic, estimated at >70%. 3. There is mild concentric increased left ventricular wall thickness. 4. The left ventricular diastolic function is grade I diastolic dysfunction. 5. E/e' 14 is mildly elevated. 6. There is moderate aortic valve sclerosis. 7. There is moderate aortic valve stenosis with a peak velocity of 270 cm/s, mean gradient of 16 mmHg, and aortic valve area of 1.2 cm2. 8. No pulmonary hypertension, estimated pulmonary arterial systolic pressure is 23 mmHg. Left Ventricle E/e' 14 is mildly elevated. Left ventricular chamber dimension is normal. Left ventricular systolic function is hyperdynamic, estimated at >70%. There is mild concentric increased left ventricular wall thickness. The left ventricular diastolic function is grade I diastolic dysfunction. Right Ventricle Right ventricular systolic function is normal and with normal TAPSE 2.1 cm. Right ventricular chamber dimension is normal. Left Atria Left atrial chamber dimension is normal. Right Atria Right atrial chamber dimension is normal. Atrial Septum Agitated saline injection with and without valsalva maneuver opacified right side cardiac chambers without shunt to left side cardiac chambers. Intact interatrial septum visualized by 2D and agitated saline imaging. Aortic Valve The aortic valve is trileaflet. There is moderate aortic valve sclerosis. There is moderate aortic valve stenosis with a peak velocity of 270 cm/s, mean gradient of 16 mmHg, and aortic valve area of 1.2 cm2. There is no aortic valve regurgitation. Pulmonic Valve There is no pulmonic regurgitation. Mitral Valve There is no mitral valve stenosis. There is no mitral valve regurgitation. Tricuspid Valve There is no tricuspid valve regurgitation. No pulmonary hypertension, estimated pulmonary arterial systolic pressure is 23 mmHg. Pericardium/Pleural There is no pericardial effusion. Inferior Vena Cava Normal inferior vena cava with >50% collapse upon inspiration consistent with normal right atrial pressure, 5 mmHg. Aorta The aortic root size at the sinus of Valsalva is normal. Left Ventricular Outflow Tract Name Value Normal LVOT 2D LVOT Diameter 2.0 cm LVOT Doppler LVOT Peak
[2022-11-29 06:50] LABS: Basophils Absolute Auto 0.1 K/mm3 (0.0-0.1); Basophils Percent Auto 0.9 % (0.2-1.2); Eosinophils Absolute Auto 0.6 K/mm3 (0-0.3); Hematocrit 38.7 % (37.0-47.0); Hemoglobin 12.7 g/dL (12.0-15.0); Immature Granulocyte Absolute 0.03 K/mm3 (0.00-0.031); Immature Granulocyte Percent A 0.5 % (0-0.5); Lymphocytes Absolute Auto 1.83 K/mm3 (0.9-3.2); Lymphocytes Percent Auto 28.7 % (18.3-44.2); Mean Corpuscular HGB Conc 32.8 g/dl (32-36); Mean Corpuscular Volume 91.3 fl (80-100); Monocytes Absolute Auto 0.5 K/mm3 (0.1-0.6); Monocytes Percent Auto 7.5 % (2.6-8.5); Neutrophils Absolute Auto 3.3 K/mm3 (1.3-6.7); Neutrophils Percent Auto 52.4 % (45.5-73.1); Platelet Count Result 210 k/mm3 (150-375); Red Blood Count 4.24 M/mm3 (4.2-5.4); Red Cell Distribution Width 13.6 % (11.5-14.5); White Blood Count 6.4 K/mm3 (4.5-10.0)
[2022-11-29 07:10] LABS: Alanine Aminotransferase 25 U/L (6-35); Albumin Level 2.9 g/dL (3.5-5.1); Alkaline Phosphatase 110 U/L (38-126); Anion Gap 4 mmol/L (8-16); Aspartate Amino Transferase 38 U/L (14-36); Bilirubin,Total 0.4 mg/dL (0.2-1.3); Blood Urea Nitrogen 16 mg/dL (7-17); Calcium 8.8 mg/dL (8.4-10.2); Carbon Dioxide 30 mmol/L (22-30); Chloride 101 mmol/L (98-107); Estimated CRCL calculation 49 ml/min; Estimated Glomerular Filt Rate > 60; Glucose 186 mg/dL (65-110); Potassium 3.4 mmol/L (3.4-5.0); Sodium 135 mmol/L (137-145)
[2022-11-29 07:48] LABS: Glucose Point of Care 189 mg/dl (65-105)
[2022-11-29] MEDS: FIDAXOMICIN 200 MG TABLET PO ×2 (08:30→20:50)
[2022-11-29] MEDS: FUROSEMIDE 40 MG TABLET PO (08:30)
[2022-11-29] MEDS: DICLOFENAC SOD 25 MG TABLET.EC PO ×2 (08:30→20:49)
[2022-11-29] MEDS: SIMVASTATIN 10 MG TABLET PO (08:30)
[2022-11-29] MEDS: lisinopriL 10 MG TABLET PO (08:30)
--- NOTE | 2022-11-29 09:05 | PCPTNOTE ---
waiting for TLSO brace prior to PT evaluation. Not present at this time
--- NOTE | 2022-11-29 09:14 | WPDNEURCNPN ---
Assessment and Plan Assessment and plan (1) CVA (cerebral vascular accident): Code(s): I63.9 - Cerebral infarction, unspecified Status: Acute (2) Generalized weakness: Code(s): R53.1 - Weakness Status: Acute (3) Paroxysmal atrial fibrillation with RVR: Code(s): I48.0 - Paroxysmal atrial fibrillation Status: Acute (4) Diabetes mellitus: Qualifiers: Diabetes mellitus type: type 2 Diabetes mellitus senior living insulin use: without senior living use Diabetes mellitus complication status: without complication Qualified Code(s): E11.9 - Type 2 diabetes mellitus without complications Code(s): E11.9 - Type 2 diabetes mellitus without complications Status: Acute (5) Hyperlipidemia: Qualifiers: Hyperlipidemia type: mixed hyperlipidemia Qualified Code(s): E78.2 - Mixed hyperlipidemia Code(s): E78.5 - Hyperlipidemia, unspecified Status: Acute (6) HTN (hypertension): Qualifiers: Hypertension type: essential hypertension Qualified Code(s): I10 - Essential (primary) hypertension Code(s): I10 - Essential (primary) hypertension Status: Acute Plan Majo Abbott is a 71 year old female with a history of diabetes, CAD, HTN, HLD, diabetic neuropathy and chronic smoking presenting due to lower extremity weakness and numbness. She was ultimately found to have a new stroke in the posterior right frontal region. Unclear if this is the cause of her gait instability. She has Eliquis documented in her medication list, but patient denies taking this and is not aware of a history of atrial fibrillation. - CTA brain/carotid - Check LDL, A1c - Obtain surface echocardiogram - Continue aspirin 81mg daily -- may need to add Plavix depending on CTA results - Continue Simvastatin 10mg daily -- may need to be adjusted; LDL goal <70 Consult date: 11/29/22 HPI: Majo Abbott is a 71 year old female with a history of diabetes, ?atrial fibrillation, CAD, HTN, HLD, diabetic neuropathy and chronic smoking presenting due to lower extremity weakness and numbness. On the day of presentation, she tried to get out of bed but felt that she had no strength in her legs. She also reported having numbness in the lower extremities and not being able to walk. She presented to [place] ED where she had a CT head that showed concern for new infarct in the right anterior, medial frontal region. Vessel imaging has not been done yet. She has aspirin 81mg daily and Eliquis 5mg BID listed in her home medications. She also takes Simvastatin 10mg daily. There is no recent LDL or A1c for review. Patient denies any new focal symptoms such as left sided weakness or numbness. She has intermittent numbness in her lower extremities, which is chronic. There has been no change in this symptom. I noted that patient was on Eliquis and aspirin as listed in her home medications, but she denies taking either. She is not aware of a diagnosis of atrial fibrillation. Review of Systems Constitutional: Constitutional: Denies chills, Denies fever(s) and Denies weight loss Eyes: Eyes: Denies diplopia and Denies loss of vision ENT: Denies dizziness, Denies hearing loss and Denies tinnitus Cardiovascular: Cardiovascular: Denies chest pain, Denies syncope and Denies dyspnea Respiratory: Respiratory: Denies cough, Denies dyspnea and Denies wheezing Gastrointestinal: Gastrointestinal: Denies abdominal pain, Denies change in bowel habits, Reports constipation and Denies vomiting Genitourinary: Genitourinary: Reports urinary incontinence Comments: chronic Musculoskeletal: Musculoskeletal: Reports arthralgias and Denies joint swelling Integumentary/Breasts: Skin/Breast: Denies new lesions and Denies rash Neurologic: Reports as per HPI, Denies dizziness, Denies syncope and Denies loss of vision Psychiatric: Psychiatric: Denies anxiety, Reports confusion and Denies depression Endocrine:
[2022-11-29 11:28] LABS: LDL Cholesterol Direct 106 mg/dL
[2022-11-29 11:37] LABS: Hemoglobin A1C 7.8 % (<5.7)
[2022-11-29 11:45] LABS: Glucose Point of Care 236 mg/dl (65-105)
[2022-11-29] MEDS: INSULIN ASPART (*BKC) 100 UNITS/ML SUB-Q ×3 (12:32→21:45)
--- NOTE | 2022-11-29 13:23 | PCOTNOTE ---
Pt has orders to have TLSO on when OOB and brace is still not here. Will continue to follow for OT evaluation.
[2022-11-29 16:33] LABS: Glucose Point of Care 210 mg/dl (65-105)
--- NOTE | 2022-11-29 17:18 | PM.IMPN ---
Progress Note: A&P Assessment and Plan (1) Bilateral leg weakness: Code(s): R29.898 - Other symptoms and signs involving the musculoskeletal system Status: Acute Assessment and Plan: Patient reports bilateral leg weakness and numbness causing frequent falls. Workup identified chronic L1 burst fracture and interval finding small stroke anterior medial left frontal lobe. Patient is a poor historian and does not participate in full neurologic assessment. Nursing staff states family is requesting custodial placement. PT/OT ordered Neurology consult appreciated, recs per below: - CTA brain/carotid - Check LDL, A1c - Obtain surface echocardiogram - Continue aspirin 81mg daily -- may need to add Plavix depending on CTA results - Continue Simvastatin 10mg daily -- may need to be adjusted; LDL goal <70 (2) Burst fracture of lumbar vertebra: Qualifiers: Encounter type: initial encounter Fracture type: closed Qualified Code(s): S32.001A - Stable burst fracture of unspecified lumbar vertebra, initial encounter for closed fracture Code(s): S32.001A - Stable burst fracture of unspecified lumbar vertebra, initial encounter for closed fracture Status: Acute Assessment and Plan: Chronic finding previously evaluated by neuro surgery July of 2022. Unchanged on imaging. Only mild back pain elicited. TLSO brace ordered. (3) Dementia: Code(s): F03.90 - Unspecified dementia, unspecified severity, without behavioral disturbance, psychotic disturbance, mood disturbance, and anxiety Status: Acute (4) Diabetes mellitus: Qualifiers: Diabetes mellitus type: type 2 Diabetes mellitus mcfp insulin use: without mcfp use Diabetes mellitus complication status: without complication Qualified Code(s): E11.9 - Type 2 diabetes mellitus without complications Code(s): E11.9 - Type 2 diabetes mellitus without complications Status: Acute Assessment and Plan: ACHS fingerstick glucose with insulin correction. A1c 7.9 Blood glucose reviewed 11/29 (5) Physical debility: Code(s): R53.81 - Other malaise Status: Acute Assessment and Plan: Patient will need PT/OT, possible custodial placement (6) CVA (cerebral vascular accident): Code(s): I63.9 - Cerebral infarction, unspecified Status: Acute Assessment and Plan: Incidental finding on CT scan of the brain undetermined timing of development of stroke. MRI confirmed acute infarct, awaiting Neurology recommendations Plan Diet: Carb consistent diabetic DVT prophylaxis: SCDs Code status: Full code Subjective Date/time seen: 11/29/22 17:18 Interval history: 71-year-old female patient who is admitted to the hospital due to report of bilateral leg weakness and numbness with frequent falls. No overnight events noted. No chest pain or shortness of breath. No nausea, vomiting or diarrhea. No fevers or chills. Review of Systems Review of Systems: 12 point review of systems was assessed and was negative except as noted in the HPI Exam Narrative: General: No acute distress, alert and oriented per baseline HEENT: Atraumatic, normocephalic, mucous membranes moist CV: Regular rate and rhythm, S1, S2 Lungs: Clear to auscultation bilaterally, no rales or crackles noted, no wheezes, good air entry Abdomen: Soft, nontender, nondistended Extremities: Normal to inspection Skin: No rashes noted, no lesions or wounds seen Psych: Euthymic, normal affect Objective Data Vital Signs Vital Signs: Vital Signs - 24 hr 11/28/22 20:32 11/29/22 04:03 11/28/22 20:00 Temperature 97.1 F L 97.2 F L Pulse Rate 70 94 66 Respiratory Rate 16 16 Blood Pressure 168/82 H 158/72 H Pulse Oximetry 100 64 L 11/29/22 00:00 11/29/22 04:00 11/29/22 09:18 Temperature Pulse Rate 62 69 Respiratory Rate Blood Pressure Pulse Oxime
[2022-11-29 21:39] LABS: Glucose Point of Care 208 mg/dl (65-105)
[2022-11-30] VITALS: PULSE 68
[2022-11-30 04:00] VITALS: PULSE 62
[2022-11-30 06:00] VITALS: BP 164/72; PULSE 66; RESP 18; TEMP 35.9; O2SAT 92
--- NOTE | 2022-11-30 06:02 | PC.NURSE ---
This RN reviewed and approves of Rosa Martinez RN (license pending) charting and medication administrations.
[2022-11-30 06:47] LABS: Basophils Absolute Auto 0.1 K/mm3 (0.0-0.1); Eosinophils Absolute Auto 0.5 K/mm3 (0-0.3); Eosinophils Percent Auto 8.1 % (0-4.4); Hematocrit 37.2 % (37.0-47.0); Hemoglobin 12.1 g/dL (12.0-15.0); Immature Granulocyte Absolute 0.02 K/mm3 (0.00-0.031); Immature Granulocyte Percent A 0.3 % (0-0.5); Lymphocytes Absolute Auto 1.92 K/mm3 (0.9-3.2); Lymphocytes Percent Auto 31.6 % (18.3-44.2); Mean Corpuscular HGB Conc 32.5 g/dl (32-36); Mean Corpuscular Hemoglobin 30.2 pg (26-34); Mean Corpuscular Volume 92.8 fl (80-100); Monocytes Absolute Auto 0.5 K/mm3 (0.1-0.6); Monocytes Percent Auto 7.7 % (2.6-8.5); Neutrophils Absolute Auto 3.1 K/mm3 (1.3-6.7); Neutrophils Percent Auto 51.3 % (45.5-73.1); Platelet Count Result 197 k/mm3 (150-375); Red Blood Count 4.01 M/mm3 (4.2-5.4); Red Cell Distribution Width 13.6 % (11.5-14.5); White Blood Count 6.1 K/mm3 (4.5-10.0)
[2022-11-30 07:10] LABS: Alanine Aminotransferase 24 U/L (6-35); Albumin Level 2.7 g/dL (3.5-5.1); Alkaline Phosphatase 104 U/L (38-126); Anion Gap 5 mmol/L (8-16); Aspartate Amino Transferase 35 U/L (14-36); Bilirubin,Total 0.3 mg/dL (0.2-1.3); Blood Urea Nitrogen 19 mg/dL (7-17); Calcium 8.7 mg/dL (8.4-10.2); Carbon Dioxide 31 mmol/L (22-30); Chloride 101 mmol/L (98-107); Estimated CRCL calculation 55 ml/min; Estimated Glomerular Filt Rate > 60; Glucose 166 mg/dL (65-110); Potassium 3.6 mmol/L (3.4-5.0); Sodium 137 mmol/L (137-145)
[2022-11-30 07:41] LABS: Glucose Point of Care 194 mg/dl (65-105)
[2022-11-30] MEDS: FIDAXOMICIN 200 MG TABLET PO (09:46)
[2022-11-30] MEDS: lisinopriL 10 MG TABLET PO (09:46)
[2022-11-30] MEDS: SIMVASTATIN 10 MG TABLET PO (09:46)
[2022-11-30] MEDS: FUROSEMIDE 40 MG TABLET PO (09:46)
[2022-11-30] MEDS: DICLOFENAC SOD 25 MG TABLET.EC PO (09:46)
[2022-11-30 09:55] VITALS: PULSE 68
[2022-11-30 11:38] LABS: Glucose Point of Care 380 mg/dl (65-105)
[2022-11-30 12:00] VITALS: PULSE 76
--- NOTE | 2022-11-30 12:04 | PM.IMPN ---
Progress Note: A&P Assessment and Plan (1) Bilateral leg weakness: Code(s): R29.898 - Other symptoms and signs involving the musculoskeletal system Status: Acute Assessment and Plan: Patient reports bilateral leg weakness and numbness causing frequent falls. Workup identified chronic L1 burst fracture and interval finding small stroke anterior medial left frontal lobe. Patient is a poor historian and does not participate in full neurologic assessment. Nursing staff states family is requesting fpc placement. PT/OT ordered Neurology consult appreciated - CTA brain/carotid shows old infarct in the left frontal lobe, moderate stenosis of intracranial right ICA, 50% stenosis of the proximal left ICA - LDL was 106, goal of less than 70, A1c 7.8 - Echo showed an EF of greater than 70%, grade 1 diastolic dysfunction, moderate aortic valve stenosis and no pulmonary hypertension - Continue aspirin 81mg daily - Continue Simvastatin 10mg daily -- may need to be adjusted; LDL goal <70 (2) Burst fracture of lumbar vertebra: Qualifiers: Encounter type: initial encounter Fracture type: closed Qualified Code(s): S32.001A - Stable burst fracture of unspecified lumbar vertebra, initial encounter for closed fracture Code(s): S32.001A - Stable burst fracture of unspecified lumbar vertebra, initial encounter for closed fracture Status: Acute Assessment and Plan: Chronic finding previously evaluated by neuro surgery July of 2022. Unchanged on imaging. Only mild back pain elicited. TLSO brace ordered. (3) Dementia: Code(s): F03.90 - Unspecified dementia, unspecified severity, without behavioral disturbance, psychotic disturbance, mood disturbance, and anxiety Status: Acute (4) Diabetes mellitus: Qualifiers: Diabetes mellitus type: type 2 Diabetes mellitus manager terminal insulin use: without manager terminal use Diabetes mellitus complication status: without complication Qualified Code(s): E11.9 - Type 2 diabetes mellitus without complications Code(s): E11.9 - Type 2 diabetes mellitus without complications Status: Acute Assessment and Plan: ACHS fingerstick glucose with insulin correction. A1c 7.9 Blood glucose reviewed 11/30 (5) Physical debility: Code(s): R53.81 - Other malaise Status: Acute Assessment and Plan: Patient will need PT/OT, possible fpc placement (6) CVA (cerebral vascular accident): Code(s): I63.9 - Cerebral infarction, unspecified Status: Acute Assessment and Plan: Incidental finding on CT scan of the brain undetermined timing of development of stroke. MRI confirmed acute infarct, Neurology recommendations, as above Plan Diet: Carb consistent diabetic DVT prophylaxis: SCDs Code status: Full code Subjective Date/time seen: 11/30/22 12:04 Interval history: 71-year-old female patient who is admitted to the hospital due to report of bilateral leg weakness and numbness with frequent falls. No overnight events noted. No chest pain or shortness of breath. No nausea, vomiting or diarrhea. No fevers or chills. Review of Systems Review of Systems: 12 point review of systems was assessed and was negative except as noted in the HPI Exam Narrative: General: No acute distress, alert and oriented per baseline HEENT: Atraumatic, normocephalic, mucous membranes moist CV: Regular rate and rhythm, S1, S2 Lungs: Clear to auscultation bilaterally, no rales or crackles noted, no wheezes, good air entry Abdomen: Soft, nontender, nondistended Extremities: Normal to inspection Skin: No rashes noted, no lesions or wounds seen Psych: Euthymic, normal affect Objective Data Vital Signs Vital Signs: Vital Signs - 24 hr 11/29/22 14:00 11/29/22 16:00 11/29/22 22:00 Temperature 96.9 F L 96.6 F L Pulse Rate 70 68 72 Respiratory Rate 16 16 Blood Pr
--- NOTE | 2022-11-30 12:10 | WPDNEUROPN ---
Subjective Date/time seen: 11/30/22 12:10 Interval history: 71 years old lady with history of paroxysmal atrial fibrillation with rapid ventricular response, generalized weakness, gait dysfunction with diabetes mellitus hyperlipidemia, and hypertension has had routine lab studies which are normal except being diabetic with recent blood sugar of 380, head neck CTA documenting old infarct in left frontal lobe with moderate nonspecific white matter disease but moderate stenosis of the internal carotid artery intracranially and 15% stenosis of proximal right internal carotid artery MRI of the brain documenting very mild acute progression of small focus of infarct in the right posterior frontal periventricular white matter aspirin 81 mg daily is being continued with addition of Plavix 75 mg daily along with simvastatin, surface echocardiogram is with moderate aortic valve sclerosis and stenosis without any pulmonary hypertension cardiology consultation can be obtained pre Objective Data Vital Signs Vital Signs: Vital Signs - 24 hr 11/29/22 14:00 11/29/22 16:00 11/29/22 22:00 Temperature 36.1 C L 35.9 C L Pulse Rate 70 68 72 Respiratory Rate 16 16 Blood Pressure 138/53 L 147/65 H Pulse Oximetry 93 91 Oxygen Delivery 11/29/22 20:00 11/30/22 00:00 11/30/22 04:00 Temperature Pulse Rate 69 68 62 Respiratory Rate Blood Pressure Pulse Oximetry Oxygen Delivery 11/30/22 06:00 11/30/22 08:15 11/30/22 09:55 Temperature 35.9 C L Pulse Rate 66 68 Respiratory Rate 18 Blood Pressure 164/72 H Pulse Oximetry 92 Oxygen Delivery Room Air Intake/Output Intake/Output: Intake & Output 11/27/22 11/28/22 11/29/22 11/30/22 23:59 23:59 23:59 23:59 Intake Total 1150 1580 700 440 Balance 1150 1580 700 440 Meds/Results Medications: Active Medications Generic Name Dose Route Start Last Admin Trade Name Freq PRN Reason Stop Dose Admin Acetaminophen 650 mg 11/26/22 22:34 Acetaminophen 325 Mg Tablet PO Q4H PRN Pain or Fever Albuterol 2 puff 11/27/22 17:04 Albuterol Sulfate (*Sp) Aerosol 1 Puff INHALATION Q4-6H PRN Breathing issues Dextrose 12.5 gm 11/26/22 15:48 Dextrose 50% 25 Gm/50 Ml Syringe IV PUSH PRN PRN Hypoglycemia Protocol Diclofenac Sodium 25 mg 11/27/22 21:00 11/30/22 09:46 Diclofenac Sod 25 Mg Tablet.Ec PO 25 mg Q12HR ISRA Administration Fidaxomicin 200 mg 11/27/22 21:00 11/30/22 09:46 Fidaxomicin 200 Mg Tablet PO 200 mg Q12HR ISRA Administration Furosemide 40 mg 11/28/22 09:00 11/30/22 09:46 Furosemide 40 Mg Tablet PO 40 mg DAILY ISRA Administration Glucagon 1 mg 11/26/22 15:48 Glucagon For Inj 1 Mg Vial IM PRN PRN Hypoglycemia Protocol Glucose 15 gm 11/26/22 15:48 Glucose Oral Gel 15 Gm Of Glucse In 37.5 Gm Tube PO PRN PRN Hypoglycemia Protocol Dextrose 1,000 mls @ 100 mls/hr 11/26/22 15:48 Dextrose 5% 1,000 Ml IVPB PRN PRN Hypoglycemia Protocol Insulin Aspart 3 - 6 units 11/26/22 17:00 11/29/22 18:46 Insulin Aspart (*Bkc) 100 Units/Ml SUB-Q 3 units TIDWM ISRA Administration Protocol Insulin Aspart 1 - 3 units 11/26/22 21:00 11/29/22 21:45 Insulin Aspart (*Bkc) 100 Units/Ml SUB-Q 1 units HS ISRA Administration Protocol Lisinopril 10 mg 11/28/22 09:00 11/30/22 09:46 Lisinopril 10 Mg Tablet PO 10 mg DAILY ISRA Administration Ondansetron HCl 4 mg 11/26/22 13:43 Ondansetron Inj 4 Mg/2 Ml Vial IV PUSH Q4H PRN Nausea Perflutren Lipid Microsphere 0 ml 11/29/22 11:00 Perflutren Lipid Microspheres 1.5 Ml Vial Diluted To 10 Ml Total Volume IV PUSH 12/02/22 11:00 ONCE PRN adequate visualization Protocol Polyethylene Glycol 17 gm 11/29/22 12:18 Polyethylene Glycol 3350 17 Gm Powd.Pack PO QAM PRN Constipation Simvastatin 10 mg 11/28/22 09:0
[2022-11-30] MEDS: INSULIN ASPART (*BKC) 100 UNITS/ML SUB-Q (12:31)
[2022-11-30 14:00] VITALS: BP 139/72; PULSE 77; RESP 14; TEMP 36.2; O2SAT 96
--- NOTE | 2022-11-30 14:20 | PM.DS ---
DS: Admitting Diagnosis Discharge Date 11/30/2022 Admitting Diagnosis Leg weakness DS: Discharge Diagnosis Discharge Diagnosis (1) Bilateral leg weakness: Code(s): R29.898 - Other symptoms and signs involving the musculoskeletal system Status: Acute Assessment and Plan: Patient reports bilateral leg weakness and numbness causing frequent falls. Workup identified chronic L1 burst fracture and interval finding small stroke anterior medial left frontal lobe. Patient is a poor historian and does not participate in full neurologic assessment. Nursing staff states family is requesting mcc placement. PT/OT ordered Neurology consult appreciated - CTA brain/carotid shows old infarct in the left frontal lobe, moderate stenosis of intracranial right ICA, 50% stenosis of the proximal left ICA - LDL was 106, goal of less than 70, A1c 7.8 - Echo showed an EF of greater than 70%, grade 1 diastolic dysfunction, moderate aortic valve stenosis and no pulmonary hypertension - Continue aspirin 81mg daily - Continue Simvastatin 10mg daily -- may need to be adjusted; LDL goal <70 (2) Burst fracture of lumbar vertebra: Qualifiers: Encounter type: initial encounter Fracture type: closed Qualified Code(s): S32.001A - Stable burst fracture of unspecified lumbar vertebra, initial encounter for closed fracture Code(s): S32.001A - Stable burst fracture of unspecified lumbar vertebra, initial encounter for closed fracture Status: Acute Assessment and Plan: Chronic finding previously evaluated by neuro surgery July of 2022. Unchanged on imaging. Only mild back pain elicited. TLSO brace ordered. (3) Dementia: Code(s): F03.90 - Unspecified dementia, unspecified severity, without behavioral disturbance, psychotic disturbance, mood disturbance, and anxiety Status: Acute (4) Diabetes mellitus: Qualifiers: Diabetes mellitus type: type 2 Diabetes mellitus assisted insulin use: without assisted use Diabetes mellitus complication status: without complication Qualified Code(s): E11.9 - Type 2 diabetes mellitus without complications Code(s): E11.9 - Type 2 diabetes mellitus without complications Status: Acute Assessment and Plan: ACHS fingerstick glucose with insulin correction. A1c 7.9 Blood glucose reviewed 11/30 (5) Physical debility: Code(s): R53.81 - Other malaise Status: Acute Assessment and Plan: Patient will need PT/OT, possible mcc placement (6) CVA (cerebral vascular accident): Code(s): I63.9 - Cerebral infarction, unspecified Status: Acute Assessment and Plan: Incidental finding on CT scan of the brain undetermined timing of development of stroke. MRI confirmed acute infarct, Neurology recommendations, as above Plan Diet: Carb consistent diabetic DVT prophylaxis: SCDs Code status: Full code DS: Summary Hospital Course Hospital Course: 71-year-old female patient who is admitted to the hospital due to report of bilateral leg weakness and numbness with frequent falls. Patient reports bilateral leg weakness and numbness causing frequent falls. Workup identified chronic L1 burst fracture and interval? finding small stroke anterior medial left frontal lobe. Patient is a poor historian and does not participate in full neurologic assessment. Nursing staff states family is requesting mcc placement. PT/OT ordered Neurology consult appreciated - CTA brain/carotid shows old infarct in the left frontal lobe, moderate stenosis of intracranial right ICA, 50% stenosis of the proximal left ICA - LDL was 106, goal of less than 70, A1c 7.8 - Echo showed an EF of greater than 70%, grade 1 diastolic dysfunction, moderate aortic valve stenosis and no pulmonary hypertension - Continue aspirin 81mg daily - Continue Simvastatin 10mg daily -- may need to be adjusted; LDL goal <70 Burst
== END 2022-11-30 15:30 ==
LOC: ANHED 10:56 → ANH3MEDSUR 15:18
PROVIDERS: Nurse Practitioner; Nurse Practitioner Family; Student in an Organized Health Care Education/Training Program; Admitting Provider Internal Medicine; Emergency Provider General Practice; PCP Emergency Medicine; Visit Provider Internal Medicine
DX: I63.9 Cerebral infarction, unspecified (principal); R29.898 Other symptoms and signs involving the musculoskeletal system; S32.011A Stable burst fracture of first lumbar vertebra, initial encounter for closed fracture; R29.6 Repeated falls; I48.0 Paroxysmal atrial fibrillation; F03.90 Unspecified dementia, unspecified severity, without behavioral disturbance, psychotic disturbance, mood disturbance, and anxiety; I11.0 Hypertensive heart disease with heart failure; I50.9 Heart failure, unspecified; J41.8 Mixed simple and mucopurulent chronic bronchitis; Z20.822 Contact with and (suspected) exposure to COVID-19; R90.82 White matter disease, unspecified; E11.51 Type 2 diabetes mellitus with diabetic peripheral angiopathy without gangrene; E55.9 Vitamin D deficiency, unspecified; E78.5 Hyperlipidemia, unspecified; R94.31 Abnormal electrocardiogram [ECG] [EKG]; F17.210 Nicotine dependence, cigarettes, uncomplicated; M47.816 Spondylosis without myelopathy or radiculopathy, lumbar region; M41.86 Other forms of scoliosis, lumbar region; R32 Unspecified urinary incontinence; Z79.1 Long term (current) use of non-steroidal anti-inflammatories (NSAID); Z79.51 Long term (current) use of inhaled steroids; Z79.84 Long term (current) use of oral hypoglycemic drugs; Z79.01 Long term (current) use of anticoagulants; Z79.82 Long term (current) use of aspirin; Z79.899 Other long term (current) drug therapy; Z82.49 Family history of ischemic heart disease and other diseases of the circulatory system
CPT/HCPCS: 36415; 70450; 70496; 70498; 70553; 71046; 72131; 80053; 81001; 82140; 82948; 83036; 83721; 84484; 85025; 87635; 93005; 93306; 96375; 97161; 97166; 99285; A9270; A9577; G0378; J1815; Q9967

== ENCOUNTER 2023-02-13 21:07 | Inpatient (IN) | payer MEDICARE, SELFPAY ==
[2023-02-13] VITALS (17 sets, daily range): BP systolic 127–151; BP diastolic 77–114; PULSE 84–144; RESP 15–27; TEMP 36.7; O2SAT 90–99
--- NOTE | ~2023-02-13 | XR_ITS ---
EXAMINATION: XR chest 1V portable Exam Date/Time: 02/13/2023 22:11 REALTIME REPORTER HISTORY: shortness of breath Comparison: 11/26/2022. RESULT: Lines, tubes, and devices: None. Lungs and pleura: Senescent/uncinate change. Granulomatous calcification. Otherwise clear. Cardiomediastinal silhouette: Stable. Prominent central pulmonary arteries as can be seen with pulmo nary arterial hypertension Other: No acute osseous or upper abdominal finding. IMPRESSION: No acute cardiopulmonary process. Reviewed, dictated and finalized at location K. TIME REPORTER
--- NOTE | 2023-02-13 21:16 | ECG_ITS ---
Measurements Intervals [place] Rate: 100 P: 58 VA: 146 QRS: -58 QRSD: 98 T: 69 QT: 358 QTc: 462 Interpretive Statements SINUS TACHYCARDIA LEFT AXIS DEVIATION POSSIBLE LEFT ATRIAL ENLARGEMENT INFERIOR INFARCT, AGE INDETERMINATE ST-T WAVE ABNORMALITY IN LATERAL LEADS- CONSIDER ISCHEMIA BASELINE ARTIFACT- I, III, AVR, AVL, AVF, V1-V2 ABNORMAL ECG COMPARED TO ECG 11/26/2022 10:38:34 SINUS T[address]YCARDIA NOW PRESENT ST (T WAVE) DEVIATION NOW PRESENT Electronically Signed On 02-14-2023 8:10:17 SENIOR STATISTICAL PROGRAMMER by Artur Devries D.O.
[2023-02-13 21:22] LABS: Glucose Point of Care 338 mg/dl (65-105)
--- NOTE | 2023-02-13 21:35 | ED.GENADULT ---
HPI - General Adult General Chief complaint: Shortness of Breath/Dyspnea Stated complaint: difficulty breathing Time Seen by Provider: 02/13/23 21:23 History of Present Illness HPI narrative: Patient 72-year-old female who presents emerged from with a chief complaint of shortness of breath or weakness. Patient reports over the last several weeks she has been progressively more weak and has been not able to get out of bed. The patient states she has also been short of breath and reports she also had some discomfort in her chest the patient reports that she has not had her medications in 2 years although the patient has had multiple hospitalizations including at least 2 this year. The patient reports that her symptoms are much better since she was placed on oxygen by EMS patient had a room air saturation 91% when EMS arrived. Related Data Home Medications Medication Instructions Recorded Confirmed acetaminophen 500 mg capsule 1,000 mg PO TID PRN pain 02/13/22 11/27/22 albuterol sulfate 90 mcg/actuation 2 puff inhalation Q4-6H PRN 07/20/22 11/27/22 aerosol inhaler Breathing issues diclofenac sodium 25 mg 25 mg PO Q12H 07/20/22 11/27/22 tablet,delayed release metformin 1,000 mg tablet 1,000 mg PO BID 07/20/22 11/27/22 simvastatin 10 mg tablet 10 mg PO DAILY 07/20/22 11/27/22 Lactobacillus acidophilus 10 mg PO DAILY 11/27/22 11/27/22 apixaban 5 mg tablet (Eliquis) 5 mg PO BID 11/27/22 11/27/22 aspirin 81 mg tablet,delayed 81 mg PO DAILY 11/27/22 11/27/22 release cholecalciferol (vitamin D3) 25 25 mcg PO DAILY 11/27/22 11/27/22 mcg (1,000 unit) tablet lisinopril 10 mg tablet 10 mg PO DAILY 11/27/22 11/27/22 multivitamin with minerals (Daily 1 tablet PO DAILY 11/27/22 11/27/22 Multivitamin-Minerals tablet) Allergies Allergy/AdvReac Type Severity Reaction Status Date / Time No Known Allergies Allergy Verified 02/13/23 21:17 Review of Systems Review of Systems: A 10 system review of systems was completed on the patient and is negative except for what is stated in the HPI. Nursing and ancillary documentation was reviewed. [facility] Past Medical History Medical History CHF (congestive heart failure) COPD mixed type Cortical age-related cataract of both eyes Diabetes mellitus Essential hypertension Mixed hyperlipidemia Other screening mammogram Peripheral artery disease Right-sided Cool's palsy Spinal stenosis of lumbosacral region Tobacco abuse Vitamin D deficiency Surgical History Surgical History History of appendectomy History of Hx of cholecystectomy Family History Family History Father Malignant neoplasm of prostate, Onset Age: 76 Patient's father is Family history of Alzheimer's disease Mother Family history of malignant neoplasm of ovary Family history of malignant neoplasm of cervix Sibling Family history of malignant neoplasm of ovary Mother Cancer Son Cancer Grandparent Myocardial infarction Diabetes mellitus Grandparent No problems noted. Social History Social History Social History: She lives at home with her . She sleeps on the couch. She uses a bedside commode. She has smoked up to 2 pack per day since she was a teenager. She denies any history of heavy alcohol use. She denies illicit substance use. Code status: Full code Surrogate decision maker: Primary care physician: Dr. James Medina Smoking packs per day: 1 Smoking cigarettes per day: 20.0 Years smoked: 50 Smoking pack-years: 50.00 Smoking status: Never smoker Tobacco type: cigarettes Second hand tobacco smoke exposure: No Smoking end date: 03/21/11 Alcohol intake: never Substance use: nev
[2023-02-13 21:50] LABS: Basophils Absolute Auto 0.1 K/mm3 (0.0-0.1); Basophils Percent Auto 0.8 % (0.2-1.2); Eosinophils Absolute Auto 0.3 K/mm3 (0-0.3); Eosinophils Percent Auto 3.4 % (0-4.4); Hematocrit 41.4 % (37.0-47.0); Hemoglobin 13.4 g/dL (12.0-15.0); Immature Granulocyte Absolute 0.05 K/mm3 (0.00-0.031); Immature Granulocyte Percent A 0.5 % (0-0.5); Lymphocytes Percent Auto 21.2 % (18.3-44.2); Mean Corpuscular HGB Conc 32.4 g/dl (32-36); Mean Corpuscular Hemoglobin 29.3 pg (26-34); Mean Corpuscular Volume 90.6 fl (80-100); Mean Platelet Volume 11.7 fl (7.4-10.4); Monocytes Absolute Auto 0.7 K/mm3 (0.1-0.6); Monocytes Percent Auto 7.3 % (2.6-8.5); Neutrophils Absolute Auto 6.3 K/mm3 (1.3-6.7); Neutrophils Percent Auto 66.8 % (45.5-73.1); Platelet Count Result 232 k/mm3 (150-375); Red Blood Count 4.57 M/mm3 (4.2-5.4); Red Cell Distribution Width 13.3 % (11.5-14.5); White Blood Count 9.4 K/mm3 (4.5-10.0)
[2023-02-13 21:54] LABS: Alanine Aminotransferase 12 U/L (6-35); Albumin Level 3.2 g/dL (3.5-5.1); Alkaline Phosphatase 101 U/L (38-126); Anion Gap 7 mmol/L (8-16); Aspartate Amino Transferase 19 U/L (14-36); Bilirubin,Total 0.6 mg/dL (0.2-1.3); Blood Urea Nitrogen 10 mg/dL (7-17); Calcium 8.9 mg/dL (8.4-10.2); Carbon Dioxide 29 mmol/L (22-30); Chloride 96 mmol/L (98-107); Estimated CRCL calculation 63 ml/min; Estimated Glomerular Filt Rate > 60; Glucose 326 mg/dL (65-110); Lactic Acid Reflex 1.8 mmol/L (0.7-2.0); Lipase 119 U/L (23-300); Magnesium 1.6 mg/dL (1.6-2.3); Potassium 2.9 mmol/L (3.4-5.0); Sodium 132 mmol/L (137-145)
[2023-02-13 21:56] LABS: Alveolar/Arterial O2 Gradient 84.2 mmHg; Base Excess ABG 0.7 mEq/l (+/-2.0); Fractional Inspired Oxygen 28 %; Oxygen Content ABG 17.2 %vol (16.0-22.0); Oxygen Saturation ABG 95.8 % (95.0-100.0); Oxyhemoglobin 91.3 % THb (90.0-100.0); PCO2 ABG 34.4 mmHg (35.0-45.0); PO2 ABG 74.9 mmHg (80.0-100.0); PO2 FiO2 Ratio Arterial Blood 2.67 %; Total Hemoglobin 13.4 g/dL (12.0-18.0); pH ABG 7.462 (7.350-7.450)
[2023-02-13 21:57] LABS: Device NASAL CANNULA; Modified Allen's Test Pass; Site Drawn RIGHT RADIAL
[2023-02-13 22:01] LABS: Partial Thromboplastin Time 25.5 SECONDS (22.3-36.8); Prothrombin Time 13.2 Seconds (11.1-14.7)
[2023-02-13 22:06] LABS: Appearance Urine Turbid (Clear); Bacteria Urine 4+ /hpf; Bilirubin Urine Negative (Negative); Blood Urine 3+ (Negative); Color Urine Dark Yellow (Yellow); Glucose Urine UA 3+ mg/dL (Negative); Ketones Urine Trace mg/dL (Negative); Leukocyte Esterase Ur 2+ LEU/UL (Negative); NT Pro B Type Natriuretic Pept 1590 pg/mL (19.9-100); Need Manual Microscopic Reviewed; Nitrate Urine Negative (Negative); Non Pathogenic Casts >20; Protein Urine 4+ mg/dL (Negative); RBC Urine >100 /hpf (0-2); Specific Grav Ur 1.022 (1.001-1.035); Squamous Epithelial Cell Urine Moderate /hpf (Few); WBC Urine >100 /hpf; pH Urine 6.5 (5.0-9.0)
[2023-02-13 22:07] LABS: Add Urine Microscopic? YES
--- NOTE | 2023-02-13 22:11 | ECG_ITS ---
Measurements Intervals [place] Rate: 113 P: [place]: 0 QRS: -38 QRSD: 97 T: 63 QT: 353 QTc: 486 Interpretive Statements ATRIAL FIBRILLATION WITH RAPID VENTRICULAR RESPONSE CHANGES TO SINUS RHYTHM LEFT AXIS DEVIATION INCOMPLETE RIGHT BUNDLE BRANCH BLOCK BORDERLINE R WAVE PROGRESSION, ANTERIOR LEADS BASELINE ARTIFACT- I, II, III, AVR, AVF, V6 ABNORMAL ECG COMPARED TO ECG 02/13/2023 21:18:32 ATRIAL FIBRILLATION CHANGES TO SINUS RHYTHM NOW PRESENT Electronically Signed On 02-14-2023 8:12:37 HOME AND SCHOOL VISITOR by Artur Devries D.O.
--- NOTE | 2023-02-13 22:20 | ECG_ITS ---
Measurements Intervals [place] Rate: 140 P: UT: 0 QRS: -32 QRSD: 87 T: 56 QT: 341 QTc: 521 Interpretive Statements ATRIAL FLUTTER/TACHYCARDIA WITH RAPID VENTRICULAR RESPONSE INCOMPLETE RIGHT BUNDLE BRANCH BLOCK BORDERLINE R WAVE PROGRESSION, ANTERIOR LEADS BORDERLINE ST-T WAVE ABNORMALITY- ANTEROLAT/INF LEADS BASELINE ARTIFACT- II, III, AVR, AVF ABNORMAL ECG COMPARED TO ECG 02/13/2023 22:13:54 ATRIAL FLUTTER NOW PRESENT Electronically Signed On 02-14-2023 11:07:02 STAGE SETTING PAINTER APPRENTICE by Artur Devries D.O.
[2023-02-13 22:28] LABS: Influenza A QL RT-PCR Negative (Negative); Influenza B QL RT-PCR Negative (Negative); SARS-CoV-2 RNA PCR Negative (Negative)
[2023-02-13 22:30] LABS: Procalcitonin 0.2 ng/mL
[2023-02-13] MEDS: ASPIRIN 81 MG CHEWABLE TABLET 324 MG PO (22:46)
[2023-02-13] MEDS: KCL 20 MEQ/SW 100 ML 100 ML 50 MEQ IVPB (22:49)
[2023-02-13] MEDS: MAGNESIUM SULF 1 GM/D5W 100 ML 1 GM/100 ML BAG IVPB (23:22)
[2023-02-13] MEDS: SODIUM CHLORIDE 0.9% IV 500 ML 150 ML (23:32)
[2023-02-14] VITALS (29 sets, daily range): BP systolic 135–190; BP diastolic 63–85; PULSE 62–130; RESP 17–23; TEMP 36.1–36.7; O2SAT 87–98; BMI 23.5
[2023-02-14] MEDS: METOPROLOL TARTRATE INJ 5 MG/5 ML VIAL IV PUSH (00:11)
--- NOTE | 2023-02-14 00:40 | PC.NURSE ---
Attempted to call patients spouse upon request of patient, called all numbers available, no answer.
[2023-02-14 01:13] LABS: Glucose Point of Care 278 mg/dl (65-105)
--- NOTE | 2023-02-14 01:34 | PM.IMHP ---
H&P: HPI History of Present Illness Date/Time: 02/14/23 01:34 Chief Complaint: Chest pain Narrative: 72-year-old female with past medical history of paroxysmal atrial fibrillation peripheral artery disease, diastolic dysfunction, moderate aortic valve stenosis, poorly controlled diabetes mellitus and dementia who presented to the ER with EMS report of difficulty breathing the patient report of chest pain. The patient is a poor historian with a history of dementia. She answers orientation questions appropriately from time to time. The patient reports that she has not had her medications in 2 years but again she is not reliable. She was recently hospitalized in November for CVA and lumbar fracture. She was sent home with appropriate medications at that time including Eliquis and antihypertensives. She states that her will not have her medications filled because he has ?particular that way. Patient has a history of paroxysmal AFib in the ER patient was noted to go in and out of atrial fibrillation. She received 1 dose of IV Lopressor 5 mg after which she went into sinus rhythm and had no recurrence on telemetry. She denies any symptoms of palpitations. She denies currently feeling short of breath. The patient chronically sleeps on the couch sitting up. Her initial troponin in the ER was elevated at 0.08. The patient's 3 are troponin was not drawn by lab and her 6 hour troponin was elevated 1.92. It is not clear whether not patient has been taking her blood pressure medications Eliquis or simvastatin at home. Resume patient likely was taking her Eliquis. Patient did receive full-dose aspirin. She denies any other significant symptoms. She was afebrile. Her glucoses on arrival were uncontrolled. She has no active foot wounds Review of Systems Review of Systems: Review of systems was obtained but patient is a poor historian and review of systems is subsequently not all that reliable [facility] Past Medical History Medical History (Updated 02/14/23 @ 01:58 by Christine Jin DO) Burst fracture of lumbar vertebra L1 Carotid stenosis, right CTA of the head and neck demonstrated moderate stenosis the right internal carotid artery CHF (congestive heart failure) Diastolic with EF greater than 70 moderate aortic stenosis noted on echocardiogram November 2022 COPD mixed type Cortical age-related cataract of both eyes CVA (cerebral vascular accident) Old infarct in noted on CT scan left frontal lobe 11/2022, new infarct noted on MRI right posterior frontal/periventricular white matter 11/2022 Diabetes mellitus Diabetic nephropathy Diabetic peripheral neuropathy Essential hypertension Mixed hyperlipidemia Peripheral artery disease Right-sided Cool's palsy Spinal stenosis of lumbosacral region Tobacco abuse Vascular dementia Vitamin D deficiency Surgical History Surgical History History of appendectomy History of Hx of cholecystectomy Family History Family History Father Malignant neoplasm of prostate, Onset Age: 76 Patient's father is Family history of Alzheimer's disease Mother Family history of malignant neoplasm of ovary Family history of malignant neoplasm of cervix Sibling Family history of malignant neoplasm of ovary Mother Cancer Son Cancer Grandparent Myocardial infarction Diabetes mellitus Grandparent No problems noted. Social History Social History (Updated 02/14/23 @ 01:49 by Christine Jin DO) Social History: She lives at home with her . She sleeps on the couch. She uses a bedside commode. She has smoked up to 2 pack per day since she was a teenager. She denies any history of heavy alcohol use. She denies illicit substance use. Code status: Full code Surrogate decision maker: Smoking packs per day: 0.5 Smoking ciga
--- NOTE | 2023-02-14 01:41 | ADMGEN ---
This patient, Majo Abbott, was admitted to IMU Room 205-01 at 0100. Patient/family oriented to hospital policies and general routines including ID bracelet, bed and alarms, visiting hours, pain management, procedures, bathroom and other care routines, personal items, smoking policy, room service/diet, and visiting hours. Information on how to activate the Rapid Response Team has been discussed. Patient/Family are encouraged to report perceived risks to care and to ask questions if they do not understand what they are told or what they should do.
[2023-02-14] MEDS: SODIUM CHLORIDE 0.9% IV 1,000 ML 70 ML IV CONT (02:14)
[2023-02-14] MEDS: POTASSIUM CHLORIDE 20 MEQ ER TABLET 40 MEQ PO ×2 (02:15→09:21)
[2023-02-14 04:04] LABS: Hemoglobin 12.9 g/dL (12.0-15.0); Mean Corpuscular HGB Conc 32.3 g/dl (32-36); Mean Corpuscular Hemoglobin 29.3 pg (26-34); Mean Corpuscular Volume 90.9 fl (80-100); Mean Platelet Volume 11.7 fl (7.4-10.4); Platelet Count Result 210 k/mm3 (150-375); Red Cell Distribution Width 13.3 % (11.5-14.5); White Blood Count 8.4 K/mm3 (4.5-10.0)
[2023-02-14 04:15] LABS: Anion Gap 6 mmol/L (8-16); Blood Urea Nitrogen 10 mg/dL (7-17); Calcium 8.6 mg/dL (8.4-10.2); Carbon Dioxide 30 mmol/L (22-30); Chloride 98 mmol/L (98-107); Estimated CRCL calculation 55 ml/min; Estimated Glomerular Filt Rate > 60; Glucose 403 mg/dL (65-110); Magnesium 2.1 mg/dL (1.6-2.3); Potassium 3.4 mmol/L (3.4-5.0); Sodium 134 mmol/L (137-145)
[2023-02-14 08:40] LABS: Glucose Point of Care 303 mg/dl (65-105)
--- NOTE | 2023-02-14 08:57 | ECG_ITS ---
Measurements Intervals [place] Rate: 78 P: 60 ND: 119 QRS: -5 QRSD: 97 T: 43 QT: 409 QTc: 468 Interpretive Statements SINUS RHYTHM WITH SHORT ND INTERVAL BORDERLINE R WAVE PROGRESSION, ANTERIOR LEADS BORDERLINE ST-T WAVE ABNORMALITY- ANT/INF LEADS BORDERLINE ECG COMPARED TO ECG 02/13/2023 22:27:41 SINUS RHYTHM NOW PRESENT Electronically Signed On 02-14-2023 11:31:21 HEALTH SCIENCE SPECIALIST by Artur Devries D.O.
[2023-02-14] MEDS: LEVALBUTEROL NEB 1.25 MG/3 ML 0.63 MG INHALATION ×3 (09:00→19:43)
[2023-02-14] MEDS: THERAPEUTIC MULTIVITAMINS/MINERALS TAB (*BKC) 1 TABLET PO (09:04)
[2023-02-14] MEDS: CHOLECALCIFEROL 1,000 UNITS TABLET 1000 UNITS PO (09:04)
[2023-02-14] MEDS: lisinopriL 10 MG TABLET PO (09:04)
[2023-02-14] MEDS: APIXABAN 5 MG TABLET PO (09:05)
[2023-02-14] MEDS: metFORMIN HCL 500 MG TABLET 1000 MG PO (09:05)
[2023-02-14] MEDS: INSULIN ASPART (*BKC) 100 UNITS/ML SUB-Q ×3 (09:05→21:19)
[2023-02-14] MEDS: SIMVASTATIN 10 MG TABLET PO (09:05)
--- NOTE | 2023-02-14 09:11 | ECHO_ITS ---
Patient Info Name: Majo Abbott Age: 72 years : 1950 Gender: Female Ht: 65 in Wt: 149 lbs BSA: 1.77 m2 HR: 85 bpm BP: 190 / 85 mmHg Heart Rhythm: Sinus Rhythm Technical Quality: Fair Exam Date: 02/14/2023 10:11 AM Exam Location: Echo Lab Patient Status: Inpatient Admit Date: 02/14/2023 Staff Ordering Physician: Paul Tavares MD Window Glass Installer: Yoselin Reyes RDCS Attending Provider: Christine Jin DO Referring Physician: Chaitanya WHITE; Exam Type: CA echo doppler color flow Study Info Indications - NSTEMI, AFIB Complete two-dimensional, color flow and Doppler transthoracic echocardiogram is performed. Summary 1. Complete two-dimensional, color flow and Doppler transthoracic echocardiogram is performed. 2. Left ventricular chamber dimension is normal. 3. Left ventricular systolic function is normal, estimated at 65-70%. 4. There is moderately increased left ventricular wall thickness. 5. The left ventricular diastolic function is grade I diastolic dysfunction. 6. There is moderate aortic valve stenosis with a peak velocity of 292 cm/s, mean gradient of 17 mmHg, and aortic valve area of 1.2 cm2. 7. There is no aortic valve regurgitation. 8. There is moderate aortic valve calcification. 9. There is mild mitral valve regurgitation. 10. There is trace tricuspid valve regurgitation. 11. No pulmonary hypertension, estimated pulmonary arterial systolic pressure is 27 mmHg. Left Ventricle Left ventricular chamber dimension is normal. Left ventricular systolic function is normal, estimated at 65-70%. There is moderately increased left ventricular wall thickness. The left ventricular diastolic function is grade I diastolic dysfunction. Right Ventricle Right ventricular systolic function is normal. Left Atria Left atrial chamber dimension is normal. Right Atria Right atrial chamber dimension is normal. Aortic Valve The aortic valve is probable trileaflet. There is moderate aortic valve stenosis with a peak velocity of 292 cm/s, mean gradient of 17 mmHg, and aortic valve area of 1.2 cm2. There is no aortic valve regurgitation. There is moderate aortic valve calcification. Pulmonic Valve The pulmonic valve is not well visualized. There is trace pulmonic regurgitation. Mitral Valve The mitral valve has thickened leaflets. There is mild mitral valve regurgitation. The mitral valve annulus is mildly calcified. Tricuspid Valve The tricuspid valve leaflets are normal. There is trace tricuspid valve regurgitation. No pulmonary hypertension, estimated pulmonary arterial systolic pressure is 27 mmHg. Pericardium/Pleural The pericardium appears normal. There is small pericardial effusion. Inferior Vena Cava Normal inferior vena cava with >50% collapse upon inspiration consistent with normal right atrial pressure, 5 mmHg. Aorta The aortic root size at the sinus of Valsalva is normal. There is mild aortic atherosclerosis. Left Ventricular Outflow Tract Name Value Normal LVOT 2D LVOT Diameter 2.0 cm LVOT Doppler LVOT Peak Gradient 4 mmHg LVOT Mean Gradient 2 mmHg LVOT VTI 22 cm
[2023-02-14] MEDS: ASPIRIN 81 MG ENTERIC TABLET PO (09:21)
[2023-02-14] MEDS: INSULIN GLARGINE (*BKC) 100 UNITS/ML 8 UNITS SUB-Q (09:21)
--- NOTE | 2023-02-14 09:46 | PC.NURSE ---
Spoke with Dr. Monique to clarify Patriciotus order.
--- NOTE | 2023-02-14 10:09 | PCOTNOTE ---
Attempted to see pt. for occupational therapy evaluation. Pt. declined to participate at this time, stating she was too tired . Echocardiogram senior quality control technician also entered for testing at this time. Nursing updated and aware. Following.
--- NOTE | 2023-02-14 10:14 | PM.CNCAR ---
Assessment and Plan Assessment and plan (1) NSTEMI (non-ST elevated myocardial infarction): Code(s): I21.4 - Non-ST elevation (NSTEMI) myocardial infarction Status: Acute Assessment and Plan: Patient presents with chest pain troponin elevation with abnormal ECG changes consistent with myocardial ischemia and probable non ST elevation myocardial infarction. Incidentally, patient was also found to be in atrial fibrillation with rapid ventricular currently in sinus rhythm after IV metoprolol. Troponin is already trending downward and given presentation may be consistent with a type 2 infarction, however, given multiple risk factors can not exclude underlying CAD. Recommend aggressive atherosclerotic risk reduction with addition of aspirin 81 mg daily, continuation of simvastatin. Systemic anticoagulation with heparin infusion times 48 hours. However, patient has already been started on Eliquis. Will discontinue and begin heparin infusion without bolus this evening pending decision with regards to risk versus benefit of invasive angiography. Given patient's noncompliance medical therapy relative contraindication to proceed with invasive angiography at this time provided patient remains stable and relatively asymptomatic. However, if we are able to clarified social/home situation and medication compliance issues she may be a reasonable candidate particularly if PCI/stent implantation is warranted on invasive angiography as it was explained this would place her at very high risk for serious and potentially life-threatening/fatal complications of she was noncompliant with antiplatelet therapy. Repeat 2D echocardiogram to assess for LV function, wall motion abnormalities. Plan for ischemic workup will be dependent upon findings on her echocardiogram, clinical status and also for plan of care counseling risk versus benefit. All questions answered to her satisfaction. She agrees with plan of care. (2) Acute hypoxic respiratory failure: Code(s): J96.01 - Acute respiratory failure with hypoxia Status: Acute Assessment and Plan: Patient has a history of ongoing tobacco abuse probable COPD. Continue O2 supplementation, wean as warranted. Bronchodilator therapy is appropriate. Defer to primary service in this regard. Patient is not appear to be in acute decompensated heart failure present. Continue to monitor volume status. (3) Atrial fibrillation with rapid ventricular response: Code(s): I48.91 - Unspecified atrial fibrillation Status: Acute Assessment and Plan: Currently in sinus rhythm after IV metoprolol. Will initiate metoprolol tartrate 25 mg twice daily for reduction risk for recurrence of AFib. Continue systemic anticoagulation provided patient is compliant without additional contraindications. This will be clarified with the assistance of manager social media. Continue rhythm control strategy for now with medical therapy and anticoagulation. Eliquis as above has been started but will be held given potential to proceed with invasive angiography as appropriate. Given recent stroke, CHADS2 Vasc score 5-6 and high risk for recurrent embolic stroke. Systemic anticoagulation advised as result. (4) Uncontrolled hypertension: Code(s): I10 - Essential (primary) hypertension Status: Acute Assessment and Plan: BP remains significantly elevated. Monitor BP closely, increase lisinopril to 20 mg if BP remains poorly controlled. Initiate metoprolol tartrate 25 mg twice daily. (5) Aortic stenosis: Qualifiers: Cardiac valve disease etiology: etiology unspecified Qualified Code(s): I35.0 - Nonrheumatic aortic (valve) stenosis Code(s): I35.0 - Nonrheumatic aortic (valve) stenosis Status: Acute Assessment and Plan: By previous echo moderate in severity. Continue to monitor clinically. (6) Noncompliance w/medication treatment due to intermit use of medication:
[2023-02-14 13:04] LABS: Glucose Point of Care 202 mg/dl (65-105)
--- NOTE | 2023-02-14 15:52 | PM.IMPN ---
Progress Note: A&P Assessment and Plan (1) Atrial fibrillation with rapid ventricular response: Code(s): I48.91 - Unspecified atrial fibrillation Status: Acute Assessment and Plan: Patient presented with difficulty breathing likely related to AFib RVR. Patient given IV metoprolol in the ED and converted to NSR. She is maintaining normal sinus. CXR clear. Was place on gentle IV fluid hydration but will stop this now. Patient not no rate controlling agents Eliquis resumed but now on hold and changed to heparin for possible LHC Add low dose metoprolol. (2) NSTEMI (non-ST elevated myocardial infarction): Code(s): I21.4 - Non-ST elevation (NSTEMI) myocardial infarction Status: Acute Assessment and Plan: Patient presents with CP and had elevated troponin on admission. Likely Type II due to demand ischemia from AFib and/or hypoxia. But can not exclude NSTEMI. Echo showing EF 65-70% with Grade i diastolic dysfunction and moderate . ASA added. Continue Zocor. Discussed with Cardiology. Concern that [facility] with stent placement would require patient to be compliant with DAPT which it is unclear she could be. Plan to stop Elquis (received one dose this morning) and start Heparin drip this evening. Consider LHC tomorrow (3) Acute hypoxic respiratory failure: Code(s): J96.01 - Acute respiratory failure with hypoxia Status: Acute Assessment and Plan: The patient's pulse ox at home/EMS was 90% and she was complaining of feeling SOB. The patient has a chronic smoker and likely has underlying COPD. ABG 7.46/34/75 on 2L. CXR clear. On Eliquis at home so PE seems less likely Will placed on nebulizer treatments. Wean oxygen as tolerated. (4) Acute hypokalemia: Code(s): E87.6 - Hypokalemia Status: Acute Assessment and Plan: The patient has hypokalemia with potassium 2.9. Patient received 20 mEq of potassium chloride in the ER IV and an additional 40 mEq on admission. Patient's magnesium level was borderline at 1.6 and received 1 g magnesium sulfate in the ER. Mag 2.1 today. Potassium 3.4 today and replaced again. Follow (5) Acute UTI: Code(s): N39.0 - Urinary tract infection, site not specified Status: Acute Assessment and Plan: UA is consistent with UTI. UCx collected. BCx cancelled. Rocephin started. UCx pending. Follow up on UCx results. (6) Dehydration with hyponatremia: Code(s): E86.0 - Dehydration; E87.1 - Hypo-osmolality and hyponatremia Status: Acute Assessment and Plan: Patient has had a 10 kg weight loss since last year. Nutritional status is concerning. Patient has low serum albumin but also has 4+ protein loss in her urine. She likely has component of diabetic nephropathy with chronic protein loss in her urine of 2-4+ since at least to 2019. Renal function okay. Patient likely has some component of protein calorie malnutrition and is likely having some weight loss also due to uncontrolled diabetes. Sodium slightly low at 132 which could be from dehydration but also pseudohyponatremia from elevated glucose values. Na better today. Supplements added. (7) Diabetes mellitus due to underlying condition with hyperglycemia, without long-term current use of insulin: Code(s): E08.65 - Diabetes mellitus due to underlying condition with hyperglycemia Status: Acute Assessment and Plan: The patient's blood glucose was reviewed on 02/14 Glucose remains poorly controlled. Continue AccuCheks covering with sliding scale. Hypoglycemia protocol available as needed. Add Lantus. Adjust medications as needed. (8) Vascular dementia: Qualifiers: Dementia behavioral or psychological symptom: unspecified whether behavioral, psychotic, or mood disturbance or anxiety Dementia severity: moderate Qualified Code(s): F01.B0 - Vascular dementia, moderate, without behavioral disturbanc
[2023-02-14 17:15] LABS: INR 1.2; Partial Thromboplastin Time 32.2 SECONDS (22.3-36.8); Prothrombin Time 15.7 Seconds (11.1-14.7)
[2023-02-14 17:30] LABS: Glucose Point of Care 194 mg/dl (65-105)
[2023-02-14 21:10] LABS: Glucose Point of Care 256 mg/dl (65-105)
[2023-02-14] MEDS: INSULIN GLARGINE (*BKC) 100 UNITS/ML 10 UNITS SUB-Q (21:18)
[2023-02-14] MEDS: METOPROLOL TARTRATE 12.5 MG TABLET PO (21:18)
[2023-02-14] MEDS: HEPARIN SOD/D5W 100 UNITS/ML 25,000 UNITS/250 ML BAG 8 UNITS IV CONT (21:20)
[2023-02-15] VITALS (27 sets, daily range): BP systolic 145–173; BP diastolic 64–80; PULSE 64–105; RESP 16–22; TEMP 36–37; O2SAT 93–97; BMI 24.0
[2023-02-15] MEDS: LEVALBUTEROL NEB 1.25 MG/3 ML 0.63 MG INHALATION ×4 (02:09→20:02)
[2023-02-15 03:24] LABS: Basophils Absolute Auto 0.1 K/mm3 (0.0-0.1); Basophils Percent Auto 0.7 % (0.2-1.2); Eosinophils Absolute Auto 0.4 K/mm3 (0-0.3); Eosinophils Percent Auto 4.2 % (0-4.4); Hematocrit 37.5 % (37.0-47.0); Hemoglobin 11.7 g/dL (12.0-15.0); Immature Granulocyte Absolute 0.04 K/mm3 (0.00-0.031); Immature Granulocyte Percent A 0.5 % (0-0.5); Lymphocytes Absolute Auto 2.36 K/mm3 (0.9-3.2); Lymphocytes Percent Auto 27.8 % (18.3-44.2); Mean Corpuscular HGB Conc 31.2 g/dl (32-36); Mean Corpuscular Volume 93.1 fl (80-100); Mean Platelet Volume 11.3 fl (7.4-10.4); Monocytes Absolute Auto 0.5 K/mm3 (0.1-0.6); Monocytes Percent Auto 5.6 % (2.6-8.5); Neutrophils Absolute Auto 5.2 K/mm3 (1.3-6.7); Neutrophils Percent Auto 61.2 % (45.5-73.1); Platelet Count Result 211 k/mm3 (150-375); Red Blood Count 4.03 M/mm3 (4.2-5.4); Red Cell Distribution Width 13.5 % (11.5-14.5); White Blood Count 8.5 K/mm3 (4.5-10.0)
[2023-02-15 03:34] LABS: Albumin Level 2.8 g/dL (3.5-5.1); Anion Gap 4 mmol/L (8-16); Blood Urea Nitrogen 10 mg/dL (7-17); Calcium 8.7 mg/dL (8.4-10.2); Carbon Dioxide 28 mmol/L (22-30); Chloride 104 mmol/L (98-107); Estimated CRCL calculation 63 ml/min; Estimated Glomerular Filt Rate > 60; Glucose 176 mg/dL (65-110); Magnesium 1.8 mg/dL (1.6-2.3); Partial Thromboplastin Time 36.3 SECONDS (22.3-36.8); Phosphorus 3.6 mg/dL (2.5-4.5); Potassium 3.7 mmol/L (3.4-5.0); Sodium 136 mmol/L (137-145)
[2023-02-15] MEDS: HEPARIN SODIUM 5,000 UNITS/ML VIAL 4000 UNITS IV PUSH (04:51)
[2023-02-15 08:26] LABS: Glucose Point of Care 210 mg/dl (65-105)
[2023-02-15] MEDS: INSULIN ASPART (*BKC) 100 UNITS/ML SUB-Q ×3 (08:30→20:17)
--- NOTE | 2023-02-15 09:43 | PM.PNCARD ---
Progress Note: A&P Assessment and Plan (1) NSTEMI (non-ST elevated myocardial infarction): Code(s): I21.4 - Non-ST elevation (NSTEMI) myocardial infarction Status: Acute Assessment and Plan: Patient presents with chest pain and troponin elevation with abnormal ECG changes consistent with myocardial ischemia and probable non ST elevation myocardial infarction. Did have AF RVR on presentation, but cannot rule out underlying CAD. Given history of medical nonadherence, recommend conservative management including atherosclerotic risk reduction with aspirin 81 mg daily, continuation of simvastatin. Will continue systemic anticoagulation with heparin infusion times 48 hours. She remains asymptomatic in this regard. Cardiology will sign off. Please call with questions. (2) Acute hypoxic respiratory failure: Code(s): J96.01 - Acute respiratory failure with hypoxia Status: Acute Assessment and Plan: Patient has a history of ongoing tobacco abuse probable COPD. Continue O2 supplementation, wean as warranted. Bronchodilator therapy is appropriate. Defer to primary service in this regard. (3) Atrial fibrillation with rapid ventricular response: Code(s): I48.91 - Unspecified atrial fibrillation Status: Acute Assessment and Plan: Currently in sinus rhythm after IV metoprolol. Will initiate metoprolol tartrate 25 mg twice daily for reduction risk for recurrence of AFib. Given recent stroke, CHADS2 Vasc score 5-6 and high risk for recurrent embolic stroke. When 48 hours of heparin complete, can shift back to DOAC in the form of apixban 5mg b.i.d. as there is no plan to proceed with angiogram during this hospitalization. (4) Uncontrolled hypertension: Code(s): I10 - Essential (primary) hypertension Status: Acute Assessment and Plan: BP remains elevated, but is improving. Will increase lisinopril to 20mg daily. (5) Aortic stenosis: Qualifiers: Cardiac valve disease etiology: etiology unspecified Qualified Code(s): I35.0 - Nonrheumatic aortic (valve) stenosis Code(s): I35.0 - Nonrheumatic aortic (valve) stenosis Status: Acute Assessment and Plan: By previous echo moderate in severity. Continue to monitor clinically. (6) Noncompliance w/medication treatment due to intermit use of medication: Code(s): Z91.148 - Patient's other noncompliance with medication regimen for other reason Status: Acute Assessment and Plan: As above, this places patient questions status with regards to candidacy for invasive angiography given risk potentially fatal or life-threatening complications if her case intervention/stent implantation required and she was noncompliant with antiplatelet therapy. (7) Acute hypokalemia: Code(s): E87.6 - Hypokalemia Status: Acute Assessment and Plan: Resolved. (8) Diabetes mellitus: Qualifiers: Diabetes mellitus complication detail: with other skin ulcer Diabetes mellitus complication status: with skin complications Diabetes mellitus nursing home insulin use: without nursing home use Diabetes mellitus type: type 2 Qualified Code(s): E11.622 - Type 2 diabetes mellitus with other skin ulcer Code(s): E11.9 - Type 2 diabetes mellitus without complications Status: Acute Assessment and Plan: Management per primary service. Continue NovoLog insulin and Lantus. (9) Vascular dementia: Qualifiers: Dementia behavioral or psychological symptom: unspecified whether behavioral, psychotic, or mood disturbance or anxiety Dementia severity: moderate Qualified Code(s): F01.B0 - Vascular dementia, moderate, without behavioral disturbance, psychotic disturbance, mood disturbance, and anxiety Code(s): F01.50 - Vascular dementia, unspecified severity, without behavioral disturbance, psychotic disturbance, mood disturbance, and anxiety Status: Acute
[2023-02-15] MEDS: ASPIRIN 81 MG ENTERIC TABLET PO (10:35)
[2023-02-15] MEDS: CHOLECALCIFEROL 1,000 UNITS TABLET 1000 UNITS PO (10:36)
[2023-02-15] MEDS: METOPROLOL TARTRATE 25 MG TABLET PO ×2 (10:36→20:15)
[2023-02-15] MEDS: THERAPEUTIC MULTIVITAMINS/MINERALS TAB (*BKC) 1 TABLET PO (10:36)
[2023-02-15] MEDS: lisinopriL 10 MG TABLET PO (10:36)
[2023-02-15] MEDS: SIMVASTATIN 10 MG TABLET PO (10:37)
[2023-02-15 10:58] LABS: Partial Thromboplastin Time 111.6 SECONDS (22.3-36.8)
[2023-02-15 12:49] LABS: Glucose Point of Care 242 mg/dl (65-105)
--- NOTE | 2023-02-15 15:19 | PM.IMPN ---
Progress Note: A&P Assessment and Plan (1) Atrial fibrillation with rapid ventricular response: Code(s): I48.91 - Unspecified atrial fibrillation Status: Acute Assessment and Plan: Patient presented with difficulty breathing likely related to AFib RVR. Patient given IV metoprolol in the ED and converted to NSR. She is maintaining normal sinus. CXR was clear. Echo showing EF 65-70%, Grade I diastolic dysfxn, moderate and mild MR. She was placed on gentle IV fluid hydration but this was stopped Patient was not no rate controlling agents so metoprolol added Eliquis resumed but now on hold and changed to heparin for possible LHC Continue to monitor on tele (2) NSTEMI (non-ST elevated myocardial infarction): Code(s): I21.4 - Non-ST elevation (NSTEMI) myocardial infarction Status: Acute Assessment and Plan: Patient presents with CP and had elevated troponin on admission. Likely Type II due to demand ischemia from AFib and/or hypoxia. But can not exclude NSTEMI. Echo as above. ASA and Metoprolol added. Continue Zocor. Discussed with Cardiology. Concern that LHC with stent placement would require patient to be compliant with DAPT which it is unclear she could be. Elquis stopped (received last dose yesterday morning) and started on Heparin drip. \LHC being considered Appreciate Cardiology input. (3) Acute hypoxic respiratory failure: Code(s): J96.01 - Acute respiratory failure with hypoxia Status: Acute Assessment and Plan: The patient's pulse ox at home/EMS was 90% and she was complaining of feeling SOB. Patient is a chronic smoker and likely has underlying COPD. ABG 7.46/34/75 on 2L. CXR was clear. On Eliquis at home so PE seems less likely Will placed on nebulizer treatments. Weaned to room air (4) Acute hypokalemia: Code(s): E87.6 - Hypokalemia Status: Acute Assessment and Plan: The patient has hypokalemia with potassium 2.9. Potassium and Mag was replaced. Mag 1.8 today. Potassium 3.7 today Follow (5) Acute UTI: Code(s): N39.0 - Urinary tract infection, site not specified Status: Acute Assessment and Plan: UA is consistent with UTI. UCx collected. BCx cancelled. Rocephin started. UCx pending. Follow up on UCx results. (6) Dehydration with hyponatremia: Code(s): E86.0 - Dehydration; E87.1 - Hypo-osmolality and hyponatremia Status: Acute Assessment and Plan: Patient has had a 10 kg weight loss since last year. Nutritional status is concerning. Patient has low serum albumin but also has 4+ protein loss in her urine. She likely has component of diabetic nephropathy with chronic protein loss in her urine of 2-4+ since at least to 2019. Renal function okay. Patient likely has some component of protein calorie malnutrition and is likely having some weight loss also due to uncontrolled diabetes. Sodium slightly low at 132 which could be from dehydration but also pseudohyponatremia from elevated glucose values. Na better today. Supplements added. (7) Diabetes mellitus due to underlying condition with hyperglycemia, without long-term current use of insulin: Code(s): E08.65 - Diabetes mellitus due to underlying condition with hyperglycemia Status: Acute Assessment and Plan: A1c 7.8% in Nov. The patient's blood glucose was reviewed on 02/15 Glucose remains poorly controlled. Continue AccuCheks covering with sliding scale. Hypoglycemia protocol available as needed. Lantus added and will advance. Adjust medications as needed. (8) Vascular dementia: Qualifiers: Dementia severity: moderate Dementia behavioral or psychological symptom: unspecified whether behavioral, psychotic, or mood disturbance or anxiety Qualified Code(s): F01.B0 - Vascular dementia, moderate, without behavioral disturbance, psychotic disturbance, mood disturbance, and anxiety C
[2023-02-15 17:37] LABS: Glucose Point of Care 196 mg/dl (65-105)
[2023-02-15 19:14] LABS: Partial Thromboplastin Time 75.1 SECONDS (22.3-36.8)
[2023-02-15 20:14] LABS: Glucose Point of Care 361 mg/dl (65-105)
[2023-02-15] MEDS: HEPARIN SOD/D5W 100 UNITS/ML 25,000 UNITS/250 ML BAG 10 UNITS IV CONT (20:16)
[2023-02-15] MEDS: INSULIN GLARGINE (*BKC) 100 UNITS/ML 15 UNITS SUB-Q (20:24)
[2023-02-16] VITALS (25 sets, daily range): BP systolic 125–172; BP diastolic 55–84; PULSE 66–96; RESP 16–22; TEMP 36–36.6; O2SAT 92–95
[2023-02-16] MEDS: LEVALBUTEROL NEB 1.25 MG/3 ML 0.63 MG INHALATION ×4 (01:39→20:16)
[2023-02-16 02:09] LABS: Basophils Absolute Auto 0.1 K/mm3 (0.0-0.1); Eosinophils Absolute Auto 0.4 K/mm3 (0-0.3); Eosinophils Percent Auto 4.9 % (0-4.4); Hematocrit 35.7 % (37.0-47.0); Hemoglobin 11.3 g/dL (12.0-15.0); Immature Granulocyte Absolute 0.05 K/mm3 (0.00-0.031); Immature Granulocyte Percent A 0.7 % (0-0.5); Lymphocytes Absolute Auto 1.85 K/mm3 (0.9-3.2); Lymphocytes Percent Auto 25.9 % (18.3-44.2); Mean Corpuscular HGB Conc 31.7 g/dl (32-36); Mean Corpuscular Hemoglobin 29.2 pg (26-34); Mean Corpuscular Volume 92.2 fl (80-100); Mean Platelet Volume 11.7 fl (7.4-10.4); Monocytes Absolute Auto 0.5 K/mm3 (0.1-0.6); Neutrophils Absolute Auto 4.3 K/mm3 (1.3-6.7); Neutrophils Percent Auto 60.5 % (45.5-73.1); Platelet Count Result 192 k/mm3 (150-375); Red Blood Count 3.87 M/mm3 (4.2-5.4); Red Cell Distribution Width 13.4 % (11.5-14.5); White Blood Count 7.1 K/mm3 (4.5-10.0)
[2023-02-16 02:24] LABS: Partial Thromboplastin Time 70.5 SECONDS (22.3-36.8)
[2023-02-16 02:25] LABS: Albumin Level 1.8 g/dL (3.5-5.1); Anion Gap 7 mmol/L (8-16); Blood Urea Nitrogen 11 mg/dL (7-17); Calcium 8.5 mg/dL (8.4-10.2); Carbon Dioxide 27 mmol/L (22-30); Chloride 100 mmol/L (98-107); Estimated CRCL calculation 48 ml/min; Estimated Glomerular Filt Rate > 60; Glucose 297 mg/dL (65-110); Magnesium 1.7 mg/dL (1.6-2.3); Phosphorus 4.1 mg/dL (2.5-4.5); Potassium 3.6 mmol/L (3.4-5.0); Sodium 134 mmol/L (137-145)
[2023-02-16] MEDS: HEPARIN SODIUM 5,000 UNITS/ML VIAL 2500 UNITS IV PUSH ×2 (02:33→09:06)
[2023-02-16 08:14] LABS: Glucose Point of Care 288 mg/dl (65-105)
[2023-02-16 08:32] LABS: Partial Thromboplastin Time 70.5 SECONDS (22.3-36.8)
[2023-02-16] MEDS: THERAPEUTIC MULTIVITAMINS/MINERALS TAB (*BKC) 1 TABLET PO (09:07)
[2023-02-16] MEDS: METOPROLOL TARTRATE 25 MG TABLET PO ×2 (09:07→20:29)
[2023-02-16] MEDS: SIMVASTATIN 10 MG TABLET PO (09:07)
[2023-02-16] MEDS: CHOLECALCIFEROL 1,000 UNITS TABLET 1000 UNITS PO (09:07)
[2023-02-16] MEDS: ASPIRIN 81 MG ENTERIC TABLET PO (09:07)
[2023-02-16] MEDS: lisinopriL 20 MG TABLET PO (09:07)
[2023-02-16] MEDS: INSULIN ASPART (*BKC) 100 UNITS/ML SUB-Q ×3 (09:08→17:29)
[2023-02-16] MEDS: LORazepam INJ (*CRX) 2 MG/ML VIAL 0.5 MG IV PUSH (12:02)
[2023-02-16 12:06] LABS: Glucose Point of Care 240 mg/dl (65-105)
--- NOTE | 2023-02-16 12:25 | PM.PNCARD ---
Progress Note: A&P Assessment and Plan (1) NSTEMI (non-ST elevated myocardial infarction): Code(s): I21.4 - Non-ST elevation (NSTEMI) myocardial infarction Status: Acute Assessment and Plan: Patient presents with chest pain and troponin elevation with abnormal ECG changes consistent with myocardial ischemia and probable non ST elevation myocardial infarction. Did have AF RVR on presentation, but cannot rule out underlying CAD. Given history of medical nonadherence, recommend conservative management including atherosclerotic risk reduction with aspirin 81 mg daily, continuation of simvastatin 10 mg at bedtime, lisinopril 20 mg daily, metoprolol tartrate 25 mg twice daily. - Discontinue heparin infusion as she has completed 48 hours of therapy. Resume Eliquis 5 mg twice daily for embolic stroke risk reduction beginning this evening. Patient will need to demonstrate compliance with medical therapy and follow-up due to risk for intervention and/or stent if warranted on coronary angiography and high risk for very serious and/or life-threatening complications if she is not compliant with antiplatelet therapy. Patient is asymptomatic and feeling well at this time. Continue aggressive medical therapy. She is not on clopidogrel to minimize bleeding risk with triple therapy. From a cardiac perspective, patient stable. Will sign off for now. Please do not hesitate to contact us with additional questions or concerns. She will need to follow up as an outpatient with us/Dr. Tavares in 2-4 weeks. (2) Acute hypoxic respiratory failure: Code(s): J96.01 - Acute respiratory failure with hypoxia Status: Acute Assessment and Plan: Patient has a history of ongoing tobacco abuse probable COPD. Continue O2 supplementation, wean as warranted. Bronchodilator therapy as appropriate. Defer to primary service in this regard. (3) Atrial fibrillation with rapid ventricular response: Code(s): I48.91 - Unspecified atrial fibrillation Status: Acute Assessment and Plan: Currently in sinus rhythm Maintaining with metoprolol tartrate 25 mg twice daily for reduction risk for recurrence of AFib. Given recent stroke, CHADS2 Vasc score 5-6 and high risk for recurrent embolic stroke. resume Eliquis 5 mg twice daily beginning this evening. Heparin infusion discontinued today. (4) Uncontrolled hypertension: Code(s): I10 - Essential (primary) hypertension Status: Acute Assessment and Plan: BP remains elevated, but Stable. Continue metoprolol tartrate 25 mg twice daily, lisinopril to 20mg daily. (5) Aortic stenosis: Qualifiers: Cardiac valve disease etiology: etiology unspecified Qualified Code(s): I35.0 - Nonrheumatic aortic (valve) stenosis Code(s): I35.0 - Nonrheumatic aortic (valve) stenosis Status: Acute Assessment and Plan: By previous echo moderate in severity. Continue to monitor clinically. (6) Noncompliance w/medication treatment due to intermit use of medication: Code(s): Z91.148 - Patient's other noncompliance with medication regimen for other reason Status: Acute Assessment and Plan: As above, this places patient questions status with regards to candidacy for invasive angiography given risk potentially fatal or life-threatening complications if her case intervention/stent implantation required and she was noncompliant with antiplatelet therapy. (7) Acute hypokalemia: Code(s): E87.6 - Hypokalemia Status: Acute Assessment and Plan: Resolved. (8) Diabetes mellitus: Qualifiers: Diabetes mellitus type: type 2 Diabetes mellitus fci insulin use: without fci use Diabetes mellitus complication status: with skin complications Diabetes mellitus complication detail: with other skin ulcer Qualified Code(s): E11.622 - Type 2 diabetes mellitus with other skin ulcer Code(s): E11.9 - Type
--- NOTE | 2023-02-16 13:25 | PM.DS ---
DS: Admitting Diagnosis Discharge Date 02/16/23 Admitting Diagnosis chest pain DS: Discharge Diagnosis Discharge Diagnosis (1) Atrial fibrillation with rapid ventricular response: Code(s): I48.91 - Unspecified atrial fibrillation Status: Acute Assessment and Plan: Patient presented with difficulty breathing likely related to AFib RVR. Patient given IV metoprolol in the ED and converted to NSR. She is maintaining normal sinus. CXR was clear. Echo showing EF 65-70%, Grade I diastolic dysfxn, moderate and mild MR. She was placed on gentle IV fluid hydration but this was stopped Patient was not no rate controlling agents so metoprolol added Eliquis resumed but now on hold and changed to heparin for possible LHC Continue to monitor on tele (2) NSTEMI (non-ST elevated myocardial infarction): Code(s): I21.4 - Non-ST elevation (NSTEMI) myocardial infarction Status: Acute Assessment and Plan: Patient presents with CP and had elevated troponin on admission. Likely Type II due to demand ischemia from AFib and/or hypoxia. But can not exclude NSTEMI. Echo as above. ASA and Metoprolol added. Continue Zocor. Discussed with Cardiology. Concern that LHC with stent placement would require patient to be compliant with DAPT which it is unclear she could be. Elquis stopped (received last dose yesterday morning) and started on Heparin drip. \LHC being considered Appreciate Cardiology input. (3) Acute hypoxic respiratory failure: Code(s): J96.01 - Acute respiratory failure with hypoxia Status: Acute Assessment and Plan: The patient's pulse ox at home/EMS was 90% and she was complaining of feeling SOB. Patient is a chronic smoker and likely has underlying COPD. ABG 7.46/34/75 on 2L. CXR was clear. On Eliquis at home so PE seems less likely Will placed on nebulizer treatments. Weaned to room air (4) Acute hypokalemia: Code(s): E87.6 - Hypokalemia Status: Acute Assessment and Plan: The patient has hypokalemia with potassium 2.9. Potassium and Mag was replaced. Mag 1.8 today. Potassium 3.7 today Follow (5) Acute UTI: Code(s): N39.0 - Urinary tract infection, site not specified Status: Acute Assessment and Plan: UA is consistent with UTI. UCx collected. BCx cancelled. Rocephin started. UCx pending. Follow up on UCx results. (6) Dehydration with hyponatremia: Code(s): E86.0 - Dehydration; E87.1 - Hypo-osmolality and hyponatremia Status: Acute Assessment and Plan: Patient has had a 10 kg weight loss since last year. Nutritional status is concerning. Patient has low serum albumin but also has 4+ protein loss in her urine. She likely has component of diabetic nephropathy with chronic protein loss in her urine of 2-4+ since at least to 2019. Renal function okay. Patient likely has some component of protein calorie malnutrition and is likely having some weight loss also due to uncontrolled diabetes. Sodium slightly low at 132 which could be from dehydration but also pseudohyponatremia from elevated glucose values. Na better today. Supplements added. (7) Diabetes mellitus due to underlying condition with hyperglycemia, without long-term current use of insulin: Code(s): E08.65 - Diabetes mellitus due to underlying condition with hyperglycemia Status: Acute Assessment and Plan: A1c 7.8% in Nov. The patient's blood glucose was reviewed on 02/15 Glucose remains poorly controlled. Continue AccuCheks covering with sliding scale. Hypoglycemia protocol available as needed. Lantus added and will advance. Adjust medications as needed. (8) Vascular dementia: Qualifiers: Dementia behavioral or psychological symptom: unspecified whether behavioral, psychotic, or mood disturbance or anxiety Dementia severity: moderate Qualified Code(s): F01.B0 - Vascular dementia, moderate, with
[2023-02-16 16:52] LABS: Glucose Point of Care 224 mg/dl (65-105)
[2023-02-16 20:23] LABS: Glucose Point of Care 157 mg/dl (65-105)
[2023-02-16] MEDS: INSULIN GLARGINE (*BKC) 100 UNITS/ML 15 UNITS SUB-Q (20:29)
[2023-02-17] VITALS (18 sets, daily range): BP systolic 136–184; BP diastolic 60–76; PULSE 68–87; RESP 18–24; TEMP 36.2–37.1; O2SAT 92–98
[2023-02-17] MEDS: LEVALBUTEROL NEB 1.25 MG/3 ML 0.63 MG INHALATION ×3 (07:10→19:43)
[2023-02-17] MEDS: APIXABAN 5 MG TABLET PO (09:50)
[2023-02-17] MEDS: SIMVASTATIN 10 MG TABLET PO (09:50)
[2023-02-17] MEDS: ASPIRIN 81 MG ENTERIC TABLET PO (09:50)
[2023-02-17] MEDS: METOPROLOL TARTRATE 25 MG TABLET PO (09:50)
[2023-02-17] MEDS: THERAPEUTIC MULTIVITAMINS/MINERALS TAB (*BKC) 1 TABLET PO (09:50)
[2023-02-17] MEDS: lisinopriL 20 MG TABLET PO (09:50)
[2023-02-17] MEDS: CHOLECALCIFEROL 1,000 UNITS TABLET 1000 UNITS PO (09:50)
[2023-02-17 11:30] LABS: Glucose Point of Care 210 mg/dl (65-105)
--- NOTE | 2023-02-17 11:53 | PCPTNOTE ---
Patient refused treatment. Patient states I have been up moving enough today. I don't need therapy today. Come back tomorrow and we can maybe do it then. Educated patient on the importance of participating in PT to improve strength and functional mobility. Patient voices understanding but continues to refuse.
[2023-02-17] MEDS: INSULIN ASPART (*BKC) 100 UNITS/ML SUB-Q (13:01)
[2023-02-17 16:40] LABS: Glucose Point of Care 149 mg/dl (65-105)
== END 2023-02-17 20:00 | DRG 281 ==
LOC: ANHED 02-14 00:12 → ANHIMU 02-14 00:33
PROVIDERS: Internal Medicine; Internal Medicine Cardiovascular Disease; Admitting Provider Internal Medicine; Emergency Provider Emergency Medicine; PCP Emergency Medicine; Visit Provider Internal Medicine
DX: I48.0 Paroxysmal atrial fibrillation (principal); I21.4 Non-ST elevation (NSTEMI) myocardial infarction; E87.1 Hypo-osmolality and hyponatremia; I21.A1 Myocardial infarction type 2; I50.32 Chronic diastolic (congestive) heart failure; I11.0 Hypertensive heart disease with heart failure; E87.6 Hypokalemia; J44.9 Chronic obstructive pulmonary disease, unspecified; F17.210 Nicotine dependence, cigarettes, uncomplicated; E86.0 Dehydration; F01.50 Vascular dementia, unspecified severity, without behavioral disturbance, psychotic disturbance, mood disturbance, and anxiety; E11.65 Type 2 diabetes mellitus with hyperglycemia; E11.42 Type 2 diabetes mellitus with diabetic polyneuropathy; I35.0 Nonrheumatic aortic (valve) stenosis; M48.07 Spinal stenosis, lumbosacral region; I73.9 Peripheral vascular disease, unspecified; E83.42 Hypomagnesemia; I65.21 Occlusion and stenosis of right carotid artery; E78.2 Mixed hyperlipidemia; Z90.49 Acquired absence of other specified parts of digestive tract; Z86.73 Personal history of transient ischemic attack (TIA), and cerebral infarction without residual deficits; Z91.148 Patient's other noncompliance with medication regimen for other reason
CPT/HCPCS: 36415; 36600; 71045; 80048; 80053; 80069; 81001; 82805; 82948; 83605; 83690; 83735; 83880; 84145; 84484; 85025; 85027; 85610; 85730; 87040; 87077; 87086; 87186; 87636; 93005; 93306; 94640; 96365; 96366; 96367; 96368; 96375; 97110; 97161; 97166; 97530; 97535; 99285; A9270; G0378; J0696; J1644; J1815; J2060; J3475; J3480; J7030; J7040

== ENCOUNTER 2023-03-15 11:30 | Observation (INO) | payer MEDICARE, SELFPAY ==
--- NOTE | ~2023-03-15 | XR_ITS ---
EXAM: XR scapula LT DATE: 03/15/2023 15:15 HISTORY: rule out fracture . COMPARISON: X-ray chest, same date. FINDINGS: Decreased mineralization. No fracture or dislocation. No lytic or blastic lesion. Degenera tive change at the glenohumeral joint and AC joint. No erosion or periosteal change. Granulomatous trevor ng calcification. IMPRESSION: No acute osseous finding in the left scapula. The prior chest radiograph findings were ar tifactual. Reviewed, dictated and finalized at location K. ING SERVICES CLERK IMPRESSION: No acute osseous finding in the left scapula. The prior chest radio graph findings were artifactual.
--- NOTE | ~2023-03-15 | XR_ITS ---
EXAM: XR tibia fibula RT 2V, XR ankle RT min 3V DATE: 03/15/2023 14:42 HISTORY: PROXIMAL PAIN AFTER FALL . COMPARISON: Right knee 11/08/2017. FINDINGS: Decreased mineralization. No fracture or dislocation. No lytic or blastic lesion. Mild deg enerative change in the knee, ankle and midfoot. Achilles and plantar enthesopathy. No erosion or per iosteal change. Soft tissues within normal limits. IMPRESSION: No acute osseous finding in the right tibia/fibula or right ankle. Reviewed, dictated and finalized at location K. OMER CARE ASSISTANT IMPRESSION: No acute osseous finding in the right tibia/fibula or right ankle.
--- NOTE | ~2023-03-15 | CT_ITS ---
EXAMINATION: CT lumbar spine wo con DATE: 03/15/2023 14:25 INDICATION: Fall with weakness and back pain TECHNIQUE: Computed tomography (CT) of the lumbar spine was performed without intravenous contrast. A utomated exposure control and iterative reconstruction technique were employed. The dose-length produ ct was 428.45 mGy-cm. COMPARISON: 11/26/2022 FINDINGS: Unchanged 15 degrees lumbar levoscoliosis. No significant interval change in a chronic L1 burst fract ure with unchanged 40% anterior vertebral body height loss and 3 mm retropulsion. Remaining vertebral body heights are normal. No acute fracture. Mild disc height loss at T11-T12 and T12-L1. Cholecystec chase clips the gallbladder fossa. There is calcified atherosclerosis of the aorta and many of the [facility] arteries. The following disc levels are specifically discussed: T11-T12: Disc is mildly bulging. There is mild left and moderate right facet joint osteoarthritis. Th ere is no neural foraminal stenosis. There is minimal central canal stenosis. T12-L1: Disc is mildly bulging. There is moderate bilateral facet joint osteoarthritis. There is mild left neural foraminal stenosis. There is mild central canal stenosis. L1-L2: The disc does not extend beyond the endplate margin. There is mild bilateral facet joint osteo arthritis. There is no neural foraminal stenosis. There is no central canal stenosis. L2-L3: Small left foraminal zone disc protrusion. There is mild to moderate right and mild left facet joint osteoarthritis. There is mild left neural foraminal stenosis. There is no central canal stenos is. L3-L4: Disc is bulging. There is moderate left and mild right facet joint osteoarthritis. There is mi ld bilateral neural foraminal stenosis. There is no central canal stenosis. L4-L5: Disc is bulging. There is severe bilateral facet joint osteoarthritis. There is mild left and moderate right neural foraminal stenosis. There is mild central canal stenosis. L5-S1: Disc is bulging. There is severe bilateral facet joint osteoarthritis. There is mild left neur al foraminal stenosis. There is mild central canal stenosis. IMPRESSION: 1. Unchanged chronic L1 burst fracture. No acute osseous abnormality. 2. Mild lumbar levoscoliosis with mild spondylosis. Reviewed, dictated and finalized at location A. OMICS ANALYST
--- NOTE | ~2023-03-15 | CT_ITS ---
EXAMINATION: CT brain wo con DATE: 03/15/2023 14:25 INDICATION: Fall and weakness TECHNIQUE: Computed tomography (CT) of the head was performed without intravenous contrast. Sagittal and coronal reconstructions were performed. The mA was adjusted according to patient size. Iterative reconstruction technique was employed. The dose-length product was 681.00 mGy-cm. COMPARISON: 11/29/2022 FINDINGS: No fracture. Small region of chronic encephalomalacia consistent with old infarct at the medial left frontal lobe. Additional small old lacunar infarct at the right frontal lobe coy radiata/anterior limb of the right internal capsule. There is mild scattered white matter hypoattenuation consistent w ith chronic small vessel ischemic disease. No acute intracranial hemorrhage, acute infarction or abno rmal extra axial fluid collection. Symmetric prominence of the sulci consistent with mild age-appropr iate diffuse cerebral volume loss. Ventricles are normal and symmetric. No mass/mass effect. Changes of bilateral intraocular lens replacement. The orbits, paranasal sinuses and mastoid air cells are n ormal. IMPRESSION: 1. No fracture or acute intracranial process. 2. Small old infarcts in the medial left frontal lobe and right frontal lobe coy radiata/anterior limb of the internal capsule. 3. Age-related changes including mild diffuse volume loss and mild scattered white matter hypoattenua tion consistent with chronic small vessel ischemic disease. Reviewed, dictated and finalized at location A. RACK OPERATOR IMPRESSION: 1. No fracture or acute intracranial process. 2. Small old infarcts in the medial left frontal lobe and right frontal lobe co fredo radiata/anterior limb of the internal capsule. 3. Age-related changes including mild diffuse volume loss and mild scattered wh ite matter hypoattenuation consistent with chronic small vessel ischemic diseas e.
--- NOTE | ~2023-03-15 | XR_ITS ---
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 RESULT: Lines, tubes, and devices: Cholecystectomy clips. Lungs and pleura: Senescent change and granulomatous calcifications, otherwise clear. Cardiomediastinal silhouette: Less prominent central pulmonary arteries, may be due to technique, ot herwise stable. Other: Transverse lucency in the left scapula. No acute upper abdominal finding. IMPRESSION: No acute cardiopulmonary process. Transverse lucency in the left scapula, may represent artifact or fracture, recommend dedicated scapu lar radiographs for further evaluation. Reviewed, dictated and finalized at location K. AND MACHINE MAINTAINER IMPRESSION: No acute cardiopulmonary process. Transverse lucency in the left scapula, may represent artifact or fracture, rec ommend dedicated scapular radiographs for further evaluation.
--- NOTE | ~2023-03-15 | XR_ITS ---
EXAM: XR hip RT 2V w AP pelvis DATE: 03/15/2023 14:42 HISTORY: PAIN AFTER FALL, NORMAL ROM . COMPARISON: 01/25/2022. FINDINGS: Decreased mineralization. No fracture or dislocation. No lytic or blastic lesion. Lumbar d egenerative disc disease. Mild degenerative change in the bilateral SI joints, hips, and pubic symphy sis. No erosion or periosteal change. Vascular calcifications. IMPRESSION: No acute osseous finding in the pelvis or right hip. Reviewed, dictated and finalized at location K. ING PRESS OPERATOR
[2023-03-15 11:30] VITALS: BP 155/89; PULSE 100; RESP 18; TEMP 36.3; O2SAT 93
--- NOTE | 2023-03-15 13:36 | ECG_ITS ---
Measurements Intervals [place] Rate: 91 P: 59 [place]: 143 QRS: -47 QRSD: 85 T: 44 QT: 395 QTc: 487 Interpretive Statements SINUS RHYTHM POSSIBLE LEFT ATRIAL ENLARGEMENT [-0.1mV P WAVE IN V1/V2] LEFT ANTERIOR FASCICULAR BLOCK [QRS AXIS <= -45, QR IN I, RS IN II] INFERIOR MYOCARDIAL INFARCTION , PROBABLY OLD [40+ ms Q WAVE AND/OR ST/T ABNORMALITY IN II/aVF] COMPARED TO ECG 02/14/2023 11:26:59 MYOCARDIAL INFARCT FINDING NOW PRESENT Electronically Signed On 03-15-2023 16:08:58 [employer] by Juan Sandoval M.D.
[2023-03-15 15:09] VITALS: BP 168/79; PULSE 101; RESP 20; TEMP 36.7; O2SAT 96
[2023-03-15 15:11] LABS: Basophils Absolute Auto 0.1 K/mm3 (0.0-0.1); Basophils Percent Auto 0.7 % (0.2-1.2); Eosinophils Absolute Auto 0.1 K/mm3 (0-0.3); Eosinophils Percent Auto 1.2 % (0-4.4); Hematocrit 45.7 % (37.0-47.0); Hemoglobin 14.5 g/dL (12.0-15.0); Immature Granulocyte Absolute 0.04 K/mm3 (0.00-0.031); Immature Granulocyte Percent A 0.4 % (0-0.5); Lymphocytes Absolute Auto 1.95 K/mm3 (0.9-3.2); Lymphocytes Percent Auto 19.2 % (18.3-44.2); Mean Corpuscular HGB Conc 31.7 g/dl (32-36); Mean Corpuscular Hemoglobin 29.2 pg (26-34); Monocytes Absolute Auto 0.7 K/mm3 (0.1-0.6); Monocytes Percent Auto 7.2 % (2.6-8.5); Neutrophils Absolute Auto 7.3 K/mm3 (1.3-6.7); Neutrophils Percent Auto 71.3 % (45.5-73.1); Platelet Count Result 233 k/mm3 (150-375); Red Blood Count 4.97 M/mm3 (4.2-5.4); Red Cell Distribution Width 13.8 % (11.5-14.5); White Blood Count 10.2 K/mm3 (4.5-10.0)
[2023-03-15 15:28] LABS: Prothrombin Time 13.6 Seconds (11.1-14.7)
[2023-03-15 15:49] LABS: Appearance Urine Turbid (Clear); Bacteria Urine 4+ /hpf; Bilirubin Urine Negative (Negative); Blood Urine 3+ (Negative); Color Urine Yellow (Yellow); Glucose Urine UA 2+ mg/dL (Negative); Ketones Urine Negative (Negative); Leukocyte Esterase Ur 1+ LEU/UL (Negative); Need Manual Microscopic Reviewed; Nitrate Urine Negative (Negative); Protein Urine 4+ mg/dL (Negative); RBC Urine >100 /hpf (0-2); Specific Grav Ur 1.022 (1.001-1.035); Squamous Epithelial Cell Urine Moderate /hpf (Few); Urobilinogen Urine 0.2 mg/dL (<2.0); WBC Urine >100 /hpf; pH Urine 7.5 (5.0-9.0)
[2023-03-15 15:51] LABS: Add Urine Microscopic? YES
--- NOTE | 2023-03-15 16:02 | ED.FALL ---
HPI - Fall General Chief Complaint: Fall Stated Complaint: slid out of bed last noc Time Seen by Provider: 03/15/23 12:12 Source: patient, EMS, RN notes reviewed and old records reviewed Mode of arrival: EMS History of Present Illness HPI Narrative: This is a 72 year old female with multiple medical problems who presents for evaluation of a fall. PAtient states she has history of frequent falls. She reports she ambulates with walker sometimes but her has to help her most of the time. She states last night she was trying to get up and she slid off bed onto the floor. She stayed there all night and her found her this morning. EMS was called and patient presents for evaluation of right leg pain. She denies hitting her head but she does take chronic anticoagulation. Related Data Home Medications Medication Instructions Recorded Confirmed acetaminophen 500 mg capsule 1,000 mg PO TID PRN pain 02/13/22 02/14/23 diclofenac sodium 25 mg 25 mg PO Q12H 07/20/22 02/14/23 tablet,delayed release metformin 1,000 mg tablet 1,000 mg PO BID 07/20/22 02/14/23 simvastatin 10 mg tablet 10 mg PO DAILY 07/20/22 02/14/23 apixaban 5 mg tablet (Eliquis) 5 mg PO BID 11/27/22 02/14/23 cholecalciferol (vitamin D3) 25 25 mcg PO DAILY 11/27/22 02/14/23 mcg (1,000 unit) tablet lisinopril 10 mg tablet 10 mg PO DAILY 11/27/22 02/14/23 multivitamin with minerals (Daily 1 tablet PO DAILY 11/27/22 02/14/23 Multivitamin-Minerals tablet) Allergies Allergy/AdvReac Type Severity Reaction Status Date / Time No Known Allergies Allergy Verified 03/15/23 11:40 Review of Systems Review of Systems: All systems reviewed & are unremarkable except as noted in HPI and below Constitutional: Constitutional: Reports weakness Cardiovascular: Cardiovascular: Denies syncope, Denies rapid heart rate, Denies irregular heart rhythm, Denies leg edema and Denies dyspnea Respiratory: Respiratory: Denies chest congestion, Denies hemoptysis, Denies excessive phlegm production and Denies dyspnea Gastrointestinal: Gastrointestinal: Denies abdominal pain, Denies hematochezia, Denies diarrhea and Denies vomiting Genitourinary: Genitourinary: Denies hematuria and Denies dysuria Musculoskeletal: Musculoskeletal: Reports back pain, Reports arthralgias, Denies joint swelling, Denies loss of height and Reports muscle weakness Neurologic: Denies syncope, Denies focal weakness and Denies weakness [facility] Past Medical History Medical History (Updated 03/15/23 @ 22:21 by Berna Almaguer MD) Burst fracture of lumbar vertebra L1 Carotid stenosis, right CTA of the head and neck demonstrated moderate stenosis the right internal carotid artery COPD mixed type Cortical age-related cataract of both eyes CVA (cerebral vascular accident) Old infarct in noted on CT scan left frontal lobe 11/2022, new infarct noted on MRI right posterior frontal/periventricular white matter 11/2022 Diabetes mellitus Diabetic nephropathy Diabetic peripheral neuropathy Diastolic dysfunction Essential hypertension Mixed hyperlipidemia Peripheral artery disease Right-sided Cool's palsy Spinal stenosis of lumbosacral region Tobacco abuse Vascular dementia Vitamin D deficiency Surgical History Surgical History History of appendectomy History of Hx of cholecystectomy Family History Family History Father Malignant neoplasm of prostate, Onset Age: 76 Patient's father is Family history of Alzheimer's disease Mother Family history of malignant neoplasm of ovary Family history of malignant neoplasm of cervix Sibling Family history of malignant neoplasm of ovary Mother Cancer Son Cancer Grandparent Myocardial infarction Diabetes mellitus Grandparent No problems noted. Social History Social History (Reviewed 03/15/23 @ 16:09 by
[2023-03-15] MEDS: SODIUM CHLORIDE 0.9% IV 1,000 ML 999 ML IV CONT (16:43)
[2023-03-15 16:44] VITALS: BP 146/76; PULSE 93; RESP 18; TEMP 37; O2SAT 96
[2023-03-15 16:49] LABS: Alanine Aminotransferase 24 U/L (6-35); Albumin Level 3.7 g/dL (3.5-5.1); Alkaline Phosphatase 129 U/L (38-126); Anion Gap 7 mmol/L (8-16); Aspartate Amino Transferase 35 U/L (14-36); Bilirubin,Total 0.7 mg/dL (0.2-1.3); Blood Urea Nitrogen 21 mg/dL (7-17); Calcium 9.6 mg/dL (8.4-10.2); Carbon Dioxide 31 mmol/L (22-30); Chloride 98 mmol/L (98-107); Creatine Kinase 48 U/L (30-135); Estimated CRCL calculation 55 ml/min; Estimated Glomerular Filt Rate > 60; Glucose 289 mg/dL (65-110); Magnesium 1.7 mg/dL (1.6-2.3); Potassium 3.5 mmol/L (3.4-5.0); Sodium 136 mmol/L (137-145)
[2023-03-15 19:50] VITALS: BP 148/85; PULSE 95; RESP 20; O2SAT 97
--- NOTE | 2023-03-15 20:33 | PM.IMHP ---
H&P: HPI History of Present Illness Date/Time: 03/15/23 20:33 Chief Complaint: fall at home Narrative: 72F w/ PMH pAF, PAD, NIDDM, diabetic neuropathy, diabetic nephropathy, , COPD, CVA w/o residual deficit, HTN, vascular dementia, tobacco abuse, HLD, history of noncompliance presenting with fall at home. The night prior to admission she was trying to get up up out of bed and slide onto the floor, apparently staying there all night until the found her. She denies hitting her head or losing consciousness. The patient's only complaint is nonspecific right leg pain. She denies urinary incontinence, dysuria, increased urinary frequency or bladder pain. She denies any other symptoms. The patient is unwilling to return home and wants to be placed permanently. She lives with and when asked why they can't take care of her she responds, He is a man. Review of Systems Review of Systems: All systems reviewed & are unremarkable except as noted in HPI and below (HPI) [facility] Past Medical History Medical History (Updated 03/15/23 @ 20:51 by Yamilet Reyes MD) Burst fracture of lumbar vertebra L1 Carotid stenosis, right CTA of the head and neck demonstrated moderate stenosis the right internal carotid artery COPD mixed type Cortical age-related cataract of both eyes CVA (cerebral vascular accident) Old infarct in noted on CT scan left frontal lobe 11/2022, new infarct noted on MRI right posterior frontal/periventricular white matter 11/2022 Diabetes mellitus Diabetic nephropathy Diabetic peripheral neuropathy Diastolic dysfunction Essential hypertension Mixed hyperlipidemia Peripheral artery disease Right-sided Cool's palsy Spinal stenosis of lumbosacral region Tobacco abuse Vascular dementia Vitamin D deficiency Surgical History Surgical History History of appendectomy History of Hx of cholecystectomy Family History Family History Father Malignant neoplasm of prostate, Onset Age: 76 Patient's father is Family history of Alzheimer's disease Mother Family history of malignant neoplasm of ovary Family history of malignant neoplasm of cervix Sibling Family history of malignant neoplasm of ovary Mother Cancer Son Cancer Grandparent Myocardial infarction Diabetes mellitus Grandparent No problems noted. Social History Social History Social History: She lives at home with her . She sleeps on the couch. She uses a bedside commode. She has smoked up to 2 pack per day since she was a teenager. She denies any history of heavy alcohol use. She denies illicit substance use. Code status: Full code Surrogate decision maker: Smoking packs per day: 0.5 Smoking cigarettes per day: 10.0 Years smoked: 55 Smoking pack-years: 27.50 Smoking status: Current every day smoker Tobacco type: cigarettes Second hand tobacco smoke exposure: Yes Smoking end date: 03/21/11 Alcohol intake: never Substance use: never Substance use type: does not use Lack of Transportation: YES Lack of Food: Never True Current Housing: I Have Housing Concerned About Future Housing: No Difficulty Paying Gas/Electric Bills: No Difficulty Paying for Meds: No Currently Unemployed: No Education: High School Diploma/GED Difficulty w/ Childcare or Family Care: No Living arrangements: with family Gender identity (if verbalized by the patient): Female Sexual Orientation (if Verbalized by the Patient): Straight or Heterosexual Spiritual care concerns: No Agree to blood products: Yes Meds Home Medications and Allergies Home Medications Medication Instructions Recorded Confirmed Type blood glucose control, low (True #1 ea 08/29/20 02/14/23 Rx Metrix Level 1 solution)
[2023-03-15] MEDS: INSULIN ASPART (*BKC) 100 UNITS/ML SUB-Q (22:20)
[2023-03-15 22:23] VITALS: BP 142/72; PULSE 97; RESP 19; O2SAT 96
[2023-03-15 22:26] LABS: Glucose Point of Care 395 mg/dl (65-105)
--- NOTE | 2023-03-15 22:38 | ADMGEN ---
This patient, Majo Abbott, was admitted to Medical Room 258-01. Patient/family oriented to hospital policies and general routines including ID bracelet, bed and alarms, visiting hours, pain management, procedures, bathroom and other care routines, personal items, smoking policy, room service/diet, and visiting hours. Information on how to activate the Rapid Response Team has been discussed. Patient/Family are encouraged to report perceived risks to care and to ask questions if they do not understand what they are told or what they should do.
[2023-03-15 22:46] VITALS: BMI 22.6
[2023-03-15 22:49] VITALS: BP 175/76; PULSE 85; RESP 18; TEMP 35.8; O2SAT 93
[2023-03-16 03:08] VITALS: BP 186/75; PULSE 89; RESP 18; TEMP 36; O2SAT 91
[2023-03-16 05:59] LABS: Basophils Absolute Auto 0.1 K/mm3 (0.0-0.1); Basophils Percent Auto 0.6 % (0.2-1.2); Eosinophils Absolute Auto 0.4 K/mm3 (0-0.3); Eosinophils Percent Auto 3.3 % (0-4.4); Hemoglobin 12.4 g/dL (12.0-15.0); Immature Granulocyte Absolute 0.06 K/mm3 (0.00-0.031); Immature Granulocyte Percent A 0.6 % (0-0.5); Lymphocytes Absolute Auto 2.31 K/mm3 (0.9-3.2); Lymphocytes Percent Auto 22.1 % (18.3-44.2); Mean Corpuscular HGB Conc 31.8 g/dl (32-36); Mean Corpuscular Hemoglobin 29.2 pg (26-34); Mean Corpuscular Volume 91.8 fl (80-100); Monocytes Absolute Auto 0.9 K/mm3 (0.1-0.6); Neutrophils Absolute Auto 6.7 K/mm3 (1.3-6.7); Neutrophils Percent Auto 64.4 % (45.5-73.1); Platelet Count Result 217 k/mm3 (150-375); Red Blood Count 4.25 M/mm3 (4.2-5.4); Red Cell Distribution Width 13.7 % (11.5-14.5); White Blood Count 10.5 K/mm3 (4.5-10.0)
[2023-03-16 06:19] LABS: Alanine Aminotransferase 20 U/L (6-35); Albumin Level 3.3 g/dL (3.5-5.1); Alkaline Phosphatase 129 U/L (38-126); Anion Gap 9 mmol/L (8-16); Aspartate Amino Transferase 24 U/L (14-36); Bilirubin,Total 0.5 mg/dL (0.2-1.3); Blood Urea Nitrogen 15 mg/dL (7-17); Calcium 9.3 mg/dL (8.4-10.2); Carbon Dioxide 28 mmol/L (22-30); Chloride 101 mmol/L (98-107); Estimated CRCL calculation 63 ml/min; Estimated Glomerular Filt Rate > 60; Glucose 278 mg/dL (65-110); Potassium 3.2 mmol/L (3.4-5.0); Sodium 138 mmol/L (137-145)
[2023-03-16 06:36] LABS: Procalcitonin 0.1 ng/mL
[2023-03-16 08:06] LABS: Glucose Point of Care 281 mg/dl (65-105)
[2023-03-16] MEDS: ASPIRIN 81 MG ENTERIC TABLET PO (08:26)
[2023-03-16] MEDS: APIXABAN 5 MG TABLET PO ×2 (08:26→20:32)
[2023-03-16] MEDS: INSULIN ASPART (*BKC) 100 UNITS/ML SUB-Q ×2 (08:27→20:33)
--- NOTE | 2023-03-16 08:30 | PM.IMPN ---
Progress Note: A&P Assessment and Plan (1) Fall at home: Code(s): W19.XXXA - Unspecified fall, initial encounter; Y92.009 - Unspecified place in unspecified non-institutional (private) residence as the place of occurrence of the external cause Status: Acute Assessment and Plan: 03/16/23: Patient had a ground level fall out of bed, found her the next morning on the floor. She denies any LOC X-ray of scapula, hip/pelvis, tib/fib, and ankle are all negative for acute fracture. Head CT was negative for any acute intracranial process, shown old infarcts and age related changes. Lumbar spine shown unchanged chronic L1 burst fracture. PT and OT ordered to evaluate and treat Care coordination consultation. (2) Leukocytosis: Code(s): D72.829 - Elevated white blood cell count, unspecified Status: Acute Assessment and Plan: 03/16/23: WBC slightly bumped to 10.5 Will continue to monitor. UA showing 4+ protein, 2+ glucose, 3+ blood,1+ leukocytes, >100 urine rbc's, > 100 urine WBC's, moderate squamous epith. cells, 4+ bacteria. Urine and blood cultures obtained and are pending. Patient received 1 dose ofr IV Rocephin in the ER. (3) History of CVA (cerebrovascular accident): Code(s): Z86.73 - Personal history of transient ischemic attack (TIA), and cerebral infarction without residual deficits Status: Acute Assessment and Plan: 03/16/23: continue ASA (4) Paroxysmal atrial fibrillation with RVR: Code(s): I48.0 - Paroxysmal atrial fibrillation Status: Acute Assessment and Plan: 03/16/23: Continue Eliquis and Metoprolol (5) Hyperlipidemia: Qualifiers: Hyperlipidemia type: mixed hyperlipidemia Qualified Code(s): E78.2 - Mixed hyperlipidemia Code(s): E78.5 - Hyperlipidemia, unspecified Status: Acute Assessment and Plan: 03/16/23: Continue simvastatin (6) HTN (hypertension): Qualifiers: Hypertension type: essential hypertension Qualified Code(s): I10 - Essential (primary) hypertension Code(s): I10 - Essential (primary) hypertension Status: Acute Assessment and Plan: 03/16/23: B/P ranging 175/76-186/75 Continue Lisinopril (7) Tobacco abuse: Code(s): Z72.0 - Tobacco use Status: Acute Assessment and Plan: 03/16/23: of note Time Spent With Patient Time with patient: Greater than 35 minutes Subjective Date/time seen: 03/16/23 08:30 Interval history: This is a 72 year old female who presented to the hospital on 03/15/23 for evaluation after a fall. Patient was trying to get up out of the bed and slide onto the floor. found her in the morning. She reported right leg pain. She is wanting permanent placement. Work up in the hospital includes Head CT which was negative for any acute changes, old infarcts and age related changes noted. Lumbar spine CT shown L1 burst fracture. CXR shown transverse lucency in the left scapula, ? fracture. Scapular x-ray was negative for fracture. Ankle, tib/fib, and hip/pelvis x-ray was negative for fracture as well. Labs revealed WBC of 10.5, K+ 3.2, BG ranging 278-395. Last Hgb A1C 7.8 on 11/29/22. Alk phos 129, procal 0.1. UA revealed 4+ protein, 2+ glucose, 3+ urine blood, 1+ leukocytes, > 100 urine RBC, >100 urine WBCs, 4+ bacteria, moderate squamous epithelial cells, 11-20 urine casts. She was given a dose of Rocephin in the ER. Case coordination was consulted for outpatient placement needs. On examination today patient is alert and oriented x3, lying in the bed VSS, she is afebrile, currently on room air. She denies any dysuria, abdominal pain, urgency, frequency. She also denies any fever, chills, nausea, vomiting, diarrhea, shortness of breath, chest pain. Labs today WBC 10.5, Na+ 3.2, BG ranging 281-470, liver enzymes are normal. Patient was given a 1 time dose of 10 units insulin subQ, anion gap is close. Adjustments
[2023-03-16] MEDS: SIMVASTATIN 10 MG TABLET PO (10:22)
[2023-03-16] MEDS: FUROSEMIDE 40 MG TABLET PO (10:22)
[2023-03-16] MEDS: THERAPEUTIC MULTIVITAMINS/MINERALS TAB (*BKC) 1 TABLET PO (10:22)
[2023-03-16 10:23] VITALS: BP 156/74; PULSE 91
[2023-03-16] MEDS: METOPROLOL TARTRATE 25 MG TABLET PO ×2 (10:23→17:36)
[2023-03-16] MEDS: lisinopriL 10 MG TABLET PO (10:23)
[2023-03-16] MEDS: DICLOFENAC SOD 25 MG TABLET.EC PO ×2 (10:29→20:32)
[2023-03-16 12:12] LABS: Glucose Point of Care 470 mg/dl (65-105)
[2023-03-16] MEDS: INSULIN ASPART (*BKC) 100 UNITS/ML 10 UNITS SUB-Q (12:51)
[2023-03-16 13:14] LABS: Anion Gap 8 mmol/L (8-16); Blood Urea Nitrogen 19 mg/dL (7-17); Calcium 8.7 mg/dL (8.4-10.2); Carbon Dioxide 24 mmol/L (22-30); Chloride 101 mmol/L (98-107); Estimated CRCL calculation 48 ml/min; Estimated Glomerular Filt Rate > 60; Glucose 379 mg/dL (65-110); Potassium 3.9 mmol/L (3.4-5.0); Sodium 133 mmol/L (137-145)
[2023-03-16 14:00] VITALS: BP 105/58; PULSE 74; RESP 15; TEMP 36.7; O2SAT 95
[2023-03-16 14:11] LABS: Hemoglobin A1C 8.5 % (<5.7)
[2023-03-16 17:09] LABS: Glucose Point of Care 189 mg/dl (65-105)
[2023-03-16 17:36] VITALS: PULSE 72
[2023-03-16 20:07] VITALS: BP 134/64; PULSE 74; RESP 16; TEMP 36.4; O2SAT 93
[2023-03-16 21:21] LABS: Glucose Point of Care 273 mg/dl (65-105)
[2023-03-17 05:15] VITALS: BP 133/64; PULSE 72; RESP 18; TEMP 36.8; O2SAT 96
[2023-03-17 08:12] LABS: Glucose Point of Care 279 mg/dl (65-105)
[2023-03-17] MEDS: THERAPEUTIC MULTIVITAMINS/MINERALS TAB (*BKC) 1 TABLET PO (08:22)
[2023-03-17] MEDS: APIXABAN 5 MG TABLET PO ×2 (08:22→20:18)
[2023-03-17 08:23] VITALS: PULSE 73
[2023-03-17] MEDS: SIMVASTATIN 10 MG TABLET PO (08:23)
[2023-03-17] MEDS: lisinopriL 10 MG TABLET PO (08:23)
[2023-03-17] MEDS: METOPROLOL TARTRATE 25 MG TABLET PO ×2 (08:23→17:21)
[2023-03-17] MEDS: CHOLECALCIFEROL 1,000 UNITS TABLET 1000 UNITS PO (08:23)
[2023-03-17] MEDS: FUROSEMIDE 40 MG TABLET PO (08:23)
[2023-03-17] MEDS: ASPIRIN 81 MG ENTERIC TABLET PO (08:23)
[2023-03-17] MEDS: DICLOFENAC SOD 25 MG TABLET.EC PO ×2 (08:23→20:18)
[2023-03-17 08:24] VITALS: BP 179/63; PULSE 73
--- NOTE | 2023-03-17 08:59 | P.PNIM_ITS ---
Progress Note: A&P Assessment and Plan (1) Fall at home: Code(s): W19.XXXA - Unspecified fall, initial encounter; Y92.009 - Unspecified place in unspecified non-institutional (private) residence as the place of occurrence of the external cause Status: Acute Assessment and Plan: 03/16/23: * Patient had a ground level fall out of bed, found her the next morning on the floor. She denies any LOC * X-ray of scapula, hip/pelvis, tib/fib, and ankle are all negative for acute fracture. * Head CT was negative for any acute intracranial process, shown old infarcts and age related changes. * Lumbar spine shown unchanged chronic L1 burst fracture. * PT and OT ordered to evaluate and treat * Care coordination consultation. 03/17/23: * (2) Leukocytosis: Code(s): D72.829 - Elevated white blood cell count, unspecified Status: Acute Assessment and Plan: 03/16/23: * WBC slightly bumped to 10.5 * Will continue to monitor. * UA showing 4+ protein, 2+ glucose, 3+ blood,1+ leukocytes, >100 urine rbc's, > 100 urine WBC's, moderate squamous epith. cells, 4+ bacteria. * Urine and blood cultures obtained and are pending. * Patient received 1 dose ofr IV Rocephin in the ER. 03/17/23: * (3) History of CVA (cerebrovascular accident): Code(s): Z86.73 - Personal history of transient ischemic attack (TIA), and cerebral infarction without residual deficits Status: Acute Assessment and Plan: 03/16/23: * continue ASA 03/17/23: * (4) Paroxysmal atrial fibrillation with RVR: Code(s): I48.0 - Paroxysmal atrial fibrillation Status: Acute Assessment and Plan: 03/16/23: * Continue Eliquis and Metoprolol 03/17/23: * (5) Hyperlipidemia: Qualifiers: Hyperlipidemia type: mixed hyperlipidemia Qualified Code(s): E78.2 - Mixed hyperlipidemia Code(s): E78.5 - Hyperlipidemia, unspecified Status: Acute Assessment and Plan: 03/16/23: * Continue simvastatin 03/17/23: * (6) HTN (hypertension): Qualifiers: Hypertension type: essential hypertension Qualified Code(s): I10 - Essential (primary) hypertension Code(s): I10 - Essential (primary) hypertension Status: Acute Assessment and Plan: 03/16/23: * B/P ranging 175/76-186/75 * Continue Lisinopril 03/17/23: * (7) Tobacco abuse: Code(s): Z72.0 - Tobacco use Status: Acute Assessment and Plan: 03/16/23: * of note Time Spent With Patient Time with patient: 25 - 35 minutes Subjective Date/time seen: 03/17/23 08:59 Interval history: 03/16/23: This is a 72 year old female who presented to the hospital on 03/15/23 for evaluation after a fall. Patient was trying to get up out of the bed and slide onto the floor. found her in the morning. She reported right leg pain. She is wanting permanent placement. Work up in the hospital includes Head CT which was negative for any acute changes, old infarcts and age related changes noted. Lumbar spine CT shown L1 burst fracture. CXR shown transverse lucency in the left scapula, ? fracture. Scapular x-ray was negative for fracture. Ankle, tib/fib, and hip/pelvis x-ray was negative for fracture as well. Labs revealed WBC of 10.5, K+ 3.2, BG ranging 278-395. Last Hgb A1C 7.8 on 11/29/22. Alk phos 129, procal 0.1. UA revealed 4+ protein, 2+ glucose, 3+ urine blood, 1+ leukocytes, > 100 urine RBC, >100 urine WBCs, 4+ bacteria, moderate squamous epithelial cells, 11-20 u
--- NOTE | 2023-03-17 08:59 | PM.IMPN ---
Progress Note: A&P Assessment and Plan (1) Fall at home: Code(s): W19.XXXA - Unspecified fall, initial encounter; Y92.009 - Unspecified place in unspecified non-institutional (private) residence as the place of occurrence of the external cause Status: Acute Assessment and Plan: 03/16/23: Patient had a ground level fall out of bed, found her the next morning on the floor. She denies any LOC X-ray of scapula, hip/pelvis, tib/fib, and ankle are all negative for acute fracture. Head CT was negative for any acute intracranial process, shown old infarcts and age related changes. Lumbar spine shown unchanged chronic L1 burst fracture. PT and OT ordered to evaluate and treat Care coordination consultation. 03/17/23: (2) Leukocytosis: Code(s): D72.829 - Elevated white blood cell count, unspecified Status: Acute Assessment and Plan: 03/16/23: WBC slightly bumped to 10.5 Will continue to monitor. UA showing 4+ protein, 2+ glucose, 3+ blood,1+ leukocytes, >100 urine rbc's, > 100 urine WBC's, moderate squamous epith. cells, 4+ bacteria. Urine and blood cultures obtained and are pending. Patient received 1 dose ofr IV Rocephin in the ER. 03/17/23: (3) History of CVA (cerebrovascular accident): Code(s): Z86.73 - Personal history of transient ischemic attack (TIA), and cerebral infarction without residual deficits Status: Acute Assessment and Plan: 03/16/23: continue ASA 03/17/23: (4) Paroxysmal atrial fibrillation with RVR: Code(s): I48.0 - Paroxysmal atrial fibrillation Status: Acute Assessment and Plan: 03/16/23: Continue Eliquis and Metoprolol 03/17/23: (5) Hyperlipidemia: Qualifiers: Hyperlipidemia type: mixed hyperlipidemia Qualified Code(s): E78.2 - Mixed hyperlipidemia Code(s): E78.5 - Hyperlipidemia, unspecified Status: Acute Assessment and Plan: 03/16/23: Continue simvastatin 03/17/23: (6) HTN (hypertension): Qualifiers: Hypertension type: essential hypertension Qualified Code(s): I10 - Essential (primary) hypertension Code(s): I10 - Essential (primary) hypertension Status: Acute Assessment and Plan: 03/16/23: B/P ranging 175/76-186/75 Continue Lisinopril 03/17/23: (7) Tobacco abuse: Code(s): Z72.0 - Tobacco use Status: Acute Assessment and Plan: 03/16/23: of note Time Spent With Patient Time with patient: 25 - 35 minutes Subjective Date/time seen: 03/17/23 08:59 Interval history: 03/16/23: This is a 72 year old female who presented to the hospital on 03/15/23 for evaluation after a fall. Patient was trying to get up out of the bed and slide onto the floor. found her in the morning. She reported right leg pain. She is wanting permanent placement. Work up in the hospital includes Head CT which was negative for any acute changes, old infarcts and age related changes noted. Lumbar spine CT shown L1 burst fracture. CXR shown transverse lucency in the left scapula, ? fracture. Scapular x-ray was negative for fracture. Ankle, tib/fib, and hip/pelvis x-ray was negative for fracture as well. Labs revealed WBC of 10.5, K+ 3.2, BG ranging 278-395. Last Hgb A1C 7.8 on 11/29/22. Alk phos 129, procal 0.1. UA revealed 4+ protein, 2+ glucose, 3+ urine blood, 1+ leukocytes, > 100 urine RBC, >100 urine WBCs, 4+ bacteria, moderate squamous epithelial cells, 11-20 urine casts. She was given a dose of Rocephin in the ER. Case coordination was consulted for outpatient placement needs. On examination today patient is alert and oriented x3, lying in the bed VSS, she is afebrile, currently on room air. She denies any dysuria, abdominal pain, urgency, frequency. She also denies any fever, chills, nausea, vomiting, diarrhea, shortness of breath, chest pain. Labs today WBC 10.5, Na+ 3.2, BG ranging 281-470, liver enzymes are
[2023-03-17] MEDS: INSULIN ASPART (*BKC) 100 UNITS/ML SUB-Q ×4 (09:23→20:18)
[2023-03-17 10:10] LABS: Basophils Absolute Auto 0.1 K/mm3 (0.0-0.1); Eosinophils Absolute Auto 0.7 K/mm3 (0-0.3); Eosinophils Percent Auto 6.9 % (0-4.4); Hematocrit 40.4 % (37.0-47.0); Hemoglobin 12.6 g/dL (12.0-15.0); Immature Granulocyte Absolute 0.05 K/mm3 (0.00-0.031); Immature Granulocyte Percent A 0.5 % (0-0.5); Lymphocytes Absolute Auto 2.38 K/mm3 (0.9-3.2); Lymphocytes Percent Auto 23.4 % (18.3-44.2); Mean Corpuscular HGB Conc 31.2 g/dl (32-36); Mean Corpuscular Hemoglobin 29.2 pg (26-34); Mean Corpuscular Volume 93.5 fl (80-100); Mean Platelet Volume 12.2 fl (7.4-10.4); Monocytes Absolute Auto 0.6 K/mm3 (0.1-0.6); Monocytes Percent Auto 5.5 % (2.6-8.5); Neutrophils Absolute Auto 6.4 K/mm3 (1.3-6.7); Neutrophils Percent Auto 62.7 % (45.5-73.1); Platelet Count Result 257 k/mm3 (150-375); Red Blood Count 4.32 M/mm3 (4.2-5.4); Red Cell Distribution Width 13.9 % (11.5-14.5); White Blood Count 10.2 K/mm3 (4.5-10.0)
[2023-03-17 10:20] LABS: Alanine Aminotransferase 22 U/L (6-35); Albumin Level 3.3 g/dL (3.5-5.1); Alkaline Phosphatase 141 U/L (38-126); Anion Gap 9 mmol/L (8-16); Aspartate Amino Transferase 37 U/L (14-36); Bilirubin,Total 0.5 mg/dL (0.2-1.3); Blood Urea Nitrogen 29 mg/dL (7-17); Calcium 9.1 mg/dL (8.4-10.2); Carbon Dioxide 24 mmol/L (22-30); Chloride 102 mmol/L (98-107); Estimated CRCL calculation 39 ml/min; Estimated Glomerular Filt Rate 54; Glucose 366 mg/dL (65-110); Potassium 3.8 mmol/L (3.4-5.0); Sodium 135 mmol/L (137-145)
[2023-03-17 12:09] LABS: Glucose Point of Care 352 mg/dl (65-105)
--- NOTE | 2023-03-17 12:44 | PM.DS ---
DS: Admitting Diagnosis Discharge Date 03/17/23 Admitting Diagnosis Fall at home leukocytosis history of CVA tobacco abuse DS: Discharge Diagnosis Discharge Diagnosis (1) Fall at home: Code(s): W19.XXXA - Unspecified fall, initial encounter; Y92.009 - Unspecified place in unspecified non-institutional (private) residence as the place of occurrence of the external cause Status: Acute (2) Leukocytosis: Code(s): D72.829 - Elevated white blood cell count, unspecified Status: Acute (3) History of CVA (cerebrovascular accident): Code(s): Z86.73 - Personal history of transient ischemic attack (TIA), and cerebral infarction without residual deficits Status: Acute (4) Paroxysmal atrial fibrillation with RVR: Code(s): I48.0 - Paroxysmal atrial fibrillation Status: Acute (5) Hyperlipidemia: Qualifiers: Hyperlipidemia type: mixed hyperlipidemia Qualified Code(s): E78.2 - Mixed hyperlipidemia Code(s): E78.5 - Hyperlipidemia, unspecified Status: Acute (6) HTN (hypertension): Qualifiers: Hypertension type: essential hypertension Qualified Code(s): I10 - Essential (primary) hypertension Code(s): I10 - Essential (primary) hypertension Status: Acute (7) Tobacco abuse: Code(s): Z72.0 - Tobacco use Status: Acute DS: Summary Hospital Course Reason for hospitalization: fall at home weakness Hospital Course: This is a 72 year old female who presented to the hospital on 03/15/23 for evaluation after a fall. Patient was trying to get up out of the bed and slide onto the floor. found her in the morning. She reported right leg pain. She is wanting permanent placement. Work up in the hospital includes Head CT which was negative for any acute changes, old infarcts and age related changes noted. Lumbar spine CT shown L1 burst fracture. CXR shown transverse lucency in the left scapula, ? fracture. Scapular x-ray was negative for fracture. Ankle, tib/fib, and hip/pelvis x-ray was negative for fracture as well. UA revealed 4+ protein, 2+ glucose, 3+ urine blood, 1+ leukocytes, > 100 urine RBC, >100 urine WBCs, 4+ bacteria, moderate squamous epithelial cells, 11-20 urine casts. She was given a dose of Rocephin in the ER. Patient is asymptomatic for UTI. UC showing Klebsiella pneumoniae on preliminary with greater than 100,000 CFU's, however this is likely colonization considering she is not symptomatic, we are not treating at this time. PT and OT consulted. Case coordination was consulted for outpatient placement needs and arranged for SNF placement. Labs unremarkable. VSS, she is afebrile, she is currently on room air. Patient is stable for discharge at this time. She will need to follow up with PCP in 1 week. Final diagnosis: Fall, generalized weakness Status at Discharge Cognitive/behavioral status at discharge: Alert and oriented x3 Functional status at discharge: independent ambulation Overall status at discharge: patient is progressing back to baseline Time Spent with Patient Time attestation: Total time spent providing and/or coordinating discharge services: Time spent: Greater than 30 minutes Exam Narrative: General: In no acute distress, well nourished Head: atraumatic, no encephalopathy Eyes: EOMI, PERRLA, sclera clear ENT: moist mucous membranes, nasal passages clear Neck: supple, no JVD, no adenopathy, trachea midline Cardiac: Normal S1 and S2. No murmur, gallops or friction rubs, peripheral pulses intact. Respiratory: Lungs clear to auscultation, no adventitious lung sounds Gastrointestinal: soft, non-distended, non-tender, normoactive bowel sounds. : voiding without difficulty. Extremities: moves all extremities well, no edema Skin: clean, dry, intact. No wounds or lesions. Neuro: Alert and oriented x4, cranial nerves intact, no neuro deficits. Psych: normal mood, normal affect, interactive DS: Data Data Co
[2023-03-17 14:00] VITALS: BP 108/55; PULSE 75; RESP 18; TEMP 36.5; O2SAT 91
[2023-03-17 17:18] LABS: Glucose Point of Care 215 mg/dl (65-105)
[2023-03-17 17:21] VITALS: PULSE 75
[2023-03-17 19:59] VITALS: BP 146/56; PULSE 65; RESP 18; TEMP 36.2; O2SAT 94
[2023-03-17 20:30] LABS: Glucose Point of Care 236 mg/dl (65-105)
[2023-03-18 04:06] VITALS: BP 186/75; PULSE 72; RESP 18; TEMP 36.1; O2SAT 90
[2023-03-18 06:27] LABS: Basophils Absolute Auto 0.1 K/mm3 (0.0-0.1); Basophils Percent Auto 0.9 % (0.2-1.2); Eosinophils Absolute Auto 0.8 K/mm3 (0-0.3); Eosinophils Percent Auto 9.5 % (0-4.4); Hematocrit 35.9 % (37.0-47.0); Hemoglobin 11.3 g/dL (12.0-15.0); Immature Granulocyte Absolute 0.03 K/mm3 (0.00-0.031); Immature Granulocyte Percent A 0.4 % (0-0.5); Lymphocytes Absolute Auto 2.16 K/mm3 (0.9-3.2); Lymphocytes Percent Auto 26.6 % (18.3-44.2); Mean Corpuscular HGB Conc 31.5 g/dl (32-36); Mean Corpuscular Hemoglobin 29.1 pg (26-34); Mean Corpuscular Volume 92.5 fl (80-100); Mean Platelet Volume 12.3 fl (7.4-10.4); Monocytes Absolute Auto 0.5 K/mm3 (0.1-0.6); Monocytes Percent Auto 6.3 % (2.6-8.5); Neutrophils Absolute Auto 4.6 K/mm3 (1.3-6.7); Neutrophils Percent Auto 56.3 % (45.5-73.1); Platelet Count Result 209 k/mm3 (150-375); Red Blood Count 3.88 M/mm3 (4.2-5.4); Red Cell Distribution Width 13.7 % (11.5-14.5); White Blood Count 8.1 K/mm3 (4.5-10.0)
[2023-03-18 06:36] LABS: Alanine Aminotransferase 20 U/L (6-35); Alkaline Phosphatase 127 U/L (38-126); Anion Gap 5 mmol/L (8-16); Aspartate Amino Transferase 25 U/L (14-36); Bilirubin,Total 0.4 mg/dL (0.2-1.3); Blood Urea Nitrogen 28 mg/dL (7-17); Carbon Dioxide 29 mmol/L (22-30); Chloride 102 mmol/L (98-107); Estimated CRCL calculation 48 ml/min; Estimated Glomerular Filt Rate > 60; Glucose 249 mg/dL (65-110); Potassium 3.4 mmol/L (3.4-5.0); Sodium 136 mmol/L (137-145)
[2023-03-18 07:50] LABS: Glucose Point of Care 248 mg/dl (65-105)
[2023-03-18 08:48] VITALS: PULSE 78
[2023-03-18] MEDS: APIXABAN 5 MG TABLET PO (08:48)
[2023-03-18] MEDS: FUROSEMIDE 40 MG TABLET PO (08:48)
[2023-03-18] MEDS: CHOLECALCIFEROL 1,000 UNITS TABLET 1000 UNITS PO (08:48)
[2023-03-18] MEDS: lisinopriL 10 MG TABLET PO (08:48)
[2023-03-18] MEDS: ASPIRIN 81 MG ENTERIC TABLET PO (08:48)
[2023-03-18] MEDS: METOPROLOL TARTRATE 25 MG TABLET PO (08:48)
[2023-03-18] MEDS: THERAPEUTIC MULTIVITAMINS/MINERALS TAB (*BKC) 1 TABLET PO (08:49)
[2023-03-18] MEDS: SIMVASTATIN 10 MG TABLET PO (08:49)
[2023-03-18] MEDS: DICLOFENAC SOD 25 MG TABLET.EC PO (08:50)
[2023-03-18] MEDS: INSULIN ASPART (*BKC) 100 UNITS/ML SUB-Q ×2 (08:55→12:56)
[2023-03-18 11:28] LABS: Glucose Point of Care 338 mg/dl (65-105)
--- NOTE | 2023-03-18 12:49 | PM.DS ---
DS: Admitting Diagnosis Discharge Date 03/18/23 Admitting Diagnosis Fall at home leukocytosis history of CVA tobacco abuse DS: Discharge Diagnosis Discharge Diagnosis (1) Fall at home: Code(s): W19.XXXA - Unspecified fall, initial encounter; Y92.009 - Unspecified place in unspecified non-institutional (private) residence as the place of occurrence of the external cause Status: Acute (2) Leukocytosis: Code(s): D72.829 - Elevated white blood cell count, unspecified Status: Acute (3) History of CVA (cerebrovascular accident): Code(s): Z86.73 - Personal history of transient ischemic attack (TIA), and cerebral infarction without residual deficits Status: Acute (4) Paroxysmal atrial fibrillation with RVR: Code(s): I48.0 - Paroxysmal atrial fibrillation Status: Acute (5) Hyperlipidemia: Qualifiers: Hyperlipidemia type: mixed hyperlipidemia Qualified Code(s): E78.2 - Mixed hyperlipidemia Code(s): E78.5 - Hyperlipidemia, unspecified Status: Acute (6) HTN (hypertension): Qualifiers: Hypertension type: essential hypertension Qualified Code(s): I10 - Essential (primary) hypertension Code(s): I10 - Essential (primary) hypertension Status: Acute (7) Tobacco abuse: Code(s): Z72.0 - Tobacco use Status: Acute DS: Summary Hospital Course Reason for hospitalization: fall at home weakness Hospital Course: This is a 72 year old female who presented to the hospital on 03/15/23 for evaluation after a fall. Patient was trying to get up out of the bed and slide onto the floor. found her in the morning. She reported right leg pain. She is wanting permanent placement. Work up in the hospital includes Head CT which was negative for any acute changes, old infarcts and age related changes noted. Lumbar spine CT shown L1 burst fracture. CXR shown transverse lucency in the left scapula, ? fracture. Scapular x-ray was negative for fracture. Ankle, tib/fib, and hip/pelvis x-ray was negative for fracture as well. UA revealed 4+ protein, 2+ glucose, 3+ urine blood, 1+ leukocytes, > 100 urine RBC, >100 urine WBCs, 4+ bacteria, moderate squamous epithelial cells, 11-20 urine casts. She was given a dose of Rocephin in the ER. Patient is asymptomatic for UTI. UC showing Klebsiella pneumoniae on preliminary with greater than 100,000 CFU's, however this is likely colonization considering she is not symptomatic, we are not treating at this time. PT and OT consulted.? Case coordination was consulted for outpatient placement needs and arranged for SNF placement. Labs unremarkable. VSS, she is afebrile, she is currently on room air. Patient is stable for discharge at this time. She will need to follow up with PCP in 1 week. Status at Discharge Cognitive/behavioral status at discharge: Alert and oriented x3 Functional status at discharge: uses cane/walker Overall status at discharge: patient is progressing back to baseline Time Spent with Patient Time attestation: Total time spent providing and/or coordinating discharge services: Time spent: Greater than 30 minutes Exam Narrative: General: In no acute distress, well nourished Head: atraumatic, no encephalopathy Eyes: EOMI, PERRLA, sclera clear ENT: moist mucous membranes, nasal passages clear Neck: supple, no JVD, no adenopathy, trachea midline Cardiac: Normal S1 and S2. No murmur, gallops or friction rubs, peripheral pulses intact. Respiratory: Lungs clear to auscultation, no adventitious lung sounds Gastrointestinal: soft, non-distended, non-tender, normoactive bowel sounds. : voiding without difficulty. Extremities: moves all extremities well, no edema Skin: clean, dry, intact. No wounds or lesions. Neuro: Alert and oriented x4, cranial nerves intact, no neuro deficits. Psych: normal mood, normal affect, interactive DS: Data Data Completed and Pending Completed studies during hospita
[2023-03-18 13:53] VITALS: BP 124/74; PULSE 73; RESP 16; TEMP 35.9; O2SAT 97
== END 2023-03-18 16:11 ==
LOC: ANHED 12:30 → ANH2MED 22:21
PROVIDERS: Nurse Practitioner Acute Care; Admitting Provider General Practice; Emergency Provider General Practice; PCP Emergency Medicine; Visit Provider Student in an Organized Health Care Education/Training Program
DX: M62.81 Muscle weakness (generalized) (principal); M79.604 Pain in right leg; W06.XXXA Fall from bed, initial encounter; Y92.003 Bedroom of unspecified non-institutional (private) residence as the place of occurrence of the external cause; I48.0 Paroxysmal atrial fibrillation; J44.9 Chronic obstructive pulmonary disease, unspecified; R29.6 Repeated falls; D72.829 Elevated white blood cell count, unspecified; R94.31 Abnormal electrocardiogram [ECG] [EKG]; M47.816 Spondylosis without myelopathy or radiculopathy, lumbar region; M41.86 Other forms of scoliosis, lumbar region; F01.50 Vascular dementia, unspecified severity, without behavioral disturbance, psychotic disturbance, mood disturbance, and anxiety; E11.21 Type 2 diabetes mellitus with diabetic nephropathy; E11.40 Type 2 diabetes mellitus with diabetic neuropathy, unspecified; I11.9 Hypertensive heart disease without heart failure; E11.51 Type 2 diabetes mellitus with diabetic peripheral angiopathy without gangrene; E78.2 Mixed hyperlipidemia; E55.9 Vitamin D deficiency, unspecified; F17.210 Nicotine dependence, cigarettes, uncomplicated; Z79.01 Long term (current) use of anticoagulants; Z79.1 Long term (current) use of non-steroidal anti-inflammatories (NSAID); Z79.82 Long term (current) use of aspirin; Z79.84 Long term (current) use of oral hypoglycemic drugs; Z79.899 Other long term (current) drug therapy; Z86.73 Personal history of transient ischemic attack (TIA), and cerebral infarction without residual deficits
CPT/HCPCS: 36415; 70450; 71045; 72131; 73010; 73502; 73590; 73610; 80048; 80053; 81001; 82550; 82948; 83036; 83735; 84145; 85025; 85610; 85730; 87077; 87086; 87186; 93005; 96361; 96365; 97161; 97165; 97530; 97535; 99285; A9270; G0378; J0696; J1815; J7030